=== PATIENT | female | born 1965 | race Caucasian/White ===

== ENCOUNTER → 2020-04-24 17:18 | Outpatient (CLI) | payer OTHER, SELFPAY ==
[2020-04-24 18:17] LABS: Alanine Aminotransferase 34 U/L (12-78); Albumin Level 4.7 g/dl (3.5-5.0); Albumin/Globulin Ratio 1.3 (1.1-1.8); Alkaline Phosphatase 149 U/L (38-126); Anion Gap 19.3 mEq/L (5-15); Aspartate Amino Transferase 61 U/L (14-36); Bilirubin,Direct 0.3 mg/dl (0.0-0.4); Bilirubin,Indirect 0.3 mg/dL (0.0-0.9); Bilirubin,Total 0.6 mg/dl (0.2-1.3); Bilirubin,Unconjugated 0.3 mg/dL (0.0-1.1); Blood Urea Nitrogen 20 mg/dl (7-17); Calcium 10.7 mg/dl (8.4-10.2); Carbon Dioxide 24 mmol/L (22.0-30.0); Chloride 101 mmol/L (98-107); Estimated Glomerular Filt Rate 65 ml/min (>60); GFR (African American) 79 ML/MIN (>60); Globulin 3.6 g/dL (1.3-3.2); Glucose 156 mg/dl (74-100); Potassium 4.3 mmoL/L (3.5-5.1); Sodium 140 mmol/L (136-145); Total Protein,Serum 8.3 g/dl (6.3-8.2)
[2020-04-26 11:34] LABS: Hep A Ab, IgM Negative (Negative); Hep A Ab, Total Positive (Negative); Hep B Core Ab, Total Negative (Negative)
[2020-04-27 12:30] LABS: Hep B Surface Ab, Qual Non Reactive (.); Hepatitis C Antibody 0.2 s/co ratio (0.0-0.9)
== END ==
PROVIDERS: Visit Provider Family Medicine
DX: E11.9 Type 2 diabetes mellitus without complications (principal); Z79.4 Long term (current) use of insulin
CPT/HCPCS: 80053; 80076; 83036; 86704; 86706; 86708; 87380

== ENCOUNTER → 2020-07-16 10:05 | Outpatient (CLI) | payer OTHER, SELFPAY ==
--- NOTE | 2020-07-16 10:07 | CA_ITS ---
APPROVED REPORT EXAM: Comprehensive 2D, Doppler, and color-flow Echocardiogram Wash Driller: Bonnie Kang RDCS Ht: 5 ft 5 in Wt: 216lbs BSA: 2.04 BP: 188/84 mmHg Indications: pre op eval,h/o chf,tia,htn,dm 2D Dimensions LVOT 1.61 cm (M/F) 1.5-2.5 M-Mode Dimensions RVDd 2.93 cm (0.9-2.6) LA Diam 3.88 cm (1.9-4.0) LVDd 4.55 cm (3.5-5.7) Ao Diam 3.24 cm (2.0-3.7) LVDs 2.59 cm (3.5-5.7) IVSd 0.00 cm (0.6-1.1) PWd 1.06 cm (0.6-1.1) EF (Teich) 74.30% FS 43.10% EDV (Teich) 94.90 mL ESV (Teich) 24.40 mL LV Diastology E Decel Time 283.00 (160-240 msec) E/A Ratio 0.8 MED E' 4.70 (< 7 cm/sec) E'/MED E' Ratio 15.15 (>14) LAT E' 6.60 (<10 cm/sec) E/LAT E' Ratio 10.79 (>14) Mitral Valve MV E Max Luke. 71.00 (40-130 cm/s) MV A Velocity 86.00 (40-130 cm/s) E/A Ratio 0.83 MV Decel. Time 283.00 (160-240 ms) MV PHT 83.00 ms Left Ventricle Left atrium is mildly enlarged, left ventricle is normal size, mild concentric left ventricular hypertrophy, visually estimated ejection fraction 55% with no regional wall motion abnormality, grade 1 diastolic dysfunction seen with tissue Doppler evidence of raise left atrial pressure. Right Ventricle Right atrium and right ventricle are mildly enlarged with normal contractility. Aortic Valve Aortic valve is minimally thickened and fibrosed, there is no aortic stenosis or aortic insufficiency. Mitral Valve Mitral valve is grossly normal, there is mild mitral regurgitation. Tricuspid Valve Tricuspid valve grossly normal, there is mild tricuspid regurgitation, tricuspid regurgitation jet velocity is inadequate for calculation of the right ventricular systolic pressure. Pulmonic Valve Pulmonic valve is poorly visualized. Great Vessels Aortic root is normal size. Pericardium No significant pericardial effusion noted. Conclusion 1. Mild biatrial enlargement, normal left ventricular size, mild concentric left ventricular hypertrophy, visually estimated ejection fraction 55% with no regional wall motion abnormality, grade 1 diastolic dysfunction seen with tissue Doppler evidence of raise left atrial pressure. 2. Mildly enlarged right ventricle with normal contractility 3. Mild mitral and tricuspid regurgitation. 4. No significant pericardial effusion noted. Electronically signed by : Alexy aVsquez, 07/16/2020 20:16:58
== END ==
PROVIDERS: PCP Family Medicine; Visit Provider Urology
DX: Z01.810 Encounter for preprocedural cardiovascular examination (principal); I11.9 Hypertensive heart disease without heart failure; I50.32 Chronic diastolic (congestive) heart failure
CPT/HCPCS: 93306

== ENCOUNTER → 2020-09-06 18:09 | Outpatient (CLI) | payer OTHER, SELFPAY ==
[2020-09-06 18:40] LABS: Basophils # 0.1 K/mm3 (0-0.2); Basophils % 0.7 % (0.1-2.0); Eosinophils # 0.3 K/mm3 (0.0-0.4); Eosinophils % 2.5 % (0.1-12.0); Hematocrit 47.8 % (37.0-47.0); Hemoglobin 14.7 g/dL (12.2-16.2); Lymphocytes # 3.5 K/mm3 (0.7-4.5); Lymphocytes % 29.5 % (10-50); Mean Corpuscular HGB Conc 30.8 g/dL (31.8-35.4); Mean Corpuscular Hemoglobin 26.9 pg (27.0-31.2); Mean Corpuscular Volume 87.1 fl (81-99); Mean Platelet Volume 8.4 fl (7.4-10.4); Monocytes # 0.5 K/mm3 (0.1-1.0); Monocytes % 4.2 % (1.7-9.3); Neutrophils # 7.5 K/mm3 (1.8-7.8); Neutrophils % 63.2 % (37.0-80.0); Platelet Count 264 K/mm3 (142-424); Red Blood Count 5.49 M/mm3 (4.20-5.40); Red Cell Distribution Width 13.9 % (11.5-17.5); White Blood Count 11.8 K/mm3 (4.8-10.8)
[2020-09-06 18:41] LABS: Creatinine,Urine Random 213 mg/dL (Not Estab.)
[2020-09-06 19:06] LABS: Alanine Aminotransferase 30 U/L (12-78); Albumin Level 4.2 g/dl (3.5-5.0); Albumin/Globulin Ratio 1.3 (1.1-1.8); Alkaline Phosphatase 158 U/L (38-126); Anion Gap 13.3 mEq/L (5-15); Aspartate Amino Transferase 46 U/L (14-36); Bilirubin,Total 0.9 mg/dl (0.2-1.3); Blood Urea Nitrogen 14 mg/dl (7-17); Carbon Dioxide 29 mmol/L (22.0-30.0); Chloride 96 mmol/L (98-107); Chol/HDL Ratio 3.8 (1-3.5); Cholesterol 216 mg/dl (140-200); Estimated Glomerular Filt Rate 87 ml/min (>60); GFR (African American) 105 ML/MIN (>60); Globulin 3.3 g/dL (1.3-3.2); Glucose 304 mg/dl (74-100); HDL Cholesterol 57 mg/dl (40-60); Potassium 4.3 mmoL/L (3.5-5.1); Sodium 134 mmol/L (136-145); Total Protein,Serum 7.5 g/dl (6.3-8.2); Triglycerides 199 mg/dl (30-150); VLDL Cholesterol 40 mg/dL (0-40)
[2020-09-06 19:13] LABS: Microalbumin/Creatinine Ratio 110.3
[2020-09-06 19:16] LABS: Direct LDL Cholesterol 123.07 mg/dL (100-129)
[2020-09-06 19:22] LABS: T4 (Thyroxine) 10.9 ug/dl (5.53-11.0)
[2020-09-06 19:36] LABS: Thyroid Stimulating Hormone 1.36 uIU/mL (0.465-4.68)
[2020-09-06 20:35] LABS: Hemoglobin A1C 12.1 % (4.0-6.0)
== END ==
PROVIDERS: Visit Provider Family Medicine
DX: E11.9 Type 2 diabetes mellitus without complications (principal); N39.0 Urinary tract infection, site not specified; Z79.4 Long term (current) use of insulin
CPT/HCPCS: 80053; 80061; 82043; 82570; 83036; 84436; 84443; 85025; 87086

== ENCOUNTER 2020-10-25 11:39 | Emergency (ER) | payer OTHER, SELFPAY ==
[2020-10-25 11:40] VITALS: BP 180/77; PULSE 73; RESP 20; O2SAT 97; BMI 35.3
--- NOTE | 2020-10-25 11:42 | ECG_ITS ---
APPROVED REPORT Exam: Resting ECG HR:74 bpm ECG Measurements Heart Rate 74 AXES MN 146 P 53 QRSd 68 QRS 43 QT 404 T 57 QTc 448 Conclusion Normal sinus rhythm Normal ECG Electronically signed by : Duglas Person, 10/26/2020 18:49:05
--- NOTE | 2020-10-25 11:43 | HMH.EDGENADL ---
ED Disposition Clinical Impression: Atypical chest pain Disposition: Home, Self-Care Condition on Discharge: Good Instructions: DI for Atypical Chest Pain Additional Instructions: Dr. Rodriguez has called in a prescription for antibiotic, fill that prescription and take as directed. Follow-up with him in his office in 2 weeks. Additional instructions for CHEST PAIN: Return immediately if worsening chest pain, vomiting, shortness of breath, fever, coughing of blood. Referrals: Louis Rodriguez MD [Primary Care Provider] - - Critical Care Critical Care Time: No Attestation: On 10/25/20, the high probability of a clinically significant, sudden or life threatening deterioration of the following system(s) required my full and direct attention, intervention and personal management. The time I documented below is in addition to time spent performing reported procedures but includes the following listed in this critical care notation. Medical Decision Making - Medical Records Medical records reviewed: Yes: I reviewed the patient's medical records. MR Comment: Reviewed office visit Dr. Rodriguez today - Jono Inquiry Pt receiving controlled substance: No Vital Signs: 10/25/20 11:40 10/25/20 12:29 10/25/20 13:01 Pulse Rate [Left Radial] 73 71 72 Respiratory Rate 20 16 18 Blood Pressure [Right Arm] 180/77 H 133/76 117/72 Blood Pressure Mean [Right Arm] 111 95 87 Blood Pressure Source [Right Arm] Automatic Cuff Blood Pressure Position [Right Arm] Sitting 02 Sat by Pulse Oximetry 97 96 96 Oxygen Delivery Method Room Air - Lab Data Lab results reviewed: Yes: I reviewed the patient's lab results. Lab Results 10/25/20 11:40: WBC 14.6 H, RBC 6.37 H, Hgb 17.3 H, Hct 53.7 H, MCV 84.2, MCH 27.1, MCHC 32.2, RDW 14.8, Plt Count 291, MPV 7.5, Neut % (Auto) 61.1, Lymph % (Auto) 31.4, [place] % (Auto) 5.0, Eos % (Auto) 1.9, Baso % (Auto) 0.7, Neut # (Auto) 8.9 H, Lymph # (Auto) 4.6 H, [place] # (Auto) 0.7, Eos # (Auto) 0.3, Baso # (Auto) 0.1 10/25/20 11:40: Sodium 137, Potassium 4.2, Chloride 92 L, Carbon Dioxide 34 H, Anion Gap 15.2 H, BUN 18 H, Creatinine 0.90, Estimated Creat Clear 104, Estimated GFR 65, Est GFR ( Amer) 79, Glucose 283 H, Calcium 10.5 H, Troponin I < 0.01 10/25/20 11:40: SARS-CoV-2 IgG Ab (Rapid) Negative, SARS-CoV-2 IgM Ab (Rapid) Negative Result diagrams: 10/25/20 11:40 10/25/20 11:40 Orders (Tests/Meds): ED MEDICATIONS Discontinued Medications Generic Name Dose Route Start Last Admin Trade Name Freq PRN Reason Stop Dose Admin Diphenhydramine HCl 25 mg 10/25/20 13:02 10/25/20 13:33 Diphenhydramine 50mg/Ml Vial IV 10/25/20 13:03 25 mg ONCE ONE Administration Iopamidol 70 ml 10/25/20 13:50 10/25/20 13:51 Iopamidol-370 (76%);100ml Bottle IV 10/25/20 13:51 70 ml ONCE ONE Administration Methylprednisolone Sodium Succinate 125 mg 10/25/20 13:02 10/25/20 13:33 Methylprednisolone Sod Succ 125mg Vial IV 10/25/20 13:03 125 mg ONCE ONE Administration Sodium Chloride 10 ml 10/25/20 13:49 10/25/20 13:50 Sodium Chloride 0.9% 10ml Syr (Rad Only) IV 10/25/20 13:50 10 ml ONCE ONE Administration Sodium Chloride 50 ml 10/25/20 13:49 10/25/20 13:50 0.9 % Sodium Chloride 50 Ml Vial IV 10/25/20 13:50 50 ml ONCE ONE Administration - Radiology Data #1 Image(s): Chest Image Reviewed: Yes I reviewed the patient's radiology image Preliminary Findings: Normal/NAD - CT Data CT Scan: Chest (CTA) Time Received: 14:[address] Reviewed: Yes: I have viewed the radiologist's interpretation Findings Narrative: PROCEDURE: CT ANGIO CHEST CLINCIAL INDICATION: chest pain Chest pain and shortness of air COMPARISON: No exams were available for comparison TECHNIQUE: IV Contrast: 70ML Isovue 370 Axial images obtained with sagittal and coronal reformats. All CT scans at the facility use one or more dose reduction, viz: automated exposure cont
--- NOTE | 2020-10-25 11:50 | XR_ITS ---
PROCEDURE: XR CHEST 2V CLINICAL HISTORY: pain COMPARISON: No exams were available for comparison FINDINGS: The cardiomediastinal silhouette and pulmonary vascularity are within normal limits. There is a calcified granuloma in the right lower lobe. No lobar consolidation or collapse is evident. There is fusion of the left 2nd 3rd ribs posteriorly IMPRESSION: No acute findings. Dictated by: Ernesto Lynn MD 10/25/2020 13:07 Ernesto Lynn MD in [place] 10/25/2020 13:07
[2020-10-25 12:02] LABS: Basophils # 0.1 K/mm3 (0-0.2); Basophils % 0.7 % (0.1-2.0); Eosinophils # 0.3 K/mm3 (0.0-0.4); Eosinophils % 1.9 % (0.1-12.0); Hematocrit 53.7 % (37.0-47.0); Hemoglobin 17.3 g/dL (12.2-16.2); Lymphocytes # 4.6 K/mm3 (0.7-4.5); Lymphocytes % 31.4 % (10-50); Mean Corpuscular HGB Conc 32.2 g/dL (31.8-35.4); Mean Corpuscular Hemoglobin 27.1 pg (27.0-31.2); Mean Corpuscular Volume 84.2 fl (81-99); Mean Platelet Volume 7.5 fl (7.4-10.4); Monocytes # 0.7 K/mm3 (0.1-1.0); Neutrophils # 8.9 K/mm3 (1.8-7.8); Neutrophils % 61.1 % (37.0-80.0); Platelet Count 291 K/mm3 (142-424); Red Blood Count 6.37 M/mm3 (4.20-5.40); Red Cell Distribution Width 14.8 % (11.5-17.5); White Blood Count 14.6 K/mm3 (4.8-10.8)
[2020-10-25 12:06] LABS: Anion Gap 15.2 mEq/L (5-15); Blood Urea Nitrogen 18 mg/dl (7-17); Calcium 10.5 mg/dl (8.4-10.2); Carbon Dioxide 34 mmol/L (22.0-30.0); Chloride 92 mmol/L (98-107); Creatinine Clearance Estimated 104 mL/min (50-200); Estimated Glomerular Filt Rate 65 ml/min (>60); GFR (African American) 79 ML/MIN (>60); Glucose 283 mg/dl (74-100); Potassium 4.2 mmoL/L (3.5-5.1); Sodium 137 mmol/L (136-145)
[2020-10-25 12:19] LABS: Troponin I < 0.01 ng/ml (0.00-0.034)
[2020-10-25 12:26] LABS: Coronavirus 19 IgG Antibody Negative (Negative); Coronavirus 19 IgM Antibody Negative (Negative)
[2020-10-25 12:29] VITALS: BP 133/76; PULSE 71; RESP 16; O2SAT 96
--- NOTE | 2020-10-25 12:59 | PC.NURSE ---
Dr Rodriguez called to speak with Dr Bear
[2020-10-25 13:01] VITALS: BP 117/72; PULSE 72; RESP 18; O2SAT 96
--- NOTE | 2020-10-25 13:03 | CT_ITS ---
PROCEDURE: CT ANGIO CHEST CLINCIAL INDICATION: chest pain Chest pain and shortness of air COMPARISON: No exams were available for comparison TECHNIQUE: IV Contrast: 70ML Isovue 370 Axial images obtained with sagittal and coronal reformats. All CT scans at the facility use one or more dose reduction, viz: automated exposure control, ma/kV adjustment per patient size (including targeted exams where dose is matched to indication, i.e. head), or iterative reconstruction technique. FINDINGS: HEART AND MEDIASTINAL STRUCTURES: Unremarkable. LUNGS AND PLEURAL SPACES: There are mild atelectatic changes in the right middle lobe. Minimal atelectasis fibrosis is present in the left apex. There is a calcified granuloma in the left upper lobe. Minimal atelectasis or fibrosis noted in the left lung base. There is a noncalcified nodule in the extreme right lung base in the right lower lobe centrally measuring 4 mm image 74 series 3. BONY STRUCTURES: Degenerative changes are present in the thoracic spine UPPER ABDOMEN: There is some scarring involving the right kidney. ADDITIONAL FINDINGS: Thyroid gland is somewhat prominent. A 5 mm hypodense nodules present in the right lobe posteriorly. IMPRESSION: 1. No acute finding. No evidence of pulmonary embolus. 2. Nonacute findings as described above including atelectatic changes or fibrosis as well as a 4 mm noncalcified nodule in the right lower lobe. 6-12 month follow-up may be of further value. Dictated by: Ernesto Lynn MD 10/25/2020 14:10 Ernesto Lynn MD in [facility] 10/25/2020 14:10
[2020-10-25 14:40] VITALS: BP 117/72; PULSE 72; RESP 18; TEMP 36.7; O2SAT 96
== END 2020-10-25 14:41 | disposition home or self-care (01) ==
PROVIDERS: Emergency Provider Emergency Medicine; PCP Family Medicine
DX: R07.89 Other chest pain (principal); E11.65 Type 2 diabetes mellitus with hyperglycemia; K21.9 Gastro-esophageal reflux disease without esophagitis; I10 Essential (primary) hypertension; I50.9 Heart failure, unspecified; Z79.899 Other long term (current) drug therapy
CPT/HCPCS: 71046; 71275; 80048; 84484; 85025; 86328; 93005; 96375; 99283; Q9967

== ENCOUNTER → 2020-10-25 13:36 | Outpatient (CLI) | payer OTHER, SELFPAY | PROVIDERS: Visit Provider Family Medicine | DX: N19 Unspecified kidney failure (principal) | CPT/HCPCS: 87086; 87088 ==

== ENCOUNTER → 2020-11-20 14:26 | Outpatient (CLI) | payer OTHER, SELFPAY ==
--- NOTE | 2020-11-20 14:26 | CT_ITS ---
PROCEDURE: CT ABDOMEN PELVIS WO CON CLINICAL INDICATION: kidney stone Bilat pain x several weeks, Hx kidney stones Hematuria No prior COMPARISON: CT CT ANGIO CHEST from 10/25/2020 TECHNIQUE: Axial images obtained with sagittal and coronal reformats. All CT scans at the facility use one or more dose reduction, viz: automated exposure control, ma/kV adjustment per patient size (including targeted exams where dose is matched to indication, i.e. head), or iterative reconstruction technique. FINDINGS: LOWER THORAX: No acute finding ABDOMEN & PELVIS: Fatty liver. Prior cholecystectomy. The spleen, adrenal glands, and pancreas have an unremarkable appearance. There are bilateral renal calculi with a 3 mm stone in the lower pole on the right and an 8 mm stone in the upper pole on the left. A 4-5 mm hyperdense nodules present in the upper pole posteriorly on the right. Faint low-density changes in the lower pole on the left may be due to small cyst. No ureteral calculi. No hydronephrosis. No evidence of appendicitis. There is colonic diverticulosis but no evidence of diverticulitis. No intestinal obstruction or free air. There is a small umbilical hernia which contains fat. There are post hysterectomy changes. There is thickening of the urinary bladder wall which may in part be due to nondistention. There is a blastic lesion involving the ilium on the right inferiorly measuring 2.8 cm. No bony expansion or destruction. This lesion is well-circumscribed without soft tissue component IMPRESSION: 1. Nonobstructing bilateral nephrolithiasis. No ureteral calculi. 2. Hyperdense nodule in the upper pole of the right kidney nonspecific possibly due to small hyperdense cyst. 3. Possible small cyst lower pole on the left at 7 mm. 4. 2.8 cm blastic lesion of the right ilium. Bone island, infection, or neoplasm is a consideration. Total body bone scan with emphasis on the pelvis may provide further evaluation. Dictated by: Ernesto Lynn MD 11/21/2020 15:43 Ernesto Lynn MD in [facility] 11/21/2020 15:43
== END ==
PROVIDERS: PCP Family Medicine; Visit Provider Urology
DX: N20.0 Calculus of kidney (principal)
CPT/HCPCS: 74176

== ENCOUNTER → 2020-11-22 17:22 | Outpatient (CLI) | payer OTHER, SELFPAY ==
[2020-11-22 17:40] LABS: Basophils # 0.1 K/mm3 (0-0.2); Basophils % 0.7 % (0.1-2.0); Eosinophils # 0.3 K/mm3 (0.0-0.4); Eosinophils % 3.1 % (0.1-12.0); Hematocrit 50.9 % (37.0-47.0); Hemoglobin 15.7 g/dL (12.2-16.2); Lymphocytes # 3.7 K/mm3 (0.7-4.5); Lymphocytes % 34.3 % (10-50); Mean Corpuscular HGB Conc 30.9 g/dL (31.8-35.4); Mean Corpuscular Hemoglobin 27.2 pg (27.0-31.2); Mean Corpuscular Volume 88.1 fl (81-99); Mean Platelet Volume 8.8 fl (7.4-10.4); Monocytes # 0.5 K/mm3 (0.1-1.0); Monocytes % 4.6 % (1.7-9.3); Neutrophils # 6.2 K/mm3 (1.8-7.8); Neutrophils % 57.4 % (37.0-80.0); Platelet Count 272 K/mm3 (142-424); Red Blood Count 5.77 M/mm3 (4.20-5.40); Red Cell Distribution Width 14.8 % (11.5-17.5); White Blood Count 10.9 K/mm3 (4.8-10.8)
[2020-11-22 17:57] LABS: Alanine Aminotransferase 25 U/L (12-78); Albumin Level 4.6 g/dl (3.5-5.0); Albumin/Globulin Ratio 1.4 (1.1-1.8); Alkaline Phosphatase 184 U/L (38-126); Anion Gap 14.2 mEq/L (5-15); Aspartate Amino Transferase 39 U/L (14-36); Bilirubin,Total 0.9 mg/dl (0.2-1.3); Blood Urea Nitrogen 11 mg/dl (7-17); Calcium 10.4 mg/dl (8.4-10.2); Carbon Dioxide 30 mmol/L (22.0-30.0); Chloride 98 mmol/L (98-107); Estimated Glomerular Filt Rate 74 ml/min (>60); GFR (African American) 90 ML/MIN (>60); Globulin 3.4 g/dL (1.3-3.2); Glucose 338 mg/dl (74-100); Potassium 4.2 mmoL/L (3.5-5.1); Sodium 138 mmol/L (136-145)
== END ==
PROVIDERS: Visit Provider Family Medicine
DX: I50.9 Heart failure, unspecified (principal)
CPT/HCPCS: 80053; 85025

== ENCOUNTER 2020-12-04 11:39 | Emergency (ER) | payer OTHER, SELFPAY ==
[2020-12-04] VITALS (7 sets, daily range): BP systolic 184–227; BP diastolic 76–94; PULSE 54–88; RESP 18; TEMP 36.6–36.9; O2SAT 98–100; BMI 34.1
--- NOTE | 2020-12-04 12:13 | HMH.EDGENADL ---
ED Disposition Clinical Impression: Abdominal pain Qualifiers: Abdominal location: right upper quadrant Qualified Code(s): R10.11 - Right upper quadrant pain Disposition: Home, Self-Care Condition on Discharge: Fair Instructions: DI for Acute Abdominal Pain Additional Instructions: You have been evaluated for right watch and abdominal pain. No clear source. Please continue to take anti-inflammatories. Follow-up with your primary care physician as soon as available. Return to the emergency department for any new or worsening symptoms. Referrals: Louis Rodriguez MD [Primary Care Provider] - Time of Disposition: 16:33 - Critical Care Critical Care Time: No Attestation: On 12/04/20, the high probability of a clinically significant, sudden or life threatening deterioration of the following system(s) required my full and direct attention, intervention and personal management. The time I documented below is in addition to time spent performing reported procedures but includes the following listed in this critical care notation. Medical Decision Making - Medical Records Medical records reviewed: Yes: I reviewed the patient's medical records. - Jono Inquiry Pt receiving controlled substance: No Vital Signs: 12/04/20 11:54 12/04/20 12:08 12/04/20 14:12 Temperature 98.4 F Temperature Source Oral Pulse Rate [Left Radial] 62 59 L 56 L Respiratory Rate 18 Blood Pressure [Right Arm] 215/76 H 220/90 H 227/85 H Blood Pressure Mean [Right Arm] 122 133 132 Blood Pressure Source [Right Arm] Automatic Cuff Automatic Cuff Automatic Cuff Blood Pressure Position [Right Arm] Sitting Sitting Sitting 02 Sat by Pulse Oximetry 98 99 100 Oxygen Delivery Method Room Air Room Air Room Air 12/04/20 15:03 12/04/20 16:30 Temperature Temperature Source Pulse Rate [Left Radial] 54 L 88 Respiratory Rate 18 Blood Pressure [Right Arm] 206/84 H 187/85 H Blood Pressure Mean [Right Arm] 124 119 Blood Pressure Source [Right Arm] Automatic Cuff Blood Pressure Position [Right Arm] Sitting 02 Sat by Pulse Oximetry 98 98 Oxygen Delivery Method Room Air Room Air - Lab Data Lab Results 12/04/20 12:04: Urine Color Yellow, Urine Appearance Clear, Urine pH 6.0, Ur Specific [place] 1.025, Urine Protein Negative, Urine Glucose (UA) 2+, Urine Ketones Negative, Urine Blood Trace-i, Urine Nitrate Negative, Urine Bilirubin Negative, Urine Urobilinogen 0.2, Ur Leukocyte Esterase Trace, Urine RBC Occasional, Urine WBC 3-5, Ur Squamous Epith Cells 3-5, Urine Bacteria None 12/04/20 12:04: WBC 10.3, RBC 5.51 H, Hgb 15.0, Hct 47.4 H, MCV 86.1, MCH 27.2, MCHC 31.6 L, RDW 14.7, Plt Count 228, MPV 7.5, Neut % (Auto) 59.0, Lymph % (Auto) 33.7, [place] % (Auto) 4.0, Eos % (Auto) 2.4, Baso % (Auto) 0.9, Neut # (Auto) 6.1, Lymph # (Auto) 3.5, [place] # (Auto) 0.4, Eos # (Auto) 0.3, Baso # (Auto) 0.1 12/04/20 12:04: Sodium 137, Potassium 3.9, Chloride 100, Carbon Dioxide 29, Anion Gap 11.9, BUN 12, Creatinine 0.80, Estimated Creat Clear 115, Estimated GFR 74, Est GFR ( Amer) 90, Glucose 306 H, Calcium 10.2, Total Bilirubin 0.7, AST 34, ALT 26, Alkaline Phosphatase 155 H, Total Protein 8.0, Albumin 4.6, Globulin 3.4 H, Albumin/Globulin Ratio 1.4 12/04/20 12:04: PT 10.3, INR 0.86 L, APTT 25.8 12/04/20 12:04: Lipase 29 Result diagrams: 12/04/20 12:04 12/04/20 12:04 Orders (Tests/Meds): ED MEDICATIONS Generic Name Dose Route Start Last Admin Trade Name Freq PRN Reason Stop Dose Admin Sodium Chloride 10 ml 12/04/20 14:26 12/04/20 14:28 Sodium Chloride 0.9% 10ml Syr (Rad Only) IV 01/03/21 14:25 10 ml NEEDED PRN Administration Maintain IV Site Discontinued Medications Generic Name Dose Route Start Last Admin Trade Name Freq PRN Reason Stop Dose Admin Iopamidol 75 ml 12/04/20 14:26 12/04/20 14:28 Iopamidol-370 (76%);100ml Bottle IV 12/04/20 14:27 75 ml ONCE ONE Administration Ketorolac Tromethamine 15 mg 03/09/
--- NOTE | 2020-12-04 12:17 | US_ITS ---
PROCEDURE: US ABDOMEN LIMITED CLINICAL INDICATION: RUQ pain, hx of tracey, WALTERS COMPARISON: CT CT ABDOMEN PELVIS WO CON from 11/20/2020 FINDINGS: PANCREAS: Pancreas is not well delineated due to overlying bowel gas. CT or MRI without and with contrast with pancreatic protocol may provide further evaluation if clinically desired. LIVER: Diffuse increased echogenicity of the liver with poor through transmission of sound consistent with hepatic steatosis. No focal liver lesion demonstrated. There is appropriate direction of blood flow within non dilated portal vein. RIGHT KIDNEY: Cortical thinning. No hydronephrosis GALLBLADDER: Prior cholecystectomy. Common bile duct normal at 4 mm.. IMPRESSION: Cholecystectomy with fatty liver and poor visualization of the pancreas Dictated by: Ernesto Lynn MD 12/04/2020 13:07 Ernesto Lnyn MD in [facility] 12/04/2020 13:07
--- NOTE | 2020-12-04 12:18 | XR_ITS ---
PROCEDURE: XR CHEST 2V CLINICAL HISTORY: RUQ pain COMPARISON: CR XR CHEST 2V from 10/25/[address] ANGIO CHEST from 10/25/2020 FINDINGS: The cardiomediastinal silhouette and pulmonary vascularity are within normal limits. The lungs are clear without infiltrates, suspicious nodules, or pleural effusions. No acute bony abnormalities. IMPRESSION: No acute findings. Dictated by: Ernesto Lynn MD 12/04/2020 13:09 Ernesto Lynn MD in [facility] 12/04/2020 13:09
[2020-12-04 12:19] LABS: Microscopic, Urine URINE MICROSCOPIC (MICROSCOPIC)
[2020-12-04 12:24] LABS: Basophils # 0.1 K/mm3 (0-0.2); Basophils % 0.9 % (0.1-2.0); Eosinophils # 0.3 K/mm3 (0.0-0.4); Eosinophils % 2.4 % (0.1-12.0); Hematocrit 47.4 % (37.0-47.0); Lymphocytes # 3.5 K/mm3 (0.7-4.5); Lymphocytes % 33.7 % (10-50); Mean Corpuscular HGB Conc 31.6 g/dL (31.8-35.4); Mean Corpuscular Hemoglobin 27.2 pg (27.0-31.2); Mean Corpuscular Volume 86.1 fl (81-99); Mean Platelet Volume 7.5 fl (7.4-10.4); Monocytes # 0.4 K/mm3 (0.1-1.0); Neutrophils # 6.1 K/mm3 (1.8-7.8); Platelet Count 228 K/mm3 (142-424); Red Blood Count 5.51 M/mm3 (4.20-5.40); Red Cell Distribution Width 14.7 % (11.5-17.5); White Blood Count 10.3 K/mm3 (4.8-10.8)
[2020-12-04 12:38] LABS: Appearance,Urine CLEAR (Clear); Bilirubin,Urine Negative (Negative); Blood, Urine TRACE-I (Negative); Color,Urine YELLOW (Yellow); Glucose,Urine (UA) 2+ (Negative); Ketones,Urine Negative (Negative); Leukocyte Esterase,Urine TRACE (Negative); Nitrate,Urine Negative (Negative); Protein,Urine Negative (Negative); Specific Gravity, Urine 1.025 (1.005-1.030); Urobilinogen,Urine 0.2 EU/dl (0.2)
[2020-12-04 12:49] LABS: Alanine Aminotransferase 26 U/L (12-78); Albumin Level 4.6 g/dl (3.5-5.0); Albumin/Globulin Ratio 1.4 (1.1-1.8); Alkaline Phosphatase 155 U/L (38-126); Anion Gap 11.9 mEq/L (5-15); Aspartate Amino Transferase 34 U/L (14-36); Bilirubin,Total 0.7 mg/dl (0.2-1.3); Blood Urea Nitrogen 12 mg/dl (7-17); Calcium 10.2 mg/dl (8.4-10.2); Carbon Dioxide 29 mmol/L (22.0-30.0); Chloride 100 mmol/L (98-107); Creatinine Clearance Estimated 115 mL/min (50-200); Estimated Glomerular Filt Rate 74 ml/min (>60); GFR (African American) 90 ML/MIN (>60); Globulin 3.4 g/dL (1.3-3.2); Glucose 306 mg/dl (74-100); Potassium 3.9 mmoL/L (3.5-5.1); Sodium 137 mmol/L (136-145)
[2020-12-04 12:58] LABS: RBC,Urine Occasional #/hpf (0-3)
--- NOTE | 2020-12-04 12:59 | PC.NURSE ---
Patient back from radiology at this time.
[2020-12-04 13:10] LABS: Lipase 29 U/L (23-300)
--- NOTE | 2020-12-04 13:46 | CT_ITS ---
PROCEDURE: CT ABDOMEN PELVIS W CON CLINICAL INDICATION: abdominal pain, RUQ Right upper quadrant abdominal pain COMPARISON: CT CT ABDOMEN PELVIS WO CON from 11/20/2020 TECHNIQUE: IV Contrast: 75ML Isovue 370 Oral Contrast None Axial images obtained with sagittal and coronal reformats. All CT scans at the facility use one or more dose reduction, viz: automated exposure control, ma/kV adjustment per patient size (including targeted exams where dose is matched to indication, i.e. head), or iterative reconstruction technique. FINDINGS: LOWER THORAX: Atelectatic change right lower lobe. ABDOMEN & PELVIS: Fatty liver. Prior cholecystectomy. The spleen and adrenal glands are unremarkable. There is pancreatic atrophy. 2 mm nonobstructing stone lower pole right kidney. 6 mm nonobstructing stone upper pole left kidney. No hydronephrosis. Bilateral renal cortical scarring. Small left-sided renal cysts. No intestinal obstruction or free air. No evidence of appendicitis or diverticulitis. Urinary bladder wall is thickened. Prior hysterectomy. A blastic areas present in the right ilium measuring 2.3 cm. This is not significantly changed. IMPRESSION: Bilateral nephrolithiasis with bilateral renal cortical scarring. No change blastic lesion of the ilium on the right There is moderate urinary bladder wall thickening which may be seen with incomplete distension, chronic outflow obstruction, or cystitis. Dictated by: Ernesto Lynn MD 12/04/2020 14:49 Ernesto Lynn MD in [facility] 12/04/2020 14:49
[2020-12-04 13:56] LABS: Activated Partial Thrombo Time 25.8 seconds (23.6-34.0); INR 0.86 (0.9-1.1); Prothrombin Time 10.3 seconds (9.4-11.8)
--- NOTE | 2020-12-04 16:48 | ECG_ITS ---
APPROVED REPORT Exam: Resting ECG HR:53 bpm ECG Measurements Heart Rate 53 AXES AR 184 P 41 QRSd 78 QRS 19 QT 470 T 74 QTc 441 Conclusion Sinus bradycardia Low voltage QRS Nonspecific T wave abnormality Abnormal ECG Electronically signed by : Duglas Person, 12/05/2020 07:02:18
[2020-12-04 17:33] LABS: Troponin I < 0.01 ng/ml (0.00-0.034)
== END 2020-12-04 17:41 | disposition home or self-care (01) ==
PROVIDERS: Emergency Provider Emergency Medicine; PCP Family Medicine
DX: R10.11 Right upper quadrant pain (principal); K76.0 Fatty (change of) liver, not elsewhere classified; I50.32 Chronic diastolic (congestive) heart failure; K21.9 Gastro-esophageal reflux disease without esophagitis; I10 Essential (primary) hypertension; E11.9 Type 2 diabetes mellitus without complications; Z87.442 Personal history of urinary calculi; Z79.899 Other long term (current) drug therapy
CPT/HCPCS: 71046; 74177; 76705; 80053; 81001; 83690; 84484; 85025; 85610; 85730; 93005; 96374; 96375; 99284; J2405; Q9967

== ENCOUNTER → 2020-12-04 15:16 | Outpatient (CLI) | payer OTHER, SELFPAY | PROVIDERS: Visit Provider Nurse Practitioner Family | DX: R10.9 Unspecified abdominal pain (principal) | CPT/HCPCS: 87086 ==

== ENCOUNTER → 2020-12-07 08:30 | Outpatient (CLI) | payer OTHER, SELFPAY ==
--- NOTE | 2020-12-07 08:38 | NM_ITS ---
PROCEDURE: NM BONE SCAN WHOLE BODY CLINICAL INDICATION: blastic lesion of right ilium COMPARISON: SD NM BONE SPECT from 12/07/2020 TECHNIQUE: Dose 25.6 mCi technetium MDP FINDINGS: Whole body images show symmetric activity within the skeleton with no hyper activity apparent except for the ankles which is nonspecific and may be due to arthritic changes. SPECT images were also performed showing soft increased activity in the right ilium corresponding to the blastic lesion on the CT scan. No photopenic areas are evident. IMPRESSION: There is only slight increased activity on the SPECT images in the right ilium in the region of the blastic lesion seen on the CT scan. This may represent a benign blastic focus. Consider 3 to six-month CT follow-up to confirm short term stability. Dictated by: Ernesto Lynn MD 12/18/2020 11:14 Ernesto Lynn MD in [place] 12/18/2020 11:14
--- NOTE | 2020-12-07 13:15 | NM_ITS ---
cc: Ernesto Lynn MD; Louis Rodriguez MD~ PROCEDURE: NM BONE SCAN WHOLE BODY CLINICAL INDICATION: blastic lesion of right ilium COMPARISON: NM NM BONE SPECT from 12/07/2020 TECHNIQUE: Dose 25.6 mCi technetium MDP FINDINGS: Whole body images show symmetric activity within the skeleton with no hyper activity apparent except for the ankles which is nonspecific and may be due to arthritic changes. SPECT images were also performed showing soft increased activity in the right ilium corresponding to the blastic lesion on the CT scan. No photopenic areas are evident. IMPRESSION: There is only slight increased activity on the SPECT images in the right ilium in the region of the blastic lesion seen on the CT scan. This may represent a benign blastic focus. Consider 3 to six-month CT follow-up to confirm short term stability. Dictated by: Ernesto Lynn MD 12/18/2020 11:14 Ernesto Lynn MD in [place] 12/18/2020 11:14 [facility]
== END ==
PROVIDERS: PCP Family Medicine; Visit Provider Family Medicine
DX: R93.5 Abnormal findings on diagnostic imaging of other abdominal regions, including retroperitoneum (principal)
CPT/HCPCS: 78306; 78803; A9503

== ENCOUNTER → 2021-03-12 13:30 | Outpatient (CLI) | payer OTHER, SELFPAY ==
[2021-03-12 13:50] LABS: Chloride 99 mmol/L (98-107); Potassium 4.7 mmoL/L (3.5-5.1); Sodium 138 mmol/L (136-145)
[2021-03-12 13:52] LABS: Blood Urea Nitrogen 16 mg/dl (7-17); Estimated Glomerular Filt Rate 87 ml/min (>60); GFR (African American) 105 ML/MIN (>60)
[2021-03-12 13:53] LABS: Alanine Aminotransferase 17 U/L (12-78); Albumin Level 4.3 g/dl (3.5-5.0); Albumin/Globulin Ratio 1.5 (1.1-1.8); Alkaline Phosphatase 131 U/L (38-126); Anion Gap 15.7 mEq/L (5-15); Aspartate Amino Transferase 26 U/L (14-36); Bilirubin,Total 0.7 mg/dl (0.2-1.3); Calcium 9.8 mg/dl (8.4-10.2); Carbon Dioxide 28 mmol/L (22.0-30.0); Globulin 2.9 g/dL (1.3-3.2); Glucose 241 mg/dl (74-100); Total Protein,Serum 7.2 g/dl (6.3-8.2)
== END ==
PROVIDERS: Visit Provider Family Medicine
DX: E11.9 Type 2 diabetes mellitus without complications (principal); Z79.4 Long term (current) use of insulin
CPT/HCPCS: 80053; 83036

== ENCOUNTER 2021-04-04 13:50 | Observation (INO) | payer OTHER, SELFPAY ==
[2021-04-04] VITALS (13 sets, daily range): BP systolic 120–174; BP diastolic 65–100; PULSE 67–105; RESP 16–20; TEMP 36.6–36.7; O2SAT 95–98; BMI 33.9; BMI 34.3
--- NOTE | 2021-04-04 13:46 | ECG_ITS ---
APPROVED REPORT Exam: Resting ECG HR:89 bpm ECG Measurements Heart Rate 89 AXES AR 146 P 37 QRSd 70 QRS 50 QT 378 T 48 QTc 459 Conclusion Normal sinus rhythm Normal ECG Electronically signed by : Duglas Person, 04/04/2021 17:41:49
--- NOTE | 2021-04-04 13:56 | XR_ITS ---
PROCEDURE: XR CHEST PORTABLE CLINICAL HISTORY: cp Chest pain COMPARISON: CT CT ANGIO CHEST from 10/25/2020 CR XR CHEST 2V from 10/25/2020 CR XR CHEST 2V from 12/04/2020 FINDINGS: The cardiomediastinal silhouette and pulmonary vascularity are within normal limits. Patchy density in the right perihilar region and right lung base medially which may be due to atelectasis or infiltrate. No acute bony abnormalities. IMPRESSION: Right perihilar and right basilar atelectasis or infiltrate Dictated by: Ernesto Lynn MD 04/04/2021 14:22 Ernesto Lynn MD in [place] 04/04/2021 14:22
--- NOTE | 2021-04-04 14:01 | HMH.EDGENADL ---
ED Disposition Clinical Impression: Community acquired pneumonia Qualifiers: Laterality: right Lung location: upper lobe of lung Qualified Code(s): J18.9 - Pneumonia, unspecified organism Hypertensive heart disease Qualifiers: Heart failure presence: with heart failure Heart failure type: diastolic Heart failure chronicity: chronic Qualified Code(s): I11.0 - Hypertensive heart disease with heart failure; I50.32 - Chronic diastolic (congestive) heart failure Disposition: Admitted as Observation Condition on Discharge: Fair Time of Disposition: 15:06 - Critical Care Critical Care Time: No Attestation: On , the high probability of a clinically significant, sudden or life threatening deterioration of the following system(s) required my full and direct attention, intervention and personal management. The time I documented below is in addition to time spent performing reported procedures but includes the following listed in this critical care notation. Medical Decision Making - Medical Records Medical records reviewed: Yes: I reviewed the patient's medical records. - Jono Inquiry Pt receiving controlled substance: No Vital Signs: 04/04/21 13:51 04/04/21 14:01 04/04/21 14:06 Temperature 98 F Temperature Source Oral Pulse Rate 81 105 H Pulse Rate [Radial] 85 Respiratory Rate 20 Blood Pressure 158/87 H 123/82 Blood Pressure [Right Arm] 174/100 H Blood Pressure Mean [Right Arm] 124 Blood Pressure Position Sitting Sitting Blood Pressure Position [Right Arm] Sitting 02 Sat by Pulse Oximetry 98 Oxygen Delivery Method Room Air 04/04/21 14:26 Temperature Temperature Source Pulse Rate 95 H Pulse Rate [Radial] Respiratory Rate Blood Pressure 120/83 Blood Pressure [Right Arm] Blood Pressure Mean [Right Arm] Blood Pressure Position Blood Pressure Position [Right Arm] 02 Sat by Pulse Oximetry Oxygen Delivery Method - Lab Data Lab results reviewed: Yes: I reviewed the patient's lab results. Lab Results 04/04/21 14:00: WBC 14.4 H, RBC 5.64 H, Hgb 15.4, Hct 45.9, MCV 81.3, MCH 27.4, MCHC 33.6, RDW 14.5, Plt Count 293, MPV 7.4, Neut % (Auto) 63.1, Lymph % (Auto) 30.6, [place] % (Auto) 4.3, Eos % (Auto) 1.1, Baso % (Auto) 0.9, Neut # (Auto) 9.1 H, Lymph # (Auto) 4.4, [place] # (Auto) 0.6, Eos # (Auto) 0.2, Baso # (Auto) 0.1 04/04/21 14:00: Sodium 136, Potassium 4.5, Chloride 94 L, Carbon Dioxide 30, Anion Gap 16.5 H, BUN 21 H, Creatinine 0.90, Estimated Creat Clear 102, Estimated GFR 65, Est GFR ( Amer) 78, Glucose 254 H, Calcium 10.0, Troponin I < 0.01 Result diagrams: 04/04/21 14:00 04/04/21 14:00 Orders (Tests/Meds): ED MEDICATIONS Generic Name Dose Route Start Last Admin Trade Name Freq PRN Reason Stop Dose Admin Azithromycin 500 mg/ Sodium 250 mls @ 250 mls/hr 04/04/21 15:00 Chloride IV 04/18/21 14:59 Q24H RHODA Protocol Ceftriaxone Sodium 1 gm/ 50 mls @ 100 mls/hr 04/04/21 15:00 Sodium Chloride IV 04/18/21 14:59 Q24H RHODA Protocol Nitroglycerin 0.4 mg 04/04/21 13:56 04/04/21 14:07 Nitroglycerin 0.4mg Sl Tablet SL 04/05/21 13:56 0.4 mg Q5MINP PRN Administration Chest Pain Discontinued Medications Generic Name Dose Route Start Last Admin Trade Name Freq PRN Reason Stop Dose Admin Aspirin 324 mg 04/04/21 13:56 04/04/21 13:59 Aspirin 81mg Chewable Tablet PO 04/04/21 13:57 Not Given ONCE ONE Ketorolac Tromethamine 15 mg 04/04/21 14:49 04/04/21 14:51 Ketorolac 30mg/Ml Vial IV 04/04/21 14:50 15 mg ONCE ONE Administration ORDERS Category Date Time Status BNP [Brain Natriuretic Peptide] Stat Lab 04/04/21 14:53 Ordered Liver Panel Stat Lab 04/04/21 14:54 Ordered Rapid PCR Covid and Flu A/B Stat Lab 04/04/21 14:49 Ordered Streptococcus pneumoniae Ag Stat Lab 04/04/21 14:56 Ordered Troponin I Q3H Lab 04/04/21 17:00 Ordered Troponin I Q3H Lab 04/04/21 20:00 Ordered Blood Culture Sta
[2021-04-04 14:13] LABS: Chloride 94 mmol/L (98-107)
[2021-04-04 14:14] LABS: Potassium 4.5 mmoL/L (3.5-5.1); Sodium 136 mmol/L (136-145)
[2021-04-04 14:15] LABS: Basophils # 0.1 K/mm3 (0-0.2); Basophils % 0.9 % (0.1-2.0); Eosinophils # 0.2 K/mm3 (0.0-0.4); Eosinophils % 1.1 % (0.1-12.0); Hematocrit 45.9 % (37.0-47.0); Hemoglobin 15.4 g/dL (12.2-16.2); Lymphocytes # 4.4 K/mm3 (0.7-4.5); Lymphocytes % 30.6 % (10-50); Mean Corpuscular HGB Conc 33.6 g/dL (31.8-35.4); Mean Corpuscular Hemoglobin 27.4 pg (27.0-31.2); Mean Corpuscular Volume 81.3 fl (81-99); Mean Platelet Volume 7.4 fl (7.4-10.4); Monocytes # 0.6 K/mm3 (0.1-1.0); Monocytes % 4.3 % (1.7-9.3); Neutrophils # 9.1 K/mm3 (1.8-7.8); Neutrophils % 63.1 % (37.0-80.0); Platelet Count 293 K/mm3 (142-424); Red Blood Count 5.64 M/mm3 (4.20-5.40); Red Cell Distribution Width 14.5 % (11.5-17.5); White Blood Count 14.4 K/mm3 (4.8-10.8)
[2021-04-04 14:16] LABS: Blood Urea Nitrogen 21 mg/dl (7-17); Creatinine Clearance Estimated 102 mL/min (50-200); Estimated Glomerular Filt Rate 65 ml/min (>60); GFR (African American) 78 ML/MIN (>60)
[2021-04-04 14:17] LABS: Anion Gap 16.5 mEq/L (5-15); Carbon Dioxide 30 mmol/L (22.0-30.0); Glucose 254 mg/dl (74-100)
[2021-04-04 14:32] LABS: Troponin I < 0.01 ng/ml (0.00-0.034)
--- NOTE | 2021-04-04 14:52 | PC.NURSE ---
Dr Ruby speaking to Dr Rodriguez.
[2021-04-04 15:04] LABS: Coronavirus 19, PCR Not Detected (NotDetected); Influenza A, PCR Not Detected (NotDetected); Influenza B, PCR Not Detected (NotDetected)
[2021-04-04 15:10] LABS: Alanine Aminotransferase 24 U/L (12-78); Albumin Level 4.9 g/dl (3.5-5.0); Alkaline Phosphatase 136 U/L (38-126); Aspartate Amino Transferase 33 U/L (14-36); Bilirubin,Direct 0.7 mg/dl (0.0-0.4); Bilirubin,Total 0.7 mg/dl (0.2-1.3); Total Protein,Serum 8.7 g/dl (6.3-8.2)
[2021-04-04 15:19] LABS: NT Pro Brain Natriuretic Pep. 59.2 pg/mL (0-125)
--- NOTE | 2021-04-04 15:22 | P.CONPHA_ITS ---
[facility] Pharmacy VTE Monitoring - Patient Demographics Admission date: 04/04/21 Report Date: 04/04/21 Time: 15:22 Allergies/Adverse Reactions: Patient Allergies lisinopril Allergy (Mild, Verified 04/04/21 12:55) Iodinated Contrast Media Allergy (Unknown, Verified 04/04/21 12:55) Height: 1.65 m Weight: 92.533 kg Patient Problems: Current Active Problems Community acquired pneumonia (Acute) Hypertensive heart disease (Acute) - VTE Risk Labs: VTE Related Lab Results Hgb 15.4 g/dL (12.2-16.2) 04/04/21 14:00 Hct 45.9 % (37.0-47.0) 04/04/21 14:00 Plt Count 293 K/mm3 (142-424) 04/04/21 14:00 BUN 21 mg/dl (7-17) H 04/04/21 14:00 Creatinine 0.90 mg/dl (0.52-1.04) 04/04/21 14:00 Estimated Creat Clear 102 mL/min (50-200) 04/04/21 14:00 - Prophylaxis VTE Prophylaxis Ordered?: Yes Types of VTE Prophylaxis: IPCS Thigh High, Pharmacological Location of Applied Device: Bilateral Lower Extremeties Pharmacologic Type: Enoxaparin
--- NOTE | 2021-04-04 15:49 | PC.NURSE ---
report called to floor
[2021-04-04 17:08] LABS: POC Glucose,Bedside 165 (70-110)
[2021-04-04 17:31] LABS: Troponin I < 0.01 ng/ml (0.00-0.034)
--- NOTE | 2021-04-04 18:46 | US_ITS ---
PROCEDURE INFORMATION: Exam: US Duplex Artery or Vein of the Abdominal and/or Reproductive Organs, Limited Exam date and time: 04/04/2021 6:46 PM Age: 55 years old Clinical indication: Abdominal tenderness; Prior surgery; Surgery date: 6+ months; Surgery type: Gb; Patient HX: Ruq pain HX of cirrhosis TECHNIQUE: Imaging protocol: Real-time duplex ultrasound scan of the arterial or venous flow of the abdomen and/or reproductive organs, with color Doppler flow and spectral waveform analysis with image documentation. Exam focused on the region of clinical interest. Duplex images were received to evaluate vascular conditions. Total images: 46 COMPARISON: US ABDOMEN LIMITED 12/04/2020 12:39 PM FINDINGS: Portal venous: Spectral sonography demonstrates patent portal vein with hepatopedal blood flow. However there is blunting of the normal respiratory phasicity on spectral waveform, indicating loss of normal compliance of the liver. IMPRESSION: Spectral sonography demonstrates patent portal vein with hepatopedal blood flow. However there is blunting of the normal respiratory phasicity on spectral waveform, indicating loss of normal compliance of the liver. This generally indicates underlying liver disease. Recommend correlation with liver function tests. COMMENTS: Please see grayscale imaging report below. PROCEDURE INFORMATION: Exam: US Abdomen, Limited; Right Upper Quadrant Exam date and time: 04/04/2021 6:46 PM Age: 55 years old Clinical indication: Abdominal tenderness; Prior surgery; Surgery date: 6+ months; Surgery type: Gb; Patient HX: Ruq pain HX of cirrhosis TECHNIQUE: Imaging protocol: US abdomen. Real time ultrasound with image documentation. Limited exam focused on the right upper quadrant. COMPARISON: US ABDOMEN LIMITED 12/04/2020 12:39 PM FINDINGS: Liver: Echogenic liver with poor acoustic transmission, likely significant fibrofatty changes. Gallbladder: Prior cholecystectomy noted. Common bile duct: Normal. No stones. No dilation. Pancreas: The pancreas is poorly-visualized due to overlying bowel gas. Right kidney: Right kidney 9.4 x 6.3 x 7.5 cm. Cortical thinning of the right kidney. No right kidney stone, mass or hydronephrosis. Portal venous: Doppler demonstrates hepatopedal blood flow in the portal vein. IMPRESSION: 1. Echogenic liver with poor acoustic transmission, likely significant fibrofatty changes. 2. No ascites 3. Cortical thinning of the right kidney, suggesting chronic medical renal disease.
--- NOTE | 2021-04-04 18:47 | PC.NURSE ---
Dr. Rauschs here this evening and rounding on pt. Did make him aware pt is still having angina and is nauseated. Continues on tele - nsr and troponins thus far have been negative.
--- NOTE | 2021-04-04 19:10 | HMH.HP ---
*Admission Date: 04/04/21 *Chief complaint: chest pain *History of present illness: Patient is a 55-year-old white female, known to me from the office, admitted for complaints of chest pain and weight gain. She relays that in the course of last night she gained 8 pounds of fluid, and presented to the office with chest pain and tightness in her neck. He was given sublingual nitro in the office, 650 of aspirin, and transported to the emergency room via EMS services. Her work-up in the ER included troponins which have been negative x2 and an EKG which showed normal sinus rhythm. Chest x-ray was performed which showed an infiltrative process. She was noted to have an elevated white count. Patient has a history of hypertensive heart disease and has been cathetered several times at [facility]. No stents have been deployed. She has comorbid diabetes which has been poorly controlled. Control recently has been a bit improved. Patient is followed by a health safety instructor in [facility], Dr. Dallas, who recently diagnosed her with stage IV liver cirrhosis. She has not had a biopsy. She experiences right upper quadrant pain which could represent some stretching of the hepatic capsule. Is known to have fatty infiltration of the liver. She is status post gallbladder surgery. Patient has a longstanding history of severe hypertension. Patient has a history of sepsis [facility] History Medical History: Reports:: Congestive Heart Failure, Diabetes Mellitus Type 2, Gastroesophageal Reflux Disease(GERD), Hypertension, Kidney Stones, Myocardial Infarction, Renal Disease, Transient Ischemic Attacks (TIA) Denies:: Cancer, MRSA *Have you ever received a pneumonia vaccine?: No *Have you received a flu vaccine this season?: Yes Other Medical History: Reports: Arthritis, Other Other Surgeries: Yes: Appendectomy, Cardiac Catheterization, Cholecystectomy, Colonoscopy, EGD, Hysterectomy-Total, Other Amputation: No Fractures: No - *Social History Smoking Status: Never smoker Alcohol Intake: never Substance Use Type: denies use *Occupational Status:: employed *Travel in the last 8 weeks: None Family Hx:: Hypertension, Diabetes Review of Systems - Constitutional Reports fatigue, Reports lack of energy, Reports weakness, Reports weight gain - Eyes Denies change in vision - ENT Denies abnormal hearing - *Cardiovascular Reports chest pain, Reports chest pain at rest, Reports shortness of breath, Reports generalized swelling, Reports leg swelling, Reports shortness of breath when lying down, Reports radiating jaw, neck or arm pain - *Respiratory Reports chest congestion, Reports shortness of breath - *Gastrointestinal Reports abdominal pain, Reports heartburn - *Genitourinary Denies painful urination - *Musculoskeletal Reports joint pain, Reports muscle weakness - Integumentary/Breasts Denies yellowing of the skin - *Neurologic Denies behavioral changes - Psychiatric Denies behavioral changes, Denies confusion - Endocrine Reports rapid, pounding, or irregular heartbeat - Hematologic/Lymphatic Denies easy bleeding, Denies easy bruising - Allergic/Immunologic Denies hives Meds Home Medications Medication Instructions Recorded Confirmed Type pantoprazole 40 mg tablet,delayed 40 mg PO DAILY 11/06/20 04/04/21 History release dicyclomine 10 mg capsule 10 mg PO Q4HP cap 01/21/21 04/04/21 History nitrofurantoin macrocrystal 50 mg 50 mg PO HS 01/21/21 04/04/21 History capsule spironolactone 25 mg tablet 25 mg PO BID 01/21/21 04/04/21 History amlodipine 5 mg tablet 5 mg PO DAILY 03/12/21 04/04/21 History atorvastatin 10 mg tablet 10 mg PO HS 03/12/21 04/04/21 History hydrocodone 7.5 mg-acetaminophen 1 tab PO Q8H PRN #20 tab 03/12/21 04/04/21 Rx 325 mg tablet ranolazine 500 mg tablet,extended 500 mg PO BID 03/12/21 04/04/21 History release,12 hr Insulin Glargine,Hum.rec.anlog 110 unit SQ QPM 04/04/21 04/04/21 History
[2021-04-04 19:49] LABS: POC Glucose,Bedside 168 (70-110)
--- NOTE | 2021-04-04 19:58 | CT_ITS ---
PROCEDURE INFORMATION: Exam: CT Chest Without Contrast; Diagnostic Exam date and time: 04/04/2021 7:58 PM Age: 55 years old Clinical indication: Shortness of breath and other: Generalized fluid retention; Patient HX: Possibly pneumonia per patient. Generalized fluid retention. ; Additional info: Md ordered TECHNIQUE: Imaging protocol: Diagnostic computed tomography of the chest without contrast. Total images: 277 Radiation optimization: All CT scans at this facility use at least one of these dose optimization techniques: automated exposure control; mA and/or kV adjustment per patient size (includes targeted exams where dose is matched to clinical indication); or iterative reconstruction. COMPARISON: CT ANGIO CHEST 10/25/2020 1:44 PM FINDINGS: Lungs: Benign granulomatous disease of the lung is noted. Linear right apical opacity favors a small focus of scar or atelectasis. Subpleural scarring and/or atelectasis. On axial image 55, unchanged 4 x 5 mm noncalcified right lower lobe pulmonary nodule. There is a background of benign granulomatous disease. Pleural spaces: Unremarkable. No pneumothorax. No pleural effusion. Heart: Unremarkable. No cardiomegaly. No pericardial effusion. Mediastinal space: A small sliding hiatal hernia is present. Aorta: Unremarkable. No aortic aneurysm. Lymph nodes: Unremarkable. No enlarged lymph nodes. Gallbladder and bile ducts: Prior cholecystectomy noted. Bones/joints: Thoracic spondylosis is present. Soft tissues: Unremarkable. IMPRESSION: 1. Linear right apical opacity favors a small focus of scar or atelectasis. Subpleural scarring and/or atelectasis. 2. No dense consolidation to suspect pneumonia. 3. On axial image 55, unchanged 4 x 5 mm noncalcified right lower lobe pulmonary nodule. There is a background of benign granulomatous disease. For patients at low risk (minimal or absent history of smoking and of other known risk factors), no routine follow-up is indicated. For patients at high risk (history of smoking or of other known risk factors), consider optional CT Chest at 12 months. (Reference: Milind) REFERENCES: Milind Flowers et al. Guidelines for Management of Incidental Pulmonary Nodules Detected on CT Images: From the Fleischner Society 2017. Radiology. 2017;284(1):228-243.
[2021-04-04 20:52] LABS: Troponin I < 0.01 ng/ml (0.00-0.034)
[2021-04-05] VITALS (10 sets, daily range): BP systolic 108–158; BP diastolic 58–77; PULSE 60–90; RESP 16–18; TEMP 36.6–36.8; O2SAT 93–100; BMI 34.3; BMI 34.1
--- NOTE | 2021-04-05 03:42 | PC.NURSE ---
Pt is A/Ox4. No acute changes this shift. Pt has slept well. C/O of pain and nausea x1 admin meds per MAR with relief. Pt is on RA with stats in high 90's-100%. IV is patent and SL. Pt is on cardiac cath rn showing normal sinus rhythm. Collected urine and sent to lab. VSS, pt is able to make needs known to staff. No concerns at this time.
[2021-04-05 05:15] LABS: POC Glucose,Bedside 170 (70-110)
[2021-04-05 06:33] LABS: Basophils # 0.1 K/mm3 (0-0.2); Basophils % 0.8 % (0.1-2.0); Eosinophils # 0.2 K/mm3 (0.0-0.4); Eosinophils % 1.2 % (0.1-12.0); Hematocrit 45.8 % (37.0-47.0); Hemoglobin 15.5 g/dL (12.2-16.2); Lymphocytes # 3.5 K/mm3 (0.7-4.5); Lymphocytes % 25.3 % (10-50); Mean Corpuscular HGB Conc 33.8 g/dL (31.8-35.4); Mean Corpuscular Hemoglobin 27.6 pg (27.0-31.2); Mean Corpuscular Volume 81.7 fl (81-99); Mean Platelet Volume 8.1 fl (7.4-10.4); Monocytes # 0.5 K/mm3 (0.1-1.0); Monocytes % 3.8 % (1.7-9.3); Neutrophils # 9.5 K/mm3 (1.8-7.8); Neutrophils % 68.8 % (37.0-80.0); Platelet Count 215 K/mm3 (142-424); Red Blood Count 5.61 M/mm3 (4.20-5.40); Red Cell Distribution Width 14.5 % (11.5-17.5); White Blood Count 13.9 K/mm3 (4.8-10.8)
--- NOTE | 2021-04-05 07:34 | HMH.CNCARD ---
History of Present Illness Consult date: 04/05/21 Requesting physician: Louis Rodriguez Consult reason: chest pain Chief complaint: Chest pain History of present illness: 55-year-old female admitted to facility due to midsternal chest pain and tightness. Patient states she was seen in the physician's office and expressed concern regarding her chest pain that she had been experiencing for the past few days. Patient states the chest pain had been radiating down the left arm and felt a tightness in her neck. Patient denies chest pain tightness or pressure during this assessment. Patient states she did have shortness of breath that accompanying the chest tightness. Patient continues to complain of shortness of breath.Patient did state the shortness of breath is no worse than usual. Slight swelling noted of the lower extremities. Patient states she was given Lasix 80 mg IV in the emergency room and only urinated 500 mL. Patient states she was told at one time that she has right-sided congestive heart failure, and had been on Lasix in the past. States the Lasix was stopped due to renal function. Patient's creatinine upon this admission 1.20. Patient is on spironolactone 25 mg p.o. twice daily for diastolic dysfunction. Patient denies palpitations or dizziness. Patient states she was admitted to [facility] and September 2020 for same complaint. Patient did undergo left heart catheterization at that time. Heart catheterization revealed left main coronary artery normal, left anterior descending was smooth 20% proximal and smooth 20% mid stenosis. Left circumflex moderate in size and normal and RCA large and dominant with mild irregularities. Normal left ventricular systolic function with an EF of 60% with no regional wall abnormality. Preliminary echocardiogram this a.m. revealed EF 60 to 65% with no regional wall abnormality, with mild MR and TR noted. Waiting on official results. Patient states that she was recently diagnosed with cirrhosis of the liver. Patient states it is stage IV. This is being managed by PCP. CT of the chest was ordered which revealed noncalcified right lower lobe pulmonary nodule no PE noted. Patient does state history of pulmonary hypertension. History of diabetes. History of hypertensive heart disease. During this admission, patient will need aggressive diuresing due to her fluid overload. Serial troponins were negative. EKG revealed normal sinus rhythm with a heart rate of 72 bpm. Patient is currently diagnosed with pneumonia. Management of pneumonia will be deferred to PCP. Echo Conclusion (07/17) 1. Mild biatrial enlargement, normal left ventricular size, mild concentric left ventricular hypertrophy, visually estimated ejection fraction 55% with no regional wall motion abnormality, grade 1 diastolic dysfunction seen with tissue Doppler evidence of raise left atrial pressure. 2. Mildly enlarged right ventricle with normal contractility 3. Mild mitral and tricuspid regurgitation. 4. No significant pericardial effusion noted. Chest CT:IMPRESSION: 1. Linear right apical opacity favors a small focus of scar or atelectasis. Subpleural scarring and/or atelectasis. 2. No dense consolidation to suspect pneumonia. 3. On axial image 55, unchanged 4 x 5 mm noncalcified right lower lobe pulmonary nodule. There is a background of benign granulomatous disease. For patients at low risk (minimal or absent history of smoking and of other known risk factors), no routine follow-up is indicated. For patients at high risk (history of smoking or of other known risk factors), consider optional CT Chest at 12 months. (Reference: Milind) Discussed with Dr. Pratt. Orders and recommendations were received from Dr. Pratt. We will give Lasix 40 mg IV x1 dose now. Will start patient on 40 mg daily along with spironolactone 25 mg twice daily due to congestive heart failure and diastolic d
[2021-04-05 07:41] LABS: Anion Gap 18.2 mEq/L (5-15); Blood Urea Nitrogen 29 mg/dl (7-17); Calcium 9.4 mg/dl (8.4-10.2); Carbon Dioxide 35 mmol/L (22.0-30.0); Chloride 91 mmol/L (98-107); Creatinine Clearance Estimated 77 mL/min (50-200); Estimated Glomerular Filt Rate 46 ml/min (>60); GFR (African American) 56 ML/MIN (>60); Glucose 158 mg/dl (74-100); Potassium 4.2 mmoL/L (3.5-5.1); Sodium 140 mmol/L (136-145)
--- NOTE | 2021-04-05 08:55 | HMH.ACPN2 ---
Internal Medicine - PN: Subj *Date: 04/05/21 *Time: 08:58 Interval history: 55-year-old female patient sitting up beside the bed eating breakfast, she denies any nausea. Oxygen saturations 100% on 2 L, she denies being on home oxygen. She does report some shortness of breath and midsternal chest pain/pressure during the night she reports radiation through to her back and reports it as a squeezing. She denies any pain/pressure this morning, cardiology consulted. Exam Vital signs and Labs for Last 24 Hours: Temp Pulse Resp BP Pulse Ox 98.1 F 62 18 158/75 H 99 04/05/21 07:12 04/05/21 07:12 04/05/21 07:12 04/05/21 07:12 04/05/21 07:12 Laboratory Results - last 24 hr 04/04/21 14:00: WBC 14.4 H, RBC 5.64 H, Hgb 15.4, Hct 45.9, MCV 81.3, MCH 27.4, MCHC 33.6, RDW 14.5, Plt Count 293, MPV 7.4, Neut % (Auto) 63.1, Lymph % (Auto) 30.6, Dixie % (Auto) 4.3, Eos % (Auto) 1.1, Baso % (Auto) 0.9, Neut # (Auto) 9.1 H, Lymph # (Auto) 4.4, Dixie # (Auto) 0.6, Eos # (Auto) 0.2, Baso # (Auto) 0.1 04/04/21 14:00: Sodium 136, Potassium 4.5, Chloride 94 L, Carbon Dioxide 30, Anion Gap 16.5 H, BUN 21 H, Creatinine 0.90, Estimated Creat Clear 102, Estimated GFR 65, Est GFR ( Amer) 78, Glucose 254 H, Calcium 10.0, Troponin I < 0.01 04/04/21 14:00: NT-Pro-B Natriuret Pep 59.2 04/04/21 14:00: Total Bilirubin 0.7, Direct Bilirubin 0.7 H, Conjugated Bilirubin 0.0, Indirect Bilirubin 0.0, Unconjugated Bilirubin 0.0, AST 33, ALT 24, Alkaline Phosphatase 136 H, Total Protein 8.7 H, Albumin 4.9 04/04/21 14:52: SARS-CoV-2 (PCR) Not detected, Influenza A Untype (PCR) Not detected, Influenza Type B (PCR) Not detected 04/04/21 15:03: Lactate 2.0 04/04/21 16:24: POC Glucose 165 H 04/04/21 17:01: Troponin I < 0.01 04/04/21 19:41: POC Glucose 168 H 04/04/21 20:15: Troponin I < 0.01 04/05/21 05:06: POC Glucose 170 H 04/05/21 06:21: WBC 13.9 H, RBC 5.61 H, Hgb 15.5, Hct 45.8, MCV 81.7, MCH 27.6, MCHC 33.8, RDW 14.5, Plt Count 215 D, MPV 8.1, Neut % (Auto) 68.8, Lymph % (Auto) 25.3, Dixie % (Auto) 3.8, Eos % (Auto) 1.2, Baso % (Auto) 0.8, Neut # (Auto) 9.5 H, Lymph # (Auto) 3.5, Dix[place] # (Auto) 0.5, Eos # (Auto) 0.2, Baso # (Auto) 0.1 04/05/21 07:24: Sodium 140, Potassium 4.2, Chloride 91 L, Carbon Dioxide 35 H, Anion Gap 18.2 H, BUN 29 H D, Creatinine 1.20 H D, Estimated Creat Clear 77, Estimated GFR 46 L, Est GFR ( Amer) 56 L D, Glucose 158 H D, Calcium 9.4 I & O for Last 24 hours: Intake & Output 04/02/21 04/03/21 04/04/21 04/05/21 23:59 23:59 23:59 23:59 Intake Total 0 / 120 720 / 720 Balance 0 / 120 720 / 720 Weight 206 lb 4 oz 205 lb 0.478 oz - Constitutional no acute distress - *Routine HEENT Exam Head: Present: normocephalic Eye: Present: EOMI ENT: Present: mucous membranes moist - *Routine Neck Exam Present: supple. Absent: tracheal deviation - *Routine Respiratory Exam Present: CTA bilaterally. Absent: accessory muscle use - *Routine Cardiovascular Exam Present: RRR - *Routine Abdominal Exam Present: soft, normoactive bowel sounds. Absent: tenderness, rigid - *Routine Extremities Exam Present: edema, full ROM, pulses intact. Absent: cyanosis, clubbing - *Routine Skin Exam Present: intact, dry, warm. Absent: cyanosis, erythema - *Routine Neurological Exam Present: alert, oriented X3. Absent: motor deficit - Routine Psychiatric Exam Present: normal affect, normal thought process. Absent: auditory hallucinations, visual hallucinations Assessment and Plan (1) Community acquired pneumonia Status: Acute Qualifiers: Laterality: right Lung location: upper lobe of lung Qualified Code(s): J18.9 - Pneumonia, unspecified organism Category: Medical Code(s): J18.9 - Pneumonia, unspecified organism (2) Hypertensive heart disease Status: Acute Qualifiers: Heart failure presence: with heart failure Heart failure type: diastolic Heart failure chronicity: chronic Qualified Code(s): I
[2021-04-05 10:48] LABS: POC Glucose,Bedside 211 (70-110)
[2021-04-05 16:48] LABS: POC Glucose,Bedside 203 (70-110)
--- NOTE | 2021-04-05 16:48 | PC.NURSE ---
Pt has been pleasant and cooperative this shift. A&O X4. Pt has had frequent complaints of rib/chest/back pain this shift and has been medicated with Arbuckle+Morphine per MAR with favorable results. Pt is on room air with sats. >90%. Lungs CTA. No edema noted. Pt ambulates independently to/from the bathroom and throughout the room. Pt voids clear, yellow urine without issue. No BM this shift. Telemetry reveals NSR. FSBS results have been 211 and 203, both of which have required insulin coverage per MAR. 18 G peripheral IV in the RT forearm is patent and SL. 20 G peripheral IV in the RT AC is patent and SL. VSS. Call light within reach. Will continue to monitor.
[2021-04-05 18:50] LABS: Microscopic, Urine URINE MICROSCOPIC (MICROSCOPIC)
[2021-04-05 18:52] LABS: Appearance,Urine CLOUDY (Clear); Bilirubin,Urine Negative (Negative); Blood, Urine TRACE-I (Negative); Color,Urine DK YELLOW (Yellow); Glucose,Urine (UA) Negative (Negative); Ketones,Urine Negative (Negative); Leukocyte Esterase,Urine 1+ (Negative); Nitrate,Urine Negative (Negative); PH,Urine 5.5 (5.0-8.5); Protein,Urine Negative (Negative); Specific Gravity, Urine >= 1.030 (1.005-1.030); Urobilinogen,Urine 0.2 EU/dl (0.2)
[2021-04-05 19:14] LABS: Bacteria,Urine 2+ /lpf; WBC,Urine 20-50 #/hpf (0-3)
[2021-04-05 21:13] LABS: POC Glucose,Bedside 303 (70-110)
[2021-04-06] VITALS (8 sets, daily range): BP systolic 114–143; BP diastolic 49–79; PULSE 60–85; RESP 16–18; TEMP 36.5–37.2; O2SAT 90–97; BMI 34.2
--- NOTE | 2021-04-06 03:19 | PC.NURSE ---
shift summary pt is alert and oriented X4. lung sounds clear with sats maintained 90% or above on room air. pt is able to ambulate to restroom unassisted urine is clear and yellow in color. pt has slept comfortably during this shift. pt has had no complaints of pain, nausea, vomiting, or diarrhea. no acute changes will continue to monitor.
[2021-04-06 05:02] LABS: POC Glucose,Bedside 102 (70-110)
[2021-04-06 07:24] LABS: Anion Gap 11.8 mEq/L (5-15); Blood Urea Nitrogen 38 mg/dl (7-17); Calcium 9.2 mg/dl (8.4-10.2); Carbon Dioxide 34 mmol/L (22.0-30.0); Chloride 94 mmol/L (98-107); Creatinine Clearance Estimated 71 mL/min (50-200); Estimated Glomerular Filt Rate 42 ml/min (>60); GFR (African American) 51 ML/MIN (>60); Glucose 125 mg/dl (74-100); Potassium 3.8 mmoL/L (3.5-5.1); Sodium 136 mmol/L (136-145)
--- NOTE | 2021-04-06 09:30 | HMH.ACPN2 ---
Internal Medicine - PN: Subj *Date: 04/07/21 *Time: 08:30 Interval history: pt with rt cvat tenderness and has abn u/a and pending culture - Exam Vital signs and Labs for Last 24 Hours: Temp Pulse Resp BP Pulse Ox 97.7 F 76 16 143/66 H 97 04/06/21 07:59 04/06/21 07:59 04/06/21 07:59 04/06/21 07:59 04/06/21 07:59 Laboratory Results - last 24 hr 04/05/21 10:35: POC Glucose 211 H 04/05/21 16:36: POC Glucose 203 H 04/05/21 18:42: Urine Color Dk yellow, Urine Appearance Cloudy, Urine pH 5.5, Ur Specific [place] >= 1.030, Urine Protein Negative, Urine Glucose (UA) Negative, Urine Ketones Negative, Urine Blood Trace-i, Urine Nitrate Negative, Urine Bilirubin Negative, Urine Urobilinogen 0.2, Ur Leukocyte Esterase 1+ A, Urine RBC 10-20, Urine WBC 20-50, Ur Squamous Epith Cells 3-5, Urine Bacteria 2+ 04/05/21 20:34: POC Glucose 303 H* 04/06/21 04:53: POC Glucose 102 04/06/21 06:51: Sodium 136, Potassium 3.8, Chloride 94 L, Carbon Dioxide 34 H, Anion Gap 11.8, BUN 38 H D, Creatinine 1.30 H, Estimated Creat Clear 71, Estimated GFR 42 L, Est GFR ( Amer) 51 L, Glucose 125 H D, Calcium 9.2 I & O for Last 24 hours: Intake & Output 04/03/21 04/04/21 04/05/21 04/06/21 11:59 11:59 11:59 11:59 Intake Total 720 / 720 1260 / 1260 Output Total 501 / 501 Balance 720 / 720 759 / 759 Weight 205 lb 0.478 oz 205 lb 12.471 oz - Constitutional no acute distress, obese - *Routine HEENT Exam Head: Present: normocephalic Eye: Present: EOMI, PERRL ENT: Present: mucous membranes dry - *Routine Neck Exam Absent: JVD - *Routine Respiratory Exam Present: CTA bilaterally - *Routine Cardiovascular Exam Present: RRR - *Routine Abdominal Exam Present: soft - *Routine Extremities Exam Absent: calf tenderness - *Routine Skin Exam Present: intact - *Routine Neurological Exam Present: alert, CN II-XII intact - Routine Psychiatric Exam Present: normal affect Assessment and Plan (1) Community acquired pneumonia Status: Acute Qualifiers: Laterality: right Lung location: upper lobe of lung Qualified Code(s): J18.9 - Pneumonia, unspecified organism Category: Medical Code(s): J18.9 - Pneumonia, unspecified organism (2) Hypertensive heart disease Status: Acute Qualifiers: Heart failure presence: with heart failure Heart failure type: diastolic Heart failure chronicity: chronic Qualified Code(s): I11.0 - Hypertensive heart disease with heart failure; I50.32 - Chronic diastolic (congestive) heart failure Category: Medical Code(s): I11.9 - Hypertensive heart disease without heart failure (3) Abdominal pain Status: Acute Qualifiers: Abdominal location: right upper quadrant Qualified Code(s): R10.11 - Right upper quadrant pain Category: Medical Code(s): R10.9 - Unspecified abdominal pain (4) Chest pain Status: Acute Qualifiers: Chest pain type: unspecified Qualified Code(s): R07.9 - Chest pain, unspecified Category: Medical Code(s): R07.9 - Chest pain, unspecified (5) Chronic back pain greater than 3 months duration Status: Acute Category: Medical Code(s): M54.9 - Dorsalgia, unspecified; G89.29 - Other chronic pain (6) Erosive osteoarthritis of multiple sites Status: Acute Category: Medical Code(s): M15.4 - Erosive (osteo)arthritis (7) Fatty liver disease, nonalcoholic Status: Acute Category: Medical Code(s): K76.0 - Fatty (change of) liver, not elsewhere classified (8) History of sepsis Status: Acute Category: Medical Code(s): Z86.19 - Personal history of other infectious and parasitic diseases (9) Liver cirrhosis Status: Acute Qualifiers: Hepatic cirrhosis type: unspecified hepatic cirrhosis Ascites presence: with ascites Qualified Code(s): K74.60 - Unspecified cirrhosis of liver; R18.8 - Other ascites Category: Medical Code(s): K74.60 - Unspecified cirrhosis of liver (10) St
--- NOTE | 2021-04-06 09:31 | CT_ITS ---
PROCEDURE INFORMATION: Exam: CT Abdomen And Pelvis Without Contrast Exam date and time: 04/06/2021 9:31 AM Age: 55 years old Clinical indication: Mass, lump, or swelling; Prior surgery; Surgery date: 6+ months; Surgery type: RT kidney surgery removed large stone. Scar RT flank; Patient HX: Knot and pain RT flank. Marked with a bb marker; Additional info: Flank pain TECHNIQUE: Imaging protocol: Computed tomography of the abdomen and pelvis without contrast. Radiation optimization: All CT scans at this facility use at least one of these dose optimization techniques: automated exposure control; mA and/or kV adjustment per patient size (includes targeted exams where dose is matched to clinical indication); or iterative reconstruction. COMPARISON: CT ABDOMEN PELVIS W CON 12/04/2020 2:22 PM FINDINGS: Lungs: Granulomatous density noted within the right lung base. Liver: Normal. No mass. Gallbladder and bile ducts: There has been a cholecystectomy. Pancreas: Mild pancreatic atrophy is present. Spleen: The spleen demonstrates punctate calcifications, consistent with remote granulomatous organism exposure. Adrenal glands: Normal. No mass. Kidneys and ureters: Mild perinephric fat stranding bilaterally. No renal calcifications or obstructive uropathy. Stomach and bowel: A large amount of stool is noted throughout the colon. Appendix: No evidence of appendicitis. Intraperitoneal space: Normal. No significant fluid collection. Vasculature: Unremarkable. No abdominal aortic aneurysm. Lymph nodes: Unremarkable. No enlarged lymph nodes. Urinary bladder: Unremarkable as visualized. Reproductive: There has been a hysterectomy. Bones/joints: The lumbar spine demonstrates mild degenerative changes at multiple levels. Soft tissues: Mild fat stranding noted within the posterior soft tissues near the area of interest. Other findings: Area of increased density is again noted within the right ilium, similar to the prior study. IMPRESSION: 1. Area of increased density is again noted within the right ilium, similar to the prior study. 2. Mild perinephric fat stranding bilaterally. 3. No renal calcifications or obstructive uropathy. 4. Mild fat stranding noted within the posterior soft tissues near the area of interest. 5. A large amount of stool is noted throughout the colon.
[2021-04-06 11:22] LABS: POC Glucose,Bedside 276 (70-110)
[2021-04-06 16:57] LABS: POC Glucose,Bedside 352 (70-110)
--- NOTE | 2021-04-06 17:01 | PC.NURSE ---
Pt has been pleasant and cooperative this shift. A&O X4. Pt has had frequent complaints of lower back pain this shift and has been medicated with [place]+Morphine per MAR with favorable results. Pt is on room air with sats. >90%. Lungs CTA. No edema noted. Pt ambulates independently to/from the bathroom and throughout the room. Pt voids clear, yellow urine without issue. No BM this shift. FSBS results have been 276 and 352, both of which have required insulin coverage per NOV. Pt has been instructed to provide a sputum sample and a specimen cup is at bedside. 18 G peripheral IV in the RT forearm is patent and SL. 20 G peripheral IV in the RT AC is patent and SL. VSS. Call light within reach. Will continue to monitor.
[2021-04-06 20:19] LABS: POC Glucose,Bedside 272 (70-110)
[2021-04-07 04:00] VITALS: BP 112/53; PULSE 80; RESP 18; TEMP 36.5; O2SAT 96
--- NOTE | 2021-04-07 04:39 | PC.NURSE ---
shift summary pt is alert and oriented X4. lung sounds clear with sats maintained 90% or above on room air. pt is able to ambulate to restroom unassisted urine is clear and yellow in color. pt has complained of pain 3 times during this shift that was relieved with pain meds. pt has slept comfortably during this shift. pt has had no complaints of nausea, vomiting, or diarrhea. no acute changes will continue to monitor.
[2021-04-07 05:00] VITALS: BMI 34.2
[2021-04-07 05:19] LABS: POC Glucose,Bedside 110 (70-110)
[2021-04-07 08:00] VITALS: BP 133/63; PULSE 69; RESP 17; TEMP 36.4; O2SAT 98
--- NOTE | 2021-04-07 10:08 | HMH.ACPN2 ---
Internal Medicine - PN: Subj *Date: 04/08/21 *Time: 07:45 Interval history: pt looks better and has ongoing rt flank pain with area on ct noted - labs pending - Exam Vital signs and Labs for Last 24 Hours: Temp Pulse Resp BP Pulse Ox 97.5 F L 69 17 133/63 98 04/07/21 08:00 04/07/21 08:00 04/07/21 08:00 04/07/21 08:00 04/07/21 08:00 Laboratory Results - last 24 hr 04/06/21 11:09: POC Glucose 276 H 04/06/21 16:47: POC Glucose 352 H* 04/06/21 20:10: POC Glucose 272 H 04/07/21 05:00: POC Glucose 110 I & O for Last 24 hours: Intake & Output 04/04/21 04/05/21 04/06/21 04/07/21 11:59 11:59 11:59 11:59 Intake Total 720 / 720 1260 / 1260 1260 / 1260 Output Total 501 / 501 Balance 720 / 720 759 / 759 1260 / 1260 Weight 205 lb 0.478 oz 205 lb 12.471 oz 205 lb 5 oz Microbiology Reports for the Last 24 Hours: Microbiology 04/05/21 18:42 Urine,Clean Catch Urine Culture - Preliminary NO GROWTH AFTER 24 HOURS 04/04/21 15:17 Blood Blood Culture - Preliminary NO GROWTH AFTER 48 HOURS 04/04/21 15:03 Blood Blood Culture - Preliminary NO GROWTH AFTER 48 HOURS - Constitutional no acute distress, obese - *Routine HEENT Exam Head: Present: normocephalic Eye: Present: EOMI, PERRL ENT: Present: mucous membranes dry - *Routine Neck Exam Absent: JVD - *Routine Respiratory Exam Present: decreased breath sounds - *Routine Cardiovascular Exam Present: RRR, murmur - *Routine Abdominal Exam Present: soft - *Routine Extremities Exam Absent: calf tenderness - *Routine Skin Exam Present: intact - *Routine Neurological Exam Present: alert, CN II-XII intact - Routine Psychiatric Exam Present: normal affect Assessment and Plan (1) Community acquired pneumonia Status: Acute Qualifiers: Laterality: right Lung location: upper lobe of lung Qualified Code(s): J18.9 - Pneumonia, unspecified organism Category: Medical Code(s): J18.9 - Pneumonia, unspecified organism (2) Hypertensive heart disease Status: Acute Qualifiers: Heart failure presence: with heart failure Heart failure type: diastolic Heart failure chronicity: chronic Qualified Code(s): I11.0 - Hypertensive heart disease with heart failure; I50.32 - Chronic diastolic (congestive) heart failure Category: Medical Code(s): I11.9 - Hypertensive heart disease without heart failure (3) Abdominal pain Status: Acute Qualifiers: Abdominal location: right upper quadrant Qualified Code(s): R10.11 - Right upper quadrant pain Category: Medical Code(s): R10.9 - Unspecified abdominal pain (4) Chest pain Status: Acute Qualifiers: Chest pain type: unspecified Qualified Code(s): R07.9 - Chest pain, unspecified Category: Medical Code(s): R07.9 - Chest pain, unspecified (5) Chronic back pain greater than 3 months duration Status: Acute Category: Medical Code(s): M54.9 - Dorsalgia, unspecified; G89.29 - Other chronic pain (6) Erosive osteoarthritis of multiple sites Status: Acute Category: Medical Code(s): M15.4 - Erosive (osteo)arthritis (7) Fatty liver disease, nonalcoholic Status: Acute Category: Medical Code(s): K76.0 - Fatty (change of) liver, not elsewhere classified (8) History of sepsis Status: Acute Category: Medical Code(s): Z86.19 - Personal history of other infectious and parasitic diseases (9) Liver cirrhosis Status: Acute Qualifiers: Hepatic cirrhosis type: unspecified hepatic cirrhosis Ascites presence: with ascites Qualified Code(s): K74.60 - Unspecified cirrhosis of liver; R18.8 - Other ascites Category: Medical Code(s): K74.60 - Unspecified cirrhosis of liver (10) Steatohepatitis Status: Acute Category: Medical Code(s): K75.81 - Nonalcoholic steatohepatitis ([place]) (11) Chronic diastolic (congestive) hear
[2021-04-07 11:35] LABS: POC Glucose,Bedside 206 (70-110)
[2021-04-07 12:19] LABS: Basophils # 0.1 K/mm3 (0-0.2); Basophils % 0.7 % (0.1-2.0); Eosinophils # 0.2 K/mm3 (0.0-0.4); Eosinophils % 1.2 % (0.1-12.0); Hematocrit 44.5 % (37.0-47.0); Hemoglobin 14.8 g/dL (12.2-16.2); Lymphocytes # 3.3 K/mm3 (0.7-4.5); Lymphocytes % 26.5 % (10-50); Mean Corpuscular HGB Conc 33.3 g/dL (31.8-35.4); Mean Corpuscular Hemoglobin 27.6 pg (27.0-31.2); Mean Corpuscular Volume 83.1 fl (81-99); Mean Platelet Volume 7.5 fl (7.4-10.4); Monocytes # 0.5 K/mm3 (0.1-1.0); Monocytes % 3.9 % (1.7-9.3); Neutrophils # 8.3 K/mm3 (1.8-7.8); Neutrophils % 67.7 % (37.0-80.0); Platelet Count 262 K/mm3 (142-424); Red Blood Count 5.35 M/mm3 (4.20-5.40); Red Cell Distribution Width 14.5 % (11.5-17.5); White Blood Count 12.3 K/mm3 (4.8-10.8)
[2021-04-07 12:27] VITALS: BP 136/69; PULSE 80; RESP 14; TEMP 36.6; O2SAT 98
[2021-04-07 12:35] LABS: Chloride 95 mmol/L (98-107)
[2021-04-07 12:36] LABS: Potassium 4.3 mmoL/L (3.5-5.1); Sodium 138 mmol/L (136-145)
[2021-04-07 12:38] LABS: Alanine Aminotransferase 21 U/L (12-78); Aspartate Amino Transferase 37 U/L (14-36); Blood Urea Nitrogen 30 mg/dl (7-17); Creatinine Clearance Estimated 84 mL/min (50-200); Estimated Glomerular Filt Rate 51 ml/min (>60); GFR (African American) 62 ML/MIN (>60)
[2021-04-07 12:39] LABS: Albumin Level 4.5 g/dl (3.5-5.0); Albumin/Globulin Ratio 1.3 (1.1-1.8); Alkaline Phosphatase 128 U/L (38-126); Anion Gap 13.3 mEq/L (5-15); Bilirubin,Total 0.6 mg/dl (0.2-1.3); Calcium 9.6 mg/dl (8.4-10.2); Carbon Dioxide 34 mmol/L (22.0-30.0); Globulin 3.4 g/dL (1.3-3.2); Glucose 266 mg/dl (74-100); Total Protein,Serum 7.9 g/dl (6.3-8.2)
[2021-04-07 13:17] LABS: Erythrocyte Sedimentation Rate 15 mm/hr (0-30)
[2021-04-07 16:00] VITALS: BP 109/44; PULSE 71; RESP 18; TEMP 36.9; O2SAT 96
[2021-04-07 16:21] LABS: POC Glucose,Bedside 301 (70-110)
--- NOTE | 2021-04-07 17:50 | PC.NURSE ---
Pt has been pleasant and cooperative this shift. A&O X4. Pt has complained of pain X1 thus far today and has been medicated with [place] per NOV. Pt reports favorable results. Pt is on room air with sats. >90%. Lungs CTA. No edema noted. Pt ambulates independently to/from the bathroom and throughout the room. Pt also sat up in the recliner for several hours this shift. Pt voids clear, yellow urine without issue. No BM today. FSBS results have been 206 and 301, both of which have required insulin coverage per MAR. Pt has been encouraged to provide a sputum sample and a specimen cup is at bedside. 18 G peripheral IV in the RT forearm is patent and SL. 20 G peripheral IV in the RT AC is patent and SL. VSS. Call light within reach. Will continue to monitor.
[2021-04-07 20:00] VITALS: BP 115/55; PULSE 64; RESP 18; TEMP 36.8; O2SAT 97
[2021-04-07 21:09] LABS: POC Glucose,Bedside 231 (70-110)
[2021-04-08] VITALS: BP 111/49; PULSE 65; RESP 18; TEMP 36.6; O2SAT 95; BMI 34.5
--- NOTE | 2021-04-08 02:59 | PC.NURSE ---
hift summary pt is alert and oriented X4. lung sounds clear with sats maintained 90% or above on room air. pt is able to ambulate to restroom unassisted urine is clear and yellow in color. pt has complained of pain once during this shift that was relieved with pain meds. pt has slept comfortably during this shift. pt has had no complaints of nausea, vomiting, or diarrhea. no acute changes will continue to monitor.
[2021-04-08 04:00] VITALS: BP 127/59; PULSE 68; RESP 18; TEMP 36.6; O2SAT 94
[2021-04-08 04:48] LABS: POC Glucose,Bedside 188 (70-110)
[2021-04-08 07:50] VITALS: BP 140/69; PULSE 67; RESP 18; TEMP 36.8; O2SAT 96
--- NOTE | 2021-04-08 11:06 | HMH.PNCARD ---
Subjective Date: 04/08/21 Time: 11:06 Principal diagnosis: CHF, flank pain Interval history: 55-year-old white female in bed in no acute distress. Still with some complaints of right flank pain and is going to be worked up further per Dr. Martinez's office. Echocardiogram shows preserved ejection fraction. Suspected that patient had some mild diastolic congestive heart failure that has improved with addition of furosemide to her spironolactone therapy. Patient has stage IV cirrhosis of the liver and is also a diabetic. Recent cardiac catheterization showed no significant coronary artery disease. Exam Vital signs and Labs for Last 24 Hours: Temp Pulse Resp BP Pulse Ox 98.2 F 67 18 140/69 96 04/08/21 07:50 04/08/21 07:50 04/08/21 07:50 04/08/21 07:50 04/08/21 07:50 Laboratory Results - last 24 hr 04/07/21 11:24: POC Glucose 206 H 04/07/21 12:10: WBC 12.3 H, RBC 5.35, Hgb 14.8, Hct 44.5, MCV 83.1, MCH 27.6, MCHC 33.3, RDW 14.5, Plt Count 262, MPV 7.5, Neut % (Auto) 67.7, Lymph % (Auto) 26.5, [place] % (Auto) 3.9, Eos % (Auto) 1.2, Baso % (Auto) 0.7, Neut # (Auto) 8.3 H, Lymph # (Auto) 3.3, [place] # (Auto) 0.5, Eos # (Auto) 0.2, Baso # (Auto) 0.1, ESR 15 04/07/21 12:10: Sodium 138, Potassium 4.3, Chloride 95 L, Carbon Dioxide 34 H, Anion Gap 13.3, BUN 30 H, Creatinine 1.10 H, Estimated Creat Clear 84, Estimated GFR 51 L, Est GFR ( Amer) 62 D, Glucose 266 H, Calcium 9.6, Total Bilirubin 0.6, AST 37 H, ALT 21, Alkaline Phosphatase 128 H, C-Reactive Protein 11.0 H, Total Protein 7.9, Albumin 4.5, Globulin 3.4 H, Albumin/Globulin Ratio 1.3 04/07/21 15:56: POC Glucose 301 H* 04/07/21 21:00: POC Glucose 231 H 04/08/21 04:29: POC Glucose 188 H I & O for Last 24 hours: Intake & Output 04/05/21 04/06/21 04/07/21 04/08/21 11:59 11:59 11:59 11:59 Intake Total 720 / 720 1260 / 1260 1260 / 1260 1010 / 1010 Output Total 501 / 501 0 / 0 Balance 720 / 720 759 / 759 1260 / 1260 1010 / 1010 Weight 205 lb 0.478 oz 205 lb 12.471 oz 205 lb 5 oz 207 lb 5 oz Microbiology Reports for the Last 24 Hours: Microbiology 04/05/21 18:42 Urine,Clean Catch Urine Culture - Final NO GROWTH AFTER 48 HOURS - Constitutional no acute distress - *Routine HEENT Exam Head: Present: normocephalic Eye: Present: EOMI, PERRL ENT: Present: mucous membranes moist - *Routine Neck Exam Present: supple. Absent: lymphadenopathy - *Routine Respiratory Exam Present: wheezes - *Routine Cardiovascular Exam Present: RRR - *Routine Abdominal Exam Present: soft, normoactive bowel sounds. Absent: tenderness - *Routine Extremities Exam Absent: cyanosis, clubbing, edema - *Routine Skin Exam Present: warm. Absent: rash - *Routine Neurological Exam Present: alert, oriented X3 Progress Note: A&P (1) Community acquired pneumonia Status: Acute (2) Hypertensive heart disease Status: Acute (3) Abdominal pain Status: Acute (4) Chest pain Status: Acute (5) Chronic back pain greater than 3 months duration Status: Acute (6) Erosive osteoarthritis of multiple sites Status: Acute (7) Fatty liver disease, nonalcoholic Status: Acute (8) History of sepsis Status: Acute (9) Liver cirrhosis Status: Acute (10) Steatohepatitis Status: Acute (11) Diabetes Status: Chronic (12) Hypertensive heart disease Status: Chronic (13) Obesity (BMI 30-39.9) Status: Acute (14) Acute on chronic heart failure with preserved ejection fraction (HFpEF) Status: Acute Assessment and Plan for All Diagnoses:: Patient is stable from a cardiac standpoint for discharge home. Recommend continuing Lasix 40 mg daily along with spironolactone 25 mg twice daily. She continues on amlodipine 5 mg daily, isosorbide mono nitrate 60 mg daily, Ranexa 500 mg twice daily and atorvastatin 10 mg daily. We would like to see her back in the office in 2 weeks. I recommend that she h
[2021-04-08 11:36] VITALS: BP 121/63; PULSE 69; RESP 18; TEMP 36.6; O2SAT 96
[2021-04-08 11:36] LABS: POC Glucose,Bedside 309 (70-110)
--- NOTE | 2021-04-08 13:35 | PC.NURSE ---
Sputum induced, pt unable to make productive cough. Specimen cup left at bedside,
--- NOTE | 2021-04-08 15:08 | PC.NURSE ---
Report given to RHETT Watkins
--- NOTE | 2021-04-08 15:52 | HMH.DCSUM ---
General - General Admission date:: 04/04/21 Discharge date: 04/08/21 HPI HPI: Patient is a 55-year-old white female, known to me from the office, admitted for complaints of chest pain and weight gain. She relays that in the course of last night she gained 8 pounds of fluid, and presented to the office with chest pain and tightness in her neck. He was given sublingual nitro in the office, 650 of aspirin, and transported to the emergency room via EMS services. Her work-up in the ER included troponins which have been negative x2 and an EKG which showed normal sinus rhythm. Chest x-ray was performed which showed an infiltrative process. She was noted to have an elevated white count. Patient has a history of hypertensive heart disease and has been cathetered several times at [facility]. No stents have been deployed. She has comorbid diabetes which has been poorly controlled. Control recently has been a bit improved. Patient is followed by a pin pusher in [facility], Dr. Dallas, who recently diagnosed her with stage IV liver cirrhosis. She has not had a biopsy. She experiences right upper quadrant pain which could represent some stretching of the hepatic capsule. Is known to have fatty infiltration of the liver. She is status post gallbladder surgery. Patient has a longstanding history of severe hypertension. Patient has a history of sepsis Hospital Course Hospital Course: Laboratory Tests 04/04/21 04/04/21 04/04/21 14:00 14:00 14:00 WBC 14.4 H RBC 5.64 H Hgb 15.4 Hct 45.9 MCV 81.3 MCH 27.4 MCHC 33.6 RDW 14.5 Plt Count 293 MPV 7.4 Neut % (Auto) 63.1 Lymph % (Auto) 30.6 [place] % (Auto) 4.3 Eos % (Auto) 1.1 Baso % (Auto) 0.9 Neut # (Auto) 9.1 H Lymph # (Auto) 4.4 [place] # (Auto) 0.6 Eos # (Auto) 0.2 Baso # (Auto) 0.1 ESR Sodium 136 Potassium 4.5 Chloride 94 L Carbon Dioxide 30 Anion Gap 16.5 H BUN 21 H Creatinine 0.90 Estimated Creat Clear 102 Estimated GFR 65 Est GFR ( Amer) 78 Glucose 254 H POC Glucose Lactate Calcium 10.0 Total Bilirubin Direct Bilirubin Conjugated Bilirubin Indirect Bilirubin Unconjugated Bilirubin AST ALT Alkaline Phosphatase Troponin I < 0.01 C-Reactive Protein NT-Pro-B Natriuret Pep 59.2 Total Protein Albumin Globulin Albumin/Globulin Ratio Urine Color Urine Appearance Urine pH Ur Specific [place] Urine Protein Urine Glucose (UA) Urine Ketones Urine Blood Urine Nitrate Urine Bilirubin Urine Urobilinogen Ur Leukocyte Esterase Urine RBC Urine WBC Ur Squamous Epith Cells Urine Bacteria SARS-CoV-2 (PCR) Influenza A Untype (PCR) Influenza Type B (PCR) 04/04/21 04/04/21 04/04/21 14:00 14:52 15:03 WBC RBC Hgb Hct MCV MCH MCHC RDW Plt Count MPV Neut % (Auto) Lymph % (Auto) [place] % (Auto) Eos % (Auto) Baso % (Auto) Neut # (Auto) Lymph # (Auto) [place] # (Auto) Eos # (Auto) Baso # (Auto) ESR Sodium Potassium Chloride Carbon Dioxide Anion Gap BUN Creatinine Estimated Creat Clear Estimated GFR Est GFR ( Amer) Glucose POC Glucose Lactate 2.0 Calcium Total Bilirubin 0.7 Direct Bilirubin 0.7 H Conjugated Bilirubin 0.0 Indirect Bilirubin 0.0 Unconjugated Bilirubin 0.0 AST 33 ALT 24 Alkaline Phosphatase 136 H Troponin I C-Reactive Protein NT-Pro-B Natriuret Pep Total Protein 8.7 H Albumin 4.9 Globulin Albumin/Globulin Ratio Urine Color Urine Appearance Urine pH Ur Specific [place] Urine Protein Urine Glucose (UA) Urine Ketones Urine Blood Urine Nitrate Urine Bilirubin Urine Urobilinogen Ur Leukocyte Esterase Urine
[2021-04-08 15:57] VITALS: BP 138/75; PULSE 64; RESP 16; TEMP 36.7; O2SAT 95
[2021-04-08 16:49] LABS: POC Glucose,Bedside 139 (70-110)
[2021-04-09 16:11] LABS: Body Fluid Culture, Sterile Not indicated. (.); Organism ID Not indicated. (.); Specimen Source Urine (.); Streptococcus pneumoniae Ag Negative (Negative)
== END 2021-04-08 17:45 | disposition home or self-care (01) ==
LOC: ER 15:06 → 2ND 15:23
PROVIDERS: Emergency Medicine; Urology; Admitting Provider Family Medicine; Emergency Provider Family Medicine; PCP Family Medicine; Visit Provider Family Medicine
DX: J18.9 Pneumonia, unspecified organism (principal); I11.0 Hypertensive heart disease with heart failure; I50.32 Chronic diastolic (congestive) heart failure; M15.4 Erosive (osteo)arthritis; K74.60 Unspecified cirrhosis of liver; K75.81 Nonalcoholic steatohepatitis (NASH); E11.9 Type 2 diabetes mellitus without complications; Z79.4 Long term (current) use of insulin; Z79.899 Other long term (current) drug therapy; Z20.822 Contact with and (suspected) exposure to COVID-19
CPT/HCPCS: 36415; 71045; 71250; 74176; 76705; 80048; 80053; 80076; 81001; 82962; 83605; 83880; 84484; 85025; 85651; 86140; 87040; 87086; 87899; 93005; 93306; 94760; 94761; 96365; 96367; 99282; G0378; J0456; J2405; U0003

== ENCOUNTER → 2021-04-16 08:37 | Outpatient (CLI) | payer OTHER, SELFPAY ==
--- NOTE | 2021-04-16 08:37 | NM_ITS ---
PROCEDURE: NM BONE SCAN WHOLE BODY CLINICAL INDICATION: abn CT abd/pelvis COMPARISON: CT CT ABDOMEN PELVIS W CON from 12/04/2020 NM NM BONE SPECT from 12/07/[address] ABDOMEN PELVIS WO CON from 04/06/2021 prior bone scan of December 07, 2020. FINDINGS: The index lesion in the right iliac bone demonstrates no evidence of radioisotope uptake. Mild uptake in the bilateral sacroiliac joints, shoulder joints and right ankle noted, most likely degenerative in nature. The kidneys demonstrate symmetric uptake. IMPRESSION: No significant radioisotope uptake noted in the right iliac bone. This most likely represents a benign lesion. Follow-up with CT abdomen and pelvis should be considered in 6-12 months time to evaluate for stability. Dictated by: Colleen Laureano 04/16/2021 14:01 Colleen Laureano in OV 04/16/2021 14:01
== END ==
PROVIDERS: PCP Family Medicine; Visit Provider Family Medicine
DX: M89.9 Disorder of bone, unspecified (principal)
CPT/HCPCS: 78306; A9503

== ENCOUNTER → 2021-04-16 12:54 | Outpatient (CLI) | payer OTHER, SELFPAY ==
[2021-04-16 13:27] LABS: Basophils # 0.1 K/mm3 (0-0.2); Basophils % 0.8 % (0.1-2.0); Eosinophils # 0.2 K/mm3 (0.0-0.4); Eosinophils % 1.8 % (0.1-12.0); Hematocrit 42.3 % (37.0-47.0); Hemoglobin 14.5 g/dL (12.2-16.2); Lymphocytes # 3.6 K/mm3 (0.7-4.5); Lymphocytes % 26.8 % (10-50); Mean Corpuscular HGB Conc 34.2 g/dL (31.8-35.4); Mean Corpuscular Hemoglobin 27.9 pg (27.0-31.2); Mean Corpuscular Volume 81.7 fl (81-99); Mean Platelet Volume 7.4 fl (7.4-10.4); Monocytes # 0.4 K/mm3 (0.1-1.0); Monocytes % 3.2 % (1.7-9.3); Neutrophils % 67.5 % (37.0-80.0); Platelet Count 278 K/mm3 (142-424); Red Blood Count 5.18 M/mm3 (4.20-5.40); Red Cell Distribution Width 14.3 % (11.5-17.5); White Blood Count 13.3 K/mm3 (4.8-10.8)
[2021-04-16 13:47] LABS: Alanine Aminotransferase 25 U/L (12-78); Albumin Level 4.6 g/dl (3.5-5.0); Albumin/Globulin Ratio 1.5 (1.1-1.8); Alkaline Phosphatase 122 U/L (38-126); Anion Gap 14.4 mEq/L (5-15); Aspartate Amino Transferase 28 U/L (14-36); Bilirubin,Total 0.7 mg/dl (0.2-1.3); Blood Urea Nitrogen 21 mg/dl (7-17); Calcium 9.9 mg/dl (8.4-10.2); Carbon Dioxide 30 mmol/L (22.0-30.0); Chloride 96 mmol/L (98-107); Estimated Glomerular Filt Rate 57 ml/min (>60); GFR (African American) 69 ML/MIN (>60); Glucose 336 mg/dl (74-100); Potassium 4.4 mmoL/L (3.5-5.1); Sodium 136 mmol/L (136-145); Total Protein,Serum 7.6 g/dl (6.3-8.2)
== END ==
PROVIDERS: Visit Provider Family Medicine
DX: Z09 Encounter for follow-up examination after completed treatment for conditions other than malignant neoplasm (principal)
CPT/HCPCS: 80053; 85025; 87086

== ENCOUNTER 2021-06-12 20:21 | Emergency (ER) | payer OTHER, SELFPAY ==
--- NOTE | 2021-06-12 20:14 | ECG_ITS ---
APPROVED REPORT Exam: Resting ECG HR:78 bpm ECG Measurements Heart Rate 78 AXES VA 154 P 49 QRSd 68 QRS 44 QT 416 T 40 QTc 474 Conclusion Normal sinus rhythm Normal ECG Electronically signed by : Duglas Person MD 06/13/2021 07:31:23
[2021-06-12 20:22] VITALS: BP 224/100; PULSE 96; RESP 18; O2SAT 98; BMI 33.1
--- NOTE | 2021-06-12 20:52 | XR_ITS ---
PROCEDURE INFORMATION: Exam: XR Chest Exam date and time: 06/12/2021 8:52 PM Age: 55 years old Clinical indication: Sternal or substernal pain; Additional info: Chest pain TECHNIQUE: Imaging protocol: XR of the chest. Views: 2 views. COMPARISON: CT CHEST WO CON 04/04/2021 8:18 PM FINDINGS: Lungs: Right lower lobe 8 mm calcified granuloma comparison examination. No consolidations or pleural effusions. Pleural spaces: See Lungs finding. Heart/Mediastinum: Unremarkable. No cardiomegaly. Bones/joints: Unremarkable. IMPRESSION: No acute findings.
[2021-06-12 21:02] LABS: Basophils # 0.1 K/mm3 (0-0.2); Basophils % 0.7 % (0.1-2.0); Eosinophils # 0.2 K/mm3 (0.0-0.4); Eosinophils % 1.5 % (0.1-12.0); Hematocrit 47.4 % (37.0-47.0); Hemoglobin 15.5 g/dL (12.2-16.2); Lymphocytes # 3.9 K/mm3 (0.7-4.5); Lymphocytes % 35.1 % (10-50); Mean Corpuscular HGB Conc 32.7 g/dL (31.8-35.4); Mean Corpuscular Hemoglobin 28.4 pg (27.0-31.2); Mean Corpuscular Volume 86.7 fl (81-99); Mean Platelet Volume 7.4 fl (7.4-10.4); Monocytes # 0.6 K/mm3 (0.1-1.0); Neutrophils # 6.4 K/mm3 (1.8-7.8); Neutrophils % 57.8 % (37.0-80.0); Platelet Count 252 K/mm3 (142-424); Red Blood Count 5.47 M/mm3 (4.20-5.40); Red Cell Distribution Width 13.6 % (11.5-17.5); White Blood Count 11.1 K/mm3 (4.8-10.8)
[2021-06-12 21:12] LABS: Anion Gap 17.1 mEq/L (5-15); Blood Urea Nitrogen 16 mg/dl (7-17); Calcium 10.1 mg/dl (8.4-10.2); Carbon Dioxide 31 mmol/L (22.0-30.0); Chloride 93 mmol/L (98-107); Creatinine Clearance Estimated 112 mL/min (50-200); Estimated Glomerular Filt Rate 74 ml/min (>60); GFR (African American) 90 ML/MIN (>60); Glucose 335 mg/dl (74-100); Potassium 4.1 mmoL/L (3.5-5.1); Sodium 137 mmol/L (136-145)
[2021-06-12 21:27] LABS: Troponin I < 0.01 ng/ml (0.00-0.034)
[2021-06-12 21:30] VITALS: BP 186/87
[2021-06-12 22:01] VITALS: BP 205/104; O2SAT 94
[2021-06-12 22:30] VITALS: BP 121/103; PULSE 68; O2SAT 97
[2021-06-12 23:00] VITALS: BP 221/111; PULSE 70; O2SAT 98
[2021-06-12 23:30] VITALS: BP 230/125; PULSE 72; O2SAT 97
--- NOTE | 2021-06-12 23:48 | PC.NURSE ---
REPEAT TROP SENT TO LAB
[2021-06-13] VITALS (7 sets, daily range): BP systolic 150–237; BP diastolic 73–108; PULSE 61–72; RESP 18; TEMP 36.8; O2SAT 94–98
--- NOTE | 2021-06-13 00:25 | HMH.EDGENADL ---
ED Disposition Clinical Impression: Uncontrolled hypertension Chest pain Qualifiers: Chest pain type: unspecified Qualified Code(s): R07.9 - Chest pain, unspecified Disposition: Home, Self-Care Condition on Discharge: Good Instructions: DI for High Blood Pressure, DI for Atypical Chest Pain Additional Instructions: Increase your dose of amlodipine to 10 mg daily. Call your primary care doctor today to arrange further follow-up for your blood pressure. Additional instructions for CHEST PAIN: See your physician as soon as possible for further evaluation. Return immediately if worsening chest pain, vomiting, shortness of breath, fever, coughing of blood. Referrals: Louis Rodriguez MD [Primary Care Provider] - - Critical Care Critical Care Time: No Attestation: On 06/12/21, the high probability of a clinically significant, sudden or life threatening deterioration of the following system(s) required my full and direct attention, intervention and personal management. The time I documented below is in addition to time spent performing reported procedures but includes the following listed in this critical care notation. Medical Decision Making - Jono Inquiry Pt receiving controlled substance: No Vital Signs: 06/12/21 20:22 06/12/21 21:30 06/12/21 22:01 Temperature Temperature Source Pulse Rate Pulse Rate [Right Brachial] 96 H Respiratory Rate 18 Blood Pressure 186/87 H 205/104 H Blood Pressure [Right Arm] 224/100 H Blood Pressure Mean 155 Blood Pressure Mean [Right Arm] 141 Blood Pressure Source [Right Arm] Manual Cuff/ Auscultation Blood Pressure Position [Right Arm] Sitting 02 Sat by Pulse Oximetry 98 94 L Oxygen Delivery Method Room Air 06/12/21 22:30 06/12/21 23:00 06/12/21 23:30 Temperature Temperature Source Pulse Rate 68 70 72 Pulse Rate [Right Brachial] Respiratory Rate Blood Pressure 121/103 H 221/111 H 230/125 H Blood Pressure [Right Arm] Blood Pressure Mean Blood Pressure Mean [Right Arm] Blood Pressure Source [Right Arm] Blood Pressure Position [Right Arm] 02 Sat by Pulse Oximetry 97 98 97 Oxygen Delivery Method 06/13/21 00:00 06/13/21 00:19 06/13/21 00:31 Temperature Temperature Source Pulse Rate 72 70 66 Pulse Rate [Right Brachial] Respiratory Rate Blood Pressure 213/105 H 237/108 H 235/104 H Blood Pressure [Right Arm] Blood Pressure Mean 144 151 160 Blood Pressure Mean [Right Arm] Blood Pressure Source [Right Arm] Blood Pressure Position [Right Arm] 02 Sat by Pulse Oximetry 97 97 94 L Oxygen Delivery Method 06/13/21 01:00 06/13/21 01:23 06/13/21 01:30 Temperature Temperature Source Pulse Rate 65 63 61 Pulse Rate [Right Brachial] Respiratory Rate Blood Pressure 210/99 H 168/73 H 155/75 H Blood Pressure [Right Arm] Blood Pressure Mean 153 130 116 Blood Pressure Mean [Right Arm] Blood Pressure Source [Right Arm] Blood Pressure Position [Right Arm] 02 Sat by Pulse Oximetry 96 95 96 Oxygen Delivery Method 06/13/21 02:05 Temperature 98.3 F Temperature Source Oral Pulse Rate 62 Pulse Rate [Right Brachial] Respiratory Rate 18 Blood Pressure 150/76 H Blood Pressure [Right Arm] Blood Pressure Mean Blood Pressure Mean [Right Arm] Blood Pressure Source [Right Arm] Blood Pressure Position [Right Arm] 02 Sat by Pulse Oximetry Oxygen Delivery Method Room Air - Lab Data Lab Results 06/12/21 20:25: WBC 11.1 H, RBC 5.47 H, Hgb 15.5, Hct 47.4 H, MCV 86.7, MCH 28.4, MCHC 32.7, RDW 13.6, Plt Count 252, MPV 7.4, Neut % (Auto) 57.8, Lymph % (Auto) 35.1, [place] % (Auto) 5.0, Eos % (Auto) 1.5, Baso % (Auto) 0.7, Neut # (Auto) 6.4, Lymph # (Auto) 3.9, [place] # (Auto) 0.6, Eos # (Auto) 0.2, Baso # (Auto) 0.1 06/12/21 20:25: Sodium 137, Potassium 4.1, Chloride 93 L, Carbon Dioxide 31 H, Anion Gap 17.1 H, BUN 16, Creatinine 0.80, Estimated Creat Clear 112, Estim
[2021-06-13 00:26] LABS: Troponin I < 0.01 ng/ml (0.00-0.034)
== END 2021-06-13 02:06 | disposition home or self-care (01) ==
PROVIDERS: Emergency Provider Emergency Medicine; PCP Family Medicine
DX: R07.9 Chest pain, unspecified (principal); I10 Essential (primary) hypertension; I25.2 Old myocardial infarction; I50.9 Heart failure, unspecified; E11.65 Type 2 diabetes mellitus with hyperglycemia; K21.9 Gastro-esophageal reflux disease without esophagitis
CPT/HCPCS: 71046; 80048; 84484; 85025; 93005; 99283

== ENCOUNTER → 2021-10-09 15:26 | Outpatient (CLI) | payer OTHER, SELFPAY ==
--- NOTE | 2021-10-09 15:26 | CA_ITS ---
FINAL REPORT CLINICAL HISTORY: .9 days post rt inguinal cath with radiating pains FINDINGS: DUPLEX SCAN LOWER EXT ARTERY UNI Limited sonographic images were obtained of the right lower extremity to evaluate for pseudoaneurysm or AV fistula. The common femoral artery is visualized and patent with normal flow. No pseudoaneurysm or AV fistula visualized. IMPRESSION: No pseudoaneurysm or AV fistula visualized. Reviewed, Interpreted and Dictated by Bhargav Campos III, MD Transcribed by Juan C Chow Authenticated by Bhargav Campos III, MD on 10/09/2021 04:44:34 PM [facility]
== END ==
PROVIDERS: PCP Family Medicine; Visit Provider Nurse Practitioner Family
DX: M79.604 Pain in right leg (principal)
CPT/HCPCS: 93926

== ENCOUNTER → 2021-11-14 07:33 | Outpatient (CLI) | payer OTHER, SELFPAY ==
--- NOTE | 2021-11-14 | CA_ITS ---
APPROVED REPORT Exam: Pharmacologic Technologist: Aaliyah Correa, Ht: 5 ft 5 in Wt: 208 lbs BSA: 2.01 m2 HR: 88 bpm BP: 169/81 mmHg Rhythm: Sinus rhythm Medical History Medical History: HTN, Hyperlipidemia, Diabetic ??? Noninsulin Medications: Amlodipine,,,,, Lorazepam,,,,, Clonidine,,,,, Aspirin,,,,, Hydrocodone,,,,, Allopurinol,,,,, Protonix,,,,, DicyCLOMINE,,,,, SpirOnolactone,,,,, Ranexa,,,,, AtorvaASTATIN,,,,, ONdanESETRAN,,,,, Cardiac Risk Factors: HTN, Hyperlipidemia, Diabetes (non-insulin) Stress Test Details Test: LEXISCAN HR Resting HR: 99 bpm Max Heart Rate (APMHR): 163.486181 bpm Max HR Achieved: 109 bpm Target HR (85% APMHR): 138.593986 bpm % of APMHR: 66.87 Recovery HR: 81 bpm BP Resting BP: 169/81 mmHg Max BP: 170/70 mmHg Recovery BP: 143.0/69.0 mmHg ECG Resting ECG: Sinus rhythm Clinical Exercise duration: 04:06 min Highest Stage Achieved: Exercise capacity: 1.0 METs Stress ECG Conclusion During lexiscan pt experinced SOB during peak infusion. No CP noted. No ectopy noted. Less than 1.5mm ST depression. Images to follow. Electronically signed by : Alexy Vasquez MD 11/15/2021 14:47:14
--- NOTE | 2021-11-14 07:33 | NM_ITS ---
APPROVED REPORT Exam: Nuclear Stress Test Indication: chest pain..short of breath..fatigue Patient Location: Outpatient Stress Tech: Aaliyah YU Tech:Elayne Hinds TAWANDASuhas RT(R)(N) Ht: 5 ft 5 in Wt: 208 lbs Bra Size: 42d HR: 88 bpm BP: 169/81 mmHg BSA: 2.01 m2 BMI: 34.6 History: chest pain..short of breath..fatigue Procedure: Patient received a 0.4 mg of intravenous Lexiscan, resting heart rate 88 bpm, resting blood pressure 169/81 mmHg, with Lexiscan maximum heart rate achived was 94 bpm which is 85 % of the maximum predicted heart rate and blood pressure was 170/70 mmHg. With Lexiscan, patient denied any complaint of chest pain. Electrocardiogram Resting electrocardiogram shows sinus rhythm, with Lexiscan there is less than 1.[address] segment depression noted from the baseline EKG. The EKG portion of the Lexiscan is nondiagnostic. Cardiac Stress and Resting SPECT Images: Cardiac Stress and Resting SPECT images were obtained using technetium 99m Myoview 31.8 mCi stress and 10.60 mCi at rest. Gated SPECT for analysis of segmental wall motion and calculation of the ejection fraction also done. Cardiac stress and resting SPECT images show uniform myocardial activity without segmental perfusion abnormality, compared right ejection fraction is over 65% with no regional wall motion abnormality, right ventricle is normal size and contractility. Conclusion: 1. The EKG portion of the Lexiscan Myoview is nondiagnostic. 2. No scintigraphic evidence of reversible ischemia seen, compared to ejection fraction over 65% with no regional wall motion abnormality, right ventricle is normal size and contractility. 3. Normal Lexiscan Myoview study. Electronically signed by : Alexy Vasquez MD 11/15/2021 14:48:45
== END ==
PROVIDERS: PCP Family Medicine; Visit Provider Nurse Practitioner Family
DX: I20.9 Angina pectoris, unspecified (principal); I50.32 Chronic diastolic (congestive) heart failure; I11.0 Hypertensive heart disease with heart failure; E78.5 Hyperlipidemia, unspecified
CPT/HCPCS: 78452; 93017; A9502; J2785

== ENCOUNTER → 2021-11-20 10:02 | Outpatient (CLI) | payer OTHER, SELFPAY ==
[2021-11-20 10:19] LABS: Basophils # 0.1 K/mm3 (0-0.2); Basophils % 0.6 % (0.1-2.0); Eosinophils # 0.2 K/mm3 (0.0-0.4); Eosinophils % 1.3 % (0.1-12.0); Hematocrit 47.1 % (37.0-47.0); Lymphocytes # 2.8 K/mm3 (0.7-4.5); Lymphocytes % 24.2 % (10-50); Mean Corpuscular HGB Conc 31.8 g/dL (31.8-35.4); Mean Corpuscular Hemoglobin 27.6 pg (27.0-31.2); Mean Corpuscular Volume 86.7 fl (81-99); Mean Platelet Volume 8.1 fl (7.4-10.4); Monocytes # 0.4 K/mm3 (0.1-1.0); Monocytes % 3.7 % (1.7-9.3); Neutrophils # 8.2 K/mm3 (1.8-7.8); Neutrophils % 70.2 % (37.0-80.0); Platelet Count 263 K/mm3 (142-424); Red Blood Count 5.43 M/mm3 (4.20-5.40); Red Cell Distribution Width 14.3 % (11.5-17.5); White Blood Count 11.6 K/mm3 (4.8-10.8)
[2021-11-20 11:07] LABS: Chloride 93 mmol/L (98-107); Sodium 130 mmol/L (136-145)
[2021-11-20 11:08] LABS: Potassium 3.9 mmoL/L (3.5-5.1)
[2021-11-20 11:10] LABS: Alanine Aminotransferase 26 U/L (12-78); Albumin Level 4.2 g/dl (3.5-5.0); Alkaline Phosphatase 159 U/L (38-126); Anion Gap 13.9 mEq/L (5-15); Aspartate Amino Transferase 32 U/L (14-36); Bilirubin,Direct 0.4 mg/dl (0.0-0.4); Bilirubin,Indirect 0.3 mg/dL (0.0-0.9); Bilirubin,Total 0.7 mg/dl (0.2-1.3); Bilirubin,Unconjugated 0.4 mg/dL (0.0-1.1); Blood Urea Nitrogen 12 mg/dl (7-17); Calcium 8.7 mg/dl (8.4-10.2); Carbon Dioxide 27 mmol/L (22.0-30.0); Cholesterol 172 mg/dl (140-200); Estimated Glomerular Filt Rate 86 ml/min (>60); GFR (African American) 104 ML/MIN (>60); Total Protein,Serum 6.8 g/dl (6.3-8.2); Triglycerides 236 mg/dl (30-150); VLDL Cholesterol 47 mg/dL (0-40)
[2021-11-20 11:11] LABS: Chol/HDL Ratio 3.4 (1-3.5); HDL Cholesterol 50 mg/dl (40-60)
[2021-11-20 11:37] LABS: Glucose 490 mg/dl (74-100)
== END ==
PROVIDERS: Visit Provider Physician Assistant
DX: I20.9 Angina pectoris, unspecified (principal); I50.32 Chronic diastolic (congestive) heart failure; I11.0 Hypertensive heart disease with heart failure; E78.5 Hyperlipidemia, unspecified
CPT/HCPCS: 36415; 80048; 80061; 80076; 85025

== ENCOUNTER 2021-11-27 08:33 | Day surgery (SDC) | payer OTHER, SELFPAY ==
[2021-11-27] VITALS (12 sets, daily range): BP systolic 135–165; BP diastolic 62–87; PULSE 71–90; RESP 14–18; TEMP 36.2–36.4; O2SAT 93–99; BMI 34.4
--- NOTE | 2021-11-27 07:05 | IR_ITS ---
APPROVED REPORT Patient Location: Outpatient Roof Tile Layer: EVERETT Villalobos RT (R) PROCEDURES Left heart catheterization Left ventriculogram Selective coronary angiogram FFR to the LAD Bilateral selective renal angiography INDICATION Known coronary artery disease, Recalcitrant angina pectoris, Angiographically indeterminate coronary artery disease, Known renal artery stenosis, Fluctuating hypertension suspect renal artery stenosis with renovascular hypertension, Informed consent was obtained prior to the procedure. COMPLICATIONS None Estimated Blood Loss: Less than 10 mls TECHNIQUE 1% lidocaine used anesthetize right groin the right femoral was accessed via the Salinger technique and a 6 [place] sheath was placed in the right femoral artery. A JR4 catheter was used to perform left heart catheterization left ventriculogram selective coronary therapy as well as selective engagement of each renal artery. Following the JR4 catheter and a 6 [place] JL4 guide catheter was then placed in the left main artery and angiography was performed. Therapeutic heparin was administered due to the anticipated FFR of the LAD. A Choice PT extra-support wire was placed distally in the LAD and a nevus FFR catheter was advanced and adenosine was infused per protocol. The FFR index dropped to 0.87. This did not meet hemodynamic significance therefore the apparatus was removed the groin is reprepped gloves were changed sheath was removed good hemostasis was achieved using Perclose device patient was transferred to the postop holding in stable condition ANGIOGRAPHIC RESULTS The left main artery Normal The left anterior descending artery Has a proximal concentric 70% stenosis with mid vessel 20 and 30% stenoses most along tortuous bends The circumflex artery Nondominant mild luminal irregularities The right coronary artery Dominant mild luminal irregularities The PRESSLEY ventriculogram reveals Normal 65% The left ventricular end-diastolic pressure 10 mmHg Right renal artery singular normal Left renal artery singular and has an ostial 40% stenosis with a 10 to 15 mm gradient upon pullback with a 4 [place] JR4 catheter IMPRESSION Coronary disease as described above FFR index of 0.87 in the LAD which did not meet hemodynamic significance Normal ejection fraction Normal left ventricular NaSal pressure Moderate left renal artery stenosis that does not meet criteria for stenting PLAN 1. Continue medical management 2. Maximize antianginal medications with specific control of hypertension 3. Risk factor modification Electronically signed by : Delta Sanchez MD 11/27/2021 10:39:17
[2021-11-27 11:13] LABS: CATHL Activated Clotting Time > 400 SEC (74-125)
== END 2021-11-27 13:34 | disposition home or self-care (01) ==
LOC: CATHLAB 08:35
PROVIDERS: PCP Family Medicine; Visit Provider Internal Medicine
DX: I11.0 Hypertensive heart disease with heart failure (principal); E78.5 Hyperlipidemia, unspecified; I25.118 Atherosclerotic heart disease of native coronary artery with other forms of angina pectoris; I50.32 Chronic diastolic (congestive) heart failure; I99.8 Other disorder of circulatory system; Z79.899 Other long term (current) drug therapy; E11.9 Type 2 diabetes mellitus without complications; Z79.4 Long term (current) use of insulin; I70.1 Atherosclerosis of renal artery
CPT/HCPCS: 36252; 85347; 93458; 93571; 99152; 99153; C1725; C1760; C1769; C1894; J0153; J1644; Q9967

== ENCOUNTER → 2021-12-12 15:08 | Outpatient (CLI) | payer OTHER, SELFPAY ==
--- NOTE | 2021-12-12 15:25 | XR_ITS ---
FINAL REPORT CLINICAL HISTORY: nausea with distended abdomen, epigastric pain, irregular bowel movements FINDINGS: Flat and upright views of the abdomen demonstrate a nonobstructive bowel gas pattern. There is a moderate amount of retained stool. There is no free air. There are no abnormal calcifications. There is postoperative change in the right abdomen. There are degenerative changes of the lumbar spine. IMPRESSION: Moderate retained stool. Reviewed, Interpreted and Dictated by Bhargav Campos III, MD Transcribed by Juan C Chow Authenticated by Bhargav Campos III, MD on 12/12/2021 04:22:24 PM [facility]
== END ==
PROVIDERS: PCP Family Medicine; Visit Provider Family Medicine
DX: I25.10 Atherosclerotic heart disease of native coronary artery without angina pectoris (principal); K75.81 Nonalcoholic steatohepatitis (NASH); E11.9 Type 2 diabetes mellitus without complications; Z79.4 Long term (current) use of insulin
CPT/HCPCS: 36415; 74019; 83036

== ENCOUNTER → 2021-12-27 09:15 | Outpatient (CLI) | payer OTHER, SELFPAY ==
[2021-12-27 10:33] LABS: Anion Gap 10.8 mEq/L (5-15); Blood Urea Nitrogen 10 mg/dl (7-17); Calcium 8.8 mg/dl (8.4-10.2); Carbon Dioxide 28 mmol/L (22.0-30.0); Chloride 101 mmol/L (98-107); Estimated Glomerular Filt Rate 103 ml/min (>60); GFR (African American) 125 ML/MIN (>60); Glucose 264 mg/dl (74-100); Potassium 3.8 mmoL/L (3.5-5.1); Sodium 136 mmol/L (136-145)
== END ==
PROVIDERS: PCP Family Medicine; Visit Provider Nurse Practitioner Family
DX: I20.9 Angina pectoris, unspecified (principal); I11.0 Hypertensive heart disease with heart failure; I50.32 Chronic diastolic (congestive) heart failure; I70.1 Atherosclerosis of renal artery; I99.8 Other disorder of circulatory system; E78.5 Hyperlipidemia, unspecified
CPT/HCPCS: 36415; 80048

== ENCOUNTER → 2022-03-06 13:54 | Outpatient (CLI) | payer OTHER, SELFPAY ==
[2022-03-06 13:48] LABS: Hemoglobin A1C 10.8 % (4.0-6.0)
[2022-03-06 13:52] LABS: Chol/HDL Ratio 4.6 (1-3.5); Cholesterol 197 mg/dl (140-200); HDL Cholesterol 43 mg/dl (40-60); Triglycerides 234 mg/dl (30-150); VLDL Cholesterol 47 mg/dL (0-40)
[2022-03-06 14:03] LABS: Direct LDL Cholesterol 90.42 mg/dL (100-129)
== END ==
PROVIDERS: PCP Family Medicine; Visit Provider Family Medicine
DX: E11.9 Type 2 diabetes mellitus without complications (principal); Z79.4 Long term (current) use of insulin
CPT/HCPCS: 80061; 82043; 83036

== ENCOUNTER 2022-04-07 17:09 | Emergency (ER) | payer OTHER, SELFPAY ==
[2022-04-07 18:16] VITALS: BP 210/86; PULSE 70; RESP 22; TEMP 37; O2SAT 98; BMI 34.2
--- NOTE | 2022-04-07 18:16 | CT_ITS ---
PROCEDURE INFORMATION: Exam: CT Abdomen And Pelvis Without Contrast Exam date and time: 04/07/2022 6:20 PM Age: 56 years old Clinical indication: Bloating; Additional info: Urinary retention TECHNIQUE: Imaging protocol: Computed tomography of the abdomen and pelvis without contrast. Radiation optimization: All CT scans at this facility use at least one of these dose optimization techniques: automated exposure control; mA and/or kV adjustment per patient size (includes targeted exams where dose is matched to clinical indication); or iterative reconstruction. COMPARISON: CT ABDOMEN PELVIS WO CON 04/06/2021 12:21 PM FINDINGS: Lungs: There is an unchanged 2 mm left lower lobe pulmonary nodule on image 4 series 3. Liver: Hepatic steatosis. Gallbladder and bile ducts: Gallbladder is absent. Pancreas: Moderate pancreatic atrophy. Spleen: Normal. No splenomegaly. Adrenal glands: Normal. No mass. Kidneys and ureters: No evidence of urinary obstruction. Stomach and bowel: Liquid fecal contents of the colon may represent diarrhea. Appendix: Unremarkable appendix. Intraperitoneal space: Unremarkable. No free air. No significant fluid collection. Vasculature: The arteries demonstrate mild atherosclerotic disease. Lymph nodes: Unremarkable. No enlarged lymph nodes. Urinary bladder: Unremarkable as visualized. Reproductive: Status post hysterectomy. Bones/joints: Unchanged right iliac sclerotic lesion of doubtful clinical significance. Soft tissues: Tiny fat containing umbilical hernia. Other findings: Stigmata of old granulomatous disease. IMPRESSION: 1. No evidence of urinary obstruction. 2. Liquid fecal contents of the colon may represent diarrhea. Please exclude mild enterocolitis clinically. 3. There is an unchanged 2 mm left lower lobe pulmonary nodule on image 4 series 3. For a low risk patient, no imaging follow-up is warranted. For a high risk patient, such as a history of tobacco abuse, a 1 year follow-up CT could be performed. 4. Hepatic steatosis.
--- NOTE | 2022-04-07 18:24 | PC.NURSE ---
Pt taken for CT.
--- NOTE | 2022-04-07 18:26 | PC.NURSE ---
Called calendering supervisor and she is going to get bladder scanner and bring it to ER
--- NOTE | 2022-04-07 18:27 | PC.NURSE ---
PT RETURNED FROM CT
--- NOTE | 2022-04-07 18:27 | PC.NURSE ---
Pt back from CT
[2022-04-07 18:42] LABS: Basophils # 0.1 K/mm3 (0-0.2); Basophils % 0.5 % (0.1-2.0); Eosinophils # 0.2 K/mm3 (0.0-0.4); Eosinophils % 1.7 % (0.1-12.0); Hematocrit 42.4 % (37.0-47.0); Hemoglobin 13.8 g/dL (12.2-16.2); Lymphocytes # 3.1 K/mm3 (0.7-4.5); Mean Corpuscular HGB Conc 32.6 g/dL (31.8-35.4); Mean Corpuscular Hemoglobin 27.2 pg (27.0-31.2); Mean Corpuscular Volume 83.4 fl (81-99); Mean Platelet Volume 7.2 fl (7.4-10.4); Monocytes # 0.5 K/mm3 (0.1-1.0); Monocytes % 4.5 % (1.7-9.3); Neutrophils # 7.7 K/mm3 (1.8-7.8); Neutrophils % 66.2 % (37.0-80.0); Platelet Count 252 K/mm3 (142-424); Red Blood Count 5.09 M/mm3 (4.20-5.40); Red Cell Distribution Width 13.6 % (11.5-17.5); White Blood Count 11.6 K/mm3 (4.8-10.8)
[2022-04-07 18:46] LABS: Chloride 101 mmol/L (98-107); Potassium 4.2 mmoL/L (3.5-5.1); Sodium 137 mmol/L (136-145)
--- NOTE | 2022-04-07 18:48 | PC.NURSE ---
Bladder scanner showed 439mL urine retained in bladder
[2022-04-07 18:49] LABS: Alanine Aminotransferase 26 U/L (12-78); Albumin Level 4.1 g/dl (3.5-5.0); Albumin/Globulin Ratio 1.2 (1.1-1.8); Alkaline Phosphatase 127 U/L (38-126); Anion Gap 11.2 mEq/L (5-15); Aspartate Amino Transferase 38 U/L (14-36); Bilirubin,Total 0.4 mg/dl (0.2-1.3); Blood Urea Nitrogen 13 mg/dl (7-17); Calcium 9.5 mg/dl (8.4-10.2); Carbon Dioxide 29 mmol/L (22.0-30.0); Creatinine Clearance Estimated 114 mL/min (50-200); Estimated Glomerular Filt Rate 74 ml/min (>60); GFR (African American) 89 ML/MIN (>60); Globulin 3.4 g/dL (1.3-3.2); Glucose 348 mg/dl (74-100); Lipase 20 U/L (23-300); Total Protein,Serum 7.5 g/dl (6.3-8.2)
--- NOTE | 2022-04-07 18:50 | PC.NURSE ---
1850 UA OBTAINED BY STERILE CATH SPECIMEN, PT TOLERATED WELL. UA SENT TO LAB
--- NOTE | 2022-04-07 18:53 | HMH.EDGENADL ---
ED Disposition Clinical Impression: UTI (urinary tract infection) Qualifiers: Urinary tract infection type: acute cystitis Hematuria presence: with hematuria Qualified Code(s): N30.01 - Acute cystitis with hematuria Disposition: Home, Self-Care Condition on Discharge: Good Instructions: Urinary Tract Infection Prescriptions: cephALEXin [Cephalexin 500mg Tab] 500 mg PO BID #14 tab Transmission Status: Pending to [facility] [id number] Referrals: Louis Rodriguez MD [Primary Care Provider] - - Critical Care Critical Care Time: No Attestation: On 04/07/22, the high probability of a clinically significant, sudden or life threatening deterioration of the following system(s) required my full and direct attention, intervention and personal management. The time I documented below is in addition to time spent performing reported procedures but includes the following listed in this critical care notation. Medical Decision Making - Medical Records Medical records reviewed: Yes: I reviewed the patient's medical records. - Jono Inquiry Pt receiving controlled substance: No Vital Signs: 04/07/22 18:16 Temperature 98.6 F Temperature Source Oral Pulse Rate [Brachial] 70 Respiratory Rate 22 Blood Pressure [Right Arm] 210/86 H Blood Pressure Mean [Right Arm] 127 Blood Pressure Source [Right Arm] Automatic Cuff Blood Pressure Position [Right Arm] Sitting 02 Sat by Pulse Oximetry 98 Oxygen Delivery Method Room Air - Lab Data Lab Results 04/07/22 18:35: WBC 11.6 H, RBC 5.09, Hgb 13.8, Hct 42.4, MCV 83.4, MCH 27.2, MCHC 32.6, RDW 13.6, Plt Count 252, MPV 7.2 L, Neut % (Auto) 66.2, Lymph % (Auto) 27.0, [place] % (Auto) 4.5, Eos % (Auto) 1.7, Baso % (Auto) 0.5, Neut # (Auto) 7.7, Lymph # (Auto) 3.1, [place] # (Auto) 0.5, Eos # (Auto) 0.2, Baso # (Auto) 0.1 04/07/22 18:35: Sodium 137, Potassium 4.2, Chloride 101, Carbon Dioxide 29, Anion Gap 11.2, BUN 13, Creatinine 0.80, Estimated Creat Clear 114, Estimated GFR 74, Est GFR ( Amer) 89, Glucose 348 H, Calcium 9.5, Total Bilirubin 0.4, AST 38 H, ALT 26, Alkaline Phosphatase 127 H, Total Protein 7.5, Albumin 4.1, Globulin 3.4 H, Albumin/Globulin Ratio 1.2, Lipase 20 L 04/07/22 18:50: Urine Color Yellow, Urine Appearance Sl cloudy, Urine pH 6.0, Ur Specific [place] 1.020, Urine Protein Negative, Urine Glucose (UA) 3+, Urine Ketones Negative, Urine Blood Negative, Urine Nitrate Positive, Urine Bilirubin Negative, Urine Urobilinogen 1.0, Ur Leukocyte Esterase Negative, Urine RBC Occasional, Urine WBC 5-10, Ur Squamous Epith Cells 3-5, Urine Bacteria 4+ Result diagrams: 04/07/22 18:35 04/07/22 18:35 Orders (Tests/Meds): ED MEDICATIONS Generic Name Dose Route Start Last Admin Trade Name Freq PRN Reason Stop Dose Admin Ceftriaxone Sodium 1 gm/ 50 mls @ 100 mls/hr 04/07/22 19:30 Sodium Chloride IV 04/21/22 19:29 Q24H RHODA Discontinued Medications Generic Name Dose Route Start Last Admin Trade Name Freq PRN Reason Stop Dose Admin Ketorolac Tromethamine 30 mg 04/07/22 19:34 Ketorolac 30mg/Ml Vial IV 04/07/22 19:35 ONCE ONE ORDERS Category Date Time Status Urine Culture Stat Micro 04/07/22 18:50 Received - CT Data CT Scan: Abdomen, Pelvis Time Received: 19:[address] Reviewed: Yes: I have reviewed the patient's CT results, I have viewed the radiologist's interpretation Findings Narrative: IMPRESSION: 1. No evidence of urinary obstruction. 2. Liquid fecal contents of the colon may represent diarrhea. Please exclude mild enterocolitis clinically. 3. There is an unchanged 2 mm left lower lobe pulmonary nodule on image 4 series 3. For a low risk patient, no imaging follow-up is warranted. For a high risk patient, such as a history of tobacco abuse, a 1 year follow-up CT could be performed. 4. Hepatic steatosis. - Reevaluation(s) Time: 19:57 Reevaluation #1: On reevaluation, the patient is feeling better. She was
[2022-04-07 18:54] LABS: Microscopic, Urine URINE MICROSCOPIC (MICROSCOPIC)
[2022-04-07 18:57] LABS: Appearance,Urine SL CLOUDY (Clear); Bilirubin,Urine Negative (Negative); Blood, Urine Negative (Negative); Color,Urine YELLOW (Yellow); Glucose,Urine (UA) 3+ (Negative); Ketones,Urine Negative (Negative); Leukocyte Esterase,Urine Negative (Negative); Nitrate,Urine POSITIVE (Negative); Protein,Urine Negative (Negative)
[2022-04-07 19:18] LABS: Bacteria,Urine 4+ /lpf; RBC,Urine Occasional #/hpf (0-3)
[2022-04-07 22:11] VITALS: BP 164/74; PULSE 71; RESP 20; TEMP 37; O2SAT 98
== END 2022-04-07 22:13 | disposition home or self-care (01) ==
PROVIDERS: Emergency Provider Emergency Medicine; PCP Family Medicine
DX: N30.01 Acute cystitis with hematuria (principal); Z87.442 Personal history of urinary calculi; Z79.899 Other long term (current) drug therapy; Z79.82 Long term (current) use of aspirin; Z79.4 Long term (current) use of insulin; E10.9 Type 1 diabetes mellitus without complications; E11.9 Type 2 diabetes mellitus without complications; I11.0 Hypertensive heart disease with heart failure; I50.9 Heart failure, unspecified; I25.2 Old myocardial infarction; K21.9 Gastro-esophageal reflux disease without esophagitis; Z86.73 Personal history of transient ischemic attack (TIA), and cerebral infarction without residual deficits; Z88.8 Allergy status to other drugs, medicaments and biological substances; Z91.041 Radiographic dye allergy status
CPT/HCPCS: 74176; 80053; 81001; 83690; 85025; 87086; 87088; 87186; 96365; 96375; 99284; J0696

== ENCOUNTER → 2022-05-15 06:58 | Outpatient (CLI) | payer OTHER, SELFPAY | PROVIDERS: PCP Family Medicine; Visit Provider Family Medicine | DX: N23 Unspecified renal colic (principal); B96.29 Other Escherichia coli [E. coli] as the cause of diseases classified elsewhere | CPT/HCPCS: 87086; 87088; 87186 ==

== ENCOUNTER 2022-05-15 12:12 | Emergency (ER) | payer OTHER, SELFPAY ==
[2022-05-15] VITALS (12 sets, daily range): BP systolic 119–212; BP diastolic 74–106; PULSE 72–84; RESP 16–18; TEMP 36.6–36.9; O2SAT 95–99; BMI 34.6
--- NOTE | 2022-05-15 12:12 | ECG_ITS ---
APPROVED REPORT Exam: Resting ECG HR:84 bpm ECG Measurements Heart Rate 84 AXES MD 159 P 80 QRSd 83 QRS 92 QT 380 T 68 QTc 421 Conclusion SINUS RHYTHM BORDERLINE RIGHT AXIS DEVIATION [QRS AXIS > 90] LOW QRS VOLTAGE IN PRECORDIAL LEADS [QRS DEFLECTION < 1.0 mV IN CHEST LEADS] BORDERLINE ECG UNCONFIRMED REPORT Electronically signed by : Duglas Person MD 05/16/2022 17:04:40
--- NOTE | 2022-05-15 12:23 | XR_ITS ---
FINAL REPORT CLINICAL HISTORY: chest pain COMPARISON: April 04, 2021 FINDINGS: A single portable view of the chest was obtained. The heart size and pulmonary vascularity are within normal limits. The mediastinum is within normal limits. No acute pulmonary abnormality is identified. The bony thorax is intact. IMPRESSION: No active cardiopulmonary disease. Reviewed, Interpreted and Dictated by Bhargav Campos III, MD Transcribed by Julia Carter Authenticated and [facility]
[2022-05-15 12:33] LABS: Chloride 100 mmol/L (98-107); Potassium 4.3 mmoL/L (3.5-5.1); Sodium 138 mmol/L (136-145)
[2022-05-15 12:36] LABS: Anion Gap 12.3 mEq/L (5-15); Basophils # 0.2 K/mm3 (0-0.2); Basophils % 1.1 % (0.1-2.0); Blood Urea Nitrogen 14 mg/dl (7-17); Calcium 9.9 mg/dl (8.4-10.2); Carbon Dioxide 30 mmol/L (22.0-30.0); Creatinine Clearance Estimated 92 mL/min (50-200); Eosinophils # 0.2 K/mm3 (0.0-0.4); Eosinophils % 1.4 % (0.1-12.0); Estimated Glomerular Filt Rate 57 ml/min (>60); GFR (African American) 69 ML/MIN (>60); Glucose 223 mg/dl (74-100); Hematocrit 46.1 % (37.0-47.0); Hemoglobin 14.7 g/dL (12.2-16.2); Lymphocytes # 3.3 K/mm3 (0.7-4.5); Lymphocytes % 25.7 % (10-50); Mean Corpuscular HGB Conc 31.9 g/dL (31.8-35.4); Mean Corpuscular Hemoglobin 26.8 pg (27.0-31.2); Mean Platelet Volume 7.7 fl (7.4-10.4); Monocytes # 0.6 K/mm3 (0.1-1.0); Monocytes % 4.6 % (1.7-9.3); Neutrophils # 8.5 K/mm3 (1.8-7.8); Neutrophils % 67.2 % (37.0-80.0); Platelet Count 270 K/mm3 (142-424); Red Blood Count 5.49 M/mm3 (4.20-5.40); Red Cell Distribution Width 14.2 % (11.5-17.5); White Blood Count 12.7 K/mm3 (4.8-10.8)
--- NOTE | 2022-05-15 12:39 | CT_ITS ---
FINAL REPORT CLINICAL HISTORY: chest pain radiating to back FINDINGS: Thin section axial CT images of the chest were obtained with contrast. 3D reformatted images were also obtained. This study was performed with techniques to keep radiation doses as low as reasonably achievable (ALARA). Individualized dose reduction techniques using automated exposure control or adjustment of mA and/or kV according to the patient's size were employed. Motion artifact in the lower lobes. There is no evidence of pulmonary embolism. There is no evidence of thoracic aortic aneurysm or dissection. There is no evidence of mediastinal or hilar mass or adenopathy. There are several calcified granulomas. There is no evidence of pulmonary mass or nodule. No localized inflammatory process is seen within the lungs. IMPRESSION: No evidence of pulmonary embolism. No mass or localized inflammatory process. Reviewed, Interpreted and Dictated by Bhargav Campos III, MD Transcribed by Juan C Chow Authenticated and [facility]
--- NOTE | 2022-05-15 12:39 | CT_ITS ---
FINAL REPORT TECHNIQUE: Axial CT images were performed through the abdomen pelvis utilizing a CTA protocol. Coronal and sagittal reformatted images were submitted. This study was performed with techniques to keep radiation doses as low as reasonably achievable (ALARA). Individualized dose reduction techniques using automated exposure control or adjustment of mA and/or kV according to the patient's size were employed. CLINICAL HISTORY: chest pain radiating to back FINDINGS: CTA: The abdominal aorta is proper caliber. The SMA, celiac axis, and SUJATHA are patent out significant stenosis or calcification. The right renal artery is patent. There is a focal stenosis, less than 50%, of the proximal left renal artery. The iliac arteries are within normal limits. ABDOMEN: The lung bases are clear. The liver is normal in size and attenuation. Postoperative changes are seen from cholecystectomy. The spleen is unremarkable. The adrenals are normal. The pancreas is unremarkable. There are 2 small cysts in the lower pole of the left kidney. There is a less than 3 mm stone in the mid left kidney. There is mild bilateral renal scarring. The aorta is normal in caliber. No free fluid or adenopathy is identified. No findings for mechanical bowel obstruction are identified. There is a small umbilical hernia containing fat. PELVIS: The appendix is normal. The urinary bladder is unremarkable. No free fluid, free air, abscess or adenopathy is identified. There has been hysterectomy. A 24 mm nonspecific sclerotic focus is seen in the medial right iliac bone. IMPRESSION: No aortic aneurysm or dissection. Less than 50% stenosis of the proximal left renal artery. Nonspecific sclerotic focus in the medial right iliac bone. If indicated this could be followed up with CT or bone scan. Reviewed, Interpreted and Dictated by Bhargav Campos III, MD Transcribed by Jaun C Chow Authenticated and . [facility]
[2022-05-15 12:49] LABS: Alanine Aminotransferase 35 U/L (12-78); Alkaline Phosphatase 157 U/L (38-126); Aspartate Amino Transferase 47 U/L (14-36); Bilirubin,Direct 0.2 mg/dl (0.0-0.4); Bilirubin,Indirect 0.1 mg/dL (0.0-0.9); Bilirubin,Total 0.3 mg/dl (0.2-1.3); Bilirubin,Unconjugated 0.1 mg/dL (0.0-1.1)
[2022-05-15 12:50] LABS: Albumin Level 4.3 g/dl (3.5-5.0); Total Protein,Serum 7.8 g/dl (6.3-8.2)
[2022-05-15 12:52] LABS: Troponin I < 0.01 ng/ml (0.00-0.034)
--- NOTE | 2022-05-15 12:57 | PC.NURSE ---
rad notified of CT orders
--- NOTE | 2022-05-15 13:02 | PC.NURSE ---
pt to CT
--- NOTE | 2022-05-15 14:03 | HMH.EDGENADL ---
ED Disposition Clinical Impression: Chest pain Qualifiers: Chest pain type: unspecified Qualified Code(s): R07.9 - Chest pain, unspecified Hypertension Qualifiers: Hypertension type: unspecified Qualified Code(s): I10 - Essential (primary) hypertension UTI (urinary tract infection) Qualifiers: Urinary tract infection type: acute cystitis Hematuria presence: without hematuria Qualified Code(s): N30.00 - Acute cystitis without hematuria Disposition: Home, Self-Care Condition on Discharge: Good Instructions: Treatments for High Blood Pressure: More Than Just Taking a Pill, DI for Urinary Tract Infection (UTI), DI for Atypical Chest Pain Additional Instructions: You were evaluated in the emergency department today for chest and back pain. At this time, we feel that your symptoms are due to your high blood pressure and urinary tract infection. 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 Take Tylenol and ibuprofen at home as needed for pain. Follow-up with your primary care provider over the next 48 hours for further evaluation and management of your hypertension. Return to the emergency department for any new or worsening symptoms. Prescriptions: Nitrofurantoin Monohyd/M-Cryst [Macrobid 100 mg Capsule] 100 mg PO BID 5 Days #10 cap Transmission Status: Received by [facility] [id number] Referrals: Louis Rodriguez MD [Primary Care Provider] - - Critical Care Critical Care Time: No Attestation: On 05/15/22, the high probability of a clinically significant, sudden or life threatening deterioration of the following system(s) required my full and direct attention, intervention and personal management. The time I documented below is in addition to time spent performing reported procedures but includes the following listed in this critical care notation. Medical Decision Making - Jono Inquiry Pt receiving controlled substance: No Vital Signs: 05/15/22 12:15 05/15/22 12:25 05/15/22 12:30 Temperature 98.4 F Temperature Source Oral Pulse Rate 81 84 Pulse Rate [Apical] 79 Respiratory Rate 18 Blood Pressure 193/96 H 197/90 H Blood Pressure [Left Arm] 212/96 H Blood Pressure Mean 128 131 Blood Pressure Mean [Left Arm] 134 Blood Pressure Source [Left Arm] Automatic Cuff Blood Pressure Position [Left Arm] Sitting 02 Sat by Pulse Oximetry 99 99 97 Oxygen Delivery Method Room Air 05/15/22 13:17 05/15/22 13:30 05/15/22 14:00 Temperature Temperature Source Pulse Rate 74 76 73 Pulse Rate [Apical] Respiratory Rate 18 Blood Pressure 206/92 H 186/95 H 193/77 H Blood Pressure [Left Arm] Blood Pressure Mean 130 125 115 Blood Pressure Mean [Left Arm] Blood Pressure Source [Left Arm] Blood Pressure Position [Left Arm] 02 Sat by Pulse Oximetry 98 98 99 Oxygen Delivery Method Room Air 05/15/22 14:30 05/15/22 15:00 05/15/22 16:00 Temperature Temperature Source Pulse Rate 76 78 72 Pulse Rate [Apical] Respiratory Rate Blood Pressure 165/74 H 162/82 H 197/106 H Blood Pressure [Left Arm] Blood Pressure Mean 104 103 124 Blood Pressure Mean [Left Arm] Blood Pressure Source [Left Arm] Blood Pressure Position [Left Arm] 02 Sat by Pulse Oximetry 95 98 98 Oxygen Delivery Method 05/15/22 16:29 05/15/22 17:00 Temperature Temperature Source Pulse Rate 78 77 Pulse Rate [Apical] Respiratory Rate 18 18 Blood Pressure 190/95 H 176/99 H Blood Pressure [Left Arm] Blood Pressure Mean 126 124 Blood Pressure Mean [Left Arm] Blood Pressure Source [Left Arm] Blood Pressure Position [Left Arm] 02 Sat by Pulse Oximetry 96 96 Oxygen Delivery Method Room Air Room Air - Lab Data Lab Results 05/15/22 12:20: Total Bilirubin 0.3, Direct Bilirubin 0.2, Conjugated Bilirubin 0.0, Indirect Bilirubin 0.1, Unconjugated Bilirubin 0.1, AST 47 H, ALT 35, Alkaline Phosphatase 157 H, Total Protein 7.8, Albumin 4.3
[2022-05-15 14:16] LABS: Lipase 38 U/L (23-300)
--- NOTE | 2022-05-15 14:25 | PC.NURSE ---
contacting radiology to check on status of pt CTA results, spoke with kt. She states they are going to send down preliminary results on pt. notified ER MD. ER MD states current POC is also to get a second troponin on pt .
--- NOTE | 2022-05-15 14:38 | PC.NURSE ---
rounded on patient, patient reports I'm not feeling well, my chest is hurting and I'm nauseated. She reports, my chest pain has never really gotten better since being here, but its not any worse. pt denies a blanket at this time. Call light within reach. I reported to RHETT Fernandez and Dr. Dejesus the patients complaint. Rebecca is going to go in and speak with patient
--- NOTE | 2022-05-15 14:44 | PC.NURSE ---
checked on pt at this time, updated her ER MD states she would place orders for pt. Pt reports has had nitro before and tolerated it well. Pt reports I just don't feel good .
--- NOTE | 2022-05-15 15:52 | ECG_ITS ---
APPROVED REPORT Exam: Resting ECG HR:66 bpm ECG Measurements Heart Rate 66 AXES AK 171 P 69 QRSd 86 QRS 86 QT 430 T 69 QTc 444 Conclusion SINUS RHYTHM LOW QRS VOLTAGE IN PRECORDIAL LEADS [QRS DEFLECTION < 1.0 mV IN CHEST LEADS] POSSIBLE RIGHT VENTRICULAR CONDUCTION DELAY [RSR (QR) IN V1/V2] BORDERLINE ECG UNCONFIRMED REPORT Electronically signed by : Duglas Person MD 05/16/2022 17:02:41
[2022-05-15 15:55] LABS: Troponin I < 0.01 ng/ml (0.00-0.034)
--- NOTE | 2022-05-15 15:55 | PC.NURSE ---
Repeat EKG performed and given to ER MD; waiting on 2nd troponin results at this time. Given patient a warm blanket and she has no other needs at this time
--- NOTE | 2022-05-15 16:18 | PC.NURSE ---
pt ambulated to restroom at this time, standby assist. Pt given specimen cup to provide urine sample
--- NOTE | 2022-05-15 16:32 | PC.NURSE ---
pt urine sent to lab at this time
[2022-05-15 16:57] LABS: Microscopic, Urine URINE MICROSCOPIC (MICROSCOPIC)
--- NOTE | 2022-05-15 17:26 | PC.NURSE ---
ER at discussing POC with pt. Pt them ambulated to restroom.
[2022-05-15 17:29] LABS: Appearance,Urine CLEAR (Clear); Bilirubin,Urine Negative (Negative); Blood, Urine Negative (Negative); Color,Urine YELLOW (Yellow); Glucose,Urine (UA) Negative (Negative); Ketones,Urine Negative (Negative); Leukocyte Esterase,Urine TRACE (Negative); Nitrate,Urine POSITIVE (Negative); Protein,Urine Negative (Negative); Urobilinogen,Urine 0.2 EU/dl (0.2)
[2022-05-15 17:45] LABS: Bacteria,Urine Trace /lpf
== END 2022-05-15 19:12 | disposition home or self-care (01) ==
PROVIDERS: Emergency Provider Emergency Medicine; PCP Family Medicine
DX: R07.2 Precordial pain (principal); M54.9 Dorsalgia, unspecified; N30.00 Acute cystitis without hematuria; R51.9 Headache, unspecified; I11.0 Hypertensive heart disease with heart failure; I50.9 Heart failure, unspecified; N28.9 Disorder of kidney and ureter, unspecified; I25.2 Old myocardial infarction; K21.9 Gastro-esophageal reflux disease without esophagitis; E11.9 Type 2 diabetes mellitus without complications; Z79.82 Long term (current) use of aspirin; Z79.4 Long term (current) use of insulin; Z88.8 Allergy status to other drugs, medicaments and biological substances; Z91.041 Radiographic dye allergy status; Z86.73 Personal history of transient ischemic attack (TIA), and cerebral infarction without residual deficits; Z82.49 Family history of ischemic heart disease and other diseases of the circulatory system; Z83.3 Family history of diabetes mellitus; Z87.442 Personal history of urinary calculi; Z87.448 Personal history of other diseases of urinary system
CPT/HCPCS: 71045; 71275; 74174; 80048; 80076; 81001; 83690; 84484; 85025; 93005; 96374; 96375; 99285; J2405; Q9967

== ENCOUNTER → 2022-08-07 10:19 | Outpatient (CLI) | payer OTHER, SELFPAY ==
[2022-08-07 16:56] LABS: Alanine Aminotransferase 26 U/L (12-78); Albumin Level 4.4 g/dl (3.5-5.0); Albumin/Globulin Ratio 1.5 (1.1-1.8); Alkaline Phosphatase 184 U/L (38-126); Anion Gap 19.4 mEq/L (5-15); Aspartate Amino Transferase 39 U/L (14-36); Bilirubin,Total 0.6 mg/dl (0.2-1.3); Blood Urea Nitrogen 14 mg/dl (7-17); Calcium 9.9 mg/dl (8.4-10.2); Carbon Dioxide 26 mmol/L (22.0-30.0); Chloride 97 mmol/L (98-107); Estimated Glomerular Filt Rate 86 ml/min (>60); GFR (African American) 104 ML/MIN (>60); Globulin 2.9 g/dL (1.3-3.2); Glucose 183 mg/dl (74-100); Lipase 35 U/L (23-300); Potassium 4.4 mmoL/L (3.5-5.1); Sodium 138 mmol/L (136-145); Total Protein,Serum 7.3 g/dl (6.3-8.2)
[2022-08-07 17:08] LABS: Hemoglobin A1C 10.7 % (4.0-6.0)
== END ==
PROVIDERS: PCP Family Medicine; Visit Provider Family Medicine
DX: E78.5 Hyperlipidemia, unspecified (principal); I10 Essential (primary) hypertension; E11.9 Type 2 diabetes mellitus without complications; Z79.4 Long term (current) use of insulin
CPT/HCPCS: 80053; 83036; 83690

== ENCOUNTER → 2022-12-26 11:00 | Outpatient (CLI) | payer OTHER, SELFPAY ==
[2022-12-26 17:39] LABS: Basophils # 0.1 K/mm3 (0-0.2); Basophils % 0.9 % (0.1-2.0); Eosinophils # 0.2 K/mm3 (0.0-0.4); Eosinophils % 1.9 % (0.1-12.0); Hematocrit 43.9 % (37.0-47.0); Hemoglobin 13.6 g/dL (12.2-16.2); Lymphocytes # 3.2 K/mm3 (0.7-4.5); Lymphocytes % 30.3 % (10-50); Mean Corpuscular HGB Conc 30.9 g/dL (31.8-35.4); Mean Corpuscular Hemoglobin 26.8 pg (27.0-31.2); Mean Corpuscular Volume 86.7 fl (81-99); Mean Platelet Volume 9.2 fl (7.4-10.4); Monocytes # 0.6 K/mm3 (0.1-1.0); Monocytes % 5.5 % (1.7-9.3); Neutrophils # 6.5 K/mm3 (1.8-7.8); Neutrophils % 61.4 % (37.0-80.0); Platelet Count 269 K/mm3 (142-424); Red Blood Count 5.06 M/mm3 (4.20-5.40); Red Cell Distribution Width 14.4 % (11.5-17.5); White Blood Count 10.6 K/mm3 (4.8-10.8)
[2022-12-26 17:47] LABS: Alanine Aminotransferase 25 U/L (12-78); Albumin Level 3.8 g/dl (3.5-5.0); Albumin/Globulin Ratio 1.4 (1.1-1.8); Alkaline Phosphatase 145 U/L (38-126); Anion Gap 12.4 mEq/L (5-15); Aspartate Amino Transferase 37 U/L (14-36); Bilirubin,Total 0.5 mg/dl (0.2-1.3); Blood Urea Nitrogen 14 mg/dl (7-17); Calcium 8.8 mg/dl (8.4-10.2); Carbon Dioxide 26 mmol/L (22.0-30.0); Chloride 100 mmol/L (98-107); Chol/HDL Ratio 3.5 (1-3.5); Cholesterol 170 mg/dl (140-200); Estimated Glomerular Filt Rate 103 ml/min (>60); GFR (African American) 124 ML/MIN (>60); Globulin 2.8 g/dL (1.3-3.2); Glucose 290 mg/dl (74-100); HDL Cholesterol 49 mg/dl (40-60); Potassium 4.4 mmoL/L (3.5-5.1); Sodium 134 mmol/L (136-145); Total Protein,Serum 6.6 g/dl (6.3-8.2); Triglycerides 126 mg/dl (30-150); VLDL Cholesterol 25 mg/dL (0-40)
[2022-12-26 17:58] LABS: Direct LDL Cholesterol 87.41 mg/dL (100-129)
[2022-12-26 18:17] LABS: Thyroid Stimulating Hormone 1.91 uIU/mL (0.465-4.68)
[2022-12-26 18:35] LABS: Hemoglobin A1C 12.5 % (4.0-6.0)
== END ==
LOC: LAB.DROPOF 01-13 10:22
PROVIDERS: PCP Family Medicine; Visit Provider Family Medicine
DX: N30.00 Acute cystitis without hematuria (principal); E78.5 Hyperlipidemia, unspecified; E11.9 Type 2 diabetes mellitus without complications; Z79.4 Long term (current) use of insulin
CPT/HCPCS: 80053; 80061; 83036; 84443; 85025; 87086

== ENCOUNTER → 2022-12-26 23:26 | Outpatient (CLI) | payer OTHER, SELFPAY | PROVIDERS: PCP Family Medicine; Visit Provider Family Medicine | DX: E78.5 Hyperlipidemia, unspecified (principal) ==

== ENCOUNTER 2023-03-15 16:59 | Emergency (ER) | payer OTHER, SELFPAY ==
[2023-03-15 17:01] VITALS: BP 170/84; PULSE 88; RESP 18; TEMP 36.8; O2SAT 98; BMI 34.4
--- NOTE | 2023-03-15 17:02 | HMH.EDGENADL ---
Discharge Plan Disposition Patient Disposition: Home, Self-Care Condition: Fair Prescriptions Prescriptions: New dicyclomine 20 mg tablet 20 mg PO QID PRN (Reason: abdominal pain) Qty: 14 0RF ondansetron 4 mg tablet,disintegrating 4 mg PO Q6H PRN (Reason: nausea and vomiting) Qty: 10 0RF No Action aspirin 81 mg tablet,chewable 81 mg PO DAILY furosemide 40 mg tablet 20 mg PO DAILY hydrocodone-acetaminophen 7.5-325 mg tablet 1 tab PO Q8H PRN (Reason: pain) Qty: 30 0RF amlodipine 10 mg tablet 10 mg PO BID Qty: 180 3RF atorvastatin 10 mg tablet 40 mg PO HS Qty: 90 3RF clonidine HCl 0.2 mg tablet 0.2 mg PO TID PRN (Reason: hypertensive emergency) Qty: 90 3RF Rx Instructions: take if sbp over 160 losartan-hydrochlorothiazide [Hyzaar] 100-12.5 mg tablet 1 tab PO DAILY Qty: 90 3RF insulin glargine 100 unit/mL (3 mL) insulin pen 120 unit SQ QPM Qty: 15 10RF insulin lispro 100 unit/mL insulin pen, half-unit 45 unit SQ TID ondansetron HCl 4 mg tablet 4 mg PO Q8H PRN (Reason: nausea and vomiting) Qty: 90 3RF (DME) pen needle, diabetic 32 gauge x 1/4 needle See Rx Instructions .Route .MEDSUPPLY Qty: 100 12RF Rx Instructions: As directed acetaminophen-codeine 300-30 mg tablet 1 tab PO TID PRN (Reason: pain) Qty: 30 5RF Ozempic 0.25 mg or 0.5 mg (2 mg/3 mL) pen injector 0.25 mg SQ WEEKLY Qty: 3 10RF Rx Instructions: for 4 weeks amlodipine 10 MG tablet 10 mg PO BID Referrals Follow up/Referrals: Louis Rodriguez MD [Primary Care Provider] - See instructions Activity Restrictions/Add. Instructions Additional Instructions/Restrictions: You have been evaluated for diarrhea. Likely due to gastroenteritis or inflammation. Please monitor your symptoms closely. Follow-up plan to diet. Take Bentyl as needed for cramps. Zofran as needed for nausea. Follow-up with your primary care doctor in 1 to 2 days for symptom recheck. Return to the emergency department at once for any new or worsening symptoms, uncontrolled pain, fever, vomiting, other concerns Clinical Impressions Clinical Impression: Diarrhea Instructions Patient Instructions: DI for Diarrhea and Traveler's Diarrhea -- Adult, DI for Acute Abdominal Pain Discharge ED Provider: Shahrzad Arreguin Adult HPI General Chief complaint: Abdominal Pain Stated complaint: abnormal/discolored bowel movements Time Seen by Provider: 03/15/23 17:02 Mode of Arrival: Ambulatory Source of Information: Patient Limitations: No Limitations History of Present Illness HPI narrative: 57-year-old female presenting to the emergency department with diarrhea, abdominal pain. Symptoms started yesterday. She had cramping abdominal pain multiple episodes of loose stool. Stool is now yellowish-brown in color. Feels like she is unable to eat or drink without discomfort. She has history of liver problems as well as pancreatitis. Had her gallbladder removed a few years ago. Denies any pain or burning with urination. No blood in the urine or stool. No medications prior to arrival. Related Data Home Medications Medication Instructions Recorded Confirmed aspirin 81 mg chewable tablet 81 mg PO DAILY Heart disease 10/09/21 12/26/22 furosemide 40 mg tablet 20 mg PO DAILY Fluid 10/09/21 12/26/22 amlodipine 10 mg tablet 10 mg PO BID blood pressure 11/27/21 12/26/22 insulin lispro 100 unit/mL 45 unit SQ TID Diabetes 12/26/22 12/26/22 subcutaneous half-unit pen Previous Rx's Medication Instructions Recorded hydrocodone 7.5 mg-acetaminophen 1 tab PO Q8H PRN pain #30 tabs 02/11/22 325 mg tablet acetaminophen 300 mg-codeine 30 mg 1 tab PO TID PRN pain #30 tabs 12/26/22 tablet amlodipine 10 mg tablet 10 mg PO BID blood pressure #180 12/26/22 tabs atorvastatin 10 mg tablet 40 mg PO HS High cholesterol #90 12/26/22 tabs clonidine HCl 0.2 mg tablet 0.2 mg PO TID PRN hyperte
--- NOTE | 2023-03-15 17:10 | PC.NURSE ---
ED MD AT BEDSIDE
--- NOTE | 2023-03-15 17:17 | CT_ITS ---
PROCEDURE INFORMATION: Exam: CT Abdomen And Pelvis Without Contrast Exam date and time: 03/15/2023 5:27 PM Age: 57 years old Clinical indication: Abdominal pain; Flank; Right upper quadrant (ruq); Prior surgery; Surgery date: 6+ months; Surgery type: Previous gallbladder surgery, hysterectomy and appendix; Additional info: Flank pain- ruq TECHNIQUE: Imaging protocol: Computed tomography of the abdomen and pelvis without contrast. Radiation optimization: All CT scans at this facility use at least one of these dose optimization techniques: automated exposure control; mA and/or kV adjustment per patient size (includes targeted exams where dose is matched to clinical indication); or iterative reconstruction. REPORTING DATA: Count of CT and Cardiac NM exams in prior 12 months: This patient has received 3 known CTs and 0 known cardiac nuclear medicine studies in the 12 months prior to the current study. COMPARISON: CT ABDOMEN PELVIS WO CON 04/07/2022 6:20 PM FINDINGS: Liver: Normal. No mass. Gallbladder and bile ducts: Cholecystectomy. Pancreas: Normal. No ductal dilation. Spleen: Normal. No splenomegaly. Adrenal glands: Normal. No mass. Kidneys and ureters: Normal. No hydronephrosis. Stomach and bowel: Unremarkable. No obstruction. No mucosal thickening. Appendix: No evidence of appendicitis. Intraperitoneal space: Unremarkable. No free air. No significant fluid collection. Vasculature: Unremarkable. No abdominal aortic aneurysm. Lymph nodes: Unremarkable. No enlarged lymph nodes. Urinary bladder: Unremarkable as visualized. Reproductive: Hysterectomy. Bones/joints: Unremarkable. No acute fracture. Soft tissues: Unremarkable. IMPRESSION: No acute findings.
--- NOTE | 2023-03-15 17:26 | PC.NURSE ---
PT TO CT
[2023-03-15 17:29] LABS: Basophils # 0.1 K/mm3 (0-0.2); Basophils % 0.4 % (0.1-2.0); Eosinophils # 0.3 K/mm3 (0.0-0.4); Eosinophils % 1.8 % (0.1-12.0); Hematocrit 42.3 % (37.0-47.0); Hemoglobin 13.6 g/dL (12.2-16.2); Lymphocytes # 4.2 K/mm3 (0.7-4.5); Mean Corpuscular HGB Conc 32.2 g/dL (31.8-35.4); Mean Corpuscular Hemoglobin 26.9 pg (27.0-31.2); Mean Corpuscular Volume 83.4 fl (81-99); Mean Platelet Volume 7.4 fl (7.4-10.4); Monocytes # 0.7 K/mm3 (0.1-1.0); Monocytes % 4.2 % (1.7-9.3); Neutrophils # 11.4 K/mm3 (1.8-7.8); Neutrophils % 68.6 % (37.0-80.0); Platelet Count 299 K/mm3 (142-424); Red Blood Count 5.06 M/mm3 (4.20-5.40); Red Cell Distribution Width 14.9 % (11.5-17.5); White Blood Count 16.6 K/mm3 (4.8-10.8)
--- NOTE | 2023-03-15 17:30 | PC.NURSE ---
pt return from CT
--- NOTE | 2023-03-15 17:30 | PC.NURSE ---
PT RETURNED FROM CT
[2023-03-15 17:31] LABS: MANUAL DIFFERENTIAL MANUAL DIFFERENTIAL (MANUAL DIFF)
[2023-03-15 17:32] LABS: Chloride 101 mmol/L (98-107); Potassium 3.5 mmoL/L (3.5-5.1); Sodium 139 mmol/L (136-145)
[2023-03-15 17:35] LABS: Alanine Aminotransferase 36 U/L (12-78); Albumin Level 4.3 g/dl (3.5-5.0); Albumin/Globulin Ratio 1.1 (1.1-1.8); Alkaline Phosphatase 126 U/L (38-126); Anion Gap 16.5 mEq/L (5-15); Aspartate Amino Transferase 39 U/L (14-36); Bilirubin,Total 0.5 mg/dl (0.2-1.3); Blood Urea Nitrogen 20 mg/dl (7-17); Calcium 9.5 mg/dl (8.4-10.2); Carbon Dioxide 25 mmol/L (22.0-30.0); Creatinine Clearance Estimated 101 mL/min (50-200); Estimated Glomerular Filt Rate 64 ml/min (>60); GFR (African American) 78 ML/MIN (>60); Globulin 3.8 g/dL (1.3-3.2); Glucose 143 mg/dl (74-100); Lipase 61 U/L (23-300); Total Protein,Serum 8.1 g/dl (6.3-8.2)
[2023-03-15 17:43] LABS: Adenovirus F 40/41, stool Not Detected (NotDetected); Astrovirus Not Detected (NotDetected); Campylobacter Not Detected (NotDetected); Clostridium Difficile A/B, PCR Not Detected (NotDetected); Cryptosporidium Not Detected (NotDetected); Cyclospora Cayetanesis Not Detected (NotDetected); Entamoeba histolytica Not Detected (NotDetected); Enteroaggregative E coli Not Detected (NotDetected); Enteropathogenic E coli Not Detected (NotDetected); Enterotoxigenic E coli Not Detected (NotDetected); Giardia lamblia Not Detected (NotDetected); Norovirus Not Detected (NotDetected); Plesimonas Shigalloides, PCR Not Detected (NotDetected); Rotavirus A Not Detected (NotDetected); Salmonella, PCR Not Detected (NotDetected); Sapovirus Not Detected (NotDetected); Shigella Enterovasive E coli Not Detected (NotDetected); Vibrio Cholerae Not Detected (NotDetected); Vibrio, PCR Not Detected (NotDetected); Yersinia Entercolitica, PCR Not Detected (NotDetected)
[2023-03-15 18:00] LABS: Anisocytosis 1+; Eosinophils % 2 % (0-3); Hypochromasia 1+; Lymphocytes % 23 % (10-50); Monocytes % 2 % (2-9); Neutrophils % 73 % (42-76); Platelet Estimate Normal; Total Cells Counted 100
--- NOTE | 2023-03-15 18:40 | PC.NURSE ---
PT ASSISTED TO BR
--- NOTE | 2023-03-15 18:45 | PC.NURSE ---
PT UNABLE TO VOID
[2023-03-15 19:00] VITALS: BP 140/69; PULSE 68; O2SAT 97
--- NOTE | 2023-03-15 19:32 | PC.NURSE ---
Pt ambulatory to bathroom and back to room. Pt provided urine sample. Pt provided with warm blanket. No other needs at this time.
[2023-03-15 19:35] LABS: Microscopic, Urine URINE MICROSCOPIC (MICROSCOPIC)
[2023-03-15 19:48] LABS: Appearance,Urine CLEAR (Clear); Bilirubin,Urine Negative (Negative); Blood, Urine Negative (Negative); Color,Urine YELLOW (Yellow); Glucose,Urine (UA) Negative (Negative); Ketones,Urine Negative (Negative); Leukocyte Esterase,Urine Negative (Negative); Nitrate,Urine Negative (Negative); PH,Urine 5.5 (5.0-8.5); Protein,Urine Negative (Negative); Specific Gravity, Urine 1.025 (1.005-1.030); Urobilinogen,Urine 0.2 EU/dl (0.2)
[2023-03-15 19:50] VITALS: BP 113/72; PULSE 79; RESP 19; TEMP 36.8; O2SAT 98
[2023-03-15 19:52] LABS: Shiga-like toxin E coli Detected (NotDetected)
--- NOTE | 2023-03-15 19:57 | PC.NURSE ---
Dr. Arreguin at
[2023-03-15 20:01] LABS: Bacteria,Urine 1+ /lpf; RBC,Urine Occasional #/hpf (0-3)
== END 2023-03-15 20:10 | disposition home or self-care (01) ==
PROVIDERS: Emergency Provider Emergency Medicine; PCP Family Medicine
DX: R10.9 Unspecified abdominal pain (principal); R19.7 Diarrhea, unspecified; A03.9 Shigellosis, unspecified; I10 Essential (primary) hypertension
CPT/HCPCS: 74176; 80053; 81001; 83690; 85007; 85025; 87506; 96361; 96374; 99284; 99285; J2405

== ENCOUNTER → 2023-08-12 08:26 | Outpatient (CLI) | payer OTHER, SELFPAY ==
--- NOTE | 2023-08-12 08:27 | NM_ITS ---
FINAL REPORT TECHNIQUE: Sequential anterior images were obtained after the ingestion of 2 whole eggs, white toast with butter radiolabeled with 0.61 mCi technetium 99M sulfur colloid. CLINICAL HISTORY: gastroparesis nausea x 2 months rt side abd pain 8:50 am .61 mci tc sulfer colloid injected into 2 whole eggs white toast with butter COMPARISON: None FINDINGS: GASTRIC EMPTYING SCAN Static images show normal emptying of the stomach into the small bowel. Based on the time activity curve, the estimated half-emptying time is mildly prolonged at 92 minutes. IMPRESSION: Mildly prolonged gastric emptying study. Reviewed, Interpreted and Dictated by Raymond Alva MD Transcribed by Beth Prado Authenticated and . [facility]
== END ==
PROVIDERS: PCP Family Medicine; Visit Provider Family Medicine
DX: K31.84 Gastroparesis (principal)
CPT/HCPCS: 78264; A9541

== ENCOUNTER 2023-10-25 15:50 | Emergency (ER) | payer BC, SELFPAY ==
[2023-10-25 15:52] VITALS: BP 175/63; PULSE 70; RESP 20; TEMP 36.6; O2SAT 97; BMI 35.4
--- NOTE | 2023-10-25 16:07 | PC.NURSE ---
dr snow at bedside
--- NOTE | 2023-10-25 16:11 | CT_ITS ---
PROCEDURE INFORMATION: Exam: CT Abdomen And Pelvis Without Contrast Exam date and time: 10/25/2023 4:27 PM Age: 57 years old Clinical indication: Abdominal pain; Flank; Left; Additional info: Luq and llq abd pain TECHNIQUE: Imaging protocol: Computed tomography of the abdomen and pelvis without contrast. Radiation optimization: All CT scans at this facility use at least one of these dose optimization techniques: automated exposure control; mA and/or kV adjustment per patient size (includes targeted exams where dose is matched to clinical indication); or iterative reconstruction. COMPARISON: CT ABDOMEN PELVIS WO CON 03/15/2023 5:27 PM FINDINGS: Tubes, catheters and devices: None noted. Lungs: Lung bases appear clear. Heart: No significant coronary calcifications. No cardiomegaly. No significant pericardial effusion. Liver: Normal. No mass. Gallbladder and bile ducts: Cholecystectomy. No ductal dilation. Pancreas: Normal. No ductal dilation. Spleen: Normal. No splenomegaly. Adrenal glands: Normal. No mass. Kidneys and ureters: Normal. No hydronephrosis. Stomach and bowel: Unremarkable. No obstruction. No mucosal thickening. Appendix: No evidence of appendicitis. Intraperitoneal space: Unremarkable. No free air. No significant fluid collection. Retroperitoneal space: No significant retroperitoneal inflammatory changes are noted. Vasculature: Unremarkable. No abdominal aortic aneurysm. Lymph nodes: Unremarkable. No enlarged lymph nodes. Urinary bladder: Unremarkable as visualized. Reproductive: Hysterectomy. Bones/joints: Unremarkable. No acute fracture. Soft tissues: Unremarkable. IMPRESSION: No acute findings.
--- NOTE | 2023-10-25 16:12 | HMH.EDGENADL ---
Discharge Plan Disposition Patient Disposition: Home, Self-Care Prescriptions Prescriptions: No Action acetaminophen-codeine 300-30 mg tablet 1 tab PO TID PRN (Reason: pain) Qty: 30 5RF metoclopramide HCl [Reglan] 10 mg tablet 10 mg PO QAC Qty: 90 0RF Rx Instructions: administer 30 minutes before meals (DME) Dexcom G7 Director Cost Misc See Rx Instructions .Route Qty: 1 0RF Rx Instructions: As directed amlodipine 10 mg tablet 10 mg PO BID Qty: 180 3RF atorvastatin 10 mg tablet 40 mg PO HS Qty: 90 3RF clonidine HCl 0.2 mg tablet 0.2 mg PO TID PRN (Reason: hypertensive emergency) Qty: 90 3RF Rx Instructions: take if sbp over 160 losartan-hydrochlorothiazide [Hyzaar] 100-12.5 mg tablet 1 tab PO DAILY Qty: 90 3RF insulin glargine 100 unit/mL (3 mL) insulin pen 120 unit SQ QPM Qty: 15 10RF insulin lispro 100 unit/mL insulin pen, half-unit 45 unit SQ TID (DME) pen needle, diabetic 32 gauge x 1/4 needle See Rx Instructions .Route .MEDSUPPLY Qty: 100 12RF Rx Instructions: As directed Ozempic 0.25 mg or 0.5 mg (2 mg/3 mL) pen injector 0.25 mg SQ WEEKLY Qty: 3 10RF Rx Instructions: for 4 weeks (DME) Dexcom G7 Sensor Device See Rx Instructions .Route Qty: 1 0RF Rx Instructions: As directed ondansetron 4 mg tablet,disintegrating 4 mg PO Q6H PRN (Reason: nausea and vomiting) Qty: 10 0RF Referrals Follow up/Referrals: Oziel James APRN [Nurse Practitioner] - See instructions Activity Restrictions/Add. Instructions Additional Instructions/Restrictions: No emergent medical condition identified today please follow-up closely with your primary care doctor return with significant worsening of her symptoms or other concerns. Clinical Impressions Clinical Impression: Abdominal pain, LUQ, Abdominal pain, LLQ Instructions Patient Instructions: DI for Acute Abdominal Pain Discharge ED Provider: Valentina Culver General Adult HPI General Chief complaint: Abdominal Pain Stated complaint: upper abdominal pain Time Seen by Provider: 10/25/23 16:07 History of Present Illness HPI narrative: Patient is a 57-year-old female presenting today with 3 days of left upper quadrant left lower quadrant abdominal pain. States she has some radiation to the left flank she has a history of kidney stones but states she has not had a kidney stone in at least 3 years. However she has been dealing with kidney stones since she was 15 years of age. Denies any hematuria frequency urgency dysuria or fevers. States she was in urgent treatment clinic a few days ago and was told this may be her spleen. She has no history of any liver disease or hematologic malignancy. Denies any blood in her stool diarrhea history of diverticulitis. Denies any changes in bowel movements. Denies any urinary symptoms either. Related Data Home Medications Medication Instructions Recorded Confirmed insulin lispro 100 unit/mL 45 unit SQ TID Diabetes 12/26/22 07/22/23 subcutaneous half-unit pen Previous Rx's Medication Instructions Recorded amlodipine 10 mg tablet 10 mg PO BID blood pressure #180 12/26/22 tabs atorvastatin 10 mg tablet 40 mg PO HS High cholesterol #90 12/26/22 tabs clonidine HCl 0.2 mg tablet 0.2 mg PO TID PRN hypertensive 12/26/22 emergency #90 tabs insulin glargine 100 unit/mL (3 120 unit (1.2 mL) SQ QPM Diabetes 12/26/22 mL) subcutaneous pen #15 mL losartan 100 1 tab PO DAILY #90 tabs 12/26/22 mg-hydrochlorothiazide 12.5 mg tablet (Hyzaar) pen needle, diabetic 32 gauge x #100 ea 12/26/22 1/ semaglutide 0.25 mg or 0.5 mg (2 0.25 mg (0.368 mL) SQ WEEKLY #3 mL 01/06/23 mg/3 mL) subcutaneous pen injector (Ozempic) ondansetron 4 mg disintegrating 4 mg PO Q6H PRN nausea and 03/15/23 tablet vomiting #10 tabs acetaminophen 300 mg-codeine 30 mg 1 tab PO TID PRN pain #30 tabs 07/22/23 tablet blood-glucose meter,continuous #1 ea 07/22/23 (Dexcom G7 Director Cost) metoclopramide HCl 10 mg tablet 10 mg PO QAC #90 tabs 07/22/23 (Reglan) blood-glucose sensor (Dexcom G7 #1 ea 07/31/23 Sensor device) Allergies Allergy/AdvReac Type Severity Reaction Status Date / Time lisinopril Allergy Severe angioedema Verified 07/22/23 13:22 Iodinated Contrast Media Allergy Mild Verified 07/22/23 13:22 metoprolol AdvReac bradycardia Verified 07/22/23 13:22 [facility] Disclaimer: The information contained in this section may have been updated after the patient was seen, as this information can be updated by other users. 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 current occupational exposures/hazards: No caffeine: No ROS Obtained: Yes All systems reviewed & no additional complaints except as documented Physical Exam General General appearance: alert Respiratory Respiratory exam: Present normal lung sounds bilaterally Cardiovascular Cardiovascular exam: Present regular rate Abdominal Exam Abdominal exam: Present soft and tenderness (Left upper quadrant left lower quadrant tenderness palpation) Back Exam Back exam: Absent CVA tenderness (L) Neurological Exam Neurological exam: Present alert and oriented X3 Medical Decision Making Jono Inquiry Pt receiving controlled substance: No Vital Signs: 10/25/23 15:52 10/25/23 16:14 Temperature 97.8 F Temperature Source Oral Pulse Rate 67 Pulse Rate [Left] 70 Respiratory Rate 20 18 Blood Pressure 176/73 H Blood Pressure [Right Arm] 175/63 H Blood Pressure Mean 122 Blood Pressure Mean [Right Arm] 100 Blood Pressure Source [Right Arm] Automatic Cuff 02 Sat by Pulse Oximetry 97 96 Oxygen Delivery Method Room Air Lab Data Lab results reviewed: Yes I reviewed the patient's lab results. Lab Results 10/25/23 16:23: WBC 13.4 H, RBC 5.08, Hgb 14.1, Hct 43.1, MCV 84.9, MCH 27.7, MCHC 32.7, RDW 14.3, Plt Count 227, MPV 8.3, Neut % (Auto) 65.7, Lymph % (Auto) 28.3, [place] % (Auto) 3.3, Eos % (Auto) 2.0, Baso % (Auto) 0.8, Neut # (Auto) 8.8 H, Lymph # (Auto) 3.8, [place] # (Auto) 0.5, Eos # (Auto) 0.3, Baso # (Auto) 0.1, Sodium 135 L, Potassium 4.3, Chloride 100, Carbon Dioxide 26, Anion Gap 13.3, BUN 17, Creatinine 0.80, Estimated Creat Clear 117, Estimated GFR 74, Est GFR ( Amer) 89, Glucose 395 H, Calcium 9.4, Total Bilirubin 0.6, AST 41 H, ALT 34, Alkaline Phosphatase 142 H, Total Protein 7.9, Albumin 4.3, Globulin 3.6 H, Albumin/Globulin Ratio 1.2, Lipase 59 10/25/23 16:45: Urine Color Yellow, Urine Appearance Clear, Urine pH 5.5, Ur Specific [place] 1.020, Urine Protein Negative, Urine Glucose (UA) 3+, Urine Ketones Negative, Urine Blood Negative, Urine Nitrate Negative, Urine Bilirubin Negative, Urine Urobilinogen 0.2, Ur Leukocyte Esterase Negative, Urine RBC None, Urine WBC Occasional, Ur Squamous Epith Cells 3-5, Urine Bacteria 3+ 10/25/23 16:23 10/25/23 16:23 Orders (Tests/Meds): ED MEDICATIONS Discontinued Medications Generic Name Dose Route Start Last Admin Trade Name Raminq PRN Reason Stop Dose Admin Lactated Ringer's 1,000 mls @ 999 mls/hr 10/25/23 16:15 10/25/23 16:40 Lactated Ringer's 1000 Ml Bag IV 10/25/23 17:15 999 mls/hr .Q1H1M RHODA Administration Ketorolac Tromethamine 15 mg 10/25/23 16:10 10/25/23 16:41 Ketorolac 30mg/Ml Vial IV 10/25/23 16:11 15 mg ONCE ONE Administration Morphine Sulfate 4 mg 10/25/23 16:10 10/25/23 16:41 Morphine 4mg/Ml Syringe IV 10/25/23 16:11 4 mg ONCE ONE Administration Ondansetron HCl 4 mg 10/25/23 16:10 10/25/23 16:40 Ondansetron 4mg/2ml Vial IV 10/25/23 16:11 4 mg ONCE ONE Administration ORDERS Category Date Time Status CT abdomen pelvis wo con Stat Cat Scan 10/25/23 16:11 Completed CBC w/Auto Diff [Complete Blood Count Auto Diff] Stat Lab 10/25/23 16:23 Completed CMP [Comprehensive Metabolic Panel] Stat Lab 10/25/23 16:23 Completed Lipase Stat Lab 10/25/23 16:23 Completed UA [Urinalysis and Microscopic] Stat Lab 10/25/23 16:45 Completed Urine Culture Stat Micro 10/25/23 16:45 Received Medical Decision Narrative: Is a 57-year-old female presenting with left upper quadrant left lower quadrant abdominal pain and tenderness. Differential includes diverticulitis, colitis, pancreatitis, urinary tract infection and pyelonephritis, constipation, bowel obstruction and because she describes this as burning sensation this could be shingles that is preceding the rash. No evidence of any rash at the moment. She has a contrast allergy we will get a noncontrasted CT scan of her abdomen pelvis IV fluids Toradol morphine Zofran have been administered will reassess. Reassessment 7:[address] exams [address] CT scan performed to person interpreted shows no acute abnormality in the abdomen or pelvis. Radiology read is consistent with his urinalysis and labs are also unremarkable. Patient was very concerned given the fact that someone told her that she had an enlarged spleen her spleen is not enlarged and no evidence of any type of rupture or intra-abdominal fluid collection. She is been reassured about this and advised to follow-up close with her primary care doctor and return precautions also emphasized. She is understanding and discharged in stable and improved condition. Critical Care Critical Care Time Critical Care Time: No
[2023-10-25 16:14] VITALS: BP 176/73; PULSE 67; RESP 18; O2SAT 96
[2023-10-25 16:37] LABS: Basophils # 0.1 K/mm3 (0-0.2); Basophils % 0.8 % (0.1-2.0); Eosinophils # 0.3 K/mm3 (0.0-0.4); Hematocrit 43.1 % (37.0-47.0); Hemoglobin 14.1 g/dL (12.2-16.2); Lymphocytes # 3.8 K/mm3 (0.7-4.5); Lymphocytes % 28.3 % (10-50); Mean Corpuscular HGB Conc 32.7 g/dL (31.8-35.4); Mean Corpuscular Hemoglobin 27.7 pg (27.0-31.2); Mean Corpuscular Volume 84.9 fl (81-99); Mean Platelet Volume 8.3 fl (7.4-10.4); Monocytes # 0.5 K/mm3 (0.1-1.0); Monocytes % 3.3 % (1.7-9.3); Neutrophils # 8.8 K/mm3 (1.8-7.8); Neutrophils % 65.7 % (37.0-80.0); Platelet Count 227 K/mm3 (142-424); Red Blood Count 5.08 M/mm3 (4.20-5.40); Red Cell Distribution Width 14.3 % (11.5-17.5); White Blood Count 13.4 K/mm3 (4.8-10.8)
[2023-10-25 16:39] LABS: Chloride 100 mmol/L (98-107)
[2023-10-25 16:40] LABS: Potassium 4.3 mmoL/L (3.5-5.1); Sodium 135 mmol/L (136-145)
[2023-10-25] MEDS: LACTATED RINGERS 1000ML 1,000 ML 999 ML IV (16:40)
[2023-10-25] MEDS: ONDANSETRON 4MG/2ML VIAL 4 MG IV (16:40)
[2023-10-25] MEDS: KETOROLAC 30MG/ML VIAL 15 MG IV (16:41)
[2023-10-25] MEDS: MORPHINE 4MG/ML SYRINGE 4 MG IV (16:41)
[2023-10-25 16:42] LABS: Alanine Aminotransferase 34 U/L (12-78); Aspartate Amino Transferase 41 U/L (14-36); Bilirubin,Total 0.6 mg/dl (0.2-1.3); Blood Urea Nitrogen 17 mg/dl (7-17); Creatinine Clearance Estimated 117 mL/min (50-200); Estimated Glomerular Filt Rate 74 ml/min (>60); GFR (African American) 89 ML/MIN (>60)
[2023-10-25 16:43] LABS: Albumin Level 4.3 g/dl (3.5-5.0); Albumin/Globulin Ratio 1.2 (1.1-1.8); Alkaline Phosphatase 142 U/L (38-126); Anion Gap 13.3 mEq/L (5-15); Calcium 9.4 mg/dl (8.4-10.2); Carbon Dioxide 26 mmol/L (22.0-30.0); Globulin 3.6 g/dL (1.3-3.2); Glucose 395 mg/dl (74-100); Lipase 59 U/L (23-300); Total Protein,Serum 7.9 g/dl (6.3-8.2)
[2023-10-25 16:57] LABS: Microscopic, Urine URINE MICROSCOPIC (MICROSCOPIC)
[2023-10-25 17:05] LABS: Appearance,Urine CLEAR (Clear); Bilirubin,Urine Negative (Negative); Blood, Urine Negative (Negative); Color,Urine YELLOW (Yellow); Glucose,Urine (UA) 3+ (Negative); Ketones,Urine Negative (Negative); Leukocyte Esterase,Urine Negative (Negative); Nitrate,Urine Negative (Negative); PH,Urine 5.5 (5.0-8.5); Protein,Urine Negative (Negative); Urobilinogen,Urine 0.2 EU/dl (0.2)
[2023-10-25 17:12] LABS: Bacteria,Urine 3+ /lpf; WBC,Urine Occasional #/hpf (0-3)
[2023-10-25 19:15] VITALS: BP 140/70; PULSE 70; RESP 20; TEMP 36.8; O2SAT 98
--- NOTE | 2023-10-31 08:48 | PC.NURSE ---
NTD for urine culture per . PT seen PCP on 10/29/23 and was given bactrim.
== END 2023-10-25 19:16 | disposition home or self-care (01) ==
PROVIDERS: Emergency Provider Student in an Organized Health Care Education/Training Program; PCP Family Medicine
DX: R10.12 Left upper quadrant pain (principal); R10.32 Left lower quadrant pain; I10 Essential (primary) hypertension
CPT/HCPCS: 74176; 80053; 81001; 83690; 85025; 87086; 96361; 96374; 96375; 99285; J2405

== ENCOUNTER 2023-10-26 21:09 | Outpatient (CLI) | payer BC, SELFPAY ==
[2023-10-26 18:43] LABS: Coronavirus 19, PCR Not Detected (NotDetected); Influenza A, PCR Not Detected (NotDetected); Influenza B, PCR Not Detected (NotDetected)
[2023-10-26 18:58] LABS: Basophils # 0.1 K/mm3 (0-0.2); Basophils % 0.5 % (0.1-2.0); Eosinophils # 0.2 K/mm3 (0.0-0.4); Eosinophils % 1.1 % (0.1-12.0); Hematocrit 39.2 % (37.0-47.0); Lymphocytes # 3.5 K/mm3 (0.7-4.5); Lymphocytes % 25.6 % (10-50); Mean Corpuscular HGB Conc 33.1 g/dL (31.8-35.4); Mean Corpuscular Hemoglobin 28.2 pg (27.0-31.2); Mean Corpuscular Volume 85.2 fl (81-99); Mean Platelet Volume 8.5 fl (7.4-10.4); Monocytes # 0.5 K/mm3 (0.1-1.0); Monocytes % 3.9 % (1.7-9.3); Neutrophils # 9.5 K/mm3 (1.8-7.8); Platelet Count 232 K/mm3 (142-424); Red Cell Distribution Width 14.3 % (11.5-17.5); White Blood Count 13.8 K/mm3 (4.8-10.8)
[2023-10-26 19:39] LABS: Alanine Aminotransferase 28 U/L (12-78); Albumin Level 3.9 g/dl (3.5-5.0); Albumin/Globulin Ratio 1.4 (1.1-1.8); Alkaline Phosphatase 113 U/L (38-126); Amylase 45 U/L (30-110); Anion Gap 11.8 mEq/L (5-15); Aspartate Amino Transferase 34 U/L (14-36); Bilirubin,Total 0.3 mg/dl (0.2-1.3); Blood Urea Nitrogen 17 mg/dl (7-17); Calcium 9.3 mg/dl (8.4-10.2); Carbon Dioxide 28 mmol/L (22.0-30.0); Chloride 101 mmol/L (98-107); Estimated Glomerular Filt Rate 57 ml/min (>60); GFR (African American) 69 ML/MIN (>60); Globulin 2.8 g/dL (1.3-3.2); Glucose 278 mg/dl (74-100); Lipase 34 U/L (23-300); Potassium 3.8 mmoL/L (3.5-5.1); Sodium 137 mmol/L (136-145); Total Protein,Serum 6.7 g/dl (6.3-8.2)
== END 2023-10-26 23:59 ==
LOC: LAB.DROPOF 21:10
PROVIDERS: PCP Nurse Practitioner; Visit Provider Nurse Practitioner
DX: R10.12 Left upper quadrant pain (principal); R10.32 Left lower quadrant pain; R11.2 Nausea with vomiting, unspecified; B96.29 Other Escherichia coli [E. coli] as the cause of diseases classified elsewhere; E11.9 Type 2 diabetes mellitus without complications; Z79.4 Long term (current) use of insulin; Z79.899 Other long term (current) drug therapy
CPT/HCPCS: 80053; 82150; 83690; 85025; 87086; 87636

== ENCOUNTER 2024-02-12 11:28 | Outpatient (CLI) | payer BC, SELFPAY ==
--- NOTE | 2024-02-12 11:41 | XR_ITS ---
FINAL REPORT CLINICAL HISTORY: Right foot pain FINDINGS: RIGHT FOOT 3 views of the right foot were obtained. There is no acute fracture or dislocation. There are mild degenerative changes of the great toe. Mild degenerative changes are seen in the midfoot. Calcaneal spurs are noted. Soft tissues are unremarkable. IMPRESSION: Degenerative change with no acute bony abnormality. Reviewed, Interpreted and Dictated by Bhargav Campos III, MD Transcribed by Maddy Shaw Authenticated and [facility]
[2024-02-12 18:43] LABS: Alanine Aminotransferase 40 U/L (12-78); Albumin Level 3.9 g/dl (3.5-5.0); Albumin/Globulin Ratio 1.2 (1.1-1.8); Alkaline Phosphatase 153 U/L (38-126); Anion Gap 13.9 mEq/L (5-15); Aspartate Amino Transferase 63 U/L (14-36); Bilirubin,Total 0.7 mg/dl (0.2-1.3); Blood Urea Nitrogen 14 mg/dl (7-17); Calcium 9.4 mg/dl (8.4-10.2); Carbon Dioxide 27 mmol/L (22.0-30.0); Chloride 101 mmol/L (98-107); Chol/HDL Ratio 3.2 (1-3.5); Cholesterol 181 mg/dl (140-200); Estimated Glomerular Filt Rate 86 ml/min (>60); GFR (African American) 104 ML/MIN (>60); Globulin 3.2 g/dL (1.3-3.2); Glucose 159 mg/dl (74-100); HDL Cholesterol 56 mg/dl (40-60); Potassium 3.9 mmoL/L (3.5-5.1); Sodium 138 mmol/L (136-145); Total Protein,Serum 7.1 g/dl (6.3-8.2); Triglycerides 163 mg/dl (30-150); VLDL Cholesterol 33 mg/dL (0-40)
[2024-02-12 18:55] LABS: Direct LDL Cholesterol 84.23 mg/dL (100-129)
[2024-02-12 19:17] LABS: Thyroid Stimulating Hormone 1.13 uIU/mL (0.465-4.68)
[2024-02-12 19:36] LABS: Hemoglobin A1C 10.9 % (4.0-6.0)
== END 2024-02-12 23:59 | disposition home or self-care (01) ==
LOC: LAB.DROPOF 11:29
PROVIDERS: PCP Family Medicine; Visit Provider Family Medicine
DX: M79.671 Pain in right foot (principal); M84.30XA Stress fracture, unspecified site, initial encounter for fracture; E11.69 Type 2 diabetes mellitus with other specified complication; Z79.4 Long term (current) use of insulin; Z79.85 Long-term (current) use of injectable non-insulin antidiabetic drugs
CPT/HCPCS: 73630; 80053; 80061; 83036; 84443

== ENCOUNTER 2024-05-03 22:13 | Outpatient (CLI) | payer BC, SELFPAY ==
[2024-05-03 22:19] LABS: Microscopic, Urine URINE MICROSCOPIC (MICROSCOPIC)
[2024-05-03 22:38] LABS: Appearance,Urine CLEAR (Clear); Bilirubin,Urine Negative (Negative); Blood, Urine TRACE-I (Negative); Color,Urine YELLOW (Yellow); Glucose,Urine (UA) 3+ (Negative); Ketones,Urine Negative (Negative); Leukocyte Esterase,Urine Negative (Negative); Nitrate,Urine POSITIVE (Negative); Protein,Urine Negative (Negative); Specific Gravity, Urine 1.025 (1.005-1.030); Urobilinogen,Urine 0.2 EU/dl (0.2)
[2024-05-03 22:58] LABS: Bacteria,Urine 3+ /lpf
== END 2024-05-03 23:59 | disposition home or self-care (01) ==
LOC: LAB.DROPOF 22:14
PROVIDERS: PCP Nurse Practitioner; Visit Provider Nurse Practitioner
DX: R30.0 Dysuria (principal)
CPT/HCPCS: 81001; 87086; 87088; 87186

== ENCOUNTER 2024-05-09 17:32 | Emergency (ER) | payer BC, SELFPAY ==
[2024-05-09] VITALS (11 sets, daily range): BP systolic 130–215; BP diastolic 66–84; PULSE 62–95; RESP 16–20; TEMP 36.9–37.1; O2SAT 96–99; BMI 35.4
--- NOTE | 2024-05-09 17:31 | ECG_ITS ---
APPROVED REPORT Exam: Resting ECG HR:78 bpm ECG Measurements Heart Rate 78 AXES IN 157 P 53 QRSd 81 QRS 20 QT 386 T 40 QTc 419 Conclusion SINUS RHYTHM LOW QRS VOLTAGE IN PRECORDIAL LEADS [QRS DEFLECTION < 1.0 mV IN CHEST LEADS] BORDERLINE ECG Electronically signed by : OSMIN MATOS, 05/10/2024 00:32:07
--- NOTE | 2024-05-09 17:34 | XR_ITS ---
PROCEDURE INFORMATION: Exam: XR Chest Exam date and time: 05/09/2024 5:56 PM Age: 58 years old Clinical indication: Pain; Chest pressure; Additional info: Chest pain TECHNIQUE: Imaging protocol: Radiologic exam of the chest. Views: 1 view. COMPARISON: CT ANGIO CHEST 05/15/2022 1:03 PM FINDINGS: Lungs: No consolidation. Stable right lower lobe calcified granuloma. Pleural spaces: No pleural effusion. No pneumothorax. Heart/Mediastinum: No cardiomegaly. Bones/joints: Unremarkable. IMPRESSION: No acute pulmonary findings.
[2024-05-09] MEDS: NITROGLYCERIN 0.4MG SL TABLET 0.4 MG SL ×3 (17:35→17:43)
--- NOTE | 2024-05-09 17:36 | ED_ITS ---
<Statement entered by Monica Dejesus DO - 05/09/24 23:04> I was consulted by the JOHN, and we discussed the complexity of the problems being addressed. I approved the treatment and management plan for this patient's care in the emergency department, thus performing a substantive portion of the medical decision making. Monica Dejesus DO Discharge Plan Disposition Patient Disposition: Home, Self-Care Condition: Good Prescriptions Prescriptions: No Action (DME) Dexcom G7 [employer] Misc See Rx Instructions .Route Qty: 1 0RF Rx Instructions: As directed insulin glargine [Basaglar KwikPen U-100 Insulin] 100 unit/mL (3 mL) insulin pen 120 unit SQ HS Qty: 15 10RF ondansetron HCl 4 mg tablet 4 mg PO TID Qty: 90 5RF acetaminophen-codeine 300-30 mg tablet 1 tab PO TID PRN (Reason: pain) Qty: 45 5RF fluconazole 150 mg tablet 150 mg PO QWEEK Qty: 2 1RF phenazopyridine [Pyridium] 200 mg tablet 200 mg PO TID 0 Days Qty: 6 0RF clonidine HCl 0.2 mg tablet 0.2 mg PO TID PRN (Reason: hypertensive emergency) Qty: 90 3RF Rx Instructions: take if sbp over 160 insulin lispro 100 unit/mL insulin pen, half-unit 45 unit SQ TID (DME) pen needle, diabetic 32 gauge x 1/4 needle See Rx Instructions .Route .MEDSUPPLY Qty: 100 12RF Rx Instructions: As directed (DME) Dexcom G7 Sensor Device See Rx Instructions .Route Qty: 1 0RF Rx Instructions: As directed atorvastatin 10 mg tablet 40 mg PO HS Qty: 90 3RF losartan-hydrochlorothiazide [Hyzaar] 100-12.5 mg tablet 1 tab PO DAILY Qty: 90 3RF amlodipine 10 mg tablet 10 mg PO BID Qty: 180 3RF insulin glargine 100 unit/mL (3 mL) insulin pen 120 unit SQ QPM Qty: 15 10RF Jardiance 25 mg tablet 25 mg PO DAILY Qty: 90 3RF sulfamethoxazole-trimethoprim [Bactrim DS] 800-160 mg tablet 1 tab PO BID Qty: 20 0RF Referrals Follow up/Referrals: Provider,Referral, MD [Primary Care Provider] - See instructions Activity Restrictions/Add. Instructions Additional Instructions/Restrictions: Call and establish appoint with Dr. Sanchez within 48 hours. Return to ER for any worsening signs or symptoms as needed. Clinical Impressions Clinical Impression: Hypertension, uncontrolled Chest pain Qualifiers: Chest pain type: unspecified Qualified Code(s): R07.9 - Chest pain, unspecified Instructions Patient Instructions: DI for Chest Pain Print Language Print Language: [place] Discharge ED Provider: Monica Dejesus HPI <GUSTAVO Adams - Last Filed: 05/09/24 22:57> General Chief Complaint: Chest Pain Stated Complaint: cp Time Seen by Provider: 05/09/24 17:34 History of Present Illness HPI narrative: Patient presents for evaluation of chest pain and high blood pressure. Patient is a history remotely of an RI and has not seen Dr. Sanchez in the past however not in some time. She also has a history of hypertension and actually has been prescribed clonidine for hypertension above 160 by her PCP. Today she noted that her blood pressure was 220 systolic and she was having left neck pain radiating down her left arm. She took a nitroglycerin at home and it did not resolve so she presented to the emergency department for evaluation. On arrival patient's blood pressure was 215/81. Patient denies diaphoresis shortness of breath fever chills hemoptysis hematochezia melena nausea vomiting diarrhea Related Data Home Medications ?Medication ?Instructions ?Recorded ?Confirmed insulin lispro 100 unit/mL 45 unit SQ TID Diabetes 12/26/22 05/03/24 subcutaneous half-unit pen Previous Rx's ?Medication ?Instructions ?Recorded clonidine HCl 0.2 mg tablet 0.2 mg PO TID PRN hypertensive 12/26/22 emergency #90 tabs pen needle, diabetic 32 gauge x #100 ea 12/26/2210/01 blood-glucose meter,continuous #1 ea 07/22/23 (Dexcom G7 [employer]) blood-glucose sensor (Dexcom G7 #1 ea 07/31/23 Sensor device) amlodipine 10 mg tablet 10 mg PO BID blood pressure #180 12/28/23 tabs atorvastatin 10 mg tablet 40 mg (4 x 10 mg) PO HS High 12/28/23 cholesterol #90 tabs losartan 100 1 tab PO DAILY #90 tabs 12/28/23 mg-hydrochlorothiazide 12.5 mg tablet (Hyzaar) insulin glargine 100 unit/mL (3 120 unit (1.2 mL) SQ QPM Diabetes 01/21/24 mL) subcutaneous pen #15 mL acetaminophen 300 mg-codeine 30 mg 1 tab PO TID PRN pain #45 tabs 02/12/24 tablet insulin glargine 100 unit/mL (3 120 unit (1.2 mL) SQ HS #15 mL 02/12/24 mL) subcutaneous pen (Basaglar KwikPen U-100 Insulin) ondansetron HCl 4 mg tablet 4 mg PO TID #90 tabs 02/12/24 empagliflozin 25 mg tablet 25 mg PO DAILY #90 tabs 02/17/24 (Jardiance) fluconazole 150 mg tablet 150 mg PO QWEEK #2 tabs 05/03/24 phenazopyridine 200 mg tablet 200 mg PO TID 6 doses #6 tabs 05/03/24 (Pyridium) sulfamethoxazole 800 1 tab PO BID #20 tabs 05/05/24 mg-trimethoprim 160 mg tablet (Bactrim DS) Allergies Allergy/AdvReac Type Severity Reaction Status Date / Time lisinopril Allergy Severe angioedema Verified 05/03/24 09:23 Iodinated Contrast Media Allergy Mild Verified 05/03/24 09:23 metoprolol AdvReac bradycardia Verified 05/03/24 09:23 [facility] <GUSTAVO Adams - Last Filed: 05/09/24 22:57> [facility] Disclaimer: The information contained in this section may have been updated after the patient was seen, as this information can be updated by other users. 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 current occupational exposures/hazards: No caffeine: No <GUSTAVO Adams Last Filed: 05/09/24 22:57> ROS Obtained: Yes Systems reviewed as appropriate & no additional complaints except as documented Physical Exam <GUSTAVO Adams Last Filed: 05/09/24 22:57> General General appearance: alert and in no apparent distress Head Head exam: atraumatic and normal inspection Eye Eye exam: Present normal appearance and PERRL ENT ENT exam: Present normal exam and normal oropharynx Respiratory Respiratory exam: Present normal lung sounds bilaterally Cardiovascular Cardiovascular exam: Present regular rate and normal rhythm Neurological Exam Neurological exam: Present alert and oriented X3 HEART Score <GUSTAVO Adams Last Filed: 05/09/24 22:57> HEART Score HEART Score assessment performed?: Yes History (anamnesis): Slightly suspicious ECG: Non-specific disturbance Age: 45-65 years Risk factors: Atherosclerosis history Troponin: </= normal limit HEART Score: 4 Critical Care <GUSTAVO Adams Last Filed: 05/09/24 22:57> Critical Care Time Critical Care Time: No Medical Decision Making <GUSTAVO Adams Last Filed: 05/09/24 22:57> Medical Records Medical records reviewed: Yes I reviewed the patient's medical records. Jono Inquiry Pt receiving controlled substance: No Vital Signs Vital Signs: 05/09/24 17:33 05/09/24 17:39 05/09/24 17:42 Temperature 98.4 F Temperature Source Oral Pulse Rate 85 95 H Pulse Rate [Left Radial] 83 Respiratory Rate 16 Blood Pressure 197/84 H 150/66 H Blood Pressure [Right Arm] 215/81 H Blood Pressure Mean [Right Arm] 125 Blood Pressure Source Blood Pressure Position 02 Sat by Pulse Oximetry 97 98 97 Oxygen Delivery Method Room Air Room Air Room Air 05/09/24 17:50 05/09/24 18:00 05/09/24 18:00 Temperature Temperature Source Pulse Rate 80 72 74 Pulse Rate [Left Radial] Respiratory Rate Blood Pressure 130/72 151/77 H 151/77 H Blood Pressure [Right Arm] Blood Pressure Mean [Right Arm] Blood Pressure Source Blood Pressure Position 02 Sat by Pulse Oximetry 97 97 98 Oxygen Delivery Method Room Air Room Air Room Air 05/09/24 18:10 05/09/24 18:20 05/09/24 18:30 Temperature Temperature Source Pulse Rate 67 68 67 Pulse Rate [Left Radial] Respiratory Rate Blood Pressure 151/80 H 158/79 H 154/80 H Blood Pressure [Right Arm] Blood Pressure Mean [Right Arm] Blood Pressure Source Blood Pressure Position 02 Sat by Pulse Oximetry 99 98 97 Oxygen Delivery Method Room Air Room Air Room Air 05/09/24 18:40 05/09/24 18:50 05/09/24 22:02 Temperature 98.7 F Temperature Source Oral Pulse Rate 67 68 62 Pulse Rate [Left Radial] Respiratory Rate 20 Blood Pressure 163/79 H 173/81 H 171/84 H Blood Pressure [Right Arm] Blood Pressure Mean [Right Arm] Blood Pressure Source Automatic Cuff Blood Pressure Position Sitting 02 Sat by Pulse Oximetry 97 97 Oxygen Delivery Method Room Air Room Air Room Air Lab Data Lab results reviewed: Yes I reviewed the patient's lab results. Labs: Lab Results 05/09/24 17:40: WBC 11.0 H, RBC 5.48 H, Hgb 14.6, Hct 49.5 H, MCV 90.3, MCH 26.7 L, MCHC 29.6 L, RDW 15.2, Plt Count 225, MPV 7.5, Neut % (Auto) 64.5, Lymph % (Auto) 29.1, [place] % (Auto) 3.6, Eos % (Auto) 2.0, Baso % (Auto) 0.7, Neut # (Auto) 7.1, Lymph # (Auto) 3.2, [place] # (Auto) 0.4, Eos # (Auto) 0.2, Baso # (Auto) 0.1, Sodium 133 L, Potassium 4.5, Chloride 98, Carbon Dioxide 27, Anion Gap 12.5, BUN 18 H, Creatinine 1.00, Estimated Creat Clear 92, Estimated GFR 57 L, Est GFR ( Amer) 69, Glucose 397 H, Calcium 9.4, Total Bilirubin 0.5, A ST 44 H, ALT 36, Alkaline Phosphatase 130 H, Troponin I < 0.01, Total Protein 7.7, Albumin 4.1, Globulin 3.6 H, Albumin/Globulin Ratio 1.1, Lipase 59 05/09/24 21:09: Troponin I < 0.01 05/09/24 17:40 05/09/24 17:40 Response Orders (Tests/Meds): ED MEDICATIONS Discontinued Medications Generic Name Dose Route Start Last Admin Trade Name Freq PRN Reason Stop Dose Admin Acetaminophen 1,000 mg 05/09/24 19:27 05/09/24 19:33 Acetaminophen 1,000mg/100ml Vial IV 05/09/24 19:28 1,000 mg ONCE ONE Administration Aspirin 324 mg 05/09/24 17:34 05/09/24 17:50 Aspirin 81mg Chewable Tablet PO 05/09/24 17:35 324 mg ONCE ONE Administration Nitroglycerin 0.4 mg 05/09/24 17:34 05/09/24 17:43 Nitroglycerin 0.4mg Sl Tablet SL 06/08/24 17:33 0.4 mg Q5MINP PRN Administration Chest Pain Oxycodone HCl 5 mg 05/09/24 21:10 05/09/24 21:15 Oxycodone 5mg Immediate Release Tablet PO 05/09/24 21:11 5 mg ONCE ONE Administration Promethazine HCl 25 mg 05/09/24 19:27 05/09/24 19:33 Promethazine Hcl 25mg/Ml 1ml Vial IV 05/09/24 19:28 25 mg ONCE ONE Administration Sodium Chloride 25 ml 05/09/24 19:27 05/09/24 19:33 Sodium Chloride 0.9% 25ml Bag IV 05/09/24 19:28 25 ml ONCE ONE Administration ORDERS Category Date Time Status CXR --portable [XR chest portable] Stat Exams 05/09/24 17:34 Completed Complete Blood Count Auto Diff Stat Lab 05/09/24 17:40 Completed Comprehensive Metabolic Panel Stat Lab 05/09/24 17:40 Completed Lipase Stat Lab 05/09/24 17:40 Completed Trop I [Troponin I] Stat Lab 05/09/24 17:40 Completed Troponin I Q3H Lab 05/09/24 21:09 Completed MDM Narrative Medical Decision Narrative: In summary patient is a 58-year-old female who presents to the emergency department for evaluation of chest pain and high blood pressure. Patient is hypertensive with a systolic blood pressure of 215 and diastolic of 81 heart rate 83 O2 sat 97% respiratory rate 16 upon arrival, afebrile. Physical exam is unremarkable including normal breath sounds normal heart sounds no reproducible chest pain neck pain or arm pain on exam. Differential diagnosis includes ACS versus uncontrolled hypertension versus pulmonary hypertension versus CHF etc. Initial workup will be conducted with twelve-lead EKG plain film chest x-ray hematologic labs urinalysis. Initial interventions include crystalloid bolus Toradol Tylenol Zofran. Initial workup reviewed by me showed that her hematologic labs were nonactionable and her initial troponin was undetectable and my informal interpretation of her plain film x-ray shows no acute processes. Upon repeat evaluation reported that her left arm pain had gone away her chest pressure was still present but diminished. Given this we elected to do a 3-hour troponin and monitor with continuous cardiac monitoring and pulse oximetry. Patient was observation 2 hours and her second troponin also was undetectable. Patient's blood pressure at the time of discharge was 171 and she no longer had neck pain or arm pain. Patient is referred to cardiology within 48 hours or sooner if any signs of symptoms or worsening. <Monica Dejesus, DO - Last Filed: 05/09/24 18:07> Vital Signs Vital Signs: 05/09/24 17:33 05/09/24 17:39 05/09/24 17:42 Temperature 98.4 F Temperature Source Oral Pulse Rate 85 95 H Pulse Rate [Left Radial] 83 Respiratory Rate 16 Blood Pressure 197/84 H 150/66 H Blood Pressure [Right Arm] 215/81 H Blood Pressure Mean [Right Arm] 125 Blood Pressure Source Blood Pressure Position 02 Sat by Pulse Oximetry 97 98 97 Oxygen Delivery Method Room Air Room Air Room Air 05/09/24 17:50 05/09/24 18:00 05/09/24 18:00 Temperature Temperature Source Pulse Rate 80 72 74 Pulse Rate [Left Radial] Respiratory Rate Blood Pressure 130/72 151/77 H 151/77 H Blood Pressure [Right Arm] Blood Pressure Mean [Right Arm] Blood Pressure Source Blood Pressure Position 02 Sat by Pulse Oximetry 97 97 98 Oxygen Delivery Method Room Air Room Air Room Air 05/09/24 18:10 05/09/24 18:20 05/09/24 18:30 Temperature Temperature Source Pulse Rate 67 68 67 Pulse Rate [Left Radial] Respiratory Rate Blood Pressure 151/80 H 158/79 H 154/80 H Blood Pressure [Right Arm] Blood Pressure Mean [Right Arm] Blood Pressure Source Blood Pressure Position 02 Sat by Pulse Oximetry 99 98 97 Oxygen Delivery Method Room Air Room Air Room Air 05/09/24 18:40 05/09/24 18:50 05/09/24 22:02 Temperature 98.7 F Temperature Source Oral Pulse Rate 67 68 62 Pulse Rate [Left Radial] Respiratory Rate 20 Blood Pressure 163/79 H 173/81 H 171/84 H Blood Pressure [Right Arm] Blood Pressure Mean [Right Arm] Blood Pressure Source Automatic Cuff Blood Pressure Position Sitting 02 Sat by Pulse Oximetry 97 97 Oxygen Delivery Method Room Air Room Air Room Air Lab Data Labs: Lab Results 05/09/24 17:40: WBC 11.0 H, RBC 5.48 H, Hgb 14.6, Hct 49.5 H, MCV 90.3, MCH 26.7 L, MCHC 29.6 L, RDW 15.2, Plt Count 225, MPV 7.5, Neut % (Auto) 64.5, Lymph % (Auto) 29.1, [place] % (Auto) 3.6, Eos % (Auto) 2.0, Baso % (Auto) 0.7, Neut # (Auto) 7.1, Lymph # (Auto) 3.2, [place] # (Auto) 0.4, Eos # (Auto) 0.2, Baso # (Auto) 0.1, Sodium 133 L, Potassium 4.5, Chloride 98, Carbon Dioxide 27, Anion Gap 12.5, BUN 18 H, Creatinine 1.00, Estimated Creat Clear 92, Estimated GFR 57 L, Est GFR ( Amer) 69, Glucose 397 H, Calcium 9.4, Total Bilirubin 0.5, A ST 44 H, ALT 36, Alkaline Phosphatase 130 H, Troponin I < 0.01, Total Protein 7.7, Albumin 4.1, Globulin 3.6 H, Albumin/Globulin Ratio 1.1, Lipase 59 05/09/24 21:09: Troponin I < 0.01 Response Orders (Tests/Meds): ED MEDICATIONS Discontinued Medications Generic Name Dose Route Start Last Admin Trade Name Freq PRN Reason Stop Dose Admin Acetaminophen 1,000 mg 05/09/24 19:27 05/09/24 19:33 Acetaminophen 1,000mg/100ml Vial IV 05/09/24 19:28 1,000 mg ONCE ONE Administration Aspirin 324 mg 05/09/24 17:34 05/09/24 17:50 Aspirin 81mg Chewable Tablet PO 05/09/24 17:35 324 mg ONCE ONE Administration Nitroglycerin 0.4 mg 05/09/24 17:34 05/09/24 17:43 Nitroglycerin 0.4mg Sl Tablet SL 06/08/24 17:33 0.4 mg Q5MINP PRN Administration Chest Pain Oxycodone HCl 5 mg 05/09/24 21:10 05/09/24 21:15 Oxycodone 5mg Immediate Release Tablet PO 05/09/24 21:11 5 mg ONCE ONE Administration Promethazine HCl 25 mg 05/09/24 19:27 05/09/24 19:33 Promethazine Hcl 25mg/Ml 1ml Vial IV 05/09/24 19:28 25 mg ONCE ONE Administration Sodium Chloride 25 ml 05/09/24 19:27 05/09/24 19:33 Sodium Chloride 0.9% 25ml Bag IV 05/09/24 19:28 25 ml ONCE ONE Administration ORDERS Category Date Time Status CXR --portable [XR chest portable] Stat Exams 05/09/24 17:34 Completed Complete Blood Count Auto Diff Stat Lab 05/09/24 17:40 Completed Comprehensive Metabolic Panel Stat Lab 05/09/24 17:40 Completed Lipase Stat Lab 05/09/24 17:40 Completed Trop I [Troponin I] Stat Lab 05/09/24 17:40 Completed Troponin I Q3H Lab 05/09/24 21:09 Completed ECG Data Tracing #1: Attestation: I reviewed this ECG and interpreted as documented below: ECG Narrative: Normal sinus rhythm with a ventricular rate of [address] changes concerning for ischemia. Normal intervals ECG initial impression date: 05/09/24 ECG initial impression time: 17:32
[2024-05-09 17:48] LABS: Basophils # 0.1 K/mm3 (0-0.2); Basophils % 0.7 % (0.1-2.0); Eosinophils # 0.2 K/mm3 (0.0-0.4); Hematocrit 49.5 % (37.0-47.0); Hemoglobin 14.6 g/dL (12.2-16.2); Lymphocytes # 3.2 K/mm3 (0.7-4.5); Lymphocytes % 29.1 % (10-50); Mean Corpuscular HGB Conc 29.6 g/dL (31.8-35.4); Mean Corpuscular Hemoglobin 26.7 pg (27.0-31.2); Mean Corpuscular Volume 90.3 fl (81-99); Mean Platelet Volume 7.5 fl (7.4-10.4); Monocytes # 0.4 K/mm3 (0.1-1.0); Monocytes % 3.6 % (1.7-9.3); Neutrophils # 7.1 K/mm3 (1.8-7.8); Neutrophils % 64.5 % (37.0-80.0); Platelet Count 225 K/mm3 (142-424); Red Blood Count 5.48 M/mm3 (4.20-5.40); Red Cell Distribution Width 15.2 % (11.5-17.5)
[2024-05-09] MEDS: ASPIRIN 81MG CHEWABLE TABLET 324 MG PO (17:50)
[2024-05-09 17:55] LABS: Alanine Aminotransferase 36 U/L (12-78); Albumin Level 4.1 g/dl (3.5-5.0); Albumin/Globulin Ratio 1.1 (1.1-1.8); Alkaline Phosphatase 130 U/L (38-126); Anion Gap 12.5 mEq/L (5-15); Aspartate Amino Transferase 44 U/L (14-36); Bilirubin,Total 0.5 mg/dl (0.2-1.3); Blood Urea Nitrogen 18 mg/dl (7-17); Calcium 9.4 mg/dl (8.4-10.2); Carbon Dioxide 27 mmol/L (22.0-30.0); Chloride 98 mmol/L (98-107); Creatinine Clearance Estimated 92 mL/min (50-200); Estimated Glomerular Filt Rate 57 ml/min (>60); GFR (African American) 69 ML/MIN (>60); Globulin 3.6 g/dL (1.3-3.2); Glucose 397 mg/dl (74-100); Lipase 59 U/L (23-300); Potassium 4.5 mmoL/L (3.5-5.1); Sodium 133 mmol/L (136-145); Total Protein,Serum 7.7 g/dl (6.3-8.2)
[2024-05-09 18:58] LABS: Troponin I < 0.01 ng/ml (0.00-0.034)
--- NOTE | 2024-05-09 19:26 | PC.NURSE ---
Rounded on pt at this time. pt reports she is having bilat neck pain and is nauseous. Jazzmine [place] notified.
[2024-05-09] MEDS: SODIUM CHLORIDE 0.9% 25ML BAG 25 ML IV (19:33)
[2024-05-09] MEDS: PROMETHAZINE HCL 25MG/ML 1ML VIAL 25 MG IV (19:33)
[2024-05-09] MEDS: ACETAMINOPHEN 1,000MG/100ML VIAL 1000 MG IV (19:33)
--- NOTE | 2024-05-09 21:01 | PC.NURSE ---
one person assist to the restroom.
[2024-05-09] MEDS: OXYCODONE 5MG IMMEDIATE RELEASE TABLET 5 MG PO (21:15)
[2024-05-09 21:47] LABS: Troponin I < 0.01 ng/ml (0.00-0.034)
== END 2024-05-09 22:03 | disposition home or self-care (01) ==
PROVIDERS: Emergency Provider Emergency Medicine
DX: R07.9 Chest pain, unspecified (principal); I10 Essential (primary) hypertension; E11.65 Type 2 diabetes mellitus with hyperglycemia; Z79.4 Long term (current) use of insulin; Z79.84 Long term (current) use of oral hypoglycemic drugs
CPT/HCPCS: 71045; 80053; 83690; 84484; 85025; 93005; 96374; 96375; 99284; J0131; J2550

== ENCOUNTER 2024-05-18 11:22 | Outpatient (CLI) | payer BC, SELFPAY ==
--- NOTE | 2024-05-18 11:25 | XR_ITS ---
FINAL REPORT CLINICAL HISTORY: Foot Pain COMPARISON: None FINDINGS: RIGHT FOOT 3 views of the right foot were obtained. There is no acute fracture or dislocation. Visualized joint spaces are normally aligned. Soft tissues are unremarkable. Note is made of a small plantar calcaneal spur. IMPRESSION: No acute bony abnormality. Small plantar calcaneal spur. Reviewed, Interpreted and Dictated by Raymond Alva MD Transcribed by Zulma Mabry Authenticated and [facility]
--- NOTE | 2024-05-18 11:25 | XR_ITS ---
FINAL REPORT CLINICAL HISTORY: Foot Pain COMPARISON: None FINDINGS: LEFT FOOT Three views of the left foot demonstrate no acute fracture or dislocation. The visualized joint spaces are normally aligned. The soft tissues are unremarkable. Note is made of a small plantar calcaneal spur. IMPRESSION: No acute bony abnormality. Small plantar calcaneal spur. Reviewed, Interpreted and Dictated by Raymond Alva MD Transcribed by Zulma Mabry Authenticated and [facility]
== END 2024-05-18 23:59 | disposition home or self-care (01) ==
LOC: RAD 11:23
PROVIDERS: PCP Family Medicine; Visit Provider Nurse Practitioner
DX: M79.671 Pain in right foot (principal); M79.672 Pain in left foot
CPT/HCPCS: 73630

== ENCOUNTER 2024-05-25 13:09 | Outpatient (CLI) | payer BC, SELFPAY ==
--- NOTE | 2024-05-25 13:13 | CA_ITS ---
APPROVED REPORT EXAM: Comprehensive 2D, Doppler, and color-flow Echocardiogram Printing Table Hand: MARILUZ Hearn, RVS Ht: 5 ft 5 in Wt: 201lbs BSA: 1.98 BP: 129/63 mmHg Indications: Angina, HTN, HFrEF, CAD, DAWSON, Diastolic dysfunction, DM 2D Dimensions LVDs 1.94 cm F: 2.2 - 3.5 LA Volume 59.60 mL Left Atrium 3.66 cm F: 2.7 - 3.8 LA Volume Index 30.785184 mL/m2 (M/F) 16-34 M-Mode Dimensions RVDd 2.24 cm (0.9-2.6) LA Diam 3.92 cm (1.9-4.0) LVDd 5.13 cm (3.5-5.7) LVDs 2.93 cm (3.5-5.7) IVSd 1.03 cm (0.6-1.1) PWd 1.08 cm (0.6-1.1) EF (Teich) 73.70% EPSs 0.42 cm FS 42.90% EDV (Teich) 125.50 mL TAPSE 1.84 (<1.7) ESV (Teich) 33.00 mL LV Diastology E Decel Time 190 (160-240 msec) E/A Ratio 1.33 MED A' 13.40 cm/s LAT A' 10.50 cm/s Aortic Valve PARIS Index 1.06 cm2/m2 AoV Peak Luke. 167.0 (50-130 cm/s) AO Peak GR. 11.20 mmHg AO Mean GR. 5.60 (<5 mmHg) AO VTI 34.6 (18-25 cm) PARIS (VTI) 2.16 (2.5-4.5 cm2) Mitral Valve MV A Velocity 69.0 (40-130 cm/s) E/A Ratio 1.33 Pulmonary Valve PV Peak Velocity 103.0 (50-150 cm/s) Left Ventricle The left ventricle is normal size. The left ventricular systolic function is normal. The left ventricular ejection fraction is within the normal range. There is increased LV wall thickness. There is normal LV segmental wall motion. The left ventricular diastolic function is normal. LVEF is 55%. Right Ventricle The right ventricle is normal size. The right ventricular systolic function is normal. Atria The left atrium size is normal. The right atrium size is normal. There is no Doppler evidence of interatrial shunt. Aortic Valve The aortic valve opens well. There is no aortic valvular stenosis. No aortic regurgitation is present. Mitral Valve The mitral valve is normal in structure. No evidence of mitral valve stenosis. Trace mitral valve regurgitation noted. Tricuspid Valve The tricuspid valve leaflets are thin and pliable. Trace tricuspid regurgitation. Insufficient TR jet to estimate RVSP. Pulmonic Valve The pulmonary valve is normal in structure. Trace pulmonic regurgitation. Great Vessels The aortic root is normal in size. IVC is normal in size and collapses >50% with inspiration. Pericardium Trivial, anterior pericardial effusion is present. No echo indications of tamponade. Other Information Study Quality: Fair Conclusion Normal biventricular systolic function. No significant valvular stenosis or regurgitation. Trivial, anterior pericardial effusion. No echo indications of tamponade. Electronically signed by : Hyun Alejandra MD 05/31/2024 09:12:18
== END 2024-05-25 23:59 | disposition home or self-care (01) ==
LOC: RT 13:09
PROVIDERS: PCP Family Medicine; Visit Provider Nurse Practitioner Family
DX: I11.0 Hypertensive heart disease with heart failure (principal); I25.118 Atherosclerotic heart disease of native coronary artery with other forms of angina pectoris; I50.32 Chronic diastolic (congestive) heart failure; I65.21 Occlusion and stenosis of right carotid artery; I70.1 Atherosclerosis of renal artery
CPT/HCPCS: 93306

== ENCOUNTER 2024-06-03 12:09 | Outpatient (CLI) | payer BC, SELFPAY ==
--- NOTE | 2024-06-03 12:14 | US_ITS ---
FINAL REPORT CLINICAL HISTORY: Decreased Pedal Pulses, HTN, DM, hyperlipidemia, hx VT, bilateral rest pain, bilateral claudication COMPARISON: None FINDINGS: ANKLE-BRACHIAL PRESSURE INDICES Pressure indices are as follows: RIGHT LOWER EXTREMITY: Ankle-brachial pressure index: 1.5 to Comments: Abnormally elevated LEFT LOWER EXTREMITY: Ankle-brachial pressure index: 1.61 Comments: Abnormally elevated CONCLUSION: Elevated ankle-brachial indices bilaterally, indicating that these vessels are not compressible. If indicated, CTA could provide more information about the leg vasculature. Reviewed, Interpreted and Dictated by Bhargav Campos III, MD Transcribed by Zulma Mabry Authenticated and [facility]
== END 2024-06-03 23:59 | disposition home or self-care (01) ==
LOC: RT 12:10
PROVIDERS: PCP Family Medicine; Visit Provider Nurse Practitioner
DX: R09.89 Other specified symptoms and signs involving the circulatory and respiratory systems (principal)
CPT/HCPCS: 93923

== ENCOUNTER 2024-06-15 10:22 | Day surgery (SDC) | payer BC, SELFPAY ==
--- NOTE | 2024-06-15 07:12 | IR_ITS ---
APPROVED REPORT Patient Location: [facility] [employer] Room: EVERETT Villalobos RT (R) PROCEDURES Catheter placement in the left superficial femoral artery Selective left superficial femoral artery antegrade angiogram with unilateral runoff to the left foot Catheter placement of the right superficial femoral artery Selective right superficial femoral artery antegrade angiogram with unilateral runoff to the right foot Catheter placed into the distal abdominal aorta Distal abdominal aortogram INDICATION Abnormal JONNATHAN, Poorly healing lower extremity ulcer, Cassy claudication class V Informed consent was obtained prior to the procedure. COMPLICATIONS NONE Estimated Blood Loss: LESS THAN 10 ML TECHNIQUE 1% lidocaine used to anesthetize the right anterior aspect of the right wrist. The right radial artery was accessed via the central technique and an arterial cocktail using 5000U heparin, 2.5 mg verapamil, 1mg lidocaine and 800mcg nitroglycerin into the right radial sheath intra-arterially. A PV multi curve catheter was then placed into the left superficial femoral artery where selective antegrade angiography was performed with unilateral runoff to the left foot. This procedure was repeated in the right superficial femoral artery with right superficial femoral antegrade angiogram and unilateral runoff to the right foot. The catheter was then pulled back to the distal abdominal aorta where distal abdominal aortography was performed ANGIOGRAPHIC RESULTS Distal abdominal aorta is widely patent. Bilateral common internal and external iliac arteries are widely patent Left superficial femoral artery left popliteal artery is widely patent with three-vessel runoff below the knee on the left side Right superficial femoral artery right popliteal arteries are widely patent. There is three-vessel runoff below the knee on the right side IMPRESSION No evidence of macrovascular disease within the abdomen or lower extremities PLAN 1. Continue medical management 2. Workup for possible and probable venous insufficiency Electronically signed by : Delta Sanchez MD 06/15/2024 15:46:31
[2024-06-15 10:31] VITALS: BMI 34.9
[2024-06-15 10:42] LABS: Basophils # 0.1 K/mm3 (0-0.2); Basophils % 0.4 % (0.1-2.0); Eosinophils # 0.2 K/mm3 (0.0-0.4); Eosinophils % 1.6 % (0.1-12.0); Hematocrit 43.2 % (37.0-47.0); Hemoglobin 13.3 g/dL (12.2-16.2); Lymphocytes # 3.9 K/mm3 (0.7-4.5); Lymphocytes % 28.2 % (10-50); Mean Corpuscular HGB Conc 30.8 g/dL (31.8-35.4); Mean Corpuscular Hemoglobin 27.4 pg (27.0-31.2); Mean Corpuscular Volume 89.2 fl (81-99); Mean Platelet Volume 6.9 fl (7.4-10.4); Monocytes # 0.6 K/mm3 (0.1-1.0); Monocytes % 4.3 % (1.7-9.3); Neutrophils % 65.5 % (37.0-80.0); Platelet Count 276 K/mm3 (142-424); Red Blood Count 4.84 M/mm3 (4.20-5.40); Red Cell Distribution Width 14.8 % (11.5-17.5); White Blood Count 13.8 K/mm3 (4.8-10.8)
[2024-06-15 10:44] LABS: Chloride 103 mmol/L (98-107); Potassium 4.7 mmoL/L (3.5-5.1); Sodium 136 mmol/L (136-145)
[2024-06-15 10:47] LABS: Blood Urea Nitrogen 16 mg/dl (7-17); Creatinine Clearance Estimated 114 mL/min (50-200); Estimated Glomerular Filt Rate 73 ml/min (>60); GFR (African American) 89 ML/MIN (>60)
[2024-06-15 10:48] LABS: Anion Gap 5.7 mEq/L (5-15); Calcium 9.1 mg/dl (8.4-10.2); Carbon Dioxide 32 mmol/L (22.0-30.0); Glucose 170 mg/dl (74-100)
[2024-06-15 11:52] VITALS: BP 175/79; PULSE 70; RESP 22; TEMP 36.3; O2SAT 98
[2024-06-15 11:59] LABS: POC Glucose,Bedside 163 (70-110)
[2024-06-15 12:38] VITALS: BP 175/79; PULSE 70; PULSE 83; RESP 20; TEMP 36.4; O2SAT 98
[2024-06-15] MEDS: diphenhydrAMINE 50MG/ML VIAL 50 MG IV (14:22)
[2024-06-15] MEDS: VERAPAMIL 2.5MG/ML 2ML VIAL 2.5 MG IV (14:23)
[2024-06-15] MEDS: HEPARIN 1,000 UNITS/ML 10ML VIAL (CATH LAB) 10000 UNIT IV (14:23)
[2024-06-15] MEDS: LIDOCAINE 1% 10ML MDV 20 ML IJ (14:23)
[2024-06-15] MEDS: NITROGLYCERIN 800MCG/8ML SYR (CATH LAB) 800 MCG IA (14:23)
[2024-06-15] MEDS: FENTANYL 100MCG/2ML VIAL 50 MCG IV (14:24)
[2024-06-15] MEDS: 0.9 % SODIUM CHLORIDE 500 ML 25 ML IV (14:24)
[2024-06-15] MEDS: MIDAZOLAM HCL 1MG/1ML 5ML VIAL 1 MG IV (14:24)
[2024-06-15] MEDS: HEPARIN 1,000 UNITS/500ML NS (CATH LAB) 3000 UNIT IV (14:25)
[2024-06-15 14:36] VITALS: BP 180/87; PULSE 68; PULSE 71; RESP 19; O2SAT 95
[2024-06-15 14:40] VITALS: BP 183/95; PULSE 69; RESP 18; O2SAT 99
[2024-06-15 14:45] VITALS: BP 179/90; PULSE 66; RESP 18; O2SAT 99
[2024-06-15] MEDS: IOPAMIDOL-250 (51%) 100ML BOT 75 ML IV (14:47)
[2024-06-15 14:50] VITALS: BP 171/92; PULSE 63; RESP 18; O2SAT 99
== END 2024-06-15 16:09 | disposition home or self-care (01) ==
LOC: CATHLAB 10:23
PROVIDERS: PCP Family Medicine; Visit Provider Internal Medicine
DX: I70.1 Atherosclerosis of renal artery (principal); I25.10 Atherosclerotic heart disease of native coronary artery without angina pectoris; I11.0 Hypertensive heart disease with heart failure; E11.9 Type 2 diabetes mellitus without complications; I65.21 Occlusion and stenosis of right carotid artery; I50.32 Chronic diastolic (congestive) heart failure; I70.211 Atherosclerosis of native arteries of extremities with intermittent claudication, right leg; Z79.899 Other long term (current) drug therapy; Z79.4 Long term (current) use of insulin
CPT/HCPCS: 36247; 36415; 75625; 75716; 80048; 82962; 85025; 99152; 99153; C1725; C1769; J1200; J1644; J2250; J3010; Q9966

== ENCOUNTER 2024-06-24 12:47 | Outpatient (CLI) | payer BC, SELFPAY ==
--- NOTE | 2024-06-24 12:48 | CT_ITS ---
FINAL REPORT TECHNIQUE: Thin section axial CT images with coronal and sagittal reformats were performed. The exam was performed both with and without the administration of intravenous contrast. This study was performed with techniques to keep radiation doses as low as reasonably achievable (ALARA). Individualized dose reduction techniques using automated exposure control or adjustment of mA and/or kV according to the patient's size were employed. CLINICAL HISTORY: Foot Pain COMPARISON: None FINDINGS: CT LEFT FOOT WITH AND WITHOUT CONTRAST: CT examination of the left foot was performed with and without intravenous contrast. There is an oval 18 mm in diameter well-circumscribed lesion in the medial cuneiform, that has a benign appearance. This may represent a bone cyst. There is diffuse subcutaneous edema without evidence of a focal mass or fluid collection. A small calcaneal spur is present. There is no evidence of fracture or bony erosion identified. IMPRESSION: Oval 18 mm in diameter well-circumscribed lesion in the medial cuneiform, benign appearing, that may represent a bone cyst. Diffuse subcutaneous edema without obvious enhancement of the soft tissues or fluid collection. Reviewed, Interpreted and Dictated by Lito Lynos MD Transcribed by Zulma Mabry Authenticated and [facility]
[2024-06-24] MEDS: SODIUM CHLORIDE 0.9% 10ML SYR (RAD ONLY) 10 ML IV (13:16)
[2024-06-24] MEDS: IOPAMIDOL-370 (76%);100ML BOTTLE 75 ML IV (13:16)
== END 2024-06-24 23:59 | disposition home or self-care (01) ==
LOC: RAD 12:48
PROVIDERS: PCP Family Medicine; Visit Provider Nurse Practitioner
DX: M79.672 Pain in left foot (principal)
CPT/HCPCS: 73702; Q9967

== ENCOUNTER 2024-07-19 11:11 | Outpatient (CLI) | payer BC, SELFPAY ==
[2024-07-19 17:47] LABS: Bordetella Pertussis Not Detected (NotDetected); Chlamydophila Pneumoniae, PCR Not Detected (NotDetected); Coronavirus 19, PCR Not Detected (NotDetected); Coronavirus 229E Not Detected (NotDetected); Coronavirus NL63 Not Detected (NotDetected); Coronavirus OC43 Not Detected (NotDetected); Coronovirus HKU1,PCR Not Detected (NotDetected); Human Metapneumovirus Not Detected (NotDetected); Influenza A, PCR Not Detected (NotDetected); Influenza AH1, 2009 Not Detected (NotDetected); Influenza AH1, PCR Not Detected (NotDetected); Influenza AH3,PCR Not Detected (NotDetected); Influenza B, PCR Not Detected (NotDetected); Mycoplasma Pneumoniae, PCR Not Detected (NotDetected); Parainfluenza 1, PCR Not Detected (NotDetected); Parainfluenza 2, PCR Not Detected (NotDetected); Parainfluenza 3, PCR Not Detected (NotDetected); Parainfluenza 4, PCR Not Detected (NotDetected); Respiratory Syncytial Virus Not Detected (NotDetected); Rhinovirus/Enterovirus Not Detected (NotDetected)
[2024-07-25 22:49] LABS: Adenovirus,PCR Not Detected (NotDetected)
== END 2024-07-19 23:59 | disposition home or self-care (01) ==
LOC: LAB.DROPOF 07-20 11:12
PROVIDERS: PCP Nurse Practitioner; Visit Provider Nurse Practitioner
DX: J06.9 Acute upper respiratory infection, unspecified (principal)
CPT/HCPCS: 87265; 87486; 87581; 87632; 87635

== ENCOUNTER 2024-08-04 18:46 | Emergency (ER) | payer BC, SELFPAY ==
--- NOTE | 2024-08-04 18:56 | XR_ITS ---
PROCEDURE INFORMATION: Exam: XR Right Knee Exam date and time: 08/04/2024 6:52 PM Age: 58 years old Clinical indication: Injury or trauma; Fall; Blunt trauma; Knee; Right TECHNIQUE: Imaging protocol: Radiologic exam of the right knee. Views: 3 views. Total images: 3 COMPARISON: NM BONE SCAN WHOLE BODY 04/16/2021 12:22 PM FINDINGS: Bones/joints: Mild osteopenia. No acute fracture, joint dislocation, or joint effusion. Joint spaces are appropriate for age. No significant degenerative arthropathy. Tiny patellar enthesophyte at the quadriceps tendon insertion. Tiny enthesophyte versus soft tissue calcification medial to the medial femoral condyle, potentially sequela of remote MCL injury. Soft tissues: Unremarkable soft tissues. IMPRESSION: 1. No acute osseous abnormality. 2. No joint effusion. 3. Chronic findings.
--- NOTE | 2024-08-04 19:33 | EXP.UTC ---
Discharge Plan Disposition Patient Disposition: Home, Self-Care Condition: Good Prescriptions Prescriptions: New ibuprofen [IBU] 800 mg tablet 800 mg PO Q8HP PRN (Reason: Moderate Pain) Qty: 30 0RF No Action (DME) Dexcom G7 Fiscal Services Manager Misc See Rx Instructions .Route Qty: 1 0RF Rx Instructions: As directed ondansetron HCl 4 mg tablet 4 mg PO TID Qty: 90 5RF acetaminophen-codeine 300-30 mg tablet 1 tab PO TID PRN (Reason: pain) Qty: 45 5RF clonidine HCl 0.2 mg tablet 0.2 mg PO TID PRN (Reason: hypertensive emergency) Qty: 90 3RF Rx Instructions: take if sbp over 160 (DME) pen needle, diabetic 32 gauge x 1/4 needle See Rx Instructions .Route .MEDSUPPLY Qty: 100 12RF Rx Instructions: As directed aspirin [Adult Low Dose Aspirin] 81 mg tablet,delayed release (DR/EC) 81 mg PO DAILY isosorbide mononitrate 30 mg tablet extended release 24 hr 30 mg PO DAILY Qty: 30 2RF lidocaine-prilocaine 2.5-2.5 % cream topical azithromycin 250 mg tablet See Rx Instructions PO .COMPLEX Qty: 6 0RF Rx Instructions: For 250 mg dose pack: take 500 mg today (day 1), then 250 mg for 4 days (days 2-5) PO fluticasone propionate 50 mcg/actuation spray,suspension 1 spray intranasal DAILY Qty: 16 2RF Rx Instructions: administer into each nostril (DME) Dexcom G7 Sensor Device See Rx Instructions .Route Qty: 1 0RF Rx Instructions: As directed atorvastatin 10 mg tablet 40 mg PO HS Qty: 90 3RF losartan-hydrochlorothiazide [Hyzaar] 100-12.5 mg tablet 1 tab PO DAILY Qty: 90 3RF amlodipine 10 mg tablet 10 mg PO BID Qty: 180 3RF insulin glargine 100 unit/mL (3 mL) insulin pen 120 unit SQ QPM Qty: 15 10RF Referrals Follow up/Referrals: Angel Walker DO [Staff Physician] - See instructions Louis Rodriguez MD [Primary Care Provider] - See instructions Activity Restrictions/Add. Instructions Additional Instructions/Restrictions: Rest the extremity, apply ice for 15 minutes as tolerated three or four times per day, Wear the ronald wrap for compression, Elevate the extremity as tolerated while you are resting. Take ibuprofen for pain. I sent in a prescription to your pharmacy. Follow up with Dr. Walker (orthopedics). Sometimes there can be fractures that don't show up well on the first set of x-rays. So, you should follow up if you continue to have symptoms. I put in a referral but you need to call his office and schedule an appointment. Follow up with your regular doctor. GO TO THE ER FOR ANY WORSENING SYMPTOMS Clinical Impressions Clinical Impression: Right knee sprain, Pain in right knee Stand Alone Forms Stand Alone Forms: Work/School Release Instructions Patient Instructions: DI for Knee Sprain, How to Use a Knee Immobilizer Print Language Print Language: Maltese Discharge ED Provider: Oziel James [facility] General Stated complaint: AO 11-7 right leg and knee pain Time Seen by Provider: 08/04/24 19:33 History of Present Illness Provider Complaint: She states that she fell earlier today and came down on her right knee. She is having right knee pain and swelling. She denies any other injury. She denies hand pain, wrist pain, and neck pain. She denies hitting her head. Related Data Home Medications ?Medication ?Instructions ?Recorded ?Confirmed aspirin 81 mg tablet,delayed 81 mg PO DAILY 05/25/24 07/19/24 release (Adult Low Dose Aspirin) lidocaine-prilocaine 2.5 %-2.5 % topical 07/19/24 07/19/24 topical cream Previous Rx's ?Medication ?Instructions ?Recorded clonidine HCl 0.2 mg tablet 0.2 mg PO TID PRN hypertensive 12/26/22 emergency #90 tabs pen needle, diabetic 32 gauge x #100 ea 12/26/2210/01 blood-glucose meter,continuous #1 ea 07/22/23 (Dexcom G7 Fiscal Services Manager) blood-glucose sensor (Dexcom G7 #1 ea 07/31/23 Sensor device) amlodipine 10 mg tablet 10 mg PO BID blood pressure #180 12/28/23 tabs atorvastatin 10 mg tablet 40 mg (4 x 10 mg) PO HS High 12/28/23 cholesterol #90 tabs losartan 100 1 tab PO DAILY #90 tabs 12/28/23 mg-hydrochlorothiazide 12.5 mg tablet (Hyzaar) insulin glargine 100 unit/mL (3 120 unit (1.2 mL) SQ QPM Diabetes 01/21/24 mL) subcutaneous pen #15 mL acetaminophen 300 mg-codeine 30 mg 1 tab PO TID PRN pain #45 tabs 02/12/24 tablet ondansetron HCl 4 mg tablet 4 mg PO TID #90 tabs 02/12/24 isosorbide mononitrate 30 mg 30 mg PO DAILY #30 tabs 05/11/24 tablet,extended release 24 hr azithromycin 250 mg tablet See Rx Instructions PO .COMPLEX #6 07/19/24 tabs fluticasone propionate 50 1 spray intranasal DAILY #16 grams 07/19/24 mcg/actuation nasal spray,suspension ibuprofen 800 mg tablet (IBU) 800 mg PO Q8HP PRN Moderate Pain 08/04/24 #30 tabs Allergies Allergy/AdvReac Type Severity Reaction Status Date / Time lisinopril Allergy Severe angioedema Verified 07/19/24 13:12 metoprolol AdvReac bradycardia Verified 07/19/24 13:12 [facility] Disclaimer: The information contained in this section may have been updated after the patient was seen, as this information can be updated by other users. Medical History Ischemic pain of left foot Chronic diastolic (congestive) heart failure Diabetes Hypertensive heart disease CAD (coronary artery disease) Diastolic dysfunction HLD (hyperlipidemia) (HFpEF) heart failure with preserved ejection fraction Hypertension Hypertension Pain in right lower leg Surgical History History of appendectomy History of cholecystectomy Family History Other No significant family history Social History Smoking Status: Never smoker alcohol intake: never substance use type: denies use current occupational status: employed Travel in the last 8 weeks: None household members: spouse housing: house 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 current occupational exposures/hazards: No caffeine: No ROS Obtained: Yes All systems reviewed & no additional complaints except as documented Constitutional Constitutional: Denies chills and Denies fever(s) Eyes Eyes: Denies eye discharge ENT Ears, Nose, Mouth, and Throat: Denies dizziness, Denies otalgia and Denies sore throat Cardiovascular Cardiovascular: Denies chest pain Respiratory Respiratory: Denies shortness of breath, Denies chest congestion, Denies cough, Denies stridor and Denies wheezing Gastrointestinal Gastrointestingal: Denies nausea or vomiting Musculoskeletal Musculoskeletal: Reports as per HPI Integumentary/Breasts Skin/Breast: Denies rash Neurologic Neurologic: Denies dizziness and Denies paresthesias Allergic/Immunologic Allergic/Immunologic: Denies wheezing Physical Exam General General appearance: alert and in no apparent distress Head Head exam: atraumatic, normocephalic and normal inspection Eye Eye exam: Present normal appearance, PERRL and EOMI ENT ENT exam: Present normal exam, normal oropharynx, mucous membranes moist, TM's normal bilaterally and normal external ear exam Neck Neck exam: Present normal inspection, full ROM and trachea midline; Absent meningismus or lymphadenopathy Chest Chest inspection: Present normal inspection and symmetric chest wall rise; Absent tenderness Respiratory Respiratory exam: Present normal lung sounds bilaterally; Absent respiratory distress Cardiovascular Cardiovascular exam: Present regular rate and normal rhythm; Absent JVD Abdominal Exam Abdominal exam: Present soft and normal bowel sounds; Absent distention, tenderness or guarding Extremities Exam Extremities exam: Present normal capillary refill; Absent calf tenderness Expanded Lower Extremity Exam Right: Hip/Pelvis exam: Present normal inspection and full ROM; Absent tenderness Upper leg exam: Present normal inspection and full ROM; Absent tenderness Knee exam: Present tenderness, swelling, effusion and knee extension intact; Absent full ROM, abrasion, laceration, ecchymosis, deformity, crepitus, dislocation, erythema, anterior drawer sign, posterior draw sign, pain with valgus, laxity with valgus, pain with varus or laxity with varus Lower leg exam: Present normal inspection, full ROM and Achilles tendon intact; Absent tenderness or Homans' sign Ankle exam: Present normal inspection and full ROM; Absent tenderness Foot/toe exam: Present normal inspection and full ROM; Absent tenderness Neurovascular/Tendon exam: Present normal capillary refill, normal 2-point discrimination and normal fine/light touch; Absent pulse deficit, motor deficit, sensory deficit, tendon deficit, extremity cold to touch or pallor Gait: observed and limited by pain Back Exam Back exam: Present normal inspection; Absent tenderness Neurological Exam Neurological exam: Present alert and oriented X3 Psychiatric Psychiatric exam: Present normal affect and normal mood Skin Skin exam: Present warm, dry, intact and normal color Lymphatic Lymphatic Findings: no adenopathy Medical Decision Making Medical Records Medical records reviewed: No I reviewed the patient's medical records. Screening: Per USPSTF and CDC recommendations, given the prevalence of disease in our region, it is our hospital?s policy to screen for HIV and viral Hepatitis for all patients aged 18 and over and those with ongoing risk factors. Jono Inquiry Pt receiving controlled substance: No Orders (Tests/Meds): ORDERS Category Date Time Status Knee XR right 3 views [XR knee RT 3V] Stat Exams 08/04/24 18:56 Taken Radiology Data #1: Image(s): Knee Image Reviewed: Yes I reviewed the patient's radiology image and Yes I have reviewed radiologist's interpretation Preliminary Findings: No Fracture Seen Accession No. : [id number] Patient Name / ID : STANTON JIN / [id number] Exam Date : 08/04/2024 18:52:19 ( Final ) Study Comment : Sex / Age : F / 58Y Creator : CAL MEYER Dictator : Bus Mechanic : Card Lacer Jacquard : CAL MEYER Approver2 : Report Date : 08/04/2024 20:04:00 My Comment : PROCEDURE INFORMATION: Exam: XR Right Knee Exam date and time: 08/04/2024 6:52 PM Age: 58 years old Clinical indication: Injury or trauma; Fall; Blunt trauma; Knee; Right TECHNIQUE: Imaging protocol: Radiologic exam of the right knee. Views: 3 views. Total images: 3 COMPARISON: NM BONE SCAN WHOLE BODY 04/16/2021 12:22 PM FINDINGS: Bones/joints: Mild osteopenia. No acute fracture, joint dislocation, or joint effusion. Joint spaces are appropriate for age. No significant degenerative arthropathy. Tiny patellar enthesophyte at the quadriceps tendon insertion. Tiny enthesophyte versus soft tissue calcification medial to the medial femoral condyle, potentially sequela of remote MCL injury. Soft tissues: Unremarkable soft tissues. IMPRESSION: 1. No acute osseous abnormality. 2. No joint effusion. 3. Chronic findings. Procedures Risk/Benefits of Procedure(s) Were Explained: Yes Orthopedic Splinting/Casting Injury #1: Side: right Lower Extremity Injury Location: knee Lower Extremity Immobilizer: knee immobilizer and applied by nurse/dr locke Other Orthopedic Equipment: other (she refused crutches. ) Post Cast/Splinting Neuro Status: intact and no change Post Cast/Splinting Vasc Status: intact and no change
[2024-08-04 19:39] VITALS: BP 159/63; PULSE 74; RESP 18; TEMP 36.4; O2SAT 98; BMI 35.2
[2024-08-04 20:25] VITALS: BP 159/63; PULSE 74; RESP 18; TEMP 36.4; O2SAT 98
== END 2024-08-04 20:26 | disposition home or self-care (01) ==
PROVIDERS: Emergency Provider Nurse Practitioner Family; PCP Family Medicine
DX: S83.91XA Sprain of unspecified site of right knee, initial encounter (principal); M25.561 Pain in right knee; M25.461 Effusion, right knee
CPT/HCPCS: 73562; 99212; G0381

== ENCOUNTER 2024-11-30 09:23 | Outpatient (CLI) | payer BC, SELFPAY ==
[2024-11-30 22:14] LABS: Microalbumin/Creatinine Ratio 51.8
[2024-11-30 22:21] LABS: Creatinine,Urine Random 120 mg/dL (Not Estab.)
[2024-12-01 01:15] LABS: Albumin Level 4.2 g/dl (3.5-5.0); Chloride 99 mmol/L (98-107); Potassium 4.2 mmoL/L (3.5-5.1); Sodium 136 mmol/L (136-145)
[2024-12-01 01:18] LABS: Alanine Aminotransferase 42 U/L (12-78); Albumin/Globulin Ratio 1.4 (1.1-1.8); Alkaline Phosphatase 148 U/L (38-126); Anion Gap 14.2 mEq/L (5-15); Aspartate Amino Transferase 51 U/L (14-36); Bilirubin,Total 0.6 mg/dl (0.2-1.3); Blood Urea Nitrogen 15 mg/dl (7-17); Calcium 9.2 mg/dl (8.4-10.2); Carbon Dioxide 27 mmol/L (22.0-30.0); Chol/HDL Ratio 3.8 (1-3.5); Cholesterol 192 mg/dl (140-200); Estimated Glomerular Filt Rate 73 ml/min (>60); GFR (African American) 89 ML/MIN (>60); Globulin 2.9 g/dL (1.3-3.2); HDL Cholesterol 51 mg/dl (40-60); Total Protein,Serum 7.1 g/dl (6.3-8.2); Triglycerides 181 mg/dl (30-150); VLDL Cholesterol 36 mg/dL (0-40)
[2024-12-01 01:29] LABS: Direct LDL Cholesterol 97.79 mg/dL (100-129)
[2024-12-01 01:31] LABS: Glucose 422 mg/dl (74-100)
[2024-12-01 01:48] LABS: Thyroid Stimulating Hormone 1.24 uIU/mL (0.465-4.68)
[2024-12-01 01:59] LABS: HIV Combo NEGATIVE (Negative)
[2024-12-01 02:07] LABS: Hepatitis C Ab Qual. W/ RFX NEGATIVE (Negative)
== END 2024-11-30 23:59 | disposition home or self-care (01) ==
LOC: LAB.DROPOF 12-01 12:30
PROVIDERS: PCP Family Medicine; Visit Provider Family Medicine
DX: Z11.59 Encounter for screening for other viral diseases (principal); E78.5 Hyperlipidemia, unspecified; I10 Essential (primary) hypertension; E11.69 Type 2 diabetes mellitus with other specified complication; Z79.4 Long term (current) use of insulin; R07.9 Chest pain, unspecified
CPT/HCPCS: 80053; 80061; 82043; 82570; 84443; 86803; 87389

== ENCOUNTER 2024-12-30 09:39 | Emergency (ER) | payer OTHER, BC, SELFPAY ==
[2024-12-30] VITALS (9 sets, daily range): BP systolic 150–195; BP diastolic 71–168; PULSE 60–75; RESP 18; TEMP 36.7; O2SAT 97–100; BMI 34.2
--- NOTE | 2024-12-30 10:01 | PC.NURSE ---
DR MATOS AT BEDSIDE
[2024-12-30] MEDS: IBUPROFEN 600 MG TABLET PO (10:03)
[2024-12-30] MEDS: ACETAMINOPHEN 500MG TAB 1000 MG PO (10:03)
--- NOTE | 2024-12-30 10:04 | XR_ITS ---
FINAL REPORT CLINICAL HISTORY: fall, pain fall at work FINDINGS: RIGHT FEMUR Two views were obtained. There is no fracture or dislocation. The joint spaces appear normal. No soft tissue abnormality is identified. IMPRESSION: No acute process. Reviewed, Interpreted and Dictated by Lito Lyons MD Transcribed by Mayra Amin Authenticated and [facility]
--- NOTE | 2024-12-30 10:04 | XR_ITS ---
FINAL REPORT CLINICAL HISTORY: fall, pain FINDINGS: RIGHT KNEE Three views were obtained. There is no fracture or dislocation. There are mild degenerative changes. Small joint effusion is identified. No soft tissue abnormality is identified. IMPRESSION: Mild degenerative changes. Reviewed, Interpreted and Dictated by Lito Lyons MD Transcribed by Mayra Amin Authenticated and [facility]
--- NOTE | 2024-12-30 10:04 | XR_ITS ---
FINAL REPORT CLINICAL HISTORY: fall, pain fall at work FINDINGS: RIGHT HIP Three views were obtained. There is no fracture or dislocation. There are mild degenerative changes. No soft tissue abnormality is identified. IMPRESSION: Mild degenerative changes. Reviewed, Interpreted and Dictated by Lito Lyons MD Transcribed by Mayra Amin Authenticated and [facility]
--- NOTE | 2024-12-30 10:05 | HMH.EDGENADL ---
Discharge Plan Disposition Patient Disposition: Home, Self-Care Condition: Good Prescriptions Prescriptions: No Action (DME) Dexcom G7 Street Light Servicer Misc See Rx Instructions .Route Qty: 1 0RF Rx Instructions: As directed (DME) Dexcom G7 Sensor Device See Rx Instructions .Route Qty: 3 12RF Rx Instructions: As directed insulin aspart U-100 [Novolog FlexPen U-100 Insulin] 100 unit/mL (3 mL) insulin pen 30 unit SQ TID Qty: 15 10RF Rx Instructions: ac ondansetron HCl 4 mg tablet 4 mg PO TID Qty: 90 5RF insulin glargine 100 unit/mL (3 mL) insulin pen 120 unit SQ QPM Qty: 15 10RF clonidine HCl 0.2 mg tablet 0.2 mg PO TID PRN (Reason: hypertensive emergency) Qty: 90 3RF Rx Instructions: take if sbp over 160 (DME) pen needle, diabetic 32 gauge x 1/4 needle See Rx Instructions .Route .MEDSUPPLY Qty: 100 12RF Rx Instructions: As directed aspirin [Adult Low Dose Aspirin] 81 mg tablet,delayed release (DR/EC) 81 mg PO DAILY lidocaine-prilocaine 2.5-2.5 % cream topical fluticasone propionate 50 mcg/actuation spray,suspension 1 spray intranasal DAILY Qty: 16 2RF Rx Instructions: administer into each nostril acetaminophen-codeine 300-30 mg tablet 1 tab PO TID PRN (Reason: pain) Qty: 45 5RF isosorbide mononitrate 30 mg tablet extended release 24 hr 30 mg PO DAILY Qty: 30 5RF dapagliflozin propanediol [Farxiga] 10 mg tablet 10 mg PO DAILY Qty: 90 3RF insulin lispro [Humalog KwikPen Insulin] 100 unit/mL insulin pen 30 unit SQ TID Qty: 15 12RF losartan-hydrochlorothiazide [Hyzaar] 100-12.5 mg tablet 1 tab PO DAILY Qty: 90 3RF amlodipine 10 mg tablet 10 mg PO BID Qty: 180 3RF atorvastatin 40 mg tablet See Rx Instructions .ROUTE .COMPLEX Qty: 90 0RF Dose Instruction: TAKE 1 TABLET BY MOUTH EVERY NIGHT AT BEDTIME FOR HIGH CHOLESTEROL Rx Instructions: TAKE 1 TABLET BY MOUTH EVERY NIGHT AT BEDTIME FOR HIGH CHOLESTEROL fluconazole [Diflucan] 100 mg tablet 100 mg PO BID Qty: 10 0RF ibuprofen [IBU] 800 mg tablet 800 mg PO Q8HP PRN (Reason: Moderate Pain) Qty: 30 0RF Referrals Follow up/Referrals: Angel Walker DO [Staff Physician] - See instructions Louis Rodriguez MD [Primary Care Provider] - See instructions Activity Restrictions/Add. Instructions Additional Instructions/Restrictions: You were evaluated in the emergency department today. At this time, x-rays do not show any acute broken bones. Please follow-up with orthopedics for further evaluation and management. Take Tylenol and ibuprofen as needed for pain. rest, ice, and elevate your knee to help reduce pain and swelling. Return to the emergency department for new or worsening symptoms. Clinical Impressions Clinical Impression: Acute pain of right knee, Fall Stand Alone Forms Stand Alone Forms: Work/School Release Instructions Patient Instructions: DI for Knee Sprain, DI for Knee Pain Print Language Print Language: Slovak Discharge ED Provider: Monica Dejesus General Adult HPI General Chief complaint: PAIN Stated complaint: AO fall @ work 12/30 0330 r knee pain Time Seen by Provider: 12/30/24 10:04 Mode of Arrival: Ambulatory Source of Information: Patient Description of Symptoms (Recalled from ER Triage Doc. by RN): PT REPORTS SLIPPED IN WATER AT WORK LANDING WITH RIGHT KNEE UNDER HER. ABRASION NOTED TO RIGHT KNEE History of Present Illness HPI narrative: This patient is a 59-year-old female with a history of obesity, hypertension, hyperlipidemia, CHF, diabetes presented to the emergency department for evaluation with concern for right knee pain after mechanical ground-level fall. Patient states that she was at work when she slipped in a puddle of water, landing mostly on her right knee. She states she also caught her self with her hands. She notes that her right knee took the majority of the fall, and she has been having pain in her right knee since. This happened around 3:00 this morning. She is still ambulatory but has pain when doing so. She did not hit her head or lose consciousness and denies use of blood thinners or aspirin. She was well prior to the fall without other acute concerns at this time. Related Data Home Medications ?Medication ?Instructions ?Recorded ?Confirmed aspirin 81 mg tablet,delayed 81 mg PO DAILY 05/25/24 11/30/24 release (Adult Low Dose Aspirin) lidocaine-prilocaine 2.5 %-2.5 % topical 07/19/24 11/30/24 topical cream Previous Rx's ?Medication ?Instructions ?Recorded clonidine HCl 0.2 mg tablet 0.2 mg PO TID PRN hypertensive 12/26/22 emergency #90 tabs pen needle, diabetic 32 gauge x #100 ea 12/26/22 1/ fluticasone propionate 50 1 spray intranasal DAILY #16 grams 07/19/24 mcg/actuation nasal spray,suspension ibuprofen 800 mg tablet (IBU) 800 mg PO Q8HP PRN Moderate Pain 08/04/24 #30 tabs acetaminophen 300 mg-codeine 30 mg 1 tab PO TID PRN pain #45 tabs 09/05/24 tablet isosorbide mononitrate 30 mg 30 mg PO DAILY #30 tabs 11/21/24 tablet,extended release 24 hr blood-glucose meter,continuous #1 ea 11/30/24 (Dexcom G7 Street Light Servicer) blood-glucose sensor (Dexcom G7 #3 ea 11/30/24 Sensor device) insulin aspart U-100 100 unit/mL 30 unit (0.3 mL) SQ TID #15 mL 11/30/24 (3 mL) subcutaneous pen (Novolog FlexPen U-100 Insulin aspart) insulin glargine 100 unit/mL (3 120 unit (1.2 mL) SQ QPM Diabetes 11/30/24 mL) subcutaneous pen #15 mL ondansetron HCl 4 mg tablet 4 mg PO TID #90 tabs 11/30/24 dapagliflozin propanediol 10 mg 10 mg PO DAILY #90 tabs 12/01/24 tablet (Farxiga) insulin lispro 100 unit/mL 30 unit (0.3 mL) SQ TID #15 mL 12/12/24 subcutaneous pen (Humalog KwikPen (U-100) Insulin) amlodipine 10 mg tablet 10 mg PO BID blood pressure #180 12/26/24 tabs atorvastatin 40 mg tablet See Rx Instructions .Route 12/26/24 .COMPLEX #90 tabs losartan 100 1 tab PO DAILY #90 tabs 12/26/24 mg-hydrochlorothiazide 12.5 mg tablet (Hyzaar) fluconazole 100 mg tablet 100 mg PO BID #10 tabs 12/27/24 (Diflucan) Allergies Allergy/AdvReac Type Severity Reaction Status Date / Time lisinopril Allergy Severe angioedema Verified 11/30/24 08:27 metoprolol AdvReac bradycardia Verified 11/30/24 08:27 [facility] Disclaimer: The information contained in this section may have been updated after the patient was seen, as this information can be updated by other users. Medical History Ischemic pain of left foot Chronic diastolic (congestive) heart failure Diabetes Hypertensive heart disease CAD (coronary artery disease) Diastolic dysfunction HLD (hyperlipidemia) (HFpEF) heart failure with preserved ejection fraction Hypertension Hypertension Pain in right lower leg Surgical History History of appendectomy History of cholecystectomy Family History Other No significant family history Social History Smoking Status: Never smoker alcohol intake: never substance use type: denies use current occupational status: employed Travel in the last 8 weeks: None household members: spouse housing: house 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 current occupational exposures/hazards: No caffeine: No Other Medical History Have you received the Flu Vaccine for this season: Yes Have you received the Pneumonia Vaccine: Yes ROS Obtained: Yes All systems reviewed & no additional complaints except as documented Physical Exam General General appearance: alert and in no apparent distress Head Head exam: atraumatic and normocephalic Eye Eye exam: Present normal appearance, PERRL and EOMI ENT ENT exam: Present normal exam, normal oropharynx, mucous membranes moist and normal external ear exam Neck Neck exam: Present normal inspection, full ROM and trachea midline; Absent tenderness Chest Chest inspection: Present normal inspection and symmetric chest wall rise; Absent tenderness Respiratory Respiratory exam: Present normal lung sounds bilaterally; Absent respiratory distress, wheezes, stridor or accessory muscle use Cardiovascular Cardiovascular exam: Present regular rate and normal rhythm Abdominal Exam Abdominal exam: Present soft; Absent distention, tenderness or guarding Extremities Exam Extremities exam: Present tenderness, normal capillary refill and other (Abrasion/bruising to the right knee. Tenderness palpation of the right knee joint. No appreciable ligamentous instability, but she does have significant pain with range of motion of the right knee. She is neurovascularly intact distally.); Absent edema Back Exam Back exam: Present normal inspection and full ROM; Absent tenderness Neurological Exam Neurological exam: Present alert, oriented X3, CN II-XII intact and normal gait; Absent motor sensory deficit Psychiatric Psychiatric exam: Present normal affect and normal mood Skin Skin exam: Present warm and dry Medical Decision Making Medical Records Medical records reviewed: Yes I reviewed the patient's medical records. Screening: Per USPSTF and CDC recommendations, given the prevalence of disease in our region, it is our hospital?s policy to screen for HIV and viral Hepatitis for all patients aged 18 and over and those with ongoing risk factors. Jono Inquiry Pt receiving controlled substance: No Vital Signs: 12/30/24 09:45 12/30/24 09:48 12/30/24 09:53 Temperature 98.0 F Temperature Source Oral Pulse Rate 74 74 Pulse Rate [Radial] 75 Respiratory Rate 18 Blood Pressure 195/168 H 189/83 H Blood Pressure [Right Arm] 189/83 H Blood Pressure Mean [Right Arm] 118 Blood Pressure Source Blood Pressure Source [Right Arm] Automatic Cuff Blood Pressure Position Blood Pressure Position [Right Arm] Sitting 02 Sat by Pulse Oximetry 100 99 100 Oxygen Delivery Method Room Air Room Air Room Air 12/30/24 10:00 12/30/24 10:30 12/30/24 11:00 Temperature Temperature Source Pulse Rate 71 67 68 Pulse Rate [Radial] Respiratory Rate Blood Pressure 171/80 H 162/71 H 168/71 H Blood Pressure [Right Arm] Blood Pressure Mean [Right Arm] Blood Pressure Source Blood Pressure Source [Right Arm] Blood Pressure Position Blood Pressure Position [Right Arm] 02 Sat by Pulse Oximetry 99 98 98 Oxygen Delivery Method Room Air Room Air Room Air 12/30/24 11:30 12/30/24 11:45 12/30/24 11:51 Temperature 98.0 F Temperature Source Oral Pulse Rate 61 60 70 Pulse Rate [Radial] Respiratory Rate 18 Blood Pressure 150/71 H 150/71 H 150/71 H Blood Pressure [Right Arm] Blood Pressure Mean [Right Arm] Blood Pressure Source Automatic Cuff Blood Pressure Source [Right Arm] Blood Pressure Position Sitting Blood Pressure Position [Right Arm] 02 Sat by Pulse Oximetry 97 97 Oxygen Delivery Method Room Air Room Air Lab Data Lab results reviewed: Yes I reviewed the patient's lab results. Orders (Tests/Meds): ED MEDICATIONS Discontinued Medications Generic Name Dose Route Start Last Admin Trade Name Freq PRN Reason Stop Dose Admin Acetaminophen 1,000 mg 12/30/24 10:02 12/30/24 10:03 Acetaminophen 500mg Tab PO 12/30/24 10:03 1,000 mg ONCE ONE Administration Ibuprofen 600 mg 12/30/24 10:02 12/30/24 10:03 Ibuprofen 600 Mg Tablet PO 12/30/24 10:03 600 mg ONCE ONE Administration ORDERS Category Date Time Status Femur XR right 2 views [XR femur RT 2V] Stat Exams 12/30/24 10:04 Completed Hip XR right minimum 2 views [XR hip RT 2-3V w/pelvis] Exams 12/30/24 10:04 Completed Stat Knee XR right 3 views [XR knee RT 3V] Stat Exams 12/30/24 10:04 Completed Medical Decision Narrative: In summary, this patient is a 59-year-old female presenting to the Emergency Department for evaluation of right knee pain after mechanical ground-level. Differential diagnoses considered include but are not limited to fracture, ligamentous injury, meniscal injury, polytrauma, neurovascular injury. Ruling out the most morbid conditions drove assessment. It should be noted patient's history includes obesity, hypertension, hyperlipidemia, CAD, diabetes which may not be at goal therapy. This complicates all aspects of care by increasing patient's risk for morbidity. I reviewed patient's past medical records and noted prior evaluation by orthopedics back in July for right knee sprain. On exam, the patient is lying in bed in no acute distress. She has bruising, abrasion, tenderness of the right knee but otherwise no obvious traumatic injuries noted. She is neurovascularly intact. I do not appreciate any significant ligamentous laxity but she does have pain with range of motion of the right knee. She did not hit her head or lose consciousness, based on [place] head CT/C-spine rules I do not feel that imaging is indicated. Workup included x-rays of the right hip, femur, knee. She was given oral Tylenol and ibuprofen for symptomatic improvement of pain. I independently interpreted XR prior to the radiologist read and noted no acute fracture. Please see their read for final interpretation. Ultimately at this time, I feel the patient is appropriate for discharge home with close follow-up with orthopedics. She was given instructions for supportive management and strict return precautions. Critical Care Critical Care Time Critical Care Time: No
== END 2024-12-30 12:05 | disposition home or self-care (01) ==
PROVIDERS: Emergency Provider Emergency Medicine; PCP Family Medicine
DX: M25.561 Pain in right knee (principal); S80.211A Abrasion, right knee, initial encounter; I50.32 Chronic diastolic (congestive) heart failure; I25.10 Atherosclerotic heart disease of native coronary artery without angina pectoris; E78.5 Hyperlipidemia, unspecified; I11.0 Hypertensive heart disease with heart failure; E11.9 Type 2 diabetes mellitus without complications; Y93.9 Activity, unspecified; W01.0XXA Fall on same level from slipping, tripping and stumbling without subsequent striking against object, initial encounter; Y99.0 Civilian activity done for income or pay; Z90.49 Acquired absence of other specified parts of digestive tract; Z88.8 Allergy status to other drugs, medicaments and biological substances
CPT/HCPCS: 73502; 73552; 73562; 99285

== ENCOUNTER 2025-01-04 10:19 | Outpatient (RCR) | payer OTHER, BC, SELFPAY | END 2025-01-04 23:59 | disposition home or self-care (01) | LOC: PT 10:19 | PROVIDERS: Visit Provider Physician Assistant | DX: M25.561 Pain in right knee (principal) | CPT/HCPCS: 97760 ==

== ENCOUNTER 2025-01-31 12:23 | Outpatient (CLI) | payer BC, SELFPAY ==
--- NOTE | 2025-01-31 | CA_ITS ---
APPROVED REPORT EXAM: Comprehensive 2D, Doppler, and color-flow Echocardiogram Sourcing Assistant: Azalia Whiteside RT(R) Ht: 5 ft 5 in Wt: 207lbs BSA: 2.01 BP: 157/68 mmHg Indications: edema, HTN, DM, hyperlipidemia, DD, CAD, HFpEF, cirrhosis, PHTN 2D Dimensions LA Volume 31.40 mL LA Volume Index 15.62 mL/m2 (M/F) 16-34 EF AP4 56.30 % GL Strain -16.8 % M-Mode Dimensions RVDd 2.96 cm (0.9-2.6) LA Diam 3.58 cm (1.9-4.0) LVDd 4.27 cm (3.5-5.7) LVDs 3.19 cm (3.5-5.7) IVSd 0.84 cm (0.6-1.1) PWd 1.08 cm (0.6-1.1) EF (Teich) 50.30% FS 25.30% EDV (Teich) 81.70 mL ESV (Teich) 40.60 mL LV Diastology E Decel Time 210 (160-240 msec) E/A Ratio 0.8 Mitral Valve MV E Max Luke. 73.0 (40-130 cm/s) MV A Velocity 90.0 (40-130 cm/s) E/A Ratio 0.81 MV PHT 62.0 ms Left Ventricle The left ventricle is normal size. The left ventricular systolic function is normal. The left ventricular ejection fraction is within the normal range. There is increased LV wall thickness. There is normal LV segmental wall motion. The left ventricular diastolic function is normal. LVEF is 60%. Right Ventricle The right ventricle is normal size. The right ventricular systolic function is normal. Atria The left atrium size is normal. The right atrium size is normal. There is no Doppler evidence of interatrial shunt. Aortic Valve The aortic valve opens well. There is no aortic valvular stenosis. No aortic regurgitation is present. Mitral Valve The mitral valve is normal in structure. No evidence of mitral valve stenosis. There is no mitral valve regurgitation noted. Tricuspid Valve Tricuspid valve is grossly normal in structure and function. Trace tricuspid regurgitation. There is insufficient TR jet to estimate RVSP. Pulmonic Valve The pulmonary valve is normal in structure. Trace pulmonic regurgitation. Great Vessels The aortic root is normal in size. IVC is normal in size and collapses >50% with inspiration. Pericardium There is no pericardial effusion. Other Information Study Quality: Fair Conclusion Normal biventricular systolic function. No significant valvular stenosis or regurgitation. Electronically signed by : Hyun Alejandra MD 02/07/2025 12:37:29
== END 2025-01-31 23:59 | disposition home or self-care (01) ==
LOC: RT 12:23
PROVIDERS: PCP Family Medicine; Visit Provider Nurse Practitioner Family
DX: R60.0 Localized edema (principal); I50.30 Unspecified diastolic (congestive) heart failure
CPT/HCPCS: 93306

== ENCOUNTER 2025-02-01 09:30 | Outpatient (CLI) | payer BC, SELFPAY ==
[2025-02-01 18:37] LABS: Basophils # 0.1 K/mm3 (0-0.2); Basophils % 0.5 % (0.1-2.0); Eosinophils # 0.1 Kmm3 (0.0-0.4); Eosinophils % 1.4 % (0.1-12.0); Hematocrit 41.3 % (37.0-47.0); Hemoglobin 12.9 g/dL (12.2-16.2); Immature Granulocytes # 0.06 10^3uL; Immature Granulocytes % 0.6 %; Lymphocytes # 2.8 K/mm3 (0.7-4.5); Mean Corpuscular HGB Conc 31.2 g/dL (31.8-35.4); Mean Corpuscular Hemoglobin 27.4 pg (27.0-31.2); Mean Corpuscular Volume 87.9 fl (81-99); Mean Platelet Volume 10.6 fl (7.4-10.4); Monocytes # 0.7 K/mm3 (0.1-1.0); Monocytes % 7.1 % (1.7-9.3); Neutrophils # 6.6 K/mm3 (1.8-7.8); Neutrophils % 63.4 % (37.0-80.0); Nucleated Red Blood Cells # 0 10^3/uL; Nucleated Red Blood Cells % 0 %; Platelet Count 232 K/mm3 (142-424); Red Cell Distribution Width 14.2 % (11.5-17.5); Red Cell Distribution Width-SD 45.4 fL; White Blood Count 10.4 K/mm3 (4.8-10.8)
[2025-02-01 19:07] LABS: Alanine Aminotransferase 26 U/L (12-78); Albumin Level 3.8 g/dl (3.5-5.0); Albumin/Globulin Ratio 1.4 (1.1-1.8); Alkaline Phosphatase 130 U/L (38-126); Aspartate Amino Transferase 31 U/L (14-36); Bilirubin,Total 0.8 mg/dl (0.2-1.3); Blood Urea Nitrogen 25 mg/dl (7-17); Calcium 9.4 mg/dl (8.4-10.2); Carbon Dioxide 29 mmol/L (22.0-30.0); Chloride 99 mmol/L (98-107); Chol/HDL Ratio 3.4 (1-3.5); Cholesterol 158 mg/dl (140-200); Estimated Glomerular Filt Rate 57 ml/min (>60); GFR (African American) 68 ML/MIN (>60); Globulin 2.8 g/dL (1.3-3.2); Glucose 353 mg/dl (74-100); HDL Cholesterol 46 mg/dl (40-60); Sodium 133 mmol/L (136-145); Total Protein,Serum 6.6 g/dl (6.3-8.2); Triglycerides 136 mg/dl (30-150); VLDL Cholesterol 27 mg/dL (0-40)
[2025-02-01 19:18] LABS: Direct LDL Cholesterol 76.05 mg/dL (100-129)
[2025-02-01 19:31] LABS: Microalbumin/Creatinine Ratio 30.3
[2025-02-01 19:40] LABS: Creatinine,Urine Random 118 mg/dL (Not Estab.)
== END 2025-02-01 23:59 | disposition home or self-care (01) ==
LOC: LAB.DROPOF 02-02 08:30
PROVIDERS: PCP Family Medicine; Visit Provider Family Medicine
DX: K75.81 Nonalcoholic steatohepatitis (NASH) (principal); R60.0 Localized edema; M25.561 Pain in right knee; R82.90 Unspecified abnormal findings in urine
CPT/HCPCS: 80053; 80061; 82043; 82570; 85025; 87086; 87088; 87186

== ENCOUNTER 2025-04-01 14:14 | Emergency (ER) | payer BC, SELFPAY ==
--- OUTSIDE RECORDS SUMMARY | 2025-03-03 19:08 | XMS_ITS | Encounter Summary ---
Author Organization [place] [place] [address] Care Team Providers Care Band Edger Name Role Phone Louis Rodriguez MD Primary Care Provider [phone] Reason for Visit * Reason Comments Abdominal Pain Abd pain that starte d today, emesis x3, reports dark urine. Unsure of fevers. * Auth/Cert/Inpt (Routine) Specialty Diagnoses / Procedures Referred By Denise chilel Referred To Contact Diagnoses Ileus (HCC) Referral ID Status Reason Start Date Expiration Date Visits Re quested Visits Authorized [id number] 1 1 Encounter Details Date Type Department Care Team (Late st Contact Info) Description 03/03/2025 7:08 PM EDT - 03/07/2025 11:35 AM EDT Hospital Encounter EDG 2A OBSERVATION UNIT [facility] [place], [place] [id number] Abdullahi Walker MD [address] [place] [address] [id number] Prabhu Longoria MD [address] [place] [address] Ileus (HCC) (Primary Dx); Generalized abdominal pain; Urinary tract infection without hematuria, site unspecified Discharge Disposition: Home or Self Care Social History Tobacco Use Types Packs/Day Years Used Date Smoking Tobacco: Never Smokeless Tobacco: Never Alcohol Use Standard Drinks/Week Comments No 0 (1 standard drink = 0.6 oz pur e alcohol) [facility] Utilities Answer Date Recorded In the [...] Date Recorded PHQ-2 Total Score 0 03/06/2025 [facility] of Occupat ional Health - Occupational Stress [...] things needed for daily living? No 09/28/2021 [facility] IP Transportation Answer D ate Recorded In [...] 7:19 PM EDT Elyse العراقي RN * [place] Suicide Severity Rating Scale (Q shift for moderate and high) Question Answer Date of Assessment Author 1. In the past month, have y ou wished you were or wished you could go to sleep and not wake up? 0 03/03/2025 7:19 PM EDT Elyse Ortez, RHETT 2. In the past month, have y ou actually had any thoughts of killing yourself? (If no, skip to question 6) 0 03/03/2025 7:19 PM EDT Elyse العراقي, Harry N 6. Have you ever done anythi ng, started to do anything, or prepared to do anything to end your life? 0 03/03/2025 7:19 PM EDT Elyse Gupta RN documented as of this encounter Mental [...] Your Medications These medications were sent to [facility] [address] [place] [address] DR Gee [place] [id number] Hours: Thursday-Thursday 8:00am - 6:30pm amoxicillin-clavulanate 875-125 [...] FIBER DIET Follow Up: Louis Rodriguez MD [address] [place] [address] Schedule an appointment as soon as possible for a visit in 3 day(s) Disposition: Home Signed: Festus Burger MD 03/07/2025 documented in this encounter Discharge Instructions * Attachments The following attachments cannot be sent through Care Everywhere. * Amoxicillin and Clavulanate (Mongolian) * Isosorbide Mononitrate (Mongolian) * Urinary tract infections in adults (Mongolian) documented in this encounter Medications at Time of Discharge Aspirin 81 mg Take 81 mg by mouth daily. atorvastatin (LIPITOR) 40 mg Oral Tablet Take 1 Tablet by mouth nightly. 30 Tablet 10/01/2021 11:57 AM EST 10/01/2021 Blood Sugar Diagnostic (FREESTYLE LITE STRIPS) Misc Strip by [employer].(Non-Drug; Combo Route) route. Use to test BS 4 x daily Blood-Glucose Meter (FREESTYLE LITE METER) Misc Kit by [employer].(Non-Drug; Combo Route) route. Use to test BS [...] Means Destination Comment s Home or Self [facility] documented in this encounter Progress Notes * Julissa Anderson CPhT - 03/07/2025 11:30 AM EDT Discharge Medication Delivery Service DMD veterinary laboratory technician has delivered the following medications for Nataly Galvan: Rx#[id number]:AMOXICILLIN 875 MG-POTASSIUM CLAVULANATE 125 MG TABLET-1 Tablet *EVERY 12 HOURS Date/Time of Delivery: 03/07/2025 11:30 AM Delivered to: 2133 handed to pt Please contact [facility] veterinary laboratory technician with any questions. Thanks! Julissa Anderson [...] GALVAN Department: DEPID Room: 2133 Gender: Female Material Reclaimer: Jory : 1965 Requested By: ABDULLAHI Mcdonald Order Number: [id number] Reading MD: Lucy Luong Measurements Intervals [place] Rate: 82 P: 47 MO: 161 QRS: 35 QRSD: 77 T: 30 [...] process Caregiver Name Michael, Does patient need site interpreter? No Activities of Daily Living Prior to [...] Discussed discharge plans with Care Team at [facility] Yes, with nurse in attendance;Yes, with doctor [...] She reports being independent, employed, and drives [employer]. Pt states she lives with her , [...] Completed Yes Post Acute Form Assign to [facility] No Post Acute Form Completed No Care Coordination Discharge Ready? Yes Discharge to Home with Family Post Acute Provider Dr Rodriguez DME at Discharge None DME Assign to [facility] No DME completed by [facility] No Transportation at Discharge Personal vehicle Date Expected 03/06/25 Transportation Assign to [facility] No Confirmed Discharge Transportation Plan? Yes Transportation setup completed by [facility] No PASAR Completed Not Applicable Patient Aware [...] EK EKG 12 LEAD Result Date: 03/04/2025 [facility] Flynn Test Date: 2025-03-03 Pat Name: NATALY GALVAN Department: DEPID Room: 2133 Gender: Female Material Reclaimer: Jory : 1965 Requested By: ABDULLAHI Mcdonald Order Number: [id number] Reading MD: Lucy Luong Measurements Intervals [place] Rate: 82 P: 47 MO: 161 QRS: 35 QRSD: 77 T: 30 [...] CHOLHDLR , NDL , LDL , CALCU Prabhutracy Longoria MD 03/05/2025 Assessment & Plan: Assessment [...] Remains n.p.o. now Chronic diastolic heart failure ([facility]) Compensated Type 2 diabetes mellitus with hyperglycemia, with long-term current use of insulin ([facility]) Given n.p.o., hold high-dose insulin Continue Lantus [...] Pat Name: NATALY GALVAN Department: DEPID Room: [facility] Gender: Female Material Reclaimer: Jory : 1965 Requested By: ABDULLAHI Mcdonald Order Number: [id number] Reading MD: Lucy Luong Measurements Intervals [place] Rate: 82 P: 47 MO: 161 QRS: 35 QRSD: 77 T: 30 [...] Isovue 370 IV contrast given as recorded inEPIC. Dose 1 : CT DLP Total : [...] office of the ordering clinician. * Prabhu Longoria MD - 03/04/2025 12:22 [...] Ordered NPO: Strict DIET EFFECTIVE MIDNIGHT 03/03/25 5150 Comments: Yes, skin intact. Blanchable redness noted to bilateral heels. documented in this encounter H&P Notes * Prabhu Longoria MD - 03/04/2025 12:16 PM EDT Images from the original note were not included. + Name: Nataly Galvan ADDRESS: [address] [place] [address] : 1965 AGE: 59 y.o. Admitting Physician: [...] pulse 96 bpm, respiratory rate 16/min, blood ikewsgwd658/68 mmHg, SpO2 98% on air. She appears [...] CYSTOSCOPY 08/10/2019 Surgeon: Leanna Jimenez MD; Location: [facility] MAIN OR; Service: Urology HYSTERECTOMY KIDNEY STONE SURGERY Right 08/10/2019 CYSTOSCOPY RIGHT STENT INSERTION, RIGHT PERCUTANEOUS NEPHROLITHOTOMY, RIGHT PERCUTANEOUS NEPHROSTOMY TUBE PLACEMENT ; Surgeon: Leanna Jimenez MD; Location: [facility] MAIN OR; Service: Urology LITHOTRIPSY UPPER GASTROINTESTINAL [...] Diagnostic (FREESTYLE LITE STRIPS) Misc Strip by [facility].(Non-Drug; Combo Route) route. Use to test BS 4 x daily Provider, Historical Blood-Glucose Meter (FREESTYLE LITE METER) Misc Kit by [facility].(Non-Drug; Combo Route) route. Use to test BS 4 x daily Provider, Historical Allergies: Allergies Allergen Reactions Lisinopril Anaphylaxis Beta-Blockers (Beta-Adrenergic Blocking Agts) Other (See Comments) bradycardia Iodine Swelling 03/03/[address] with [id number] without any premedications and did not have [...] Pat Name: NATALY GALVAN Department: DEPID Room: [facility] 4 Gender: Female Material Reclaimer: Jory : 1965 Requested By: ABDULLAHI Mcdonald Order Number: [id number] Reading MD: Measurements Intervals [place] Rate: 82 P: 47 MO: 161 QRS: 35 QRSD: 77 T: 30 [...] CYSTOSCOPY 08/10/2019 Surgeon: Leanna Jimenez MD; Location: [facility] MAIN OR; Service: Urology HYSTERECTOMY KIDNEY STONE [...] Iodine Swelling 03/03/[address] with [id number] without any premedications and did not have [...] file Social Connections: Unknown (07/06/2023) Received from [facility] Family and Community Support Help with Day-to-Day Activities: Not on file Lonely or Isolated: Not on file Intimate Partner Violence: Unknown (07/06/2023) Received from [facility] Abuse Screen Unsafe at Home or Work/School: Not on file Feels Threatened by Someone?: Not on file Does Anyone Keep You from Contacting Others or Doint Things Outside the Home?: Not on file Physical Sign of Abuse Present: Not on file Housing Stability: Unknown (07/06/2023) Received from [facility] Housing Stability Current Living Arrangements: Not [...] Pat Name: NATALY GALVAN Department: DEPID Room: [facility] Gender: Female Material Reclaimer: Jory : 1965 Requested By: ABDULLAHI Mcdonald Order Number: [id number] Reading MD: Lucy Luong Measurements Intervals [place] Rate: 82 P: 47 MO:161 QRS: 35 QRSD: 77 T: 30 QT: [...] SpO2 03/03/25 1833 98 % Height 03/03/25 183 5' 5 (1.651 m) Weight 03/03/25 1839 [...] CT of the abdomen pelvis. Patient to [facility] bed for further evaluation and management. Patient [...] sinus rhythm with a rate of 82, MO 161, QRS 77, QTc 426, normal axis, [...] Ariel Pitt MD ASSESSMENT AND PLAN Nataly N Cole is a 59 y.o. year old female [...] CYSTOSCOPY 08/10/2019 Surgeon: Leanna Jimenez MD; Location: [facility] MAIN OR; Service: Urology HYSTERECTOMY KIDNEY STONE SURGERY Right 08/10/2019 CYSTOSCOPY RIGHT STENT INSERTION, RIGHT PERCUTANEOUS NEPHROLITHOTOMY,RIGHT PERCUTANEOUS NEPHROSTOMY TUBE PLACEMENT ; Surgeon: Virgen Jimenez MD; Location: [facility] MAIN OR; Service: Urology LITHOTRIPSY UPPER GASTROINTESTINAL ENDOSCOPY N/A 06/20/2020 ESOPHAGOGASTRODUODENOSCOPY with biopsy via forceps and arrieta dilation COLONOSCOPY with polypectomy via hot and cold snare; Surgeon: Mahin Dallas MD; Location: [facility] ENDOSCOPY; Service: Endoscopy Allergies Allergen Reactions Lisinopril Anaphylaxis Beta-Blockers (Beta-Adrenergic Blocking Agts) Other (See Comments) bradycardia Iodine Swelling 03/03/[address] with Psozla520 without any premedications and didnot have any complications-ANL Ok for CT Isovue 370 with premedication benadryl 25mg and [id number] scanned 1 hour later-pt tolerated contrast with [...] file Social Connections: Unknown (07/06/2023) Received from [facility] Family and Community Support Help with Day-to-Day Activities: Not on file Lonely or Isolated: Not on file Intimate Partner Violence: Unknown (07/06/2023) Received from [facility] Abuse Screen Unsafe at Home or Work/School: Not on file Feels Threatened by Someone?: Not on file Does Anyone Keep You from Contacting Others or Doint Things Outside theHome?: Not on file Physical Sign of Abuse Present: Not on file Housing Stability: Unknown (07/06/2023) Received from [facility] Housing Stability Current Living Arrangements: Not [...] 12 LEAD Result Date: 03/04/2025 [facility] NavarrogoesselTest Date:2025-03-03 Pat Name: NATALY GALVAN Department: DEPIDPatient ID: [id number] Room: [facility] Gender:Female Material Reclaimer: Jory : [id number] By: ABDULLAHI Mcdonald Order Number: [id number] MD: Lucy LuongMeasurements Intervals [place] Rate:82 P: 47 MO: 161QRS: 35 QRSD: 77 T:30 QT: 388 [...] 03/07/2025 10:05 AM EDT [facility] Potassium 3.8 3.5 - 5.0 mmol/L 03/07/2025 10:05 AM EDT [facility] Chloride 101 98 - 107 mmol/L 03/07/2025 10:05 AM EDT [facility] Total CO2 26 22 - 29 mmol/L 03/07/2025 10:05 AM EDT [facility] Anion Gap 11 7 - 16 mmol/L 03/07/2025 10:05 AM EDT [facility] Calcium 9.0 8.8 - 10.4 mg/dL 03/07/2025 10:05 AM EDT [facility] Glucose Lvl 155(H) 70 - 99 mg/dL 03/07/2025 10:05 AM EDT [facility] BUN 12 8 - 23 mg/dL 03/07/2025 10:05 AM EDT [facility] Creatinine 0.75 0.51 - 1.30 mg/dL 03/07/2025 10:05 AM EDT [facility] eGFR (CKD-EPIcr 2020) 91 >=60 mL/min/1.7 3 m2 03/07/2025 10:05 AM EDT [facility] Comment:Estimated GFR was ca lculated using the CKD-EPIcr (2020) equation refit without race. The equation is recommended by the National Kidney Foundation - [place] [employer] of Nephrology Task Force. Blood VENOUS BLOOD / Unknown Venipuncture / Unknown 03/07/2025 8:36 AM EDT 03/07/2025 9:27 AM EDT Sophie Caldwell PA-C CHEMISTRY ORDERABLES Sandie larry Result [facility] [address] [facility] , [address] [place] [id number] * (ABNORMAL) CBC (03/07/2025 8:36 AM EDT) WBC 12.0(H) 3.7 - 10.3 x10(3)/mcL 03/07/2025 9:42 AM EDT [facility] RBC 4.63 3.90 - 5.20 x10(6)/mcL 03/07/2025 9:42 AM EDT [facility] Hgb 12.6 11.2 - 15.7 g/dL 03/07/2025 9:42 AM EDT [facility] Hct 39.6 34.0 - 45.0 % 03/07/2025 [...] 03/07/2025 9:42 AM EDT [facility] MPV 10.0 8.8 - 12.5 fL 03/07/2025 9:42 AM EDT [facility] Blood VENOUS BLOOD / Unknown Venipuncture / Unknown 03/07/2025 8:36 AM EDT 03/07/2025 9:27 AM EDT us Sophie Caldwell PA-C HEMATOLOGY ORDERABLES Fin al Result Performing Organization Address City/[facility]/ZIP Co de Phone Number [facility] [place], [address] , [place] [address] * (ABNORMAL) GLUCOSE METER POC (03/07/2025 8:10 AM EDT) [facility] Glucose Meter POC 169(H) 70 - 100 mg/dL 03/07/2025 8:13 AM EDT [facility] Sample Type Capillary 03/07/2025 8:13 AM EDT [facility] Patient Status Non-Critical Patient 03/07/2025 8:13 AM EDT [facility] Blood BLOOD SPECIMEN / Unknown 03/07/2025 8:10 AM EDT 03/07/2025 8:13 AM EDT Prabhu Longoria MD POINT OF CARE TEST ORDERABLES F inal Result Performing Organization Address City/[facility]/ZIP Co de Phone Number [facility] [address] [place] [address] * (ABNORMAL) GLUCOSE METER POC (03/06/2025 8:29 PM EDT) Glucose Meter POC 323(H) 70 - 100 mg/dL 03/06/2025 8:31 PM EDT [facility] Sample Type Capillary 03/06/2025 8:31 PM EDT [facility] Patient Status Non-Critical Patient 03/06/2025 8:31 PM EDT [facility] Blood BLOOD SPECIMEN / Unknown 03/06/2025 8:29 PM EDT 03/06/2025 8:31 PM EDT us Prabhu Longoria MD POINT OF CARE TEST ORDERABLES F inal Result Performing Organization Address City/[facility]/ZIP Co de Phone Number [facility] [address] [place] [address] * ECG AND WAVEFORMS - TELEMETRY (03/06/2025 7:41 PM EDT) [facility] Signature ECG INTERPRET NSR [facility] 03/06/2025 7:41 PM EDT Narrative [facility] - 03/06/2025 8:08 PM EDT ROUTINE/AM MO 0.15 QRS 0.10 RR 0.81 QT 0.40 See Clinical Report link for waveform capture us Unknown Provider POINT OF CARE CARDIOLOGY Final Result Performing Organization Address City/[facility]/ZIP Co de Phone Number [facility] [address] [place] [address] * (ABNORMAL) GLUCOSE METER POC (03/06/2025 5:14 PM EDT) Glucose Meter POC 231(H) 70 - 100 mg/dL 03/06/2025 5:15 PM EDT [facility] Sample Type Capillary 03/06/2025 5:15 PM EDT [facility] Patient Status Non-Critical Patient 03/06/2025 5:15 PM EDT [facility] Blood BLOOD SPECIMEN / Unknown 03/06/2025 5:14 PM EDT 03/06/2025 5:15 PM EDT Prabhu Longoria MD POINT OF CARE TEST ORDERABLES F inal Result Performing Organization Address City/[facility]/[place] [address] * (ABNORMAL) GLUCOSE METER POC (03/06/2025 11:39 AM EDT) Glucose Meter POC 187(H) 70 - 100 mg/dL 03/06/2025 11:41 AM EDT [facility] Sample Type Capillary 03/06/2025 11:41 AM EDT [facility] Patient Status Non-Critical Patient 03/06/2025 11:41 AM EDT [facility] Blood BLOOD SPECIMEN / Unknown 03/06/2025 11:39 AM EDT 03/06/2025 11:41 AM EDT Prabhu Longoria MD POINT OF CARE TEST ORDERABLES F inal Result Performing Organization Address [facility]/ZIP Co de Phone Number [place] [phone] * POTASSIUM REPEAT (03/06/2025 10:16 AM EDT) Potassium 3.6 3.5 - 5.0 mmol/L 03/06/2025 12:01 PM EDT [facility] Blood VENOUS BLOOD / Unknown Venipuncture / Unknown 03/06/2025 10:16 AM EDT 03/06/2025 11:23 AM EDT Sophie Caldwell PA-C CHEMISTRY ORDERABLES Sandie l Result [facility] [address] [place] [address], [place] [address] * (ABNORMAL) GLUCOSE METER POC (03/06/2025 8:18 AM EDT) Glucose Meter POC 179(H) 70 - 100 mg/dL 03/06/2025 8:20 AM EDT [facility] Sample Type Capillary 03/06/2025 8:20 AM EDT [facility] Patient Status Non-Critical Patient 03/06/2025 8:20 AM EDT [facility] Blood BLOOD SPECIMEN / Unknown 03/06/2025 8:18 AM EDT 03/06/2025 8:20 AM EDT Prabhu Longoria MD POINT OF CARE TEST ORDERABLES F inal Result [facility] [address] [place], [place] [phone] * (ABNORMAL) PHOSPHORUS LEVEL (03/06/2025 7:50 AM EDT) Phosphorus 2.2(L) 2.5 - 4.5 mg/dL 03/06/2025 9:08 AM EDT [facility] Blood VENOUS BLOOD / Unknown Venipuncture / Unknown 03/06/2025 7:50 AM EDT 03/06/2025 8:22 AM EDT Sophie Caldwell PA-C CHEMISTRY ORDERABLES Sandie l Result [facility] [address] [place] [address], [address] [place] [phone] * MAGNESIUM LEVEL (03/06/2025 7:50 AM EDT) Magnesium 2.1 1.6 - 2.4 mg/dL 03/06/2025 9:08 AM EDT [facility] Blood VENOUS BLOOD / Unknown Venipuncture / Unknown 03/06/2025 7:50 AM EDT 03/06/2025 8:22 AM EDT Sophie Caldwell PA-C CHEMISTRY ORDERABLES Sandie l Result [facility] [address] [facility] , [place] [address] * (ABNORMAL) BASIC METABOLIC PANEL (03/06/2025 7:50 AM EDT) Sodium 139 136 - 145 mmol/L 03/06/2025 9:08 AM EDT [facility] Potassium 03/06/2025 9:08 AM EDT [facility] Comment:Unable to result pot assium due to elevated hemolysis. Chloride 107 98 - 107 mmol/L 03/06/2025 9:08 AM EDT [facility] Total CO2 23 22 - 29 mmol/L 03/06/2025 9:08 AM EDT [facility] Anion Gap 9 7 - 16 mmol/L 03/06/2025 9:08 AM EDT [facility] Calcium 8.5(L) 8.8 - 10.4 mg/dL 03/06/2025 9:08 AM EDT [facility] Glucose Lvl 172(H) 70 - 99 mg/dL 03/06/2025 9:08 AM EDT [facility] BUN 13 8 - 23 mg/dL 03/06/2025 9:08 AM EDT [facility] Creatinine 0.73 0.51 - 1.30 mg/dL 03/06/2025 9:08 AM EDT [facility] eGFR (CKD-EPIcr 2020) 94 >=60 mL/min/1.7 3 m2 03/06/2025 9:08 AM EDT [facility] Comment:Estimated GFR was ca lculated using the CKD-EPIcr (2020) equation refit without race. The equation is recommended by the National Kidney Foundation - [place] [employer] of Nephrology Task Force. Blood VENOUS BLOOD / Unknown Venipuncture / Unknown 03/06/2025 7:50 AM EDT 03/06/2025 8:22 AM EDT Sophie Caldwell PA-C CHEMISTRY ORDERABLES Sandie l Result [facility] [address], [place] [address] * (ABNORMAL) CBC (03/06/2025 7:50 AM EDT) [...] ORDERABLES Fin al Result [facility] [address], [place] [address] * ECG AND WAVEFORMS - TELEMETRY (03/06/2025 7:00 AM EDT) ECG INTERPRET NSR [facility] 03/06/2025 7:00 AM EDT Narrative [facility] - 03/06/2025 7:40 AM EDT ECB - ROUTINE MO 0.16 QRS 0.10 RR 0.94 QT 0.41 QTc 0.42 See Clinical Report link for waveform capture us Unknown Provider POINT OF CARE CARDIOLOGY Final Result Performing Organization Address [facility] Co de Phone Number [facility] [address] [place] [address] * (ABNORMAL) GLUCOSE METER POC (03/05/2025 8:46 PM EDT) [facility] Glucose Meter POC 264(H) 70 - 100 mg/dL 03/05/2025 8:48 PM EDT [facility] Sample Type Capillary 03/05/2025 8:48 PM EDT [facility] Patient Status Non-Critical Patient 03/05/2025 8:48 PM EDT [facility] Blood BLOOD SPECIMEN / Unknown 03/05/2025 8:46 PM EDT 03/05/2025 8:48 PM EDT us Prabhu Longoria MD POINT OF CARE TEST ORDERABLES F inal Result Performing Organization Address [facility] Co de Phone Number [facility] [address] [place] [address] * ECG AND WAVEFORMS - TELEMETRY (03/05/2025 7:00 PM EDT) [facility] Signature ECG INTERPRET NSR [facility] 03/05/2025 7:00 PM EDT Narrative [facility] - 03/05/2025 9:18 PM EDT ROUTINE (MS) MO 0.17 QRS 0.08 RR 0.80 QT 0.38 QTc 0.43 See Clinical Report link for waveform capture us Unknown Provider POINT OF CARE CARDIOLOGY Final Result Performing Organization Address [facility] Co de Phone Number [facility] [address] [place] [address] * (ABNORMAL) GLUCOSE METER POC (03/05/2025 6:12 PM EDT) Glucose Meter POC 298(H) 70 - 100 mg/dL 03/05/2025 6:14 PM EDT [facility] Sample Type Capillary 03/05/2025 6:14 PM EDT [facility] Patient Status Non-Critical Patient 03/05/2025 6:14 PM EDT [facility] Blood BLOOD SPECIMEN / Unknown 03/05/2025 6:12 PM EDT 03/05/2025 6:14 PM EDT us Prabhu Longoria MD POINT OF CARE TEST ORDERABLES F inal Result Performing Organization Address [facility]/[place] [address] * (ABNORMAL) GLUCOSE METER POC (03/05/2025 3:45 PM EDT) Glucose Meter POC 185(H) 70 - 100 mg/dL 03/05/2025 3:46 PM EDT [facility] Sample Type Capillary 03/05/2025 3:46 PM EDT [facility] Patient Status Non-Critical Patient 03/05/2025 3:46 PM EDT [facility] Blood BLOOD SPECIMEN / Unknown 03/05/2025 3:45 PM EDT 03/05/2025 3:46 PM EDT us Prabhu Longoria MD POINT OF CARE TEST ORDERABLES F inal Result [place] [id number] * (ABNORMAL) GLUCOSE METER POC (03/05/2025 10:38 AM EDT) Glucose Meter POC 181(H) 70 - 100 mg/dL 03/05/2025 10:39 AM EDT [facility] Sample Type Capillary 03/05/2025 10:39 AM EDT [facility] Patient Status Non-Critical Patient 03/05/2025 10:39 AM EDT [facility] Blood BLOOD SPECIMEN / Unknown 03/05/2025 10:38 AM EDT 03/05/2025 10:39 AM EDT Prabhu Longoria MD POINT OF CARE TEST ORDERABLES F inal Result [facility] LABORATORY 1 [place], [place] [id number] * (ABNORMAL) CBC (03/05/2025 7:42 AM EDT) [...] ORDERABLES Fin al Result Performing Organization Address [facility]/ZIP Co de Phone Number [facility] [employer] [facility] [address] [facility] , [place] [address] * (ABNORMAL) PHOSPHORUS LEVEL (03/05/2025 7:41 AM EDT) Phosphorus 2.3(L) 2.5 - 4.5 mg/dL 03/05/2025 8:19 AM EDT [employer] Blood VENOUS BLOOD / Unknown Venipuncture / Unknown 03/05/2025 7:41 AM EDT 03/05/2025 7:48 AM EDT Sophie Caldwell PA-C CHEMISTRY ORDERABLES Sandie l Result Performing Organization Address [facility] Co de Phone Number [facility] [employer] [facility] [address] [facility] , [place] [address] * MAGNESIUM LEVEL (03/05/2025 7:41 AM EDT) Magnesium 2.1 1.6 - 2.4 mg/dL 03/05/2025 8:19 AM EDT [employer] Blood VENOUS BLOOD / Unknown Venipuncture / Unknown 03/05/2025 7:41 AM EDT 03/05/2025 7:48 AM EDT Sophie Caldwell PA-C CHEMISTRY ORDERABLES Sandie l Result Performing Organization Address [facility] Co de Phone Number [facility] [employer] [facility] [address] [facility] , [place] [address] * (ABNORMAL) BASIC METABOLIC PANEL (03/05/2025 7:41 AM EDT) Sodium 138 136 - 145 mmol/L 03/05/2025 8:19 AM EDT [facility] Potassium 4.2 3.5 - 5.0 mmol/L 03/05/2025 8:19 AM EDT [facility] Chloride 103 98 - 107 mmol/L 03/05/2025 8:19 AM EDT [facility] Total CO2 23 22 - 29 mmol/L 03/05/2025 8:19 AM EDT [facility] Anion Gap 12 7 - 16 mmol/L 03/05/2025 8:19 AM EDT [facility] Calcium 9.1 8.8 - 10.4 mg/dL 03/05/2025 8:19 AM EDT [facility] Glucose Lvl 200(H) 70 - 99 mg/dL 03/05/2025 8:19 AM EDT [facility] BUN 17 8 - 23 mg/dL 03/05/2025 8:19 AM EDT [facility], [facility] Creatinine 0.78 0.51 - 1.30 mg/dL 03/05/2025 8:19 AM EDT [facility], [facility] eGFR (CKD-EPIcr 2020) 86 >=60 mL/min/1.7 3 m2 03/05/2025 8:19 AM EDT [facility] Comment:Estimated GFR was ca lculated using the CKD-EPIcr (2020) equation refit without race. The equation is recommended by the National Kidney Foundation - [place] [employer] Neph[employer] Task Force. Blood VENOUS BLOOD / Unknown Venipuncture / Unknown 03/05/2025 7:41 AM EDT 03/05/2025 7:48 AM EDT us Sophie Caldwell PA-C CHEMISTRY ORDERABLES Sandie l Result [facility] [address] [facility] , [place] [address] * ECG AND WAVEFORMS - TELEMETRY (03/05/2025 7:30 AM EDT) ECG INTERPRET NSR [facility] 03/05/2025 7:30 AM EDT Narrative [facility] - 03/05/2025 7:36 AM EDT TRO/AM ROUTINE MO 0.16 QRS 0.09 RR 0.73 QT 0.40 QTc 0.46 See Clinical Report link for waveform capture us Unknown Provider POINT OF CARE CARDIOLOGY Final Result Performing Organization Address City/[facility] Co de Phone Number [facility] [address] [place] [address] * (ABNORMAL) GLUCOSE METER POC (03/04/2025 8:00 PM EDT) Glucose Meter POC 160(H) 70 - 100 mg/dL 03/04/2025 8:01 PM EDT [facility] Sample Type Capillary 03/04/2025 8:01 PM EDT [facility] Patient Status Non-Critical Patient 03/04/2025 8:01 PM EDT [facility] Blood BLOOD SPECIMEN / Unknown 03/04/2025 8:00 PM EDT 03/04/2025 8:01 PM EDT us Prabhu Longoria MD POINT OF CARE TEST ORDERABLES F inal Result Performing Organization Address [facility] Co de Phone Number [facility] [address] [place] [address] * ECG AND WAVEFORMS - TELEMETRY (03/04/2025 7:00 PM EDT) [facility] Signature ECG INTERPRET NSR [facility] 03/04/2025 7:00 PM EDT Narrative [facility] - 03/04/2025 7:28 PM EDT ROUTINE (HM) MO 0.16 QRS 0.08 RR 0.96 QT 0.34 QTc 0.35 See Clinical Report link for waveform capture us Unknown Provider POINT OF CARE CARDIOLOGY Final Result Performing Organization Address City/[facility] Co de Phone Number [facility] 1 [place] [phone] * (ABNORMAL) GLUCOSE METER POC (03/04/2025 5:30 PM EDT) Glucose Meter POC 151(H) 70 - 100 mg/dL 03/04/2025 5:32 PM EDT [facility] Sample Type Capillary 03/04/2025 5:32 PM EDT [facility] Patient Status Non-Critical Patient 03/04/2025 5:32 PM EDT [facility] Blood BLOOD SPECIMEN / Unknown 03/04/2025 5:30 PM EDT 03/04/2025 5:32 PM EDT us Prabhu Longoria MD POINT OF CARE TEST ORDERABLES F inal Result Performing Organization Address [facility]/[place] [address] * (ABNORMAL) GLUCOSE METER POC (03/04/2025 2:23 PM EDT) [facility] Glucose Meter POC 162(H) 70 - 100 mg/dL 03/04/2025 2:40 PM EDT [facility] Sample Type Capillary 03/04/2025 2:40 PM EDT [facility] Patient Status Non-Critical Patient 03/04/2025 2:40 PM EDT [facility] Blood BLOOD SPECIMEN / Unknown 03/04/2025 2:23 PM EDT 03/04/2025 2:40 PM EDT us Prabhu Longoria MD POINT OF CARE TEST ORDERABLES F inal Result Performing Organization Address [facility]/ZIP Co de Phone Number [facility] [address] [place] [address] * XR CHEST PA OR AP (03/04/2025 [...] GLUCOSE METER POC (03/04/2025 9:56 AM EDT) [facility] Glucose Meter POC 216(H) 70 - 100 mg/dL 03/04/2025 9:57 AM EDT [facility] Sample Type Capillary 03/04/2025 9:57 AM EDT [facility] Patient Status Non-Critical Patient 03/04/2025 9:57 AM EDT [facility] Blood BLOOD SPECIMEN / Unknown 03/04/2025 9:56 AM EDT 03/04/2025 9:57 AM EDT Prabhu Longoria MD POINT OF CARE TEST ORDERABLES F inal Result [facility] 1 [place] [address] * ECG AND WAVEFORMS - TELEMETRY (03/04/2025 7:30 AM EDT) Pathologist [facility] ECG INTERPRET NSR [facility] 03/04/2025 7:30 AM EDT Narrative [facility] - 03/04/2025 7:46 AM EDT TRO/AM ROUTINE MO 0.17 QRS 0.09 RR 0.88 QT 0.41 QTc 0.44 See Clinical Report link for waveform capture us Unknown Provider POINT OF CARE CARDIOLOGY Final Result [facility] 1 [place] [address] * (ABNORMAL) CBC (03/04/2025 6:00 AM EDT) [facility] WBC 10.7(H) 3.7 - 10.3 x10(3)/mcL [...] ORDERABLES Fin al Result [facility] [address] [facility] , [place] [address] * (ABNORMAL) BASIC METABOLIC PANEL (03/04/2025 5:59 AM EDT) [facility] Sodium 137 136 - 145 mmol/L 03/04/2025 [...] recommended by the National Kidney Foundation - [place] [employer] Neph[employer] Task Force. Blood VENOUS BLOOD / Unknown Venipuncture / Unknown 03/04/2025 5:59 AM EDT 03/04/2025 6:13 AM EDT Sophie Caldwell PA-C CHEMISTRY ORDERABLES Sandie l Result Performing Organization Address City/[facility] Co de Phone Number [facility] [address] [facility] , [place] [address] * REPEAT LACTIC ACID (03/04/2025 2:38 AM EDT) Lactic Acid 1.9 0.5 - 1.9 mmol/L 03/04/2025 3:09 AM EDT [facility] Blood VENOUS BLOOD / Unknown Venipuncture / Unknown 03/04/2025 2:38 AM EDT 03/04/2025 2:42 AM EDT Abdullahi Walker MD CHEMISTRY ORDERABLES Final R esult Performing Organization Address [facility] Co de Phone Number [facility] [address] [facility] , [place] [address] * (ABNORMAL) REPEAT LACTIC ACID (03/04/2025 12:50 AM EDT) Lactic Acid 2.0(H) 0.5 - 1.9 mmol/L 03/04/2025 1:18 AM EDT [facility] Blood VENOUS BLOOD / Unknown Venipuncture / Unknown 03/04/2025 12:50 AM EDT 03/04/2025 12:54 AM EDT Abdullahi Walker MD CHEMISTRY ORDERABLES Final R esult Performing Organization Address [facility] Co de Phone Number [facility] [address] [facility] , [place] [address] * ECG AND WAVEFORMS - TELEMETRY (03/04/2025 12:19 AM EDT) ECG INTERPRET NSR [facility] 03/04/2025 12:1 9 AM EDT Narrative [facility] - 03/04/2025 12:21 AM EDT ROUTINE/AM MO 0.16 QRS 0.07 RR 0.81 QT 0.45 See Clinical Report link for waveform capture us Unknown Provider POINT OF CARE CARDIOLOGY Final Result Performing Organization Address [facility]/ZIP Co de Phone Number [facility] 1 [place] [phone] * (ABNORMAL) GLUCOSE METER POC (03/03/2025 11:26 PM EDT) Glucose Meter POC 262(H) 70 - 100 mg/dL 03/03/2025 11:27 PM EDT [facility] Sample Type Capillary 03/03/2025 11:27 PM EDT [facility] Patient Status Non-Critical Patient 03/03/2025 11:27 PM EDT [facility] Blood BLOOD SPECIMEN / Unknown 03/03/2025 11:26 PM EDT 03/03/2025 11:27 PM EDT us Prabhu Longoria MD POINT OF CARE TEST ORDERABLES F inal Result Performing Organization Address [facility] [place] [address] * (ABNORMAL) REPEAT LACTIC ACID (03/03/2025 10:03 PM EDT) Lactic Acid 2.5(H) 0.5 - 1.9 mmol/L 03/03/2025 10:20 PM EDT [facility] Blood VENOUS BLOOD / Unknown Venipuncture / Unknown 03/03/2025 10:03 PM EDT 03/03/2025 10:05 PM EDT us Abdullahi Walker MD CHEMISTRY ORDERABLES Final R esult Performing Organization Address [facility]/ZIP Co de Phone Number [place] [phone] * (ABNORMAL) TROPONIN-T HIGH SENSITIVITY 2HR (03/03/2025 10:03 PM EDT) ts-[id number]-K 2HR 17(H) <14 ng/L 03/03/2025 10:26 PM EDT [facility] hs-cTnT 2Hr Delta from Baseline -1 <4 ng/L 03/03/2025 10:26 PM EDT [facility] Blood VENOUS BLOOD / Unknown Venipuncture / Unknown 03/03/2025 10:03 PM EDT 03/03/2025 10:05 PM EDT Narrative [facility] - 03/03/2025 10:26 PM EDT Ingestion of angy doses of biotin (>5 mg/day) taken within 8 hours of drawing blood sample can interfere with this immunoassay test. us Abdullahi Walker MD CHEMISTRY [place] [address] * CT ABD PEL ED FAST W [...] - 1.9 mmol/L 03/03/2025 8:12 PM EDT [facility] Blood VENOUS BLOOD / Unknown Venipuncture / Unknown 03/03/2025 7:44 PM EDT 03/03/2025 7:57 PM EDT us Abdullahi Walker MD CHEMISTRY ORDERABLES Final R esult Performing Organization Address [facility] [place] [address] * (ABNORMAL) TROPONIN-T HIGH SENSITIVITY BASELINE W/ REFLEX (03/03/2025 7:44 PM EDT) [facility] sg-vNfofagsc-P 18(H) <14 ng/L 03/03/2025 8:16 PM EDT [facility] Blood VENOUS BLOOD / Unknown Venipuncture / Unknown 03/03/2025 7:44 PM EDT 03/03/2025 7:57 PM EDT Narrative [facility] - 03/03/2025 8:16 PM EDT Ingestion of angy doses of biotin (>5 mg/day) taken within 8 hours of drawing blood sample can interfere with this immunoassay test. us Abdullahi Walker MD CHEMISTRY ORDERABLES Final R esult Performing Organization Address City/[facility]/ZIP Co de Phone Number [address] [address] * LIPASE LEVEL (03/03/2025 7:44 PM EDT) Pathologist [facility] Lipase Lvl 22 13 - 60 U/L 03/03/2025 8:14 PM EDT [facility] Blood VENOUS BLOOD / Unknown Venipuncture / Unknown 03/03/2025 7:44 PM EDT 03/03/2025 7:57 PM EDT us Abdullahi Walker MD CHEMISTRY ORDERABLES Final R esult [facility] 1 [place] [address] * (ABNORMAL) COMPREHENSIVE METABOLIC PANEL (03/03/2025 7:44 PM EDT) Sodium 135(L) 136 - 145 mmol/L 03/03/2025 8:14 PM EDT [facility] Potassium 4.1 3.5 - 5.0 mmol/L 03/03/2025 8:14 PM EDT [facility] Chloride 97(L) 98 - 107 mmol/L 03/03/2025 8:14 PM EDT [facility] Total CO2 24 22 - 29 mmol/L 03/03/2025 8:14 PM EDT [facility] Anion Gap 14 7 - 16 mmol/L 03/03/2025 8:14 PM EDT [facility] Calcium 10.1 8.8 - 10.4 mg/dL 03/03/2025 8:14 PM EDT [facility] Glucose Lvl 343(H) 70 - 99 mg/dL 03/03/2025 8:14 PM EDT [facility] BUN 26(H) 8 - 23 mg/dL 03/03/2025 8:14 PM EDT [facility] Creatinine 0.91 0.51 - 1.30 mg/dL 03/03/2025 8:14 PM EDT [facility] Albumin 3.9 3.2 - 4.6 gm/dL 03/03/2025 8:14 PM EDT [facility] Total Protein 7.4 6.4 - 8.3 gm/dL 03/03/2025 8:14 PM EDT [facility] Bili Total 0.2 0.2 - 1.3 mg/dL 03/03/2025 8:14 PM EDT [facility] ALT 22 <=41 U/L 03/03/2025 8:14 PM EDT [facility] AST 27 <=40 U/L 03/03/2025 8:14 PM EDT [facility] Alk Phos 125(H) 36 - 123 U/L 03/03/2025 8:14 PM EDT [facility] eGFR (CKD-EPIcr 2020) 72 >=60 mL/min/1.7 3 m2 03/03/2025 8:14 PM EDT [facility] Comment:Estimated GFR was ca lculated using the CKD-EPIcr (2020) equation refit without race. The equation is recommended by the National Kidney Foundation - [place] [employer] Nephrology Task Force. Blood VENOUS BLOOD / Unknown Venipuncture / Unknown 03/03/2025 7:44 PM EDT 03/03/2025 7:57 PM EDT us Abdullahi Walker MD CHEMISTRY ORDERABLES Final R esult [facility] 1 [place] [phone] * (ABNORMAL) CBC WITH DIFF (03/03/2025 7:44 PM EDT) WBC 12.5(H) 3.7 - 10.3 x10(3)/mcL 03/03/2025 8:00 PM EDT [facility] RBC 4.93 3.90 - 5.20 x10(6)/mcL 03/03/2025 8:00 PM EDT [facility] Hgb 13.5 11.2 - 15.7 g/dL 03/03/2025 8:00 PM EDT [facility] Hct 41.2 34.0 - 45.0 % 03/03/2025 8:00 PM EDT [facility] MCV 83.6 80.0 - 100.0 fL 03/03/2025 8:00 PM EDT [facility] MCH 27.4 26.0 - 34.0 pg 03/03/2025 8:00 PM EDT [facility] MCHC 32.8 30.7 - 35.5 g/dL 03/03/2025 8:00 PM EDT [facility] RDW 13.5 <=14.9 % 03/03/2025 8:00 PM EDT [facility] Platelet 269 155 - 369 x10(3)/mcL 03/03/2025 8:00 PM EDT [facility] MPV 9.9 8.8 - 12.5 fL 03/03/2025 8:00 PM EDT [facility] Neut Percent 59.6 % 03/03/2025 8:00 PM EDT [facility] Comment:Neutrophils equals s egs plus bands Imm Gran% 0.3 % 03/03/2025 8:00 PM T [facility] Comment:Automated count of m etamyelocytes, myelocytes and promyelocytes. Lymph Percent 32.4 % 03/03/2025 8:00 PM EDT [facility] [place] Percent 5.2 % 03/03/2025 8:00 PM EDT [facility] Eos Percent 2.2 % 03/03/2025 8:00 PM EDT [facility] Baso Percent 0.3 % 03/03/2025 8:00 PM T [facility] Neut # 7.4(H) 1.6 - 6.1 x10(3)/mcL 03/03/2025 8:00 PM [facility] Comment:Neutrophils equals s egs plus bands IMMGRAN# 0.0 0.0 - 0.1 x10(3)/mcL 03/03/2025 8:00 PM T [facility] Comment:Automated count of m etamyelocytes, myelocytes and promyelocytes. An absolute IG <0.1 is reported as 0.0. Lymph # 4.1(H) 1.2 - 3.9 x10(3)/mcL 03/[facility]2025 [facility] [place] # 0.7 0.3 - 0.9 x10(3)/mcL 03/03/2025 8[facility] Eos# 0.3 0.0 - 0.5 x10(3)/mcL 03/03/2025 8:00 PM EDT [facility] Baso # 0.0 0.0 - 0.1 x10(3)/mcL 03/03/2025 8:00 PM EDT [facility] Blood VENOUS BLOOD / Unknown Venipuncture / Unknown 03/03/2025 7:44 PM EDT 03/03/2025 7:57 PM EDT Abdullahi Walker MD HEMATOLOGY ORDERABLES Final Result [facility] [address] [place] [address] * (ABNORMAL) URINE CULTURE (NO STAIN) (03/03/2025 7:36 PM EDT) Culture Positive Growth(A) 03/06/2025 11:40 AM EDT [facility] Culture >100,000 CFU/mL Escherichia coli SUSCEPTIBI LITY RESULT 03/06/2025 11:40 AM EDT [facility] Urine STRUCTURE OF URINARY TRACT PROPER / [...] tho xazole SUSCEPTIBILITY RESULT <=0.5/9.5 ug/mL: Susceptible Abdullahi Walker MD MICROBIOLOGY - GENERAL ORDER HALEY Final Result Performing Organization Address [facility]/ZIP Co de Phone Number [facility] [place], [address], [place] [address] * EXTRA NUÑEZ URINE CX (03/03/2025 7:36 PM EDT) Urine STRUCTURE OF URINARY TRACT PROPER / Unknown 03/03/2025 7:36 PM EDT 03/03/2025 8:01 PM EDT Abdullahi Walker MD MICROBIOLOGY - GENERAL ORDER HALEY Final Result Performing Organization Address City/[facility]/[place] [address] * (ABNORMAL) URINALYSIS REFLEX (03/03/2025 7:36 PM EDT) UA Color Light Yellow 03/03/2025 8:06 PM EDT [facility] [place] UA Appear Cloudy(A) Clear 03/03/2025 8:06 PM EDT [facility] UA Glucose 4+ (>1000mg/dL) (A) Negative mg/dL 03/03/2025 8:06 PM EDT [facility] [place] UA Ketones Negative Negative mg/dL 03/03/2025 8:06 PM EDT [facility] UA Blood Negative Negative 03/03/2025 8:06 PM EDT [facility] UA pH 5.5 5.0 - 8.0 pH 03/03/2025 8:06 PM EDT [facility] UA Protein Negative Negative mg/dL 03/03/2025 8:06 PM EDT [facility] UA Urobilinogen Normal <=1 mg/dL 8:06 PM EDT [facility] UA Bili Negative Negative 03/03/2025 8:06 PM EDT [facility] UA Nitrite Positive(A) Negative 03/03/2025 8:06 PM EDT [facility] UA Leuk Est 4+ (500 Eddie/mcl)(A) Negative 03/03/2025 8:06 PM EDT [facility] UA Spec Grav 1.024 1.001 - 1.035 no units 03/03/2025 8:06 PM EDT [facility] Comment:Reference range alana d for random specimens only. UA WBC 86(H) 0 - 4 /HPF 03/03/2025 8:06 PM EDT [facility] UA RBC 2 0 - 3 /HPF 03/03/2025 8:06 PM EDT [facility] UA Squam Epi 4+ /LPF 03/03/2025 8:06 PM EDT [facility] UA Mucus Trace /LPF 03/03/2025 8:06 PM EDT [facility] UA Bacteria 3+(A) Negative /HPF 03/03/2025 8:06 PM EDT [facility] Urine STRUCTURE OF URINARY TRACT PROPER / Unknown 03/03/2025 7:36 PM EDT 03/03/2025 8:01 PM EDT us Abdullahi Walker MD URINE ORDERABLES Final Resul t [facility] [address] [facility] , [place] [address] * EK EKG 12 LEAD (03/03/2025 7:30 PM EDT) Anatomical Region Laterality Modality Electrocardiogra phy 03/03/2025 7:46 PM EDT Impressions 03/04/2025 1:[address] [facility] Test Date: 2025-03-03 Pat Name: NATALY GALVAN Department: DEPID Room: 213 Gender: Female Material Reclaimer: Jory : 1965 Requested By: ABDULLAHI Mcdonald Order Number: [id number] Reading MD: Lucy Luong Measurements Intervals [place] Rate: 82 P: 47 MO: 161 QRS: 35 QRSD: 77 T: 30 QT: 388 QTc: 453 Interpretive Statements SINUS RHYTHM LOW QRS VOLTAGE IN PRECORDIAL LEADS Electronically Signed On 03-04-2025 13:00:59 EDT by Lucy Luong Narrative Procedure Note Lucy Luong MD - 03/04/[address] [facility] [place] [facility] Test Date: 2025-03-03 Pat Name: NATALY GALVAN Department: DEPID Room: 213 Gender: Female Material Reclaimer: [place] : 1965 Requested By: ABDULLAHI Mcdonald Order Number: [id number] Reading MD: Lucy Luong Measurements Intervals [place] Rate: 82 P: 47 MO: 161 QRS: 35 QRSD: 77 T: 30 [...] Moon, RHETT) 08 (Given - Provider: José Moon, RHETT) atorvastatin (LIPITOR) tablet 40 mg 40 mg, Oral, NIGHTLY, First dose on 03/04/25 at 2100, Until Discontinued 2103 (Given - Provider: Kyara Culver RN) 2026 (Given - Provider: Brenda Vargas RN) bisacodyL (DULCOLAX) suppository 10 mg 10 mg, Rectal, 2 TIMES DAILY, First dose (after last modification) on Thu03/05/25 at 1030, Until Discontinued 1135 (Given - Provider: Jennifer Cotas RN)2099 (Not Given - Provider: Kyara Culver [...] Coats RN) 0828 (IV Started - Provider: Joés Moon RN)0858 (Stopped - Provider: José Moon [...] back) 826 (Patch Applied - Provider: José Moon RN)2099 (Patch Checked - Provider: Brenda Vargas, RHETT) [...] met)1725 (Given - Provider: Jennifer Coats RN)1800 (Due)2104 (Given - Provider: Kyara Culver RN) 0825 (Given - Provider: José Moon, RHETT)1219 (Given During Downtime - Provider: José Moon RN)174 (Given - Provider: José Moon, RHETT)203 (Given - Provider: Brenda Vargas RN) 0800 (Given - Provider: José Moon, RHETT) [...] dose by 20%. Waste Sort Code = [facility] 1128 (Given - Provider: Jennifer Coats [...] 08 (Given - Provider: José Moon RN) 08 (Given - Provider: José Moon RN) losartan (COZAAR) tablet 100 mg(Linked Group 2) 100 mg, Oral, DAILY, First dose on 03/04/25 at 1030, Until Discontinued, Give with HCTZ 25 mg for losartan-HCTZ 100-25 mg 0900 (Not Given - Provider: Jennifer Coats RN - Reason: NPO) 08 (Given - Provider: José Moon RN) 08 (Given - Provider: José Moon RN) sodium [...] RN)2029 (Given - Provider: Brenda Vargas, RHETT) 08 (Given - Provider: José Moon RN) sodium [...] 1535, Nausea 0028 (Given - Provider: Bev Steele, RHETT) 1304 (Given - Provider: José Moon, RHETT)2032 (See Alternative - Provider: Brenda Vargas, RHETT) ondansetron (ZOFRAN) tablet 4 mg(Linked Group 5) 4 mg, Oral, EVERY 6 HOURS PRN, Starting on Thu03/03/25 at 2303, Until Thu03/07/25 at 1535, Nausea 0028 (See Alternative - Provider: Bev Steele RN) 1304 (See Alternative - Provider: José Moon, RHETT)2032 (Given - Provider: Brenda Vargas, RHETT) sodium [...] 03/07/2025 documented in this encounter Care Teams Band Edger Relationship Specialty Start Date End Date Louis Rodriguez MD PCP - General 06/10/11 documented as of this encounter
[2025-04-01] VITALS (10 sets, daily range): BP systolic 160–198; BP diastolic 67–83; PULSE 63–67; RESP 11–25; TEMP 36.6–36.7; O2SAT 98–99; BMI 34.9
--- NOTE | 2025-04-01 14:18 | ECG_ITS ---
APPROVED REPORT Exam: Resting ECG HR:71 bpm ECG Measurements Heart Rate [address] 158 P 64 QRSd 85 QRS 74 QT 397 T 63 QTc 420 Conclusion SINUS RHYTHM Normal intervals No STEMI Electronically signed by : Rajan George, 04/01/2025 16:43:23
--- OUTSIDE RECORDS SUMMARY | 2025-04-01 14:19 | XMS_ITS | Clinical Summary ---
Author Organization [facility] Address [address] [place] [address] Phone Care Team Providers Care Multimedia Services Coordinator Name Role Phone Anastasia CHAVES, Louis Brewer Conditions or Problems Problem Name Problem Code Onset Date Status Entry Date Provider Comment Standard Description Annotate WOUND INFECTION L08.9 (ICD-10-CM) 02/06 Active 02/06 Louis Oconnor MD Local infection of the skin and subcutaneous tissue, unspecified LUMBAR RADICULOPATHY [id number] (SNOMED CT) 01/13 Active 01/13 Louis Oconnor MD Lumbar radiculopathy Medications Medication Instructions Start Date Stop Date Generic Name ND Provider TEQUIN 400 MG TABS 1 po q day x 10 days 2 GATIFLOXACIN [id number] Louis Oconnor MD Medications Administered No information available. Allergies, Adverse Reactions, Alerts No information available. Results No information available. Plan of Care Type Date Detail Pending order Other Procedures No information available. Vital Signs Date Name Value Unit Description BP Diastolic 92 mm[Hg] blood pressu re, diastolic BP Systolic 140 mm[Hg] blood pressur e, systolic Immunizations No information available. Advance Directives No information available.
--- OUTSIDE RECORDS SUMMARY | 2025-04-01 14:20 | XMS_ITS | Clinical Summary ---
Author Organization [facility] Address [address] [place] [address] Care Team Providers Care Transportation Manager Name Role Phone Louis Rodriguez MD Primary Care Provider [phone] Source Comments This information has been disclosed to you from confidential records protectedfrom disclosure by state law. You shall make no further disclosure of thisinformation without the specific, written, and informed release of theindividual to whom it pertains, or as otherwise permitted by law. A generalauthorization for the release of medical or other information is not sufficientfor the purposes of therelease of HIV test results or diagnoses. [id number] Allergies Active Allergy Reactions Criticality Noted Date Comments Iodine Swelling 12/31/2013 Swelling only at IV site during contrast CT as teen, thinks this was due to infiltrating IV. Tolerated contrast CT in the past without reaction. Lisinopril Anaphylaxis High 12/31/2013 Medications aspirin 81 MG EC tablet Take 81 mg by mouth daily. Active amLODIPine (NORVASC) 5 MG tablet Take 5 mg by mouth daily. Active ondansetron (ZOFRAN) 4 MG tablet Take 4 mg by mouth every 8 hours as needed for Nausea. Active pantoprazole (PROTONIX) 40 MG tablet Take 40 mg by mouth every morning before breakfast. Active insulin lispro (HUMALOG) 100 unit/mL injection Inject 20 Units subcutaneously 3 times a day with meals. Active ranolazine (RANEXA) 1,000 mg SR tablet Take 1,000 mg by mouth 2 times a day. Active furosemide (LASIX) 40 MG tablet Take 40 mg by mouth daily. Active dicyclomine (BENTYL) 10 MG capsule Take 10 mg by mouth 4 times a day with meals and at bedtime. Active metoprolol tartrate (LOPRESSOR) 25 MG tablet Take 25 mg by mouth 2 times a day. Active Active Problems Problem Noted Date Diagnosed Date Fatty liver 04/24/2021 Right upper quadrant abdominal pain 04/24/2021 Submucosal rectal lesion 07/05/2020 Overview (06/28/2021): Added automatically from request for surgery [id number] Pyelonephritis 06/29/2019 Staghorn kidney stones 06/29/2019 Overview (06/28/2021): Added automatically from request for surgery [id number] Renal cell carcinoma of right kidney 05/26/2019 Overview (05/26/2019): Added automatically from request for surgery [id number] Chronic diastolic heart failure 12/17/2017 Acute renal failure 07/18/2017 DM (diabetes mellitus), seco ndary, uncontrolled, w/renal complications 07/18/2017 Unstable angina 07/18/2017 Essential hypertension 12/31/2013 Severe obesity with body mas s index (BMI) of 35.0 to 39.9 with serious comorbidity 12/31/2013 Family History Medical History Relation Comments Cancer Cousin pancreatic cance r Hypertension Father COPD Maternal Aunt Cancer Maternal Aunt lung Cancer Maternal Grandfather throat Diabetes Maternal Grandmother Heart failure Maternal Grandmother Stroke Maternal Grandmother Cancer Maternal Uncle kidney Anesthesia problems Mother hard to wak e up Coronary artery disease Mother Diabetes Mother Hypertension Mother COPD Paternal Grandfather Heart failure Paternal Grandfather Cancer Paternal Grandmother breast and leukemia Diabetes Paternal Grandmother Relation Status Comments Brother Alive Cousin Father Alive Maternal Aunt Maternal Grandfather Maternal Grandmother Maternal Uncle Mother Alive Paternal Grandfather Paternal Grandmother Social History Tobacco Use Types Packs/Day Years Used Date Smoking Tobacco: Never Smokeless Tobacco: Never Tobacco Cessation:Counseling Given: Yes Alcohol Use Standard Drinks/Week Comments No 0 (1 standard drink = 0.6 oz pur e alcohol) PHQ-2 Answer Date Recorded PHQ-2 Total Score 0 05/15/2021 Comments No Sex and Gender Information Value Date Recorded Sex Assigned at Female 06/17/2021 12:36 PM EDT Legal Sex Female 6:13 PM EST Gender Identity Female 06/17/2021 12:36 PM EDT Sexual Orientation Straight 06/17/2021 12 :36 PM EDT Last Filed Vital Signs Vital Sign Reading Time Taken Comments Blood Pressure 160/91 06/17/2021 1:52 PM EDT Pulse 71 06/17/2021 1:47 PM EDT Temperature 36.7 C (98.1 F) 06/17/2021 1:47 PM EDT Respiratory Rate 16 06/17/2021 1:47 PM EDT Oxygen Saturation 95% 06/17/2021 1:47 PM EDT Inhaled Oxygen Concentration 95% 06/17/2021 1 :47 PM EDT Weight 94.5 kg (208 lb 4.8 oz) 06/17/2021 1:47 P M EDT Height 165.1 cm (5' 5 ) 06/17/2021 1:47 PM EDT Body Mass Index 34.66 06/17/2021 1:47 PM EDT Plan of Treatment Not on file Insurance Care Teams Transportation Manager Relationship Specialty Start Date End Date Louis Rodriguez MD [address] [place] [address] PCP - General Family Medicine 05/06/19
--- OUTSIDE RECORDS SUMMARY | 2025-04-01 14:20 | XMS_ITS | Clinical Summary ---
Author Organization [facility] Address [address] [place] [address] Phone Care Team Providers Care Inpatient Services Rn Name Role Phone Louis Rodriguez MD Primary Care Provider [phone] Allergies Active Allergy Reactions Criticality Noted Date Comments Beta-Blockers (Beta-Adrenergic Blocking Agts) Other (See Comments) 09/28/2021 bradycardia Iodine Swelling 12/31/2013 03/03/[address] with [id number] without any premedications and did not have any complications-ANL Ok for CT Isovue 370 with premedication benadryl 25mg and solu-medrol 125mg scanned 1 hour later-pt tolerated contrast with no reaction or issues-ANL Lisinopril Anaphylaxis High 12/31/2013 Medications Aspirin 81 mg Take 81 mg by mouth daily. Active ondansetron (ZOFRAN, HYDROCHLORIDE,) 4 mg Oral Tablet Take 4 mg by mouth every 6 hours. Takes as needed every 6 hours for nausea Active Blood Sugar Diagnostic (FREESTYLE LITE STRIPS) Misc Strip by [facility]Non-Drug; Combo Route) route. Use to test BS 4 x daily Active Blood-Glucose Meter (FREESTYLE LITE METER) Misc Kit by [facility].(Non-Drug; Combo Route) route. Use to test BS 4 x daily Active insulin glargine U-100 (LANTUS) 100 unit/mL SubQ Solution Subcutaneous (Inject under the skin) 45 Units 2 times daily. 10 mL 12 07/02/20 19 Active Additional Information Patient taking differently: 120 UnitsSubcutaneousNIGHTLY, Reason: Advised by Physician, Reported on 03/03/2025 atorvastatin (LIPITOR) 40 mg Oral Tablet Take 1 Tablet by mouth nightly. 30 Tablet 2 11:57 AM EST 10/01/19 22 Active losartan-hydroc hlorothiazide (HYZAAR) 100-25 mg Oral Tablet Take 1 Tablet by mouth daily. Active isosorbide mononitrate (IMDUR) 60 mg Oral Tablet Sustained Release 24 hr Take 1 Tablet by mouth daily. 30 Tablet 03/07/20 25 Active isosorbide mononitrate (MONOKET) 20 mg Oral Tablet Take 20 mg by mouth daily. 025 Discontinu ed(Stop Taking at Discharge) insulin aspart protamine-insul in aspart (NOVOLOG MIX 70/30) 100 unit/mL (70-30) SubQ Insulin Pen Inject 50 Units under the skin 2 times daily. 025 Discontinu ed(Stop Taking at Discharge) amoxicillin-cla vulanate (AUGMENTIN) 875-125 mg Oral Tablet Take 1 Tablet by mouth every 12 hours for 5 days. 10 Tablet 5 11:17 AM EDT 03/07/20 25 025 Active Problems Problem Noted Date Diagnosed Date Acute cystitis without hematuria 03/04/2025 Assessment & Plan (03/06/2025 10:52 AM EDT): UA suggestive of infection Continue Rocephin Follow-up on the cultures and de-escalate antibiotics Ucx ecoli, pending sensitivity Assessment & Plan (03/05/2025 2:00 PM EDT): UA suggestive of infection Continue Rocephin Follow-up on the cultures and de-escalate antibiotics Assessment & Plan (03/04/2025 12:22 PM EDT): UA suggestive of infection Start Rocephin Follow-up on the cultures and de-escalate antibiotics Ileus 03/03/2025 Assessment & Plan (03/06/2025 10:52 AM EDT): Improving surgery consulted Tolerating clears, advancing to low fiber ambulate Assessment & Plan (03/05/2025 2:00 PM EDT): CT abdomen suggestive of ileus NG decompression no nausea, emesis. NG clamp trial today Assessment & Plan (03/04/2025 12:22 PM EDT): CT abdomen suggestive of ileus Keep n.p.o. Surgery consultation NG decompression Hypertensive urgency 09/27/2021 Chest pain 02/01/2021 Abnormal LFTs 07/05/2020 Overview (07/05/2020): Added automatically from request for surgery [id number] Submucosal rectal lesion 07/05/2020 Overview (07/05/2020): Added automatically from request for surgery [id number] Special screening for malignant neoplasms, colon 05/31/2020 Overview (05/31/2020): Added automatically from request for surgery [id number] LFTs abnormal 05/31/2020 Overview (05/31/2020): Added automatically from request for surgery [id number] Nausea and vomiting 05/31/2020 Overview (05/31/2020): Added automatically from request for surgery [id number] Metabolic syndrome 05/31/2020 Overview (05/31/2020): Added automatically from request for surgery [id number] Kidney stones 07/14/2019 Overview (07/14/2019): Added automatically from request for surgery [id number] Pyelonephritis 06/29/2019 Staghorn right kidney stone 06/29/2019 Type 2 diabetes mellitus wit h hyperglycemia, with long-term current use of insulin 06/29/2019 Assessment & Plan (03/06/2025 10:52 AM EDT): Lantus 10 BID as patient was nPO if tolerates diet will increase dose. Assessment & Plan (03/05/2025 2:00 PM EDT): Given n.p.o., hold high-dose insulin Continue Lantus 10 twice daily Accu-Chek AC and at bedtime Start sliding scale insulin BS acceptable range Assessment & Plan (03/04/2025 12:22 PM EDT): Given n.p.o., hold high-dose insulin Start Lantus 10 twice daily Accu-Chek AC and at bedtime Start sliding scale insulin Sepsis 06/29/2019 Acute chest pain 08/01/2018 RUQ pain 08/01/2018 Nausea 08/01/2018 Dyslipidemia associated with type 2 diabetes shelia litus 12/17/2017 Assessment & Plan (03/06/2025 10:52 AM EDT): At home on atorvastatin Continue home medication Assessment & Plan (03/05/2025 2:00 PM EDT): At home on atorvastatin Continue with the Remains n.p.o. now Assessment & Plan (03/04/2025 12:22 PM EDT): At home on atorvastatin Continue with the Remains n.p.o. now Chronic diastolic heart failure 12/17/2017 Assessment & Plan (03/06/2025 10:52 AM EDT): Compensated Assessment & Plan (03/05/2025 2:00 PM EDT): Compensated Assessment & Plan (03/04/2025 12:22 PM EDT): Compensated Unstable angina 07/18/2017 DM (diabetes mellitus), seco ndary, uncontrolled, w/renal complications 07/18/2017 Acute renal failure 07/18/2017 Hypotension 07/18/2017 Essential hypertension 12/31/2013 Assessment & Plan (03/06/2025 10:52 AM EDT): Continue home medications Clonidine patch placed monitor and adjust Assessment & Plan (03/05/2025 2:00 PM EDT): Continue home medications however as patient n.p.o. start hydralazine 10 mg IV as needed for hypertension Clonidine patch placed Assessment & Plan (03/04/2025 12:22 PM EDT): Continue home medications however as patient n.p.o. start hydralazine 10 mg IV as needed for hypertension Severe obesity with body mas s index (BMI) of 35.0 to 39.9 with serious comorbidity 12/31/2013 Assessment & Plan (03/06/2025 10:52 AM EDT): Obesity (Body mass index is 34.95 kg/m .) - Complicating assessment and treatment. Placing patient at risk for multiple co-morbidities as well as early and contributing to the patient's presentation. Assessment & Plan (03/05/2025 2:00 PM EDT): Obesity (Body mass index is 34.95 kg/m .) - Complicating assessment and treatment. Placing patient at risk for multiple co-morbidities as well as early and contributing to the patient's presentation. Assessment & Plan (03/04/2025 12:22 PM EDT): Obesity (Body mass index is 34.95 kg/m .) - Complicating assessment and treatment. Placing patient at risk for multiple co-morbidities as well as early and contributing to the patient's presentation. Counseled on weight loss. Stenosis of left renal artery Resolved Problems Problem Noted Date Diagnosed Date Resolved Date MELLISSA (acute kidney injury) 07/18/2017 Acute hyponatremia 07/18/2017 8 SCOTT (obstructive sleep apnea) 01/01/2014 01/02/2014 Influenza B 01/01/2014 12/17/2017 Encounters Date Type Department Care Team Description 03/03/2025 7:08 PM EDT - 03/07/2025 11:35 AM EDT Hospital Encounter [facility] 2A OBSERVATION UNIT ONE [facility] [address] SWAN, WILLIAM [address] Abdullahi Walker MD Patel, Jigar D, MD Ileus (HCC) (Primary Dx); Generalized abdominal pain; Urinary tract infection without hematuria, site unspecified Discharge Disposition: Home or Self Care from Last 3 Months Immunizations Immunization Administration Dates Next Due Influenza Vaccine, Unspecified Formulation 07/16 Surgical History Surgery Date Site/Laterality Comments LITHOTRIPSY APPENDECTOMY CHOLECYSTECTOMY HYSTERECTOMY BACK SURGERY L4-5 ruptured disc KIDNEY STONE SURGERY 08/10/2019 Right CYSTOSCOPY RIGHT STENT INSERTION, RIGHT PERCUTANEOUS NEPHROLITHOTOMY, RIGHT PERCUTANEOUS NEPHROSTOMY TUBE PLACEMENT ; Surgeon: Leanna Jimenez MD; Location: [facility]; Service: Urology Medical devices from this surgery are in the Medical Devices section. CYSTOSCOPY 08/10/2019 Surgeon: Leanna Jimenez MD; Location: [facility]; Service: Urology Medical devices from this surgery are in the Medical Devices section. UPPER GASTROINTESTINAL ENDOSCOPY 06/20/2020 N/A ESOPHAGOGASTRODUODENOSCOPY with biopsy via forceps and arrieta dilation COLONOSCOPY with polypectomy via hot and cold snare; Surgeon: Mahin Dallas MD; Location: [facility]OSCOPY; Service: Endoscopy Medical History Medical History Date Comments Kidney stones Diabetes mellitus (HCC) Liver disease Fatty liver Hypertension Heart attack (HCC) right sided d ystolic heart failure - does not have stents TIA (transient ischemic attack) 1999?, no deficits/residuals Chronic diastolic heart failure (HCC) 12/17/2017 Sleep apnea cpap, setting 10 Cardiomegaly Heartburn Irritable bowel syndrome Arthritis Urinary tract infection Anemia with pregnancies Difficult intubation narrow airw ay Wears glasses Family History Medical History Relation Name Comments Diabetes Father High Blood Pressure Father Diabetes Maternal Aunt Cancer Maternal Grandfather Diabetes Mother Heart Disease Mother Diabetes Paternal Aunt Heart Disease Paternal Grandfather Cancer Paternal Grandmother Anesth Problems Neg Hx Relation Name Status Comments Father Maternal Aunt Maternal Grandfather Mother Alive Paternal Aunt Paternal Grandfather Paternal Grandmother Social History Tobacco Use Types Packs/Day Years Used Date Smoking Tobacco: Never Smokeless Tobacco: Never Alcohol Use Standard Drinks/Week Comments No 0 (1 standard drink = 0.6 oz pur e alcohol) [facility] Utilities Answer Date Recorded In the [...] Date Recorded PHQ-2 Total Score 0 03/06/2025 [facility] - Occupational Stress Questionnaire Answer Date Recorded [...] things needed for daily living? No [facility]20[facility] IP Transportation Answer D ate Recorded [...] on file Sexual Orientation Not on file Obstetrics History Last Filed Vital Signs Vital Sign Reading [...] Mass Index 34.95 03/03/2025 6:39 PM EDT Plan of Treatment Health Maintenance Due Date Last Done Comments Annual Wellness Exam 1967 Diabetic Eye Exam 1982 Pneumococcal Vaccine 50+ (1 of 2 - PCV) 1983 Cervical Cancer Screening 1985 Pap Smear 1985 HPV/Pap Cotest 1994 DTaP/TDaP/Td (1 - Tdap) 10/17/1995 10/16/1995 Breast Cancer Screening 2004 Cologuard 2009 FIT 2009 Sigmoidoscopy 2009 Virtual Colonography 2009 Zoster (1 of 2) 2014 Kidney Health: uACR 02/02/2022 02/02/2021, 8 Lipids 02/02/2022 02/02/2021, 07/19/2017 Hemoglobin A1c 03/30/2022 09/30/2021, 05/0 04/2021, 08/01/2018, Additional history exists COVID-19 Vaccine ( season) 2024 02/20/2022, 11/01/2020, 10/11/2020 RSV or 60+ (1 - Risk 60-74 years 1-dose series) 2024 Influenza Vaccine (#1) 2025 , 09/06/2020, 07/16/2018 Kidney Health: eGFR 03/07/2026 03/07/2025, 03/06/2025, 03/05/2025, Additional history exists Colon Cancer Screening 06/20/2030 Colonoscopy 06/20/2030 06/20/2020 Hepatitis B Vaccine Completed 05/31/1996, 12/04/1995, 11/04/1995 Hepatitis C Screening Completed 11/23/2020 Meningococcal B Vaccine Aged Out No l onger eligible based on patient's age to complete this topic Medical Devices Implanted Type [employer] Director Device Identifier Shelf Expiration Date Model / Serial / Lot Stent Contour 6 X 24 #[id number] - [id number] Implanted:Qty: 1 on 08/10/2019 by Leanna Jimenez MD at [facility] Stent Right: Ureter [employer]:MICROV[employer]: UROLOGY 05/02/2022 [id number] / / [id number] Procedures Procedure Name Priority Date/Time Associated Diagnosis Comments SCANNED EKG 03/07/2025 1:23 PM EDT BASIC METABOLIC PANEL KEON 03/07/2025 8:36 AM EDT CBC KEON 03/07/2025 8:36 AM EDT GLUCOSE METER POC Routine 03/07/2025 8:10 AM EDT GLUCOSE METER POC Routine 03/06/2025 8:29 PM EDT ECG AND WAVEFORMS - TELEMETRY Routine 03/06/2025 7:41 PM EDT GLUCOSE METER POC Routine 03/06/2025 5:14 PM EDT GLUCOSE METER POC Routine 03/06/2025 11:39 AM EDT POTASSIUM REPEAT KEON 03/06/2025 10:16 AM EDT GLUCOSE METER POC Routine 03/06/2025 8:18 AM EDT PHOSPHORUS LEVEL KEON 03/06/2025 7:50 AM EDT MAGNESIUM LEVEL KEON 03/06/2025 7:50 AM EDT BASIC METABOLIC PANEL KEON 03/06/2025 7:50 AM EDT CBC KEON 03/06/2025 7:50 AM EDT ECG AND [...] CYSTOSCOPY 08/10/2019 Surgeon: Leanna Jimenez MD; Location: [facility] MAIN OR; Service: Urology HYSTERECTOMY KIDNEY STONE SURGERY Right 08/10/2019 CYSTOSCOPY RIGHT STENT INSERTION, RIGHT PERCUTANEOUS NEPHROLITHOTOMY,RIGHT PERCUTANEOUS NEPHROSTOMY TUBE PLACEMENT ; Surgeon: Virgen Jimenez MD; Location: [facility] MAIN OR; Service: Urology LITHOTRIPSY UPPER GASTROINTESTINAL ENDOSCOPY N/A 06/20/2020 ESOPHAGOGASTRODUODENOSCOPY with biopsy via forceps and arrieta dilation COLONOSCOPY with polypectomy via hot and cold snare; Surgeon: Mahin Dallas MD; Location: [facility] ENDOSCOPY; Service: Endoscopy Allergies Allergen Reactions Lisinopril Anaphylaxis Beta-Blockers (Beta-Adrenergic Blocking Agts) Other (See Comments) bradycardia Iodine Swelling 03/03/[address] with [id number] without any premedications and didnot have any complications-ANL Ok for CT Isovue 370 with premedication benadryl 25mg and [id number] scanned 1 hour later-pt tolerated contrast with [...] file Social Connections: Unknown (07/06/2023) Received from [facility] Family and Community Support Help with Day-to-Day Activities: Not on file Lonely or Isolated: Not on file Intimate Partner Violence: Unknown (07/06/2023) Received from [facility] Abuse Screen Unsafe at Home or Work/School: Not on file Feels Threatened by Someone?: Not on file Does Anyone Keep You from Contacting Others or Doint Things Outside theHome?: Not on file Physical Sign of Abuse Present: Not on file Housing Stability: Unknown (07/06/2023) Received from [facility] Housing Stability Current Living Arrangements: Not on [...] 12 LEAD Result Date: 03/04/2025 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 Sophie Caldwell PA-C 03/04/25 REPEAT LACTIC ACID STAT 03/03/2025 10:03 PM EDT TROPONIN-T HIGH SENSITIVITY 2HR Timed 03/03/2025 10:03 PM EDT ADMIT Routine 03/03/2025 9:[address] ABD PEL ED FAST W CONTRAST STAT 03/03/2025 9:04 PM EDT LACTIC ACID STAT 03/03/2025 7:44 PM EDT TROPONIN-T HIGH SENSITIVITY BASELINE W/ REFLEX STAT 03/03/2025 7:44 PM EDT LIPASE LEVEL STAT 03/03/2025 7:44 PM EDT COMPREHENSIVE METABOLIC PANEL STAT 03/03/2025 7:44 PM EDT CBC WITH DIFF STAT 03/03/2025 7:44 PM EDT URINALYSIS REFLEX STAT 03/03/2025 7:36 PM EDT UA W/REFLEX TO CULTURE STAT 03/03/2025 7:36 PM EDT URINE CULTURE (NO STAIN) STAT 03/03/2025 7:36 PM EDT EXTRA NUÑEZ URINE CX STAT 03/03/2025 7:36 PM EDT EK EKG 12 LEAD STAT 03/03/2025 7:30 PM EDT HEMOGLOBIN A1C Add-On 09/30/2021 10:11 AM EST MICROALBUMIN/CREAT ININE RATIO URINE Routine 02/02/2021 1:47 PM EDT LIPID SCREEN Routine 02/02/2021 12:04 PM EDT HEPATITIS C ANTIBODY IGM + IGG Routine 11/23/2020 3:13 PM EST LFTs abnormal Nausea GMED EGD-COLONOSCOPY Routine 06/20/2020 12:00 PM EDT from Last 3 Months or Most Recently Relevant to Health Maintenance Results * SCANNED EKG (03/07/2025 1:23 PM EDT) Anatomical Region Laterality Modality Other 03/07/2025 1:23 PM EDT us Unknown Provider IMG ECG ORDERABLES Final Result * (ABNORMAL) CBC (03/07/2025 8:36 AM EDT) Only the most recent of4 resultswithin the time period is included. WBC 12.0(H) 3.7 - 10.3 x10(3)/mcL 03/07/2025 9:42 AM EDT [facility] RBC 4.63 3.90 - 5.20 x10(6)/mcL 03/07/2025 9:42 AM EDT [facility] Hgb 12.6 11.2 - 15.7 g/dL 03/07/2025 9:42 AM EDT [facility] Hct 39.6 34.0 - 45.0 % 03/07/2025 [...] ORDERABLES Fin al Result [facility] [address] [facility] , [address] [place] [id number] * (ABNORMAL) BASIC METABOLIC PANEL (03/07/2025 8:36 AM EDT) Only the most recent of4 resultswithin the time period is included. Sodium 138 136 - 145 mmol/L 03/07/2025 10:05 AM EDT [facility] Potassium 3.8 3.5 - 5.0 mmol/L 03/07/2025 10:05 AM EDT [facility] Chloride 101 98 - 107 mmol/L 03/07/2025 10:05 AM EDT [facility] Total CO2 26 22 - 29 mmol/L 03/07/2025 10:05 AM EDT [facility] Anion Gap 11 7 - 16 mmol/L 03/07/2025 10:05 AM EDT [facility] Calcium 9.0 8.8 - 10.4 mg/dL 03/07/2025 10:05 AM EDT [facility] Glucose Lvl 155(H) 70 - 99 mg/dL 03/07/2025 10:05 AM EDT [facility] BUN 12 8 - 23 mg/dL 03/07/2025 10:05 AM EDT [facility] Creatinine 0.75 0.51 - 1.30 mg/dL 03/07/2025 10:05 AM EDT [facility] eGFR (CKD-EPIcr 2020) 91 >=60 mL/min/1.7 3 m2 03/07/2025 10:05 AM EDT [facility] Comment:Estimated GFR was ca lculated using the CKD-EPIcr (2020) equation refit without race. The equation is recommended by the National Kidney Foundation - [place] Society of Nephrology Task Force. Blood VENOUS BLOOD / Unknown Venipuncture / Unknown 03/07/2025 8:36 AM EDT 03/07/2025 9:27 AM EDT us Sophie Caldwell PA-C CHEMISTRY ORDERABLES Sandie l Result [facility] [address], [place] [address] * (ABNORMAL) GLUCOSE METER POC (03/07/2025 8:10 AM EDT) Only the most recent of14 resultswithin the time period is included. [facility] Glucose Meter POC 169(H) 70 - 100 mg/dL 03/07/2025 8:13 AM EDT [facility] Sample Type Capillary 03/07/2025 8:13 AM EDT [facility] Patient Status Non-Critical Patient 03/07/2025 8:13 AM EDT [facility] Blood BLOOD SPECIMEN / Unknown 03/07/2025 8:10 AM EDT 03/07/2025 8:13 AM EDT Prabhu Longoria MD POINT OF CARE TEST ORDERABLES F inal Result Performing Organization Address City/[facility]/ZIP Co de Phone Number [facility] [address] [place] [phone] * ECG AND WAVEFORMS - TELEMETRY (03/06/2025 7:41 PM EDT) Only the most recent of7 resultswithin the time period is included. Pathologist [facility] ECG INTERPRET NSR [facility] 03/06/2025 7:41 PM EDT Narrative [facility] - 03/06/2025 8:08 PM EDT ROUTINE/AM GA 0.15 QRS 0.10 RR 0.81 QT 0.40 See Clinical Report link for waveform capture us Unknown Provider POINT OF CARE CARDIOLOGY Final Result Performing Organization Address [facility] Co de Phone Number [facility] [address] [place] [phone] * POTASSIUM REPEAT (03/06/2025 10:16 AM EDT) [facility] Potassium 3.6 3.5 - 5.0 mmol/L 03/06/2025 12:01 PM EDT [facility] [employer] Blood VENOUS BLOOD / Unknown Venipuncture / Unknown 03/06/2025 10:16 AM EDT 03/06/2025 11:23 AM EDT us Sophie Caldwell PA-C CHEMISTRY ORDERABLES Sandie l Result Performing Organization Address City/[facility] Co de Phone Number [facility] [address] [place] [address] , [place] [address] * (ABNORMAL) PHOSPHORUS LEVEL (03/06/2025 7:50 AM EDT) Only the most recent of2 resultswithin the time period is included. Phosphorus 2.2(L) 2.5 - 4.5 mg/dL 03/06/2025 9:08 AM EDT [employer] Blood VENOUS BLOOD / Unknown Venipuncture / Unknown 03/06/2025 7:50 AM EDT 03/06/2025 8:22 AM EDT Sophie Caldwell PA-C CHEMISTRY ORDERABLES Sandie l Result Performing Organization Address City/[facility] Co de Phone Number [employer] [address] [place] [address] , [place] [address] * MAGNESIUM LEVEL (03/06/2025 7:50 AM EDT) Only the most recent of2 resultswithin the time period is included. Magnesium 2.1 1.6 - 2.4 mg/dL 03/06/2025 9:08 AM EDT [employer] Blood VENOUS BLOOD / Unknown Venipuncture / Unknown 03/06/2025 7:50 AM EDT 03/06/2025 8:22 AM EDT Sophie Caldwell PA-C CHEMISTRY ORDERABLES Sandie l Result Performing Organization Address [facility] Co de Phone Number [employer] [address] [place] [address] , [place] [address] * XR CHEST PA OR AP (03/04/2025 [...] DIAGNOSTIC IMAGING OR DERABLES Final Result * REPEAT LACTIC ACID (03/04/2025 2:38 AM EDT) Only the most recent of3 resultswithin the time period is included. [facility] Lactic Acid 1.9 0.5 - 1.9 mmol/L 03/04/2025 3:09 AM EDT [employer] Blood VENOUS BLOOD / Unknown Venipuncture / Unknown 03/04/2025 2:38 AM EDT 03/04/2025 2:42 AM EDT Abdullahi Walker MD CHEMISTRY ORDERABLES Final R esult [facility] [address] [facility] , [place] [address] * (ABNORMAL) TROPONIN-T HIGH SENSITIVITY 2HR (03/03/2025 10:03 PM EDT) [facility] [id number]-[id number] 2HR 17(H) <14 ng/L 03/03/2025 10:26 PM EDT [facility] hs-cTnT 2Hr Delta from Baseline -1 <4 ng/L 03/03/2025 10:26 PM EDT [facility] Blood VENOUS BLOOD / Unknown Venipuncture / Unknown 03/03/2025 10:03 PM EDT 03/03/2025 10:05 PM EDT Narrative [facility] - 03/03/2025 10:26 PM EDT Ingestion of angy doses of biotin (>5 mg/day) taken within 8 hours of drawing blood sample can interfere with this immunoassay test. us Abdullahi Walker MD CHEMISTRY ORDERABLES Final R esult [facility] [address] [place] [phone] * CT ABD PEL ED FAST W [...] the ordering clinician. us Abdullahi Walker MD IM CT ORDERABLES Final Resu lt * (ABNORMAL) TROPONIN-T HIGH SENSITIVITY BASELINE W/ REFLEX (03/03/2025 7:44 PM EDT) [id number]-[id number] 18(H) <14 ng/L 03/03/2025 8:16 PM EDT [facility] Blood VENOUS BLOOD / Unknown Venipuncture / Unknown 03/03/2025 7:44 PM EDT 03/03/2025 7:57 PM EDT Narrative [facility] - 03/03/2025 8:16 PM EDT Ingestion of angy doses of biotin (>5 mg/day) taken within 8 hours of drawing blood sample can interfere with this immunoassay test. us Abdullahi Walker MD CHEMISTRY ORDERABLES Final R esult [facility] [address] [place] [phone] * (ABNORMAL) CBC WITH DIFF (03/03/2025 7:44 PM EDT) WBC 12.5(H) 3.7 - 10.3 x10(3)/mcL 03/03/2025 8:00 PM EDT [facility] RBC 4.93 3.90 - 5.20 x10(6)/mcL 03/03/2025 8:00 PM EDT [facility] Hgb 13.5 11.2 - 15.7 g/dL 03/03/2025 8:00 PM EDT [facility] Hct 41.2 34.0 - 45.0 % 03/03/2025 8:00 PM EDT [facility] MCV 83.6 80.0 - 100.0 fL 03/03/2025 8:00 PM EDT [facility] MCH 27.4 26.0 - 34.0 pg 03/03/2025 8:00 PM EDT [facility] MCHC 32.8 30.7 - 35.5 g/dL 03/03/2025 8:00 PM EDT [facility] RDW 13.5 <=14.9 % 03/03/2025 8:00 PM EDT [facility] Platelet 269 155 - 369 x10(3)/mcL 03/03/2025 8:00 PM EDT [facility] MPV 9.9 8.8 - 12.5 fL 03/03/2025 8:00 PM EDT [facility] Neut Percent 59.6 % 03/03/2025 8:00 PM EDT [facility] Comment:Neutrophils equals s egs plus bands Imm Gran% 0.3 % 03/03/2025 8:00 PM EDT [facility] Comment:Automated count of m etamyelocytes, myelocytes and promyelocytes. Lymph Percent 32.4 % 03/03/2025 8:00 PM EDT [facility] [place] Percent 5.2 % 03/03/2025 8:00 PM EDT [facility] Eos Percent 2.2 % 03/03/2025 8:00 PM EDT [facility] Baso Percent 0.3 % 03/03/2025 8:00 PM EDT [facility] Neut # 7.4(H) 1.6 - 6.1 x10(3)/[facility] 03/03/2025 8:00 PM EDT [facility] Comment:Neutrophils equals s egs plus bands IMMGRAN# 0.0 0.0 - 0.1 x10(3)/mcL 03/03/2025 8:00 PM EDT [facility] Comment:Automated count of m etamyelocytes, myelocytes and promyelocytes. An absolute IG <0.1 is reported as 0.0. Lymph # 4.1(H) 1.2 - 3.9 x10(3)/mcL 03/03/2025 8:00 PM EDT [facility] [place] # 0.7 0.3 - 0.9 x10(3)/mcL 03/03/2025 8:00 PM EDT [facility] Eos# 0.3 0.0 - 0.5 x10(3)/[facility] 03/03/2025 8:00 PM EDT [facility] Baso # 0.0 0.0 - 0.1 x10(3)/[facility] 03/03/2025 8:00 PM EDT [facility] Blood VENOUS BLOOD / Unknown Venipuncture / Unknown 03/03/2025 7:44 PM EDT 03/03/2025 7:57 PM EDT Abdullahi Walker MD HEMATOLOGY ORDERABLES Final Result [facility] [address] [place] [address] * LIPASE LEVEL (03/03/2025 7:44 PM EDT) Pathologist [facility] Lipase Lvl 22 13 - 60 U/L 03/03/2025 8:14 PM EDT [facility] Blood VENOUS BLOOD / Unknown Venipuncture / Unknown 03/03/2025 7:44 PM EDT 03/03/2025 7:57 PM EDT Abdullahi Walker MD CHEMISTRY ORDERABLES Final R esult Performing Organization Address [facility] [place] [address] * (ABNORMAL) LACTIC ACID (03/03/2025 7:44 PM EDT) [facility] Lactic Acid 2.6(H) 0.5 - 1.9 mmol/L 03/03/2025 8:12 PM EDT [facility] Blood VENOUS BLOOD / Unknown Venipuncture / Unknown 03/03/2025 7:44 PM EDT 03/03/2025 7:57 PM EDT us Abdullahi Walker MD CHEMISTRY ORDERABLES Final R esult Performing Organization Address [facility] [place] [address] * (ABNORMAL) COMPREHENSIVE METABOLIC PANEL (03/03/2025 7:44 PM EDT) Sodium 135(L) 136 - 145 mmol/L 03/03/2025 8:14 PM EDT [facility] Potassium 4.1 3.5 - 5.0 mmol/L 03/03/2025 8:14 PM EDT [facility] Chloride 97(L) 98 - 107 mmol/L 03/03/2025 8:14 PM EDT [facility] Total CO2 24 22 - 29 mmol/L 03/03/2025 8:14 PM EDT [facility] Anion Gap 14 7 - 16 mmol/L 03/03/2025 8:14 PM EDT [facility] Calcium 10.1 8.8 - 10.4 mg/dL 03/03/2025 8:14 PM EDT [facility] Glucose Lvl 343(H) 70 - 99 mg/dL 03/03/2025 8:14 PM EDT [facility] BUN 26(H) 8 - 23 mg/dL 03/03/2025 8:14 PM EDT [facility] Creatinine 0.91 0.51 - 1.30 mg/dL 03/03/2025 8:14 PM EDT [facility] Albumin 3.9 3.2 - 4.6 gm/dL 03/03/2025 8:14 PM EDT [facility] Total Protein 7.4 6.4 - 8.3 gm/dL 03/03/2025 8:14 PM EDT [facility] Bili Total 0.2 0.2 - 1.3 mg/dL 03/03/2025 8:14 PM EDT [facility] ALT 22 <=41 U/L 03/03/2025 8:14 PM EDT [facility] AST 27 <=40 U/L 03/03/2025 8:14 PM EDT [facility] Alk Phos 125(H) 36 - 123 U/L 03/03/2025 8:14 PM EDT [facility] eGFR (CKD-EPIcr 2020) 72 >=60 mL/min/1.7 3 m2 03/03/2025 8:14 PM EDT [facility] Comment:Estimated GFR was ca lculated using the CKD-EPIcr (2020) equation refit without race. The equation is recommended by the National Kidney Foundation - [place] Society of Nephrology Task Force. Blood VENOUS BLOOD / Unknown Venipuncture / Unknown 03/03/2025 7:44 PM EDT 03/03/2025 7:57 PM EDT us Abdullahi Walker MD CHEMISTRY ORDERABLES Final R esult [facility] [id number] * (ABNORMAL) URINALYSIS REFLEX (03/03/2025 7:36 PM EDT) UA Color Light Yellow 03/03/2025 8:06 PM EDT [facility] UA Appear Cloudy(A) Clear 03/03/2025 8:06 PM EDT [facility] UA Glucose 4+ (>1000mg/dL) (A) Negative mg/dL 03/03/2025 8:06 PM EDT [facility] UA Ketones Negative Negative mg/dL 03/03/2025 8:06 PM EDT [facility] UA Blood Negative Negative 03/03/2025 8:06 PM EDT [facility] UA pH 5.5 5.0 - 8.0 pH 03/03/2025 8:06 PM EDT [facility] UA Protein Negative Negative mg/dL 03/03/2025 8:06 PM EDT [facility] UA Urobilinogen Normal <=1 mg/dL 8:06 PM EDT [facility] UA Bili Negative Negative 03/03/2025 8:06 PM EDT [facility] UA Nitrite Positive(A) Negative 03/03/2025 8:06 PM EDT [facility] UA Leuk Est 4+ (500 Eddie/mcl)(A) Negative 03/03/2025 8:06 PM EDT [facility] UA Spec Grav 1.024 1.001 - 1.035 no units 03/03/2025 8:06 PM EDT [facility] Comment:Reference range alana d for random specimens [...] /HPF 03/03/2025 8:06 PM EDT [facility] [employer] Urine STRUCTURE OF URINARY TRACT PROPER / Unknown 03/03/2025 7:36 PM EDT 03/03/2025 8:01 PM EDT us Abdullahi Walker MD URINE ORDERABLES Final Resul t Performing Organization Address City/[facility]/ZIP Co de Phone Number [facility] [employer] [address], [place] [address] * EXTRA NUÑEZ URINE CX (03/03/2025 7:36 PM EDT) Urine STRUCTURE OF URINARY TRACT PROPER / Unknown 03/03/2025 7:36 PM EDT 03/03/2025 8:01 PM EDT us Abdullahi Walekr MD MICROBIOLOGY - GENERAL ORDER HALEY Final Result Performing Organization Address [facility] [place] [address] * (ABNORMAL) URINE CULTURE (NO STAIN) (03/03/2025 7:36 PM EDT) Culture Positive Growth(A) 03/06/2025 11:40 AM EDT [facility] Culture >100,000 CFU/mL Escherichia coli SUSCEPTIBI LITY RESULT 03/06/2025 11:40 AM EDT [facility] [employer] Urine STRUCTURE OF URINARY TRACT PROPER / [...] ORDER HALEY Final Result Performing Organization Address City/State/[facility] Co de Phone Number [facility], [address], [place] [address] * EK EKG 12 LEAD (03/03/2025 7:30 PM EDT) Anatomical Region Laterality Modality Electrocardiogra phy 03/03/2025 7:46 PM EDT Impressions 03/04/2025 1:01 PM EDT [facility] Test Date: 2025-03-03 Pat Name: NATALY GALVAN Department: DEPID Room: 2133 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 Avg Glucose 306 mg/dL 10/01/2021 11:47 AM EST [employer] Blood Venipuncture / Unknown 09/30/2021 10:11 AM EST 09/30/2021 10:16 AM EST Narrative [employer] - 10/01/2021 11:47 AM EST REFERENCE RANGE: Normal: 4.0-5.6% Pre-diabetes: 5.7-6.4% Provisional diagnosis of diabetes: >6.4% Hgb F>10% and anything which shortens red cell survival, such as hemolytic anemia, or unstable hemoglobin variants such as HbSS, HbSC, or HbCC, will lower the HbA1c value associated with a given level of glycemic control. us Shady Francisco MD CHEMISTRY ORDERABLES Fin al Result Performing Organization Address [facility] de Phone Number [facility] [address] [facility] , [place] [address] * (ABNORMAL) MICROALBUMIN/CREATININE RATIO URINE (02/02/2021 1:47 PM EDT) Urine Microalb 39.3 mg/L 02/02/2021 2:19 PM EDT [facility] [employer] Urine Creatinine 110.8 mg/dL 02/02/2021 2:19 PM EDT [facility] Ur Microalb/Creat 35(H) 0 - 30 mg/g 02/02/2021 2:19 PM EDT [facility] [employer] [facility] Urine STRUCTURE OF URINARY TRACT PROPER / Unknown 02/02/2021 1:47 PM EDT 02/02/2021 1:51 PM EDT Eleazar Solano MD URINE ORDERABLES Final Result Performing Organization Address [facility] de Phone Number [employer] [facility] [address] [facility] , [place] [address] * (ABNORMAL) LIPID SCREEN (02/02/2021 12:04 PM EDT) Cholesterol 180 <200 mg/dL 02/02/2021 1:43 PM EDT [facility] [employer] Comment: < 200 Desirable 200 - 239 Borderline High >= 240 High Triglyceride 116 <150 mg/dL 02/02/2021 1:43 PM EDT [facility] Comment: < 150 Normal 150 - 199 Borderline High 200 - 499 High >= 500 Very High HDL 49 >=40 mg/dL 02/02/2021 1:43 PM EDT [employer] [facility] Comment: > 60 Optimal 40 - 60 Acceptable < 40 Low LDL Calculated 108(H) <100 mg/dL 02/02/2021 1:43 PM EDT [facility] Comment: < 100 Optimal 100 - 129 Near or above optimal 130 - 159 Borderline High 160 - 189 High >= 190 Very High Non-HDL-C Calculated 131(H) <=129 mg/dL 02/02/2021 1:43 PM EDT [facility] Comment: <130 Desirable 130-159 Above Desirable 160-189 Borderline High 190-219 High >= 220 Very High Fasting Specimen? Yes None 021 1:43 PM EDT [facility] Blood VENOUS BLOOD / Unknown Venipuncture / Unknown 02/02/2021 12:04 PM EDT 02/02/2021 1:13 PM EDT Eleazar Solano MD CHEMISTRY ORDERABLES Final Resul t Performing Organization Address [facility] Co de Phone Number [facility] [employer] [address] , [address] [place] [phone] [facility] [address] [place], [place] [phone] * HEPATITIS C ANTIBODY IGM + IGG (11/23/2020 3:13 PM EST) Hep C Ab Non-Reactiv e Non-Reacti ve 11/23/2020 8:51 PM EST [facility] [employer] [facility] Blood VENOUS BLOOD / Unknown Venipuncture / Unknown 11/23/2020 3:13 PM EST 11/23/2020 3:13 PM EST Mahin Dallas MD IMMUNOLOGY ORDERABLES Final Result Performing Organization Address [facility] de Phone Number [facility] [employer] [address] , [address] [place] [phone] * GMED EGD-COLONOSCOPY (06/20/2020 12:00 PM EDT) 06/20/2020 12:0 0 PM EDT Impressions [facility] - 06/20/2020 1:36 PM EDT Plan: 1) office f/u in 2 months, please call office for an appointment, 2) recall colonoscopy in 3 years, 3) repeat EGD with dilation as needed, 4) high fiber diet, 5) flex sig with EUS pending today's biopsies, if lipoma not diagnosed on bx, 6) if no results received in 4 weeks, please call office. This section is an excerpt of the full report. us Mahin Dallas MD GI PROCEDURE ORDERABLES Fin al Result [facility] [address] [place] [phone] from Last 3 Months or Most Recently Relevant to Health Maintenance Insurance ANTHEM PPO ANTHEM PPO ANTHEM PPO ANTHEM PPO Advance Directives For more information, please contact: [phone] * Full Code (Latest Code Status on File) Date Activated Date Inactivated Comments 03/04/2025 8:35 AM 03/07/2025 3:35 PM * Full Code Date Activated Date Inactivated Comments 09/27/2021 2:15 AM 10/01/2021 4:39 PM * Full Code Date Activated Date Inactivated Comments 02/01/2021 11:16 PM 02/06/2021 1:03 AM * Full Code Date Activated Date Inactivated Comments 08/10/2019 5:46 PM 08/12/2019 6:55 PM * Full Code Date Activated Date Inactivated Comments 06/28/2019 11:18 PM 07/02/2019 5:45 PM Care Teams Inpatient Services Rn Relationship Specialty Start Date End Date Louis Rodriguez MD PCP - General 06/10/11
--- NOTE | 2025-04-01 14:21 | ED_ITS ---
Discharge Plan Disposition Patient Disposition: Home, Self-Care Prescriptions Prescriptions: No Action ondansetron HCl 4 mg tablet 4 mg PO TID Qty: 90 5RF insulin glargine 100 unit/mL (3 mL) insulin pen 120 unit SQ QPM Qty: 15 10RF Humulin 70/30 U-100 KwikPen 100 unit/mL (70-30) insulin pen 50 unit SQ BID Qty: 15 12RF clonidine HCl 0.2 mg tablet 0.2 mg PO TID PRN (Reason: hypertensive emergency) Qty: 90 3RF Rx Instructions: take if sbp over 160 (DME) pen needle, diabetic 32 gauge x 1/4 needle See Rx Instructions .Route .MEDSUPPLY Qty: 100 12RF Rx Instructions: As directed aspirin [Adult Low Dose Aspirin] 81 mg tablet,delayed release (DR/EC) 81 mg PO DAILY losartan-hydrochlorothiazide 100-25 mg tablet 1 tab PO DAILY Qty: 30 3RF isosorbide mononitrate 60 mg tablet extended release 24 hr 60 mg PO DAILY Qty: 90 3RF hydralazine 100 mg tablet 100 mg PO BID Qty: 180 3RF metoclopramide HCl [Reglan] 10 mg tablet 10 mg PO Q6H PRN (Reason: nausea and vomiting) Qty: 120 1RF (DME) Dexcom G7 Sensor Device See Rx Instructions .Route Qty: 3 12RF Rx Instructions: As directed (DME) Dexcom G7 Fireman Helper Misc See Rx Instructions .Route Qty: 1 0RF Rx Instructions: As directed acetaminophen-codeine 300-30 mg tablet 1 tab PO TID PRN (Reason: pain) Qty: 45 5RF atorvastatin 40 mg tablet See Rx Instructions .ROUTE .COMPLEX Qty: 90 0RF Dose Instruction: TAKE 1 TABLET BY MOUTH EVERY NIGHT AT BEDTIME FOR HIGH CHOLESTEROL Rx Instructions: TAKE 1 TABLET BY MOUTH EVERY NIGHT AT BEDTIME FOR HIGH CHOLESTEROL ibuprofen [IBU] 800 mg tablet 800 mg PO Q8HP PRN (Reason: Moderate Pain) Qty: 30 0RF Referrals Follow up/Referrals: Delta Sanchez MD [Staff Physician, Cardiology] - See instructions Provider,Referral, [Referring, Medical] - See instructions Activity Restrictions/Add. Instructions Additional Instructions/Restrictions: No evidence of diabetes/endocrine emergency. Your blood sugar today was 157 strongly recommend that she get a new glucometer or have yours calibrated as your home reading was significantly off from ours here at the hospital. Additionally there is no evidence of any endorgan damage associated with your high blood pressure therefore no further emergent medical management is needed. I recommend you closely follow-up with your primary care doctor and Dr. Sanchez. Return with any significant worsening of your symptoms. Clinical Impressions Clinical Impression: Hypertension, Hyperglycemia Print Language Print Language: Prydeinig Discharge ED Provider: Rajan George General Adult HPI <Rajan George DO - Last Filed: 04/01/25 16:23> General Chief complaint: Chest Pain Stated complaint: CHEST PAIN Time Seen by Provider: 04/01/25 14:19 History of Present Illness HPI narrative: This is a 59-year-old female patient, with past medical history of hypertension, insulin-dependent diabetes, heart failure with preserved ejection fraction, coronary artery disease, and hypertensive heart disease, who is presented to the emergency department today for evaluation of chest pain. The patient states that prior to arrival she was shopping with her and she began experiencing chest pain. During this time she was also feeling lightheaded and had some blurred vision so she measured her blood sugar and found that it was elevated at 800. She did not take any additional insulin and came immediately to the emergency department. She does not describe her pain is exertional in nature. She is not experiencing any shortness of breath. No radiation of her pain to her back, neck, arms, or jaw. She is not experiencing any abdominal pain. The patient does tell me that earlier this week she was admitted to an outside hospital with chest pain and positive troponins and ultimately underwent a cardiac catheterization which revealed no significant coronary occlusions. She was told by the rare/endangered species specialist at this hospital that she likely had a troponin leak secondary to her profound hypertension. Related Data Home Medications ?Medication ?Instructions ?Recorded ?Confirmed aspirin 81 mg tablet,delayed 81 mg PO DAILY 05/25/24 0 03/13/25 release (Adult Low Dose Aspirin) Previous Rx's ?Medication ?Instructions ?Recorded clonidine HCl 0.2 mg tablet 0.2 mg PO TID PRN hyperten sive 12/26/22 emergency #90 tabs pen needle, diabetic 32 gauge x #100 ea 12/26/22 1/4 ibuprofen 800 mg tablet (IBU) 800 mg PO Q8HP PRN Moder ate Pain 08/04/24 #30 tabs acetaminophen 300 mg-codeine 30 mg 1 tab PO TID PRN pa in #45 tabs 09/05/24 tablet insulin glargine 100 unit/mL (3 120 unit (1.2 mL) SQ Q PM Diabetes 11/30/24 mL) subcutaneous pen #15 mL ondansetron HCl 4 mg tablet 4 mg PO TID #90 tabs 11/30 isosorbide mononitrate 60 mg 60 mg PO DAILY #90 tabs 0 01/17/25 tablet,extended release 24 hr losartan 100 1 tab PO DAILY #30 tabs 12/28 11/22 mg-hydrochlorothiazide 25 mg tablet insulin NPH-regular 70-30 U-100 50 unit (0.5 mL) SQ BI D #15 mL 02/01/25 insulin 100 unit/mL subcutaneous pen (Humulin 70/30 U-100 KwikPen) blood-glucose sensor (Dexcom G7 #3 ea 03/13/25 Sensor device) blood-glucose,freight receiver,cont #1 ea 03/13/25 (Dexcom G7 Fireman Helper) hydralazine 100 mg tablet 100 mg PO BID #180 tabs 02/26 03/22 metoclopramide HCl 10 mg tablet 10 mg PO Q6H PRN nause a and 03/13/25 (Reglan) vomiting #120 tabs atorvastatin 40 mg tablet See Rx Instructions .Route 0 03/24/25 .COMPLEX #90 tabs Allergies Allergy/AdvReac Type Severity Reaction Status Date / Time lisinopril Allergy Severe angioedema Verified 03/13/25 11:17 semaglutide (From Ozempic) AdvReac Mild gastropares Verified 03/13/25 11:17 is metoprolol AdvReac bradycardia Verified 03/13/25 11:17 [facility] <Rajan George DO - Last Filed: 04/01/25 16:23> [facility] Disclaimer: The information contained in this section may have been updated after the patient was seen, as this information can be updated by other users. Medical History Edema of both lower extremities Ischemic pain of left foot Chronic diastolic (congestive) heart failure Diabetes Hypertensive heart disease CAD (coronary artery disease) Diastolic dysfunction HLD (hyperlipidemia) (HFpEF) heart failure with preserved ejection fraction Hypertension Hypertension Pain in right lower leg Surgical History History of appendectomy History of cholecystectomy Family History Other No significant family history Social History Smoking Status: Never smoker alcohol intake: never substance use type: denies use current occupational status: employed Travel in the last 8 weeks?: None household members: spouse housing: house 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 current occupational exposures/hazards: No caffeine: No Have you lived/traveled outside [place] in past 30 days?: No Contact w/someone who lives/traveled outside US past 30 days?: No Exposure to someone with infectious disease in past 14 days?: No Do you have a fever (greater than 100.4 F or 38 C)?: No Have you tested positive for COVID-19?: No Exposed to someone with COVID-19 in past 14 days?: No Do you have a sore throat?: No Do you have a cough?: No Do you have any weakness?: No Do you have any diarrhea?: No Are you experiencing any unusual bleeding?: No Do you have any muscle aches/pain?: No Do you have any abdominal pain?: No Are you experiencing loss of taste or smell?: No Other Medical History Have you received the Flu Vaccine for this season: Yes Have you received the Pneumonia Vaccine: Yes <Rajan George DO - Last Filed: 04/01/25 16:23> ROS Obtained: Yes Systems reviewed as appropriate & no additional complaints except as documented Physical Exam <Rajan George DO - Last Filed: 04/01/25 16:23> General General appearance: alert and in no apparent distress Head Head exam: atraumatic and normocephalic Eye Eye exam: Present normal appearance and PERRL ENT ENT exam: Present normal oropharynx and mucous membranes moist Neck Neck exam: Present full ROM and trachea midline Chest Chest inspection: Present symmetric chest wall rise Respiratory Respiratory exam: Present normal lung sounds bilaterally Cardiovascular Cardiovascular exam: Present regular rate and normal rhythm Abdominal Exam Abdominal exam: Present soft; Absent tenderness Extremities Exam Extremities exam: Present normal inspection; Absent tenderness Back Exam Back exam: Absent CVA tenderness (R) or CVA tenderness (L) Neurological Exam Neurological exam: Present alert and oriented X3 Medical Decision Making <Rajan George DO - Last Filed: 04/01/25 16:23> Medical Records Screening: Per USPSTF and CDC recommendations, given the prevalence of disease in our region, it is our hospital?s policy to screen for HIV and viral Hepatitis for all patients aged 18 and over and those with ongoing risk factors. Jono Inquiry Pt receiving controlled substance: No Jono was queried for this patient: No Vital Signs: 04/01/25 14:21 04/01/25 15:00 04/01/25 15:30 Temperature 97.9 F Temperature Source Oral Pulse Rate 66 66 Pulse Rate [Right Radial] 67 Respiratory Rate 15 12 18 Blood Pressure 186/81 H 183/74 H Blood Pressure [Right Arm] 198/83 H Blood Pressure Mean [Right Arm] 121 Blood Pressure Source [Right Arm] Automatic Cuff Blood Pressure Position [Right Arm] Sitting 02 Sat by Pulse Oximetry 99 99 98 Oxygen Delivery Method Room Air Room Air Room Air 04/01/25 16:00 04/01/25 16:30 04/01/25 17:00 Temperature Temperature Source Pulse Rate 66 63 63 Pulse Rate [Right Radial] Respiratory Rate 13 11 L 16 Blood Pressure 179/77 H 168/76 H 181/68 H Blood Pressure [Right Arm] Blood Pressure Mean [Right Arm] Blood Pressure Source [Right Arm] Blood Pressure Position [Right Arm] 02 Sat by Pulse Oximetry 99 99 99 Oxygen Delivery Method Room Air 04/01/25 17:30 Temperature Temperature Source Pulse Rate 65 Pulse Rate [Right Radial] Respiratory Rate 16 Blood Pressure 169/67 H Blood Pressure [Right Arm] Blood Pressure Mean [Right Arm] Blood Pressure Source [Right Arm] Blood Pressure Position [Right Arm] 02 Sat by Pulse Oximetry 98 Oxygen Delivery Method Room Air Lab Data Lab Results 04/01/25 14:25: WBC 15.4 H, RBC 4.72, Hgb 12.9, Hct 40.3, MCV 85.4, MCH 27.3, MCHC 32.0, RDW 14.4, Plt Count 288, MPV 9.8, Neut % (Auto) 59.0, Lymph % (Auto) 33.3, [place] % (Auto) 5.5, Eos % (Auto) 1.3, Baso % (Auto) 0.4, Neut # (Auto) 9.1 H, Lymph # (Auto) 5.1 H, [place] # (Auto) 0.8, Eos # (Auto) 0.2, Baso # (Auto) 0.1, Total Counted 100, Neutrophils % (Manual) 56, Lymphocytes % (Manual) 40, Monocytes % (Manual) 3, Eosinophils % (Manual) 1, Nucleated RBCs 1, Differential Comment Not Reportable, Platelet Estimate Normal, RBC Morphology Normal, Sodium 137, Potassium 3.9, Chloride 99, Carbon Dioxide 30, Anion Gap 11.9, BUN 25 H, Creatinine 1.00, Estimated Creat Clear 90, Estimated GFR 57 L, Est GFR ( Amer) 68, Glucose 157 H, Calcium 9.8, Magnesium 2.0, Total Bilirubin 0.5, AST 45 H, ALT 41, Alkaline Phosphatase 95, Troponin I 0.03, Total Protein 7.4, Albumin 4.2, Globulin 3.2, Albumin/Globulin Ratio 1.3, Lipase 41 04/01/25 17:20: Troponin I 0.03 04/01/25 14:25 04/01/25 14:25 Orders (Tests/Meds): ED MEDICATIONS Discontinued Medications Generic Name Dose Route Start Last Admin Trade Name Freq PRN Reason Stop Dose Admin Aspirin 325 mg 04/01/25 14:29 04/01/25 14:43 Aspirin 325mg Tablet PO 04/01/25 14:30 325 mg ONCE ONE Administration Hydralazine HCl 25 mg 04/01/25 16:05 04/01/25 16:17 Hydralazine Hcl 25mg Tablet PO 04/01/25 16:06 25 mg ONCE ONE Administration Nitroglycerin 0.4 mg 04/01/25 14:29 04/01/25 14:44 Nitroglycerin 0.4mg Sl Tablet SL 04/01/25 14:30 0.4 mg ONCE ONE Administration ORDERS Category Date Time Status CXR --portable [XR chest portable] Stat Exams 04/01/25 14:28 Completed CBC w/Auto Diff [Complete Blood Count Auto Diff] Stat Lab 04/01/25 14:25 Completed CMP [Comprehensive Metabolic Panel] Stat Lab 04/01/25 14:25 Completed Lipase Stat Lab 04/01/25 14:25 Completed Magnesium Stat Lab 04/01/25 14:25 Completed Troponin I Q3H Lab 04/01/25 17:20 Completed Troponin I Q3H Lab 04/01/25 20:30 Ordered Troponin I Stat Lab 04/01/25 14:25 Completed UA [Urinalysis and Microscopic] Stat Lab 04/01/25 16:02 Received ECG Data Tracing #1: I reviewed this ECG and interpreted as documented below: EKG personally interpreted by me demonstrates normal sinus rhythm with a rate of 71 bpm, normal axis, no MN prolongation, narrow QRS, no QTc prolongation. No ST elevation or depression. No overt signs of ischemia or arrhythmia HEART Score History (anamnesis): Moderately suspicious ECG: Normal Age: 45-65 years Risk factors: 3 or more risk factors Troponin: </= normal limit HEART Score: 4 Medical Decision Narrative: In summary, this is a 59-year-old female patient, with past medical history of hypertension, insulin-dependent diabetes, hypertensive heart disease, heart failure with preserved ejection fraction, who is presenting to the emergency department today for evaluation of chest pain in relation to significantly elevated blood pressure. The patient's comorbidities listed above do complicate her medical care as they increase her risk of morbidity and can be exacerbating her symptoms. On initial evaluation of the patient they were resting comfortably in no acute distress and nontoxic in appearance. They are hemodynamically stable, saturating well room air, and are neurologically intact. On examination of the patient she has no abnormalities on auscultation of her chest bilaterally. She is moving air well. Radial pulses are symmetric bilaterally. She does not have any significant lower extremity erythema or edema. Differential diagnosis includes acute coronary syndrome, myocardial infarction, hypoglycemia, diabetic ketoacidosis, hypertensive urgency, hypertensive emergency, among others. Workup was initiated with hematologic labs as well as a chest x-ray. Chest x-ray personally interpreted by me demonstrates no lobar consolidation or pleural effusion. Please see EKG interpretation above. In short there is no ischemic changes. Labs personally interpreted by me demonstrate no actionable abnormalities. Second troponin is pending. We did treat the patient with sublingual nitroglycerin as well as 325 mg of aspirin orally. On repeat reassessment she is resting comfortably and is in no acute distress. Her blood pressure has decreased from 190 systolic to 179 systolic. At the time of shift change second troponin was pending. This case was handed off to Dr. Culver who will follow-up on the second troponin and disposition the patient appropriately. <Valentina Culver MD - Last Filed: 04/01/25 18:17> Vital Signs: 04/01/25 14:21 04/01/25 15:00 04/01/25 15:30 Temperature 97.9 F Temperature Source Oral Pulse Rate 66 66 Pulse Rate [Right Radial] 67 Respiratory Rate 15 12 18 Blood Pressure 186/81 H 183/74 H Blood Pressure [Right Arm] 198/83 H Blood Pressure Mean [Right Arm] 121 Blood Pressure Source [Right Arm] Automatic Cuff Blood Pressure Position [Right Arm] Sitting 02 Sat by Pulse Oximetry 99 99 98 Oxygen Delivery Method Room Air Room Air Room Air 04/01/25 16:00 04/01/25 16:30 04/01/25 17:00 Temperature Temperature Source Pulse Rate 66 63 63 Pulse Rate [Right Radial] Respiratory Rate 13 11 L 16 Blood Pressure 179/77 H 168/76 H 181/68 H Blood Pressure [Right Arm] Blood Pressure Mean [Right Arm] Blood Pressure Source [Right Arm] Blood Pressure Position [Right Arm] 02 Sat by Pulse Oximetry 99 99 99 Oxygen Delivery Method Room Air 04/01/25 17:30 Temperature Temperature Source Pulse Rate 65 Pulse Rate [Right Radial] Respiratory Rate 16 Blood Pressure 169/67 H Blood Pressure [Right Arm] Blood Pressure Mean [Right Arm] Blood Pressure Source [Right Arm] Blood Pressure Position [Right Arm] 02 Sat by Pulse Oximetry 98 Oxygen Delivery Method Room Air Lab Data Lab results reviewed: Yes I reviewed the patient's lab results. Lab Results 04/01/25 14:25: WBC 15.4 H, RBC 4.72, Hgb 12.9, Hct 40.3, MCV 85.4, MCH 27.3, MCHC 32.0, RDW 14.4, Plt Count 288, MPV 9.8, Neut % (Auto) 59.0, Lymph % (Auto) 33.3, [place] % (Auto) 5.5, Eos % (Auto) 1.3, Baso % (Auto) 0.4, Neut # (Auto) 9.1 H, Lymph # (Auto) 5.1 H, [place] # (Auto) 0.8, Eos # (Auto) 0.2, Baso # (Auto) 0.1, Total Counted 100, Neutrophils % (Manual) 56, Lymphocytes % (Manual) 40, Monocytes % (Manual) 3, Eosinophils % (Manual) 1, Nucleated RBCs 1, Differential Comment Not Reportable, Platelet Estimate Normal, RBC Morphology Normal, Sodium 137, Potassium 3.9, Chloride 99, Carbon Dioxide 30, Anion Gap 11.9, BUN 25 H, Creatinine 1.00, Estimated Creat Clear 90, Estimated GFR 57 L, Est GFR ( Amer) 68, Glucose 157 H, Calcium 9.8, Magnesium 2.0, Total Bilirubin 0.5, AST 45 H, ALT 41, Alkaline Phosphatase 95, Troponin I 0.03, Total Protein 7.4, Albumin 4.2, Globulin 3.2, Albumin/Globulin Ratio 1.3, Lipase 41 04/01/25 17:20: Troponin I 0.03 Orders (Tests/Meds): ED MEDICATIONS Discontinued Medications Generic Name Dose Route Start Last Admin Trade Name Raminq PRN Reason Stop Dose Admin Aspirin 325 mg 04/01/25 14:29 04/01/25 14:43 Aspirin 325mg Tablet PO 04/01/25 14:30 325 mg ONCE ONE Administration Hydralazine HCl 25 mg 04/01/25 16:05 04/01/25 16:17 Hydralazine Hcl 25mg Tablet PO 04/01/25 16:06 25 mg ONCE ONE Administration Nitroglycerin 0.4 mg 04/01/25 14:29 04/01/25 14:44 Nitroglycerin 0.4mg Sl Tablet SL 04/01/25 14:30 0.4 mg ONCE ONE Administration ORDERS Category Date Time Status CXR --portable [XR chest portable] Stat Exams 04/01/25 14:28 Completed CBC w/Auto Diff [Complete Blood Count Auto Diff] Stat Lab 04/01/25 14:25 Completed CMP [Comprehensive Metabolic Panel] Stat Lab 04/01/25 14:25 Completed Lipase Stat Lab 04/01/25 14:25 Completed Magnesium Stat Lab 04/01/25 14:25 Completed Troponin I Q3H Lab 04/01/25 17:20 Completed Troponin I Q3H Lab 04/01/25 20:30 Ordered Troponin I Stat Lab 04/01/25 14:25 Completed UA [Urinalysis and Microscopic] Stat Lab 04/01/25 16:02 Received HEART Score HEART Score: 4 Medical Decision Narrative: In summary, this is a 59-year-old female patient, with past medical history of hypertension, insulin-dependent diabetes, hypertensive heart disease, heart failure with preserved ejection fraction, who is presenting to the emergency department today for evaluation of chest pain in relation to significantly elevated blood pressure. The patient's comorbidities listed above do complicate her medical care as they increase her risk of morbidity and can be exacerbating her symptoms. On initial evaluation of the patient they were resting comfortably in no acute distress and nontoxic in appearance. They are hemodynamically stable, saturating well room air, and are neurologically intact. On examination of the patient she has no abnormalities on auscultation of her chest bilaterally. She is moving air well. Radial pulses are symmetric bilaterally. She does not have any significant lower extremity erythema or edema. Differential diagnosis includes acute coronary syndrome, myocardial infarction, hypoglycemia, diabetic ketoacidosis, hypertensive urgency, hypertensive emergency, among others. Workup was initiated with hematologic labs as well as a chest x-ray. Chest x-ray personally interpreted by me demonstrates no lobar consolidation or pleural effusion. Please see EKG interpretation above. In short there is no ischemic changes. Labs personally interpreted by me demonstrate no actionable abnormalities. Second troponin is pending. We did treat the patient with sublingual nitroglycerin as well as 325 mg of aspirin orally. On repeat reassessment she is resting comfortably and is in no acute distress. Her blood pressure has decreased from 190 systolic to 179 systolic. At the time of shift change second troponin was pending. This case was handed off to Dr. Culver who will follow-up on the second troponin and disposition the patient appropriately. This is Dr. Culver I took over from Dr. George around 3 PM. Pending second troponin. Second troponin was less than 99th percentile. This is not consistent with endorgan damage from hypertension. Patient clinically has no other signs or symptoms of endorgan damage either. Labs are essentially otherwise unremarkable. She does have a nonspecific leukocytosis. She is asymptomatic from a cardiopulmonary standpoint currently with no dyspnea and no chest pain. Pulmonary embolism is not in the differential at this point given her lack of any symptoms right now. Patient still states she has a mild headache. But denies any other symptoms. Upon being discharged patient asked me if her urine looked okay. I asked her why she asked this question she stated that a urine was sent. I looked into this further and a urine specimen was obtained from triage given the fact that the initial concern was for hyperglycemia which proved to be not the case however patient had no signs or symptoms of urinary tract infection therefore no urinalysis was sent. She did tell me that she has chronic UTIs and has had some urgency but states this is no different than her baseline I told her that I could send a urinalysis but she declined this and states she will follow-up with Dr. Rodriguez and Dr. Sanchez outpatient. No further need for hospitalization at the moment. Patient was discharged in stable condition. Critical Care <Rajan George DO - Last Filed: 04/01/25 16:23> Critical Care Time Critical Care Time: No
--- NOTE | 2025-04-01 14:22 | PC.NURSE ---
FSBS 147 AT THIS TIME.
--- NOTE | 2025-04-01 14:28 | XR_ITS ---
PROCEDURE INFORMATION: Exam: XR Chest Exam date and time: 04/01/2025 2:47 PM Age: 59 years old Clinical indication: Pain; Chest pressure; Additional info: Chest pain TECHNIQUE: Imaging protocol: Radiologic exam of the chest. Views: 1 view. COMPARISON: CR XR CHEST PORTABLE 05/09/2024 5:56 PM FINDINGS: Lungs: Unremarkable. No consolidation. Pleural spaces: Unremarkable. No pleural effusion. No pneumothorax. Heart/Mediastinum: Unremarkable. No cardiomegaly. Bones/joints: Unremarkable. IMPRESSION: No acute findings.
[2025-04-01 14:35] LABS: Hematocrit 40.3 % (37.0-47.0); Hemoglobin 12.9 g/dL (12.2-16.2); Immature Granulocytes % 0.5 %; Mean Corpuscular HGB Conc 32.0 g/dL (31.8-35.4); Mean Corpuscular Hemoglobin 27.3 pg (27.0-31.2); Mean Corpuscular Volume 85.4 fl (81-99); Nucleated Red Blood Cells % 0 %; Platelet Count 288 K/mm3 (142-424); Red Blood Count 4.72 M/mm3 (4.20-5.40); Red Cell Distribution Width-SD 45.0 fL; White Blood Count 15.4 K/mm3 (4.8-10.8)
[2025-04-01] MEDS: ASPIRIN 325MG TABLET 325 MG PO (14:43)
[2025-04-01] MEDS: NITROGLYCERIN 0.4MG SL TABLET 0.4 MG SL (14:44)
[2025-04-01 14:46] LABS: Alanine Aminotransferase 41 U/L (12-78); Albumin Level 4.2 g/dl (3.5-5.0); Albumin/Globulin Ratio 1.3 (1.1-1.8); Alkaline Phosphatase 95 U/L (38-126); Anion Gap 11.9 mEq/L (5-15); Aspartate Amino Transferase 45 U/L (14-36); Bilirubin,Total 0.5 mg/dl (0.2-1.3); Blood Urea Nitrogen 25 mg/dl (7-17); Calcium 9.8 mg/dl (8.4-10.2); Carbon Dioxide 30 mmol/L (22.0-30.0); Chloride 99 mmol/L (98-107); Creatinine Clearance Estimated 90 mL/min (50-200); Creatinine,Serum 1.00 mg/dl (0.52-1.04); Estimated Glomerular Filt Rate 57 ml/min (>60); GFR (African American) 68 ML/MIN (>60); Globulin 3.2 g/dL (1.3-3.2); Glucose 157 mg/dl (74-100); Lipase 41 U/L (23-300); Magnesium 2.0 mg/dl (1.6-2.3); Potassium 3.9 mmoL/L (3.5-5.1); Sodium 137 mmol/L (136-145); Total Protein,Serum 7.4 g/dl (6.3-8.2)
[2025-04-01 14:58] LABS: Troponin I 0.03 ng/ml (0.00-0.034)
[2025-04-01 15:46] LABS: Total Cells Counted 100
[2025-04-01 15:49] LABS: RBC Morphology Normal
[2025-04-01] MEDS: HYDRALAZINE HCL 25MG TABLET 25 MG PO (16:17)
[2025-04-01 17:56] LABS: Troponin I 0.03 ng/ml (0.00-0.034)
== END 2025-04-01 18:35 | disposition home or self-care (01) ==
PROVIDERS: Emergency Provider Student in an Organized Health Care Education/Training Program; PCP Family Medicine
DX: R07.9 Chest pain, unspecified (principal); I11.0 Hypertensive heart disease with heart failure; E11.65 Type 2 diabetes mellitus with hyperglycemia; I50.32 Chronic diastolic (congestive) heart failure; I25.10 Atherosclerotic heart disease of native coronary artery without angina pectoris; E78.5 Hyperlipidemia, unspecified
CPT/HCPCS: 71045; 80053; 83690; 83735; 84484; 85007; 85025; 85027; 93005; 99284

== ENCOUNTER 2025-04-20 08:28 | Outpatient (CLI) | payer BC, SELFPAY ==
--- OUTSIDE RECORDS SUMMARY | 2025-03-03 19:08 | XMS_ITS | Encounter Summary ---
Author Organization [facility] [place] [address] Care Team Providers Care Business Excellence Leader Name Role Phone Louis Rodriguez MD Primary Care Provider [phone] Reason for Visit * Reason Comments Abdominal Pain Abd pain that starte d today, emesis x3, reports dark urine. Unsure of fevers. * Auth/Cert/Inpt (Routine) Specialty Diagnoses / Procedures Referred By Denise chilel Referred To Contact Diagnoses Ileus (HCC) Referral ID Status Reason Start Date Expiration Date Visits Re quested Visits Authorized [id number] 1 1 Encounter Details Date Type Department Care Team (Late st Contact Info) Description 03/03/2025 7:08 PM EDT - 03/07/2025 11:35 AM EDT Hospital Encounter EDG 2A OBSERVATION UNIT [facility] [place], [place] [id number] Abdullahi Walker MD [address] [place] [address] [id number] Prabhu Longoria MD [address] [place] [address] Ileus (HCC) (Primary Dx); Generalized abdominal pain; Urinary tract infection without hematuria, site unspecified Discharge Disposition: Home or Self Care Social History Tobacco Use Types Packs/Day Years Used Date Smoking Tobacco: Never Smokeless Tobacco: Never Alcohol Use Standard Drinks/Week Comments No 0 (1 standard drink = 0.6 oz pur e alcohol) [facility] Utilities Answer Date Recorded In the past 12 months has th e electric, gas, oil, or water company threatened to shut off services in your home? No 03/06/2025 Overall Financial Resource Strain (CARDIA) Answe r Date Recorded How hard is it for you to pa y for the very basics like food, housing, medical care, and heating? Somewhat hard 03/06/2025 PHQ-2 Answer Date Recorded PHQ-2 Total Score 0 03/06/2025 [facility] - Occupational Stress Questionnaire Answer Date Recorded Do you feel stress - tense, restless, nervous, or anxious, or unable to sleep at night because your mind is troubled all the time - these days? Very much 03/06/2025 Exercise Vital Sign Answer Date Recorde d On average, how many days pe r week do you engage in moderate to strenuous exercise (like a brisk walk)? 0 days 03/06/2025 On average, how many minutes do you engage in exercise at this level? 0 min 03/06/2025 Hunger Vital Sign Answer Date Recorded Within the past 12 months, y ou worried that your food would run out before you got the money to buy more. Never true 03/06/20 25 Within the past 12 months, t he food you bought just didn't last and you didn't have money to get more. Never true 03/06/2025 PRAPARE - Transportation Answer Date Re corded In the past 12 months, has l ack of transportation kept you from medical appointments or from getting medications? No 09/2021 In the past 12 months, has l ack of transportation kept you from meetings, work, or from getting things needed for daily living? No 09/28/2021 [facility] IP Transportation Answer D ate Recorded In the past 12 months, has l ack of reliable transportation kept you from medical appointments, meetings, work or from getting things needed for daily living? No 03/06/2025 Comments No Sex and Gender Information Value Date Recorded Sex Assigned at Not on file Legal Sex Female 1:18 PM EDT Gender Identity Not on file Sexual Orientation Not on file documented as of this encounter Last Filed Vital Signs Vital Sign Reading Time Taken Comments Blood Pressure 160/62 03/07/2025 7:21 AM EDT Pulse 59 03/07/2025 7:21 AM EDT Temperature 37.2 C (99 F) 03/07/2025 7:21 AM EDT Respiratory Rate 16 03/07/2025 7:21 AM EDT Oxygen Saturation 97% 03/07/2025 7:21 AM EDT Inhaled Oxygen Concentration - - Weight 95.3 kg (210 lb) 03/03/2025 6:39 PM EDT Height 165.1 cm (5' 5 ) 03/03/2025 6:39 PM EDT Body Mass Index 34.95 03/03/2025 6:39 PM EDT documented in this encounter Functional Status * Alcohol Screening Score Answer Date of Assessment Author 0 03/03/2025 10:49 PM EDT Pipo Schumacher RN * Drug Screening Score Answer Date of Assessment Author 0 03/03/2025 10:49 PM EDT Pipo Schumacher RN * Question Answer Date of Assessment Author How often do you have a drin k containing alcohol? 0 03/03/2025 10:49 PM EDT Yash Schumacher RN How many drinks containing alcohol do you have on a typical day when you are drinking? 0 03/03/2025 10:49 PM EDT Evelyn Schumacher RN How often do you have six or more drinks on one occasion? 0 03/03/2025 10:49 PM EDT Yash Schumacher RN AUDIT-C to Determine Rows 4-10 0 03/03/2025 10:49 PM EDT Yash Schumacher RN * Is the person deaf or does he/she have serious difficulty hearing? Answer Date of Assessment Author No 02/05/2021 3:33 PM EDT Nataly Chamberlain RN * Is the person blind or does he/she have serious difficulty seeing even when wearing glasses? Answer Date of Assessment Author No 02/05/2021 3:33 PM EDT Nataly Chamberlain RN * Does this person have serious difficulty walking or climbing stairs? Answer Date of Assessment Author No 02/05/2021 3:33 PM EDT Nataly Chamberlain RN * Does this person have difficulty dressing or bathing? Answer Date of Assessment Author No 02/05/2021 3:33 PM EDT Nataly Chamberlain RN * Because of a physical, mental or emotional condition, does this person have difficulty doing errands alone such as visiting a doctor's office or shopping? Answer Date of Assessment Author No 02/05/2021 3:33 PM EDT Nataly Chamberlain RN * Question Answer Date of Assessment Author Little interest or pleasure in doing things 0 03/06/2025 3:23 PM EDT Angelina Martines RN Feeling down, depressed, or hopeless 0 03/06/2025 3:23 PM EDT Angelina Martines RN PHQ-2 Total Score 0 03/06/2025 3:23 PM EDT Angelina Martines RN * PHQ-9 Total Score Answer Date of Assessment Author 0 03/06/2025 3:23 PM EDT Angelina Martines RN * PHQ-2 Total Score Answer Date of Assessment Author 0 03/06/2025 3:23 PM EDT Angelina Martines RN * Suicide Severity Rating Answer Date of Assessment Author No Risk 03/03/2025 7:19 PM EDT Elyse العراقي RN * [place] Suicide Severity Rating Scale (Q shift for moderate and high) Question Answer Date of Assessment Author 1. In the past month, have y ou wished you were or wished you could go to sleep and not wake up? 0 03/03/2025 7:19 PM EDT Elyse Ortez RN 2. In the past month, have y ou actually had any thoughts of killing yourself? (If no, skip to question 6) 0 03/03/2025 7:19 PM EDT Elyse العراقي R N 6. Have you ever done anythi ng, started to do anything, or prepared to do anything to end your life? 0 03/03/2025 7:19 PM EDT Elyse Barrientos RN documented as of this encounter Mental Status * Because of a physical, mental or emotional condition, does this person have serious difficulty concentrating, remembering or making decisions? Answer Entry Date Author No 02/05/2021 3:33 PM EDT Nataly Chamberlain RN documented in this encounter Discharge Summaries * Festus Burger MD - 03/07/2025 7:29 AM EDT Images from the original note were not included. Discharge Summary Patient Name: Nataly Galvan : 1965 Admit Date: 03/03* Discharge Date: 03/07/2025 Admitting Physician: Prabhu Longoria MD Discharge Physician: Festus Burger MD Hospital Course: Nataly Galvan was admitted for nausea. Found to have ileus and improved with NG decompression and supportive care. Recommendations for follow-up provider: Augmentin for UTI Discharge Exam: GEN: NAD. HEENT: Normocephalic, Atraumatic. Mucous membranes moist Neck: Supple CVS: Normal rate Pulm: CTAB. No accessory muscle use Abdominal: Nontender to palpation Extremities: No pitting edema. Skin: Warm and dry Neuro: Alert and Oriented to person, place, situation Discharge Medications: Medication List START taking these medications amoxicillin-clavulanate 875-125 mg Tab Commonly known as: AUGMENTIN Take 1 Tablet by mouth every 12 hours for 5 days. isosorbide mononitrate 60 mg Tb24 Commonly known as: IMDUR Take 1 Tablet by mouth daily. Replaces: isosorbide mononitrate 20 mg Tab CONTINUE taking these medications aspirin 81 mg Chew atorvastatin 40 mg Tab Commonly known as: LIPITOR Take 1 Tablet by mouth nightly. FreeStyle Lite Meter Kit Generic drug: Blood-Glucose Meter FreeStyle Lite Strips Strp Generic drug: Blood Sugar Diagnostic insulin glargine U-100 100 unit/mL Soln Commonly known as: LANTUS Subcutaneous (Inject under the skin) 45 Units 2 times daily. losartan-hydrochlorothiazide 100-25 mg Tab Commonly known as: HYZAAR Zofran 4 mg Tab Generic drug: ondansetron STOP taking these medications insulin aspart protamine-insulin aspart 100 unit/mL (70-30) Inpn Commonly known as: NovoLOG Mix 70/30 isosorbide mononitrate 20 mg Tab Commonly known as: MONOKET Replaced by: isosorbide mononitrate 60 mg Tb24 Where to Get Your Medications These medications were sent to [facility] [address] [place] [id number] Hours: Thursday-Thursday 8:00am - 6:30pm amoxicillin-clavulanate 875-125 mg Tab isosorbide mononitrate 60 mg Tb24 Discharge diagnoses: Active Hospital Problems Acute cystitis without hematuria *Ileus (HCC) Type 2 diabetes mellitus with hyperglycemia, with long-term current use of insulin (HCC) Dyslipidemia associated with type 2 diabetes mellitus (HCC) Chronic diastolic heart failure (HCC) Essential hypertension Severe obesity with body mass index (BMI) of 35.0 to 39.9 with serious comorbidity (HCC) Diet: LOW FAT / LOW FIBER DIET Follow Up: Louis Rodriguez MD [id number] [place] [phone] Schedule an appointment as soon as possible for a visit in 3 day(s) Disposition: Home Signed: Festus Burger MD 03/07/2025 documented in this encounter Discharge Instructions * Attachments The following attachments cannot be sent through Care Everywhere. * Amoxicillin and Clavulanate (Wallisian) * Isosorbide Mononitrate (Wallisian) * Urinary tract infections in adults (Wallisian) documented in this encounter Medications at Time of Discharge Aspirin 81 mg Take 81 mg by mouth daily. atorvastatin (LIPITOR) 40 mg Oral Tablet Take 1 Tablet by mouth nightly. 30 Tablet 10/01/2021 11:57 AM EST 10/01/2021 Blood Sugar Diagnostic (FREESTYLE LITE STRIPS) Misc Strip by [employer].(Non-Drug; Combo Route) route. Use to test BS 4 x daily Blood-Glucose Meter (FREESTYLE LITE METER) Misc Kit by [employer].(Non-Drug; Combo Route) route. Use to test BS 4 x daily insulin glargine U-100 (LANTUS) 100 unit/mL SubQ Solution Subcutaneous (Inject under the skin) 45 Units 2 times daily. 10 mL 12 07/02/2019 isosorbide mononitrate (IMDUR) 60 mg Oral Tablet Sustained Release 24 hr Take 1 Tablet by mouth daily. 30 Tablet 03/07/2025 losartan-hydrochl orothiazide (HYZAAR) 100-25 mg Oral Tablet Take 1 Tablet by mouth daily. ondansetron (ZOFRAN, HYDROCHLORIDE,) 4 mg Oral Tablet Take 4 mg by mouth every 6 hours. Takes as needed every 6 hours for nausea amoxicillin-clavu lanate (AUGMENTIN) 875-125 mg Oral Tablet Take 1 Tablet by mouth every 12 hours for 5 days. 10 Tablet 03/07/2025 11:17 AM EDT 03/07/2025 documented as of this encounter Ordered Prescriptions Prescription Sig Dispense Quantity Refills Last Filled Start Date End Date isosorbide mononitrate (IMDUR) 60 mg Oral Tablet Sustained Release 24 hr Take 1 Tablet by mouth daily. 30 Tablet 03/07/2025 amoxicillin-clavul anate (AUGMENTIN) 875-125 mg Oral Tablet Take 1 Tablet by mouth every 12 hours for 5 days. 10 Tablet 03/07/2025 11:17 AM EDT 03/07/2025 03/12/2025 documented in this encounter Discharge Disposition Disposition Code Departure Means Destination Comment s Home or Self [facility] documented in this encounter Progress Notes * Julissa Anderson CPhT - 03/07/2025 11:30 AM EDT Discharge Medication Delivery Service [employer] photo optics technician has delivered the following medications for Nataly Galvan: Rx#[id number]:AMOXICILLIN 875 MG-POTASSIUM CLAVULANATE 125 MG TABLET-1 Tablet *EVERY 12 HOURS Date/Time of Delivery: 03/07/2025 11:30 AM Delivered to: [id number] handed to pt Please contact [employer] photo optics technician with any questions. Thanks! Julissa Anderson CPhT * Sophie Caldwell PA-C - 03/07/2025 7:21 AM EDT GENERAL SURGERY PROGRESS NOTE IMPRESSION/PLAN Nataly Galvan is a 59 y.o. female that we are seeing for CC of abdominal pain. Dx with ileus likely secondary to E. coli UTI. Admitted on 03/03/2025. Pain much improved, still mild soreness Tolerating diet, no n/v Having bowel movements Abdomen is soft, not distended, mild ttp left of midline, not guarding Ok for discharge home today from surgical perspective Continue diet as tolerated Mobilize as much as tolerated, OOB TID, ambulate to chair Pt on board with discharge planning, all questions answered Sophie Caldwell PA-C 03/07/25 Time spent reviewing chart, discussing plan/answering questions of family, and at the bedside examining patient: 25 minutes SUBJECTIVE: Feeling much better today, still some mild abdominal soreness, but improving. Tolerating diet, having bowel movements. Vitals: 03/06/25 1504 03/06/25 1600 03/06/25 1709 03/06/252023 BP: 155/55 149/58 BP Location: Left arm Left arm Patient Position: Semi Fowlers Semi Fowlers Pulse: 68 66 66 72 Resp: 16 18 Temp: 97.9 ??F (36.6 ??C) 98.1 ??F (36.7 ??C) TempSrc: Oral Oral SpO2: 96% 98% Weight: Height: ABDOMEN:Abdomen is soft, not distended, mild ttp left of midline, not guarding LABS AND RADIOLOGY *I reviewed the following labs and studies WBC: Lab Results Component Value Date WBC 11.1 (H) 03/06/2025 Hemoglobin/Hematocrit: Lab Results Component Value Date HGB 12.9 03/06/2025 HCT 40.7 03/06/2025 BMP: Lab Results Component Value Date NA 139 03/06/2025 K 3.6 03/06/2025 CL 107 03/06/2025 CO2 23 03/06/2025 BUN 13 03/06/2025 CREATININE 0.73 03/06/2025 CALCIUM 8.5 (L) 03/06/2025 EK EKG 12 LEAD Result Date: 03/04/2025 [facility] Test Date: 2025-03-03 Pat Name: NATALY GALVAN Department: DEPID Room: 2133 Gender: Female Works Manager: Jory : 1965 Requested By: ABDULLAHI Mcdonald Order Number: [id number] Reading MD: Lucy Luong Measurements Intervals [place] Rate: 82 P: 47 VA: 161 QRS: 35 QRSD: 77 T: 30 QT: 388 QTc: 453 Interpretive Statements SINUS RHYTHM LOW QRS VOLTAGE INPRECORDIAL LEADS Electronically Signed On 03-04-2025 13:00:59 EDT by Lucy Luong XR CHEST PA OR AP Result Date: 03/04/2025 CHEST XRAY PA or AP, 03/04/2025 11:03 AM. CLINICAL HISTORY: -verify tube placement COMPARISON: X-ray 09/26/2021 PROCEDURE COMMENTS: Single view chest xray, PA or AP technique. FINDINGS: Support devices: NG tube with the tip and side-port in the stomach Unchanged cardiomediastinal silhouette. No active failure, pneumonia, or visible effusion. No visible pneumothorax. NG tube placement - Note: Radiology results need to be interpreted within a comprehensive clinical context. If you have questions about the radiology report, please contact the office of the orderingclinician. CT ABD PEL ED FAST W CONTRAST Result Date: 03/03/2025 CT ABDOMEN AND PELVIS WITH CONTRAST (FAST), 03/03/2025 9:04 PM CLINICAL HISTORY: - upper abd and bernard flank pain. COMPARISON: None. PROCEDURE COMMENTS: Multi- detector CT scanning of the abdomen and pelvis with multiplanar reformatting per expedited protocol. Isovue 370 IV contrast given as recorded in EPIC. Dose 1 : CT DLP Total : 705.68 mGycm DLP Spiral Max : 701.34 mGycm Maximum CTDI Vol : 14.21 mGy SSDE : 10.0891 mGy SSDE Diameter : 44.9 cm SSDE Source : AP+Lat FINDINGS: Lower chest: No acute abnormality. Liver: Hepatic steatosis and enlargement. Gallbladder: Cholecystectomy. Biliary tract: Normal for age. Pancreas: Normal. Spleen: Normal. Adrenals: Normal. Kidneys: Small renal cysts. Multiple nonobstructing left kidney stones in the 3 mm range. Gastrointestinal tract: Mild duodenal and proximal jejunal ileus. No acute small bowel findings.Grossly unremarkable stomach.Minimal colonic diverticulosis. No CT findings to suggest acute appendicitis. Peritoneum: No pneumoperitoneum or pathologic free fluid. Mesentery and retroperitoneum: No adenopathy or aneurysm. Pelvic organs: No acute findings.Surgically absent uterus. Abdominal wall and diaphragm: Intact. Musculoskeletal: Unremarkable for age. Impression: 1. Mild duodenal and proximal jejunal ileus. 2. Nonobstructing left nephrolithiasis. 3.Hepatic steatosis and enlargement. - Note: Radiology results need to be interpreted within a comprehensive clinical context. If you have questions about the radiology report, please contact the office of the ordering clinician. Cosigned by Jillian Santos MD at 03/08/2025 6:23 AM EDT Associated attestation - Jillian Santos MD - 03/08/2025 6:23 AM EDT I have not seen the patient today. Please see the note below from the practitioner. * Angelina Martines RN - 03/06/2025 3:30 PM EDT 03/06/25 1524 Discharge Planning Evaluation Completed by CC/SW Yes IP Mental Health Referral Pending No Who you interviewed In person interview with patient Mental Status Alert and oriented Decision Maker Patient Who does pt identify as their caregiver/support person who will be their active partner in the dc planning process Pt identified caregiver/support person for dc planning process Caregiver Name Michael, Does patient need wash tub machine operator? No Activities of Daily Living Prior to Admission Independent with ADLS;Independent with Homemaking;Independent with mobility DME Used at Home CPAP Patient's Living Arrangments Prior to Admission? Private Residence With Other(s) Private Residence With Other(s) Spouse/Significant Other;Parent;Children Support Systems Spouse/Significant Other;Parent;Children;Family Members Is PCP listed on facesheet correct? Yes Quality of Support System Adequate APS/CPS Report Made No Anticipated post-acute care needs Home with OP Follow Up Discussed discharge plans with Patient/Family/Caregiver/Support Person Yes, Discussed with patient Discussed discharge plans with Care Team at [facility] Yes, with nurse in attendance;Yes, with doctor in attendance Patient's goals for recovery Return to Prior Level of Functioning Actual Discharge Plan 03/06/25- CC INITIAL/FINAL: Chart reviewed. Pt admitted for an ileus. Surgery following. Pt had NGT during stay but has had it removed and attempted to eat today. Has had BMs. Is on abx for positive urine culture for Ecoli. Sensitivities pending. Anticipating d/c tomorrow per MDM. Met with pt at bedside. Pt is alert and oriented. She reports being independent, employed, and drives [employer]. Pt states she lives with her , parents, and 2 sons in a private residence. Denies having or needing HH. DME: CPAP with [employer] but is not using them anymore PCP: Dr Rodriguez RX: Nahomy Calhoun DMD: Yes. Pt denies any financial concerns for food, medication, or transportation. No d/c needs verbalized or identified. Pt states her will provide transportation home. CC will sign off. Final Note Referral to [facility] Care Management (SEP patients only) N/A Discharge Round Completed Yes Post Acute Form Assign to [employer] No Post Acute Form Completed No Care Coordination Discharge Ready? Yes Discharge to Home with Family Post Acute Provider Dr Rodriguez DME at Discharge None DME Assign to [employer] No DME completed by [employer] No Transportation at Discharge Personal vehicle Date Expected 03/06/25 Transportation Assign to [employer] No Confirmed Discharge Transportation Plan? Yes Transportation setup completed by [employer] No PASAR Completed Not Applicable Patient Aware and Agrees with DC Plan Yes Primary Caregiver/Legal Decision Maker aware and agree with Discharge Plan No (Pt states she will call family) Did patient request for family to not be notified Yes Does family and/or caregiver verbalize readiness, willingness, and ability to provide or support patient's self-management activities as appropriate? No, patient declined primary caregiver to be contacted MD Aware of Plan Yes RN Notified of Plan Yes * Prabhu Longoria MD - 03/06/2025 10:52 AM EDTAssociated Problem(s): Ileus (HCC) Improving surgery consulted Tolerating clears, advancing to low fiber ambulate * Prabhu Longoria MD - 03/06/2025 10:52 AM EDTAssociated Problem(s): Essential hypertension Continue home medications Clonidine patch placed monitor and adjust * Prabhu Longoria MD - 03/06/2025 10:52 AM EDTAssociated Problem(s): Severe obesity with body mass index (BMI) of 35.0 to 39.9 with serious comorbidity (HCC) Obesity (Body mass index is 34.95 kg/m??.) - Complicating assessment and treatment. Placing patientat risk for multiple co-morbidities as well as early and contributing to the patient's presentation. * Prabhu Longoria MD - 03/06/2025 10:52 AM EDTAssociated Problem(s): Dyslipidemia associated with type 2 diabetes mellitus (HCC) At home on atorvastatin Continue home medication * Prabhu Longoria MD - 03/06/2025 10:52 AM EDTAssociated Problem(s): Chronic diastolic heart failure (HCC) Compensated * Prabhu Longoria MD - 03/06/2025 10:52 AM EDTAssociated Problem(s): Type 2 diabetes mellitus with hyperglycemia, with long-term current use of insulin (HCC) Lantus 10 BID as patient was nPO if tolerates diet will increase dose. * Prabhu Longoria MD - 03/06/2025 10:52 AM EDTAssociated Problem(s): Acute cystitis without hematuria UA suggestive of infection Continue Rocephin Follow-up on the cultures and de-escalate antibiotics Ucx ecoli, pending sensitivity * Prabhu Longoria MD - 03/06/2025 10:49 AM EDT Images from the original note were not included. PROGRESS NOTE CC: Chief Complaint Patient presents with Abdominal Pain Abd pain that started today, emesis x3, reports dark urine. Unsure of fevers. Reason for follow up : Ileus (HCC) Hospital Day: 4 Nataly Galvan is a 59 y.o. female who presents with Ileus (HCC) Subjective/Interval history Denies any nausea abd pain improving small BM afebrile Objective. BP (!) 172/62 (BP Location: Left arm, Patient Position: Semi Fowlers) Pulse 69 Temp 97.8 ??F (36.6 ??C) (Oral) Resp 16 Ht 5' 5 (1.651 m) Wt 210 lb (95.3 kg) SpO2 96% BMI 34.95 kg/m?? I/O last 3 completed shifts: In: 3120.6 [I.V.:3071; IV Piggyback:49.6] Out: 200 [Emesis/NG output:200] Weight: 210 lb (95.3 kg) General: NAD, ill appearing Eyes: EOMI ENT: neck supple Cardiovascular: Regular rate. Respiratory: Clear to auscultation Gastrointestinal: Soft, non tender Genitourinary: no suprapubic tenderness Musculoskeletal: No edema Skin: warm, dry Neuro: Alert. Psych: Mood appropriate Labs: Laboratory data and diagnostic testing reviewed 03/06/25. Recent Labs 03/04/25 0600 03/05/25 0742 03/06/25 0750 WBC 10.7* 12.5* 11.1* HGB 13.4 13.8 12.9 HCT 41.0 42.7 40.7 PLT 235 251 218 Recent Labs 03/03/25 1944 03/04/25 0559 03/05/25 0741 03/06/25 0750 NA 135* 137 138 139 K 4.1 3.8 4.2 -- CL 97* 101 103 107 CO2 24 24 23 23 PHOS -- -- 2.3* 2.2* BUN 26* 21 17 13 CREATININE 0.91 0.80 0.78 0.73 Recent Labs 03/03/251943 AST 27 ALT 22 ALKPHOS 125* Recent Labs 03/03/251943 PROT 7.4 No results for input(s): APTT in the last 72 hours. No results for input(s): CKTOTAL , CKMB , CKMBINDEX , TROPONINI in the last 72 hours. Invalid input(s): PNP No results for input(s): CHOL , TRIG in the last 72 hours. Invalid input(s): CHOLHDLR , NDL , LDL , CALCU Prabhu Longoria MD 03/06/2025 Assessment & Plan: Assessment & Plan Ileus (HCC) Improving surgery consulted Tolerating clears, advancing to low fiber ambulate Essential hypertension Continue home medications Clonidine patch placed monitor and adjust Severe obesity with body mass index (BMI) of 35.0 to 39.9 with serious comorbidity (HCC) Obesity (Body mass index is 34.95 kg/m??.) - Complicating assessment and treatment. Placing patientat risk for multiple co-morbidities as well as early and contributing to the patient's presentation. Dyslipidemia associated with type 2 diabetes mellitus (HCC) At home on atorvastatin Continue home medication Chronic diastolic heart failure (HCC) Compensated Type 2 diabetes mellitus with hyperglycemia, with long-term current use of insulin (HCC) Lantus 10 BID as patient was nPO if tolerates diet will increase dose. Acute cystitis without hematuria UA suggestive of infection Continue Rocephin Follow-up on the cultures and de-escalate antibiotics Ucx ecoli, pending sensitivity VTE Prophylaxis: Ready for dc 24 hours pending tolerance to diet MDM Number and Complexity of Problems: [] 1 or more chronic illness(es) with exacerbation, progression, or side effects of treatment. [x] 2+ stable chronic illnesses [] 1 undiagnosed new problem with uncertain prognosis [x] 1 acute illness with systemic symptoms Amount and/or Complexity of Data Ordered, Reviewed, or Analyzed (1+ of 3): [] Review of external note [] Independent history obtained from family member/friend/ health care facility [x] Tests ordered: [x] Labs reviewed [] Independent interpretation of test(s) [] Discussion of management of test interpretation with other healthcare provider. Risk of Complication and/or Morbidity or Mortality of Patient Management: [x] Prescription drug management [] Parentral controlled substance management []Vancomycin, Monitoring for renal toxicity, monitoring with renal panel, vanc trough. []anticoagulant therapeutic dosage , monitoring for bleeding with cbc, plt count [x]Insulin management, monitoring for hypoglycemia [] Blood product transfusion needing monitoring for transfusion reaction, TRALI, fluid overload [] IV Diuresis needing monitoring of lytes Medical complexity: Moderate * Cal Lindsay PA-C - 03/06/2025 8:56 AM EDT GENERAL SURGERY PROGRESS NOTE Nataly Galvan is a 59 y.o. female that we are seeing for CC of abdominal pain. Dx with ileus likely secondary to E. coli UTI. Admitted on 03/03/2025. Length of stay: 2 Days PLAN: Advance diet as tolerated to low fiber. Ambulate minimum 3 times daily Optimize electrolytes Start MiraLAX and Senokot Okay to DC maintenance IV fluids from surgical standpoint Antibiotics for UTI per hospitalist-currently on Rocephin. SUBJECTIVE/INTERVAL HX: NG tube removed yesterday and started on clear liquid diet yesterday evening. Tolerated small amount of clears last night and taking some morning for breakfast this morning at time of exam. 2X bowel movements since NG tube removed and passing small amount of flatus this morning. Subjectively decreased abdominal bloating/distention with no abdominal pain. Did have small amount of hiccups this morning but has since resolved with no belching, nausea, hiccups at this time. Urine culture positive for E. coli EXAM: ABDOMEN: Abdomen soft, mildly distended over upper abdomen and minimally tympanic. No tenderness topalpation. General Surgery Disposition Perspective - Medically Ready for Discharge: No Ready when/if?: Off IV antibiotics, tolerating diet, adequate bowel function. Cal Lindsay PA-C 03/06/25 Time spent reviewing chart, discussing plan/answering questions of family, and at the bedside examining patient: 15 minutes Vitals: 03/06/25 0254 03/06/25 0424 03/06/25 0454 03/06/25 0817 BP: 136/47 (!) 172/62 BP Location: Right arm Left arm Patient Position: Lying left side Semi Fowlers Pulse: 63 66 61 69 Resp: 17 16 Temp: 97.7 ??F (36.5 ??C) 97.8 ??F (36.6 ??C) TempSrc: Oral Oral SpO2: 96% 96% Weight: Height: LABS AND RADIOLOGY *I reviewed the following labs and studies WBC: Lab Results Component Value Date WBC 11.1 (H) 03/06/2025 Hemoglobin/Hematocrit: Lab Results Component Value Date HGB 12.9 03/06/2025 HCT 40.7 03/06/2025 BMP: Lab Results Component Value Date NA 138 03/05/2025 K 4.2 03/05/2025 CL 103 03/05/2025 CO2 23 03/05/2025 BUN 17 03/05/2025 CREATININE 0.78 03/05/2025 CALCIUM 9.1 03/05/2025 EK EKG 12 LEAD Result Date: 03/04/2025 [facility] Test Date: 2025-03-03 Pat Name: NATALY GALVAN Department: DEPID Room: 2133 Gender: Female Works Manager: Jory : 1965 Requested By: ABDULLAHI Mcdonald Order Number: [id number] Reading MD: Lucy Luong Measurements Intervals [place] Rate: 82 P: 47 VA: 161 QRS: 35 QRSD: 77 T: 30 QT: 388 QTc: 453 Interpretive Statements SINUS RHYTHM LOW QRS VOLTAGE IN PRECORDIAL LEADS Electronically Signed On 03-04-2025 13:00:59 EDT by Lucy Luong XR CHEST PA OR AP Result Date: 03/04/2025 CHEST XRAY PA or AP, 03/04/2025 11:03 AM. CLINICAL HISTORY: -verify tube placement COMPARISON: X-ray09/26/2021 PROCEDURE COMMENTS: Single view chest xray, PA or AP technique. FINDINGS: Support devices: NG tube with the tip and side-port in the stomach Unchanged cardiomediastinal silhouette. No active failure, pneumonia, or visible effusion. No visible pneumothorax. NG tube placement - Note: Radiology results need to be interpreted within a comprehensive clinical context. If you have questions about the radiology report, please contact the office of the orderingclinician. CT ABD PEL ED FAST W CONTRAST Result Date: 03/03/2025 CT ABDOMEN AND PELVIS WITH CONTRAST (FAST), 03/03/2025 9:04 PM CLINICAL HISTORY: - upper abd and bernard flank pain. COMPARISON: None. PROCEDURE COMMENTS: Multi- detector CT scanning of the abdomen and pelvis with multiplanar reformatting per expedited protocol. Isovue 370 IV contrast given as recorded in EPIC. Dose 1 : CT DLP Total : 705.68 mGycm DLP Spiral Max : 701.34 mGycm Maximum CTDI Vol : 14.21 mGy SSDE : 10.0891 mGy SSDE Diameter : 44.9 cm SSDE Source : AP+Lat FINDINGS: Lower chest: No acute abnormality. Liver: Hepatic steatosis and enlargement. Gallbladder: Cholecystectomy. Biliary tract: Normal for age. Pancreas: Normal. Spleen: Normal. Adrenals: Normal. Kidneys: Small renal cysts. Multiple nonobstructing left kidney stones in the 3 mm range. Gastrointestinal tract: Mild duodenal and proximal jejunal ileus. No acute small bowel findings.Grossly unremarkable stomach.Minimal colonic diverticulosis. No CT findings to suggest acute appendicitis. Peritoneum: No pneumoperitoneum or pathologic free fluid. Mesentery and retroperitoneum: No adenopathy or aneurysm. Pelvic organs: No acute findings.Surgically absent uterus. Abdominal wall and diaphragm: Intact. Musculoskeletal: Unremarkable for age. Impression: 1. Mild duodenal and proximal jejunal ileus. 2. Nonobstructing left nephrolithiasis. 3.Hepatic steatosis and enlargement. - Note: Radiology results need to be interpreted within a comprehensive clinical context. If you have questions about the radiology report, please contact the office of the ordering clinician. Cosigned by Ariel Pitt MD at 03/06/2025 3:39 PM EDT Associated attestation - Ariel Pitt MD - 03/06/2025 3:39 PM EDT EGS ATTENDING ATTESTATION Patient seen and examined. PA note reviewed in full. Agree with assessment and plan. Abdomen soft, not tender, mildy distended. Patient having flatus and BM's. On low fiber diet started today. Did have nausea and bloating with PO intake today. This did improve with zofran. Would not discharge today. Could be ready for d/c tomorrow. Will continue to follow. Ariel Pitt MD 03/06/2025 3:35 PM Total time spent by me on all aspects of patient's care: 20 minutes Greater than 50% of this time was spent at the patient's bedside and coordinating care. * Prabhu Longoria MD - 03/05/2025 2:00 PM EDTAssociated Problem(s): Ileus (HCC) CT abdomen suggestive of ileus NG decompression no nausea, emesis. NG clamp trial today * Prabhu Longoria MD - 03/05/2025 2:00 PM EDTAssociated Problem(s): Essential hypertension Continue home medications however as patient n.p.o. start hydralazine 10 mg IV as needed for hypertension Clonidine patch placed * Prabhu Longoria MD - 03/05/2025 2:00 PM EDTAssociated Problem(s): Severe obesity with body mass index (BMI) of 35.0 to 39.9 with serious comorbidity (HCC) Obesity (Body mass index is 34.95 kg/m??.) - Complicating assessment and treatment. Placing patientat risk for multiple co-morbidities as well as early and contributing to the patient's presentation. * Prabhu Longoria MD - 03/05/2025 2:00 PM EDTAssociated Problem(s): Dyslipidemia associated with type 2 diabetes mellitus (HCC) At home on atorvastatin Continue with the Remains n.p.o. now * Prabhu Longoria MD - 03/05/2025 2:00 PM EDTAssociated Problem(s): Chronic diastolic heart failure (HCC) Compensated * Prabhu Longoria MD - 03/05/2025 2:00 PM EDTAssociated Problem(s): Type 2 diabetes mellitus with hyperglycemia, with long-term current use of insulin (HCC) Given n.p.o., hold high-dose insulin Continue Lantus 10 twice daily Accu-Chek AC and at bedtime Start sliding scale insulin BS acceptable range * Prabhu Longoria MD - 03/05/2025 2:00 PM EDTAssociated Problem(s): Acute cystitis without hematuria UA suggestive of infection Continue Rocephin Follow-up on the cultures and de-escalate antibiotics * Prabhu Longoria MD - 03/05/2025 1:57 PM EDT Images from the original note were not included. PROGRESS NOTE CC: Chief Complaint Patient presents with Abdominal Pain Abd pain that started today, emesis x3, reports dark urine. Unsure of fevers. Reason for follow up : Ileus (HCC) Hospital Day: 3 Nataly Galvan is a 59 y.o. female who presents with Ileus (HCC) Subjective/Interval history c/o throat discomfort with NG tube Objective. BP (!) 164/77 (BP Location: Left arm, Patient Position: Lying right side) Pulse 73 Temp 99.9 ??F (37.7 ??C) (Oral) Resp 18 Ht 5' 5 (1.651 m) Wt 210 lb (95.3 kg) SpO2 96% BMI 34.95 kg/m?? I/O last 3 completed shifts: In: 123.2 [I.V.:3.2; NG/GT:120] Out: 530 [Emesis/NG output:530] Weight: 210 lb (95.3 kg) General: NAD, ill appearing Eyes: EOMI ENT: neck supple Cardiovascular: Regular rate. Respiratory: Clear to auscultation Gastrointestinal: Soft, non tender Genitourinary: no suprapubic tenderness Musculoskeletal: No edema Skin: warm, dry Neuro: Alert. Psych: Mood appropriate Labs: Laboratory data and diagnostic testing reviewed 03/05/25. Recent Labs 03/03/25194303/04/25 0600 03/05/25 0742 WBC 12.5* 10.7* 12.5* HGB 13.5 13.4 13.8 HCT 41.2 41.0 42.7 PLT 269 235 251 Recent Labs 03/03/254 03/04/25 0559 03/05/25 0741 NA 135* 137 138 K 4.1 3.8 4.2 CL 97* 101 103 CO2 24 24 23 PHOS -- -- 2.3* BUN 26* 21 17 CREATININE 0.91 0.80 0.78 Recent Labs 03/03/251943 AST 27 ALT 22 ALKPHOS 125* Recent Labs 03/03/251943 PROT 7.4 No results for input(s): APTT in the last 72 hours. No results for input(s): CKTOTAL , CKMB , CKMBINDEX , TROPONINI in the last 72 hours. Invalid input(s): PNP No results for input(s): CHOL , TRIG in the last 72 hours. Invalid input(s): CHOLHDLR , NDL , LDL , CALCU Prabhu Longoria MD 03/05/2025 Assessment & Plan: Assessment & Plan Ileus (HCC) CT abdomen suggestive of ileus NG decompression no nausea, emesis. NG clamp trial today Essential hypertension Continue home medications however as patient n.p.o. start hydralazine 10 mg IV as needed for hypertension Clonidine patch placed Severe obesity with body mass index (BMI) of 35.0 to 39.9 with serious comorbidity (HCC) Obesity (Body mass index is 34.95 kg/m??.) - Complicating assessment and treatment. Placing patientat risk for multiple co-morbidities as well as early and contributing to the patient's presentation. Dyslipidemia associated with type 2 diabetes mellitus (HCC) At home on atorvastatin Continue with the Remains n.p.o. now Chronic diastolic heart failure (HCC) Compensated Type 2 diabetes mellitus with hyperglycemia, with long-term current use of insulin ([facility]) Given n.p.o., hold high-dose insulin Continue Lantus 10 twice daily Accu-Chek AC and at bedtime Start sliding scale insulin BS acceptable range Acute cystitis without hematuria UA suggestive of infection Continue Rocephin Follow-up on the cultures and de-escalate antibiotics VTE Prophylaxis: Handoff Completed:Yes/No: No Disposition Perspective - Medically ready for discharge: No Anticipated ready for discharge timeframe?: >2 days Ready for discharge when / if?: improved MDM Number and Complexity of Problems: [x] 1 or more chronic illness(es) with exacerbation, progression, or side effects of treatment. [x] 2+ stable chronic illnesses [] 1 undiagnosed new problem with uncertain prognosis [x] 1 acute illness with systemic symptoms Amount and/or Complexity of Data Ordered, Reviewed, or Analyzed (1+ of 3): [] Review of external note [] Independent history obtained from family member/friend/ health care facility [x] Tests ordered: [x] Labs reviewed [] Independent interpretation of test(s) [] Discussion of management of test interpretation with other healthcare provider. Risk of Complication and/or Morbidity or Mortality of Patient Management: [x] Prescription drug management [x] Parentral controlled substance management []Vancomycin, Monitoring for renal toxicity, monitoring with renal panel, vanc trough. []anticoagulant therapeutic dosage , monitoring for bleeding with cbc, plt count []Insulin management, monitoring for hypoglycemia [] Blood product transfusion needing monitoring for transfusion reaction, TRALI, fluid overload [] IV Diuresis needing monitoring of lytes Medical complexity: Moderate * Sophie Caldwell PA-C - 03/05/2025 8:34 AM EDT GENERAL SURGERY PROGRESS NOTE IMPRESSION/PLAN Nataly Galvan is a 59 y.o. female that we are seeing for CC of abdominal pain. Dx with ileus. Admitted on 03/03/2025. Discomfort with NG tube, but abdominal pain much improved, denies nausea No flatus or BM WBC mildly increased, 12.5 from 10.7, afebrile Phos low, 2.3 NG output 530 mL all day yesterday, 200 mL in canister this morning, thin Abdomen is soft, not distended, not tender to palpation Replace phos Add suppositories Clamp trial initiated at 0845: -Clamp NG for 4 hours (until 1245) -Hook back to suction for 30min -If output less than 200mL, may remove NG -If pt feels nauseated or bloated at any time during trial, hook back to suction, and notify Surgery Sophie Caldwell PA-C 03/05/25 Time spent reviewing chart, discussing plan/answering questions of family, and at the bedside examining patient: 15 minutes SUBJECTIVE: Complaining of discomfort with NG tube, but abdomen feels better today, denies abdominal pain at this time. Denies nausea. No flatus or BM Vitals: 03/05/25 0101 03/05/25 0303 03/05/25 0435 03/05/25 0523 BP: (!) 186/74 BP Location: Right arm Patient Position: Semi Fowlers Pulse: 83 70 77 78 Resp: 19 Temp: 98.3 ??F (36.8 ??C) TempSrc: Oral SpO2: 93% Weight: Height: ABDOMEN: Abdomen is soft, not distended, not tender to palpation LABS AND RADIOLOGY *I reviewed the following labs and studies WBC: Lab Results Component Value Date WBC 12.5 (H) 03/05/2025 Hemoglobin/Hematocrit: Lab Results Component Value Date HGB 13.8 03/05/2025 HCT 42.7 03/05/2025 BMP: Lab Results Component Value Date NA 138 03/05/2025 K 4.2 03/05/2025 CL 103 03/05/2025 CO2 23 03/05/2025 BUN 17 03/05/2025 CREATININE 0.78 03/05/2025 CALCIUM 9.1 03/05/2025 EK EKG 12 LEAD Result Date: 03/04/2025 [facility] Test Date: 2025-03-03 Pat Name: NATALY GALVAN Department: DEPID Room: [facility] Gender: Female Works Manager: Jory : 1965 Requested By: ABDULLAHI Mcdonald Order Number: [id number] Reading MD: Lucy Luong Measurements Intervals [place] Rate: 82 P: 47 VA: 161 QRS: 35 QRSD: 77 T: 30 QT: 388 QTc: 453 Interpretive Statements SINUS RHYTHM LOW QRS VOLTAGE INPRECORDIAL LEADS Electronically Signed On 03-04-2025 13:00:59 EDT by Lucy Luong XR CHEST PA OR AP Result Date: 03/04/2025 CHEST XRAY PA or AP, 03/04/2025 11:03 AM. CLINICAL HISTORY: -verify tube placement COMPARISON: X-ray 09/26/2021 PROCEDURE COMMENTS: Single view chest xray, PA or AP technique. FINDINGS: Support devices: NG tube with the tip and side-port in the stomach Unchanged cardiomediastinal silhouette. No active failure, pneumonia, or visible effusion. No visible pneumothorax. NG tube placement - Note: Radiology results need to be interpreted within a comprehensive clinical context. If you have questions about the radiology report, please contact the office of the orderingclinician. CT ABD PEL ED FAST W CONTRAST Result Date: 03/03/2025 CT ABDOMEN AND PELVIS WITH CONTRAST (FAST), 03/03/2025 9:04 PM CLINICAL HISTORY: - upper abd and bernard flank pain. COMPARISON: None. PROCEDURE COMMENTS: Multi- detector CT scanning of the abdomen and pelvis with multiplanar reformatting per expedited protocol. Isovue 370 IV contrast given as recorded in EPIC. Dose 1 : CT DLP Total : 705.68 mGycm DLP Spiral Max : 701.34 mGycm Maximum CTDI Vol : 14.21 mGy SSDE : 10.0891 mGy SSDE Diameter : 44.9 cm SSDE Source : AP+Lat FINDINGS: Lower chest: No acute abnormality. Liver: Hepatic steatosis and enlargement. Gallbladder: Cholecystectomy. Biliary tract: Normal for age. Pancreas: Normal. Spleen: Normal. Adrenals: Normal. Kidneys: Small renal cysts. Multiple nonobstructing left kidney stones in the 3 mm range. Gastrointestinal tract: Mild duodenal and proximal jejunal ileus. No acute small bowel findings.Grossly unremarkable stomach.Minimal colonic diverticulosis. No CT findings to suggest acute appendicitis. Peritoneum: No pneumoperitoneum or pathologic free fluid. Mesentery and retroperitoneum: No adenopathy or aneurysm. Pelvic organs: No acute findings.Surgically absent uterus. Abdominal wall and diaphragm: Intact. Musculoskeletal: Unremarkable for age. Impression: 1. Mild duodenal and proximal jejunal ileus. 2. Nonobstructing left nephrolithiasis. 3.Hepatic steatosis and enlargement. - Note: Radiology results need to be interpreted within a comprehensive clinical context. If you have questions about the radiology report, please contact the office of the ordering clinician. * Prabhu Longroia MD - 03/04/2025 12:22 PM EDTAssociated Problem(s): Ileus (HCC) CT abdomen suggestive of ileus Keep n.p.o. Surgery consultation NG decompression * Prabhu Longoria MD - 03/04/2025 12:22 PM EDTAssociated Problem(s): Essential hypertension Continue home medications however as patient n.p.o. start hydralazine 10 mg IV as needed for hypertension * Prabhu Longoria MD - 03/04/2025 12:22 PM EDTAssociated Problem(s): Severe obesity with body mass index (BMI) of 35.0 to 39.9 with serious comorbidity (HCC) Obesity (Body mass index is 34.95 kg/m??.) - Complicating assessment and treatment. Placing patientat risk for multiple co-morbidities as well as early and contributing to the patient's presentation. Counseled on weight loss. * Prabhu Longoria MD - 03/04/2025 12:22 PM EDTAssociated Problem(s): Dyslipidemia associated with type 2 diabetes mellitus (HCC) At home on atorvastatin Continue with the Remains n.p.o. now * Prabhu Longoria MD - 03/04/2025 12:22 PM EDTAssociated Problem(s): Chronic diastolic heart failure (HCC) Compensated * Prabhu Longoria MD - 03/04/2025 12:22 PM EDTAssociated Problem(s): Type 2 diabetes mellitus with hyperglycemia, with long-term current use of insulin (HCC) Given n.p.o., hold high-dose insulin Start Lantus 10 twice daily Accu-Chek AC and at bedtime Start sliding scale insulin * Prabhu Longoria MD - 03/04/2025 12:22 PM EDTAssociated Problem(s): Acute cystitis without hematuria UA suggestive of infection Start Rocephin Follow-up on the cultures and de-escalate antibiotics * Carol Ferro RN - 03/04/2025 12:00 AM EDT Patient arrived on unit and 4 Eyes Skin Assessment within 4 hours completed with Ernesto Quevedo, Charge Nurse. Marcus Score: 21 Devices Removed/ Reapplied for Skin Assessment NA Wound Present of Arrival: Yes No - Yes Explain: No Wound LDAs None Initiate prevention protocol and No prevention protocol needed Dietary Orders Ordered NPO: Strict DIET EFFECTIVE MIDNIGHT 03/03/25 9565 Comments: Yes, skin intact. Blanchable redness noted to bilateral heels. documented in this encounter H&P Notes * Prabhu Longoria MD - 03/04/2025 12:16 PM EDT Images from the original note were not included. + Name: Nataly Galvan ADDRESS: [address] [place] [address] : 1965 AGE: 59 y.o. Admitting Physician: Prabhu Longoria MD Date of Admit: 03/03/2025 PCP: Louis Rodriguez MD Chief Complaint: Abdominal Pain (Abd pain that started today, emesis x3, reports dark urine. Unsureof fevers.) History of Present Illness: 59-year-old female with a background of unstable angina, diabetes, hyperlipidaemia, heart failure (ejection fraction 65% in 2020), sepsis, renal artery stenosis, hypertension, obesity, pyelonephritis, and kidney stones presents with a new onset of intermittent, now constant, upper abdominal pain radiating to both flanks. This started yesterday . She reports associated nausea and three episodes ofemesis. She describes her urine as dark and mentions pain on defecation, although she has had a bowel movement today. She denies fever, chest pain, and shortness of breath. She has a known history ofgastroparesis. Observations on arrival: afebrile at 36.6 ?C, pulse 96 bpm, respiratory rate 16/min, blood /68 mmHg, SpO2 98% on air. She appears mildly uncomfortable. Abdominal examination reveals diffuse upper abdominal tenderness without rebound or guarding; no lower abdominal or costovertebral angle tenderness. Initial management has included administration of morphine and ondansetron. CT abdomen pelvis in the ER suggested possible ileus, she is admitted for further management Past Medical History: Past Medical History: Diagnosis Date Anemia with pregnancies Arthritis Cardiomegaly Chronic diastolic heart failure (HCC) 12/17/2017 Diabetes mellitus (HCC) Difficult intubation narrow airway Fatty liver Heart attack (HCC) right sided dystolic heart failure - does not have stents Heartburn Hypertension Irritable bowel syndrome Kidney stones Liver disease Sleep apnea cpap, setting 10 TIA (transient ischemic attack) 1999?, no deficits/residuals Urinary tract infection Wears glasses Past Surgical History: Past Surgical History: Procedure Laterality Date APPENDECTOMY BACK SURGERY L4-5 ruptured disc CHOLECYSTECTOMY CYSTOSCOPY 08/10/2019 Surgeon: Leanna Jimenez MD; Location: [facility] MAIN OR; Service: Urology HYSTERECTOMY KIDNEY STONE SURGERY Right 08/10/2019 CYSTOSCOPY RIGHT STENT INSERTION, RIGHT PERCUTANEOUS NEPHROLITHOTOMY, RIGHT PERCUTANEOUS NEPHROSTOMY TUBE PLACEMENT ; Surgeon: Leanna Jimenez MD; Location: [facility]; Service: Urology LITHOTRIPSY UPPER GASTROINTESTINAL ENDOSCOPY N/A 06/20/2020 ESOPHAGOGASTRODUODENOSCOPY with biopsy via forceps and arrieta dilation COLONOSCOPY with polypectomy via hot and cold snare; Surgeon: Mahin Dallas MD; Location[facility]; Service: Endoscopy Home Medications: Prior to Admission medications Medication Sig Start Date End Date Last Dose Authorizing Provider Aspirin 81 mg Take 81 mg by mouth daily. 03/03/2025 Morning Provider, Historical atorvastatin (LIPITOR) 40 mg Oral Tablet Take 1 Tablet by mouth nightly. 10/01/21 03/03/2025 Evening Shady Francisco MD insulin aspart protamine-insulin aspart (NOVOLOG MIX 70/30) 100 unit/mL (70-30) SubQ Insulin Pen Inject 50 Units under the skin 2 times daily. 03/03/2025 Evening Provider, Historical insulin glargine U-100 (LANTUS) 100 unit/mL SubQ Solution Subcutaneous (Inject under the skin) 45 Units 2 times daily. Patient taking differently: Inject 120 Units under the skin nightly. 07/02/19 03/03/2025 Evening Mariposa Cali MD isosorbide mononitrate (MONOKET) 20 mg Oral Tablet Take 20 mg by mouth daily. 03/03/2025 Morning Provider, Historical losartan-hydrochlorothiazide (HYZAAR) 100-25 mg Oral Tablet Take 1 Tablet by mouth daily. 03/03/2025 Morning Provider, Historical ondansetron (ZOFRAN, HYDROCHLORIDE,) 4 mg Oral Tablet Take 4 mg by mouth every 6 hours. Takes asneeded every 6 hours for nausea Taking Provider, Historical Blood Sugar Diagnostic (FREESTYLE LITE STRIPS) Misc Strip by [facility].(Non-Drug; Combo Route) route. Use to test BS 4 x daily Provider, Historical Blood-Glucose Meter (FREESTYLE LITE METER) [facility].(Non-Drug; Combo Route) route. Use to test BS 4 x daily Provider, Historical Allergies: Allergies Allergen Reactions Lisinopril Anaphylaxis Beta-Blockers (Beta-Adrenergic Blocking Agts) Other (See Comments) bradycardia Iodine Swelling 03/03/[address] with [id number] without any premedications and did not have any complications-ANL Ok for CT Isovue 370 with premedication benadryl 25mg and solu-medrol 125mg scanned 1 hour later-pttolerated contrast with no reaction or issues-ANL Social History: Social History Tobacco Use Smoking status: Never Smokeless tobacco: Never Vaping Use Vaping status: Never Used Substance Use Topics Alcohol use: No Drug use: No Family History: Family History Problem Relation Age of Onset Diabetes Mother Heart Disease Mother High Blood Pressure Father Diabetes Father Diabetes Maternal Aunt Diabetes Paternal Aunt Cancer Maternal Grandfather Cancer Paternal Grandmother Heart Disease Paternal Grandfather Anesth Problems Neg Hx Review of Systems: The listed systems were reviewed and reveal the following in addition to any already discussed in the HPI: ROS Positive for abdominal pain, nausea, emesis Physical Exam: Physical Exam Constitutional: Appearance: Normal appearance. She is ill-appearing. HENT: Head: Normocephalic and atraumatic. Cardiovascular: Rate and Rhythm: Normal rate and regular rhythm. Pulses: Normal pulses. Heart sounds: Normal heart sounds. Pulmonary: Effort: Pulmonary effort is normal. Breath sounds: Normal breath sounds. Abdominal: General: Bowel sounds are normal. There is distension. Musculoskeletal: General: Normal range of motion. Skin: General: Skin is warm and dry. Capillary Refill: Capillary refill takes less than 2 seconds. Neurological: General: No focal deficit present. Mental Status: She is alert and oriented to person, place, and time. Psychiatric: Mood and Affect: Mood normal. Behavior: Behavior normal. Labs: Recent Labs 03/03/25194303/04/25 0600 WBC 12.5* 10.7* HGB 13.5 13.4 HCT 41.2 41.0 PLT 269 235 Recent Labs 03/03/25194303/04/25 0559 NA 135* 137 K 4.1 3.8 CL 97* 101 CO2 24 24 BUN 26* 21 CREATININE 0.91 0.80 Recent Labs 03/03/251943 AST 27 ALT 22 ALKPHOS 125* Recent Labs 03/03/251943 PROT 7.4 No results for input(s): APTT in the last 72 hours. No results for input(s): CKTOTAL , CKMB , CKMBINDEX , TROPONINI in the last 72 hours. Invalid input(s): PNP No results for input(s): CHOL , TRIG in the last 72 hours. Invalid input(s): CHOLHDLR , NDL , LDL , CALCU Radiology: XR CHEST PA OR AP Final Result NG tube placement - Note: Radiology results need to be interpreted within a comprehensive clinical context. If you have questions about the radiology report, please contact the office of the ordering clinician. CT ABD PEL ED FAST W CONTRAST Final Result Impression: 1. Mild duodenal and proximal jejunal ileus. 2. Nonobstructing left nephrolithiasis. 3. Hepatic steatosis and enlargement. - Note: Radiology results need to be interpreted within a comprehensive clinical context. If you have questions about the radiology report, please contact the office of the ordering clinician. EK EKG 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 Assessment and Plan: Active Hospital Problems Diagnosis *Ileus (HCC) Type 2 diabetes mellitus with hyperglycemia, with long-term current use of insulin (HCC) Dyslipidemia associated with type 2 diabetes mellitus (HCC) Chronic diastolic heart failure (HCC) Essential hypertension Severe obesity with body mass index (BMI) of 35.0 to 39.9 with serious comorbidity (HCC) Resolved Hospital Problems No resolved problems to display. Assessment & Plan Ileus (HCC) CT abdomen suggestive of ileus Keep n.p.o. Surgery consultation NG decompression Essential hypertension Continue home medications however as patient n.p.o. start hydralazine 10 mg IV as needed for hypertension Severe obesity with body mass index (BMI) of 35.0 to 39.9 with serious comorbidity (HCC) Obesity (Body mass index is 34.95 kg/m??.) - Complicating assessment and treatment. Placing patientat risk for multiple co-morbidities as well as early and contributing to the patient's presentation. Counseled on weight loss. Dyslipidemia associated with type 2 diabetes mellitus (HCC) At home on atorvastatin Continue with the Remains n.p.o. now Chronic diastolic heart failure (HCC) Compensated Type 2 diabetes mellitus with hyperglycemia, with long-term current use of insulin (HCC) Given n.p.o., hold high-dose insulin Start Lantus 10 twice daily Accu-Chek AC and at bedtime Start sliding scale insulin Acute cystitis without hematuria UA suggestive of infection Start Rocephin Follow-up on the cultures and de-escalate antibiotics Personally reviewed Lab Studies and Imaging Discussed management of the case with care team, consultants EKG interpreted personally and results sinus rhythm Imaging that was interpreted personally includes CT abdomen High risk Drug needing intensive monitoring include Morphine through IV method of monitoring respiratory rate Dispo: Admit to acute medicine VTE Prophylaxis: Anti-Embolism Intervention: Fran Longoria MD documented in this encounter Consult Notes * Sophie Caldwell PA-C - 03/04/2025 7:16 AM EDTAssociated Order(s): IP CONSULT TO GENERAL SURGERY EMERGENCY GENERAL SURGERY CONSULT CONSULTING PHYSICIAN: Ariel Pitt MD ASSESSMENT AND PLAN Nataly Galvan is a 59 y.o. year old female who I am asked to see for CC of Abdominal pain, nausea.Dx with same. Plan: Given persistent nausea and pain through the night, plan for NG placement NG to CLWS Bowel rest IV fluids Check mag/phos in AM Replace electrolytes as needed to keep mag >2, phos >3, K >4 Objective: CT images reviewed by me, mild ileus, mild gastric dilation WBC mildly elevated, 10.7 from 12.5 yesterday, afebrile Abdomen is soft, mild bloating, tender to palpation in epigastrium and bilateral upper quadrants mild localized guarding, no rebound I spent a total of 60 minutes with over 50% of the time spent at the bedside and coordinating care. HISTORY OF PRESENT ILLNESS Patient is a 59-year-old female with a history of diabetes, hypertension, CHF, heart attack, kidneydisease, WALTERS, who presents to the hospital with 3 days of worsening abdominal pain. She states that the pain has been like a sharp pressure in her epigastrium and radiating down along both sides of her abdomen. She does not notice anything that makes it better or worse. Yesterday she began to havenausea and multiple episodes of vomiting. Last bowel movement was yesterday, no blood noted in stool. Has not had flatus since that time. Surgical history includes appendectomy, cholecystectomy, hysterectomy. She takes aspirin daily but no other blood thinners. HISTORY Past Medical History: Diagnosis Date Anemia with pregnancies Arthritis Cardiomegaly Chronic diastolic heart failure (HCC) 12/17/2017 Diabetes mellitus (HCC) Difficult intubation narrow airway Fatty liver Heart attack (HCC) right sided dystolic heart failure - does not have stents Heartburn Hypertension Irritable bowel syndrome Kidney stones Liver disease Sleep apnea cpap, setting 10 TIA (transient ischemic attack) 1999?, no deficits/residuals Urinary tract infection Wears glasses Past Surgical History: Procedure Laterality Date APPENDECTOMY BACK SURGERY L4-5 ruptured disc CHOLECYSTECTOMY CYSTOSCOPY 08/10/2019 Surgeon: Leanna Jimenez MD; Location: ED MAIN OR; Service: Urology HYSTERECTOMY KIDNEY STONE SURGERY Right 08/10/2019 CYSTOSCOPY RIGHT STENT INSERTION, RIGHT PERCUTANEOUS NEPHROLITHOTOMY, RIGHT PERCUTANEOUS NEPHROSTOMY TUBE PLACEMENT ; Surgeon: Leanna Jimenez MD; Location: ED MAIN OR; Service: Urology LITHOTRIPSY UPPER GASTROINTESTINAL ENDOSCOPY N/A 06/20/2020 ESOPHAGOGASTRODUODENOSCOPY with biopsy via forceps and arrieta dilation COLONOSCOPY with polypectomy via hot and cold snare; Surgeon: Mahin Dallas MD; Location: EDGENDOSCOPY; Service: Endoscopy Allergies Allergen Reactions Lisinopril Anaphylaxis Beta-Blockers (Beta-Adrenergic Blocking Agts) Other (See Comments) bradycardia Iodine Swelling 03/03/[address] with [id number] without any premedications and did not have any complications-ANL Ok for CT Isovue 370 with premedication benadryl 25mg and solu-medrol 125mg scanned 1 hour later-pttolerated contrast with no reaction or issues-ANL Social History Socioeconomic History Marital status: Spouse name: Not on file Number of children: Not on file Years of education: Not on file Highest education level: Not on file Occupational History Not on file Tobacco Use Smoking status: Never Smokeless tobacco: Never Vaping Use Vaping status: Never Used Substance and Sexual Activity Alcohol use: No Drug use: No Sexual activity: Not on file Other Topics Concern Not on file Social History Narrative Not on file Social Drivers of Health Financial Resource Strain: High Risk (09/28/2021) Overall Financial Resource Strain (CARDIA) Difficulty of Paying Living Expenses: Hard Food Insecurity: No Food Insecurity (09/28/2021) Hunger Vital Sign Worried About Running Out of Food in the Last Year: Never true Ran Out of Food in the Last Year: Never true Transportation Needs: No Transportation Needs (09/28/2021) PRAPARE - Transportation Lack of Transportation (Medical): No Lack of Transportation (Non-Medical): No Physical Activity: Not on file Stress: Not on file Social Connections: Unknown (07/06/2023) Received from [facility] Family and Community Support Help with Day-to-Day Activities: Not on file Lonely or Isolated: Not on file Intimate Partner Violence: Unknown (07/06/2023) Received from [facility] Abuse Screen Unsafe at Home or Work/School: Not on file Feels Threatened by Someone?: Not on file Does Anyone Keep You from Contacting Others or Doint Things Outside the Home?: Not on file Physical Sign of Abuse Present: Not on file Housing Stability: Unknown (07/06/2023) Received from [facility] Housing Stability Current Living Arrangements: Not on file Potentially Unsafe Housing Conditions: Not on file Family History Problem Relation Age of Onset Diabetes Mother Heart Disease Mother High Blood Pressure Father Diabetes Father Diabetes Maternal Aunt Diabetes Paternal Aunt Cancer Maternal Grandfather Cancer Paternal Grandmother Heart Disease Paternal Grandfather Anesth Problems Neg Hx REVIEW OF SYSTEMS Constitutional: Negative for fever, chills HENT: Negative for congestion, sore throat Eyes: Negative for pain, redness Respiratory: Negative for cough, chest tightness, shortness of breath Cardiovascular: Negative for chest pain, palpitations Gastrointestinal: see HPI Genitourinary: Negative for dysuria, urgency, frequency Musculoskeletal: Negative for back pain, arthralgias Skin: Negative for rash and wound. Neurological: Negative for dizziness, weakness Hematological: Negative for bruise/bleed easily. Psychiatric/Behavioral: Negative for hallucinations, confusion PHYSICAL EXAMINATION Vitals: 03/04/25 0844 03/04/25 1107 03/04/25 1206 03/04/25 1306 BP: (!) 168/61 147/56 BP Location: Left arm Right arm Patient Position: Semi Fowlers Pulse: 68 68 66 64 Resp: 16 16 Temp: 97.9 ??F (36.6 ??C) 98.2 ??F (36.8 ??C) TempSrc: Oral Oral SpO2: 97% 95% Weight: Height: Constitutional: Oriented to person, place, time. Vital signs are above. Well- developed and well-nourished. Active and cooperative. Non-toxic. No distress. Head: Normocephalic and atraumatic. Ears: Right Ear: External ear normal. Left Ear: External ear normal. Nose: nares patent Mouth/Throat: Oropharynx clear and moist. No oropharyngeal exudate Eyes: Conjunctivae and EOM grossly normal. Pupils equal and round. Right eye no discharge. Left eyeno discharge. No scleral icterus. Neck: Trachea normal. \No tracheal deviation. Cardiovascular: Normal rate Pulmonary/Chest: Effort normal. No accessory muscle usage or stridor. No distress. Abdominal: Abdomen is soft, mild bloating, tender to palpation in epigastrium and bilateral upper quadrants mild localized guarding, no rebound Musculoskeletal: Normal range of motion. Neurological: Alert and oriented to person, place, time. Coordination normal. Skin: Skin warm and dry. No abrasion, no rash noted, not diaphoretic. No cyanosis or erythema. No pallor. Psychiatric: Normal mood and affect. Speech normal and behavior is normal. LABS AND RADIOLOGY *I reviewed the following labs and studies. I personally viewed the pertinent images WBC: Lab Results Component Value Date WBC 10.7 (H) 03/04/2025 Hemoglobin/Hematocrit: Lab Results Component Value Date HGB 13.4 03/04/2025 HCT 41.0 03/04/2025 BMP: Lab Results Component Value Date NA 137 03/04/2025 K 3.8 03/04/2025 CL 101 03/04/2025 CO2 24 03/04/2025 BUN 21 03/04/2025 CREATININE 0.80 03/04/2025 CALCIUM 9.7 03/04/2025 PT/INR: No results found for: PROTIME , INR PTT: No results found for: APTT [APTT EK EKG 12 LEAD Result Date: 03/04/2025 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 CLINICAL HISTORY: -verify tube placement COMPARISON: X-ray 09/26/2021 PROCEDURE COMMENTS: Single view chest xray, PA or AP technique. FINDINGS: Support devices: NG tube with the tip and side-port in the stomach Unchanged cardiomediastinal silhouette. No active failure, pneumonia, or visible effusion. No visible pneumothorax. NG tube placement - Note: Radiology results need to be interpreted within a comprehensive clinical context. If you have questions about the radiology report, please contact the office of the orderingclinician. CT ABD PEL ED FAST W CONTRAST Result Date: 03/03/2025 CT ABDOMEN AND PELVIS WITH CONTRAST (FAST), 03/03/2025 9:04 PM CLINICAL HISTORY: - upper abd and bernard flank pain. COMPARISON: None. PROCEDURE COMMENTS: Multi- detector CT scanning of the abdomen and pelvis with multiplanar reformatting per expedited protocol. Isovue 370 IV contrast given as recorded in EPIC. Dose 1 : CT DLP Total : 705.68 mGycm DLP Spiral Max : 701.34 mGycm Maximum CTDI Vol : 14.21 mGy SSDE : 10.0891 mGy SSDE Diameter : 44.9 cm SSDE Source : AP+Lat FINDINGS: Lower chest: No acute abnormality. Liver: Hepatic steatosis and enlargement. Gallbladder: Cholecystectomy. Biliary tract: Normal for age. Pancreas: Normal. Spleen: Normal. Adrenals: Normal. Kidneys: Small renal cysts. Multiple nonobstructing left kidney stones in the 3 mm range. Gastrointestinal tract: Mild duodenal and proximal jejunal ileus. No acute small bowel findings.Grossly unremarkable stomach.Minimal colonic diverticulosis. No CT findings to suggest acute appendicitis. Peritoneum: No pneumoperitoneum or pathologic free fluid. Mesentery and retroperitoneum: No adenopathy or aneurysm. Pelvic organs: No acute findings.Surgically absent uterus. Abdominal wall and diaphragm: Intact. Musculoskeletal: Unremarkable for age. Impression: 1. Mild duodenal and proximal jejunal ileus. 2. Nonobstructing left nephrolithiasis. 3.Hepatic steatosis and enlargement. - Note: Radiology results need to be interpreted within a comprehensive clinical context. If you have questions about the radiology report, please contact the office of the ordering clinician. Sophie Caldwell PA-C 03/04/25 Cosigned by Ariel Pitt MD at 03/15/2025 8:59 AM EDT Associated attestation - Ariel Pitt MD - 03/15/2025 8:59 AM EDT Attending Attestation I have not personally seen the patient but have reviewed the plan of care and agree with associatedassessment and plan. Ariel Pitt MD documented in this encounter ED Notes * Abdullahi Walker MD - 03/03/2025 6:31 PM EDT Physician in Triage Note CHIEF COMPLAINT Chief Complaint Patient presents with Abdominal Pain Abd pain that started today, emesis x3, reports dark urine. Unsure of fevers. HPI Nataly Galvan is a 59 y.o. female with PMH of unstable angina, diabetes, hyperlipidemia, CHF (ECHOin 2020 with EF of 65%), sepsis, renal artery stenosis, hypertension, obesity, pyelonephritis, kidney stone who presents with abdominal pain. Patient states she started today with intermittent pain that has been become more constant. Complains of pain through the upper abdomen which radiates to thebilateral flanks. Endorses associated nausea and vomiting. States it hurts in her stomach when she has a bowel movement but has had a bowel movement today. Denies fever. Denies chest pain or shortness of breath. Endorses dark urine. States she has been told in the past she has a history of gastroparesis. PHYSICAL EXAM VITAL SIGNS: ED Triage Vitals Temp 03/03/25 1839 97.8 ??F (36.6 ??C) Pulse 03/03/25 1833 96 Resp 03/03/25 1833 16 BP 03/03/25 1839 (!) 173/68 SpO2 03/03/25 1833 98 % Height 03/03/25 1839 5' 5 (1.651 m) Weight 03/03/25 1839 210 lb (95.3 kg) General: Appears mildly uncomfortable but nontoxic. HEENT: Normocephalic, atraumatic. Eyes: No scleral icterus. CV: Regular rate and rhythm. No murmurs, gallops, or rubs. Resp: Lungs clear to auscultation bilaterally. No increased work of breathing. GI: Soft, nondistended. No masses. Tender to palpation throughout the upper abdomen without reboundor guarding. No lower abdominal tenderness. No CVA tenderness. Extremities/MSK: No deformities, swelling, or tenderness appreciated. Skin: No rashes or bruising. Neuro: Alert, speech normal. Moves all extremities spontaneously. Psych: Mood and affect appropriate for situation. MEDICAL DECISION MAKING Pertinent Labs & Imaging studies reviewed. (See chart for details). Medications morphine injection 4 mg (has no administration in time range) ondansetron (ZOFRAN) injection 4 mg (has no administration in time range) On initial assessment, patient appears uncomfortable but nontoxic. She is afebrile and hemodynamically stable. Physical exam notable for tenderness to palpation diffusely throughout the upper abdomenwithout rebound or guarding. No CVA tenderness. She is given morphine for pain and Zofran for nausea. Will obtain EKG, labs, urine, CT of the abdomen pelvis. Patient to [facility] bed for further evaluation and management. Patient was seen in the PIT area. This functions as a screening examination and is not meant to be a comprehensive evaluation. Initial diagnostic testing and therapeutics were initiated. Pt will undergo further evaluation by JOHN. I reviewed the patient's medical record. Abdullahi Walker MD 03/03/25 1932 ED Course as of 03/04/25 1221 Abdullahi Walker's Documentation ThuMar 03, [id number] My EKG interpretation shows sinus rhythm with a rate of 82, VA 161, QRS 77, QTc 426, normal axis, no ST elevations or depressions. Stable when compared with previous EKG. Others' Documentation ThuMar 03, [id number] Patient arrives to the emergency department for evaluation of abdominal pain with associated nausea. Her workup in the ED does indicate elevated white blood cell count and elevated lactic. Lab results also indicate a urinary tract infection. CT imaging performed and suggest ileus. Reviewed these results with the patient. Started patient on Rocephin intravenously. Admitted to the hospitalist service for further evaluation and general surgery consultation. [MC] ED Course User Index [MC] Vanita Cabrera APRN Hunt, Alexandra R, MD 03/04/25 1221 documented in this encounter Miscellaneous Notes * Utilization Review Notes - Lisa New LPN - 03/04/2025 9:39 AM EDT 03/03 ER, ADMIT OBV, CHANGED TO INPT ON 03/04 WITH ABD PAIN STARTED TODAY AND EMESIS X 3, DARK URINE, UNSURE OF FEVERS, 173/68, HR 96, RESP 16, TEMP 97.8 Tender to palpation throughout the upper abdomen without rebound or guarding. No lower abdominal tenderness. No CVA tenderness. CT ABD Mild duodenal and proximal jejunal ileus. 2. Nonobstructing left nephrolithiasis. 3. Hepatic steatosis and enlargement. WBC 12.5, BUN 26, CREAT 0.91, LACTICA ACID 2.5 THEN REPEAT 1.9, UA +4 GLU, +4 UA LEUK EST, + NITRITE, +3 BACTERIA, UA WBC 85, , IVF 75 HR, CARDIAC MONITORING, ROCEPHIN 1GM IVX1 GENERAL SURGERY CONSULT, NG TUBE TO CLWS, NPO, MORPHINE IV PRN, ZOFRAN IV PRN, documented in this encounter Plan of Treatment Not on file documented as of this encounter Procedures Procedure Name Priority Date/Time Associated Diagnosis Comments SCANNED EKG 03/07/2025 1:23 PM EDT CBC KEON 03/07/2025 8:36 AM EDT BASIC METABOLIC PANEL KEON 03/07/2025 8:36 AM EDT GLUCOSE METER POC Routine 03/07/2025 8:10 AM EDT GLUCOSE METER POC Routine 03/06/2025 8:29 PM EDT ECG AND WAVEFORMS - TELEMETRY Routine 03/06/2025 7:41 PM EDT GLUCOSE METER POC Routine 03/06/2025 5:14 PM EDT GLUCOSE METER POC Routine 03/06/2025 11:39 AM EDT POTASSIUM REPEAT KEON 03/06/2025 10:16 AM EDT GLUCOSE METER POC Routine 03/06/2025 8:18 AM EDT CBC KEON 03/06/2025 7:50 AM EDT PHOSPHORUS LEVEL KEON 03/06/2025 7:50 AM EDT MAGNESIUM LEVEL KEON 03/06/2025 7:50 AM EDT BASIC METABOLIC PANEL KEON 03/06/2025 7:50 AM EDT ECG AND WAVEFORMS - TELEMETRY Routine 03/06/2025 7:00 AM EDT GLUCOSE METER POC Routine 03/05/2025 8:46 PM EDT ECG AND WAVEFORMS - TELEMETRY Routine 03/05/2025 7:00 PM EDT GLUCOSE METER POC Routine 03/05/2025 6:12 PM EDT GLUCOSE METER POC Routine 03/05/2025 3:45 PM EDT GLUCOSE METER POC Routine 03/05/2025 10:38 AM EDT CBC KEON 03/05/2025 7:42 AM EDT PHOSPHORUS LEVEL KEON 03/05/2025 7:41 AM EDT MAGNESIUM LEVEL KEON 03/05/2025 7:41 AM EDT BASIC METABOLIC PANEL KEON 03/05/2025 7:41 AM EDT ECG AND WAVEFORMS - TELEMETRY Routine 03/05/2025 7:30 AM EDT GLUCOSE METER POC Routine 03/04/2025 8:00 PM EDT ECG AND WAVEFORMS - TELEMETRY Routine 03/04/2025 7:00 PM EDT GLUCOSE METER POC Routine 03/04/2025 5:30 PM EDT GLUCOSE METER POC Routine 03/04/2025 2:23 PM EDT XR CHEST PA OR AP STAT 03/04/2025 11:03 AM EDT GLUCOSE METER POC Routine 03/04/2025 9:56 AM EDT ADMIT Routine 03/04/2025 9:46 AM EDT ECG AND WAVEFORMS - TELEMETRY Routine 03/04/2025 7:30 AM EDT CBC KEON 03/04/2025 6:00 AM EDT BASIC METABOLIC PANEL KEON 03/04/2025 5:59 AM EDT REPEAT LACTIC ACID KEON 03/04/2025 2:38 AM EDT REPEAT LACTIC ACID KEON 03/04/2025 12:50 AM EDT ECG AND WAVEFORMS - TELEMETRY Routine 03/04/2025 12:19 AM EDT GLUCOSE METER POC Routine 03/03/2025 11:26 PM EDT IP CONSULT TO GENERAL SURGERY Routine 03/03/2025 11:03 PM EDT Procedure Note - Sophie Caldwell PA-C - 03/04/2025 7:16 AM EDTThis note is in progress. EMERGENCY GENERAL SURGERY CONSULT CONSULTING PHYSICIAN: Ariel Pitt MD ASSESSMENT AND PLAN Nataly Galvan is a 59 y.o. year old female who I am asked to see for CCof Abdominal pain, nausea. Dx with same. Plan: Given persistent nausea and pain through the night, plan for NGplacement NG to CLWS Bowel rest IV fluids Check mag/phos in AM Replace electrolytes as needed to keep mag >2, phos >3, K >4 Objective: CT images reviewed by me, mild ileus, mild gastric dilation WBC mildly elevated, 10.7 from 12.5 yesterday, afebrile Abdomen is soft, mild bloating, tender to palpation in epigastrium andbilateral upper quadrants mild localized guarding, no rebound I spent a total of 60 minutes with over 50% of the time spent at thebedside and coordinating care. HISTORY OF PRESENT ILLNESS Patient is a 59-year-old female with a history of diabetes, hypertension,CHF, heart attack, kidney disease, WALTERS, who presents to the hospital with3 days of worsening abdominal pain. She states that the pain has beenlike a sharp pressure in her epigastrium and radiating down along bothsides of her abdomen. She does not notice anything that makes it betteror worse. Yesterday she began to have nausea and multiple episodes ofvomiting. Last bowel movement was yesterday, no blood noted in stool.Has not had flatus since that time. Surgical history includesappendectomy, cholecystectomy, hysterectomy. She takes aspirin daily butno other blood thinners. HISTORY Past Medical History: Diagnosis Date Anemia with pregnancies Arthritis Cardiomegaly Chronic diastolic heart failure (HCC) 12/17/2017 Diabetes mellitus (HCC) Difficult intubation narrow airway Fatty liver Heart attack (HCC) right sided dystolic heart failure - does not have stents Heartburn Hypertension Irritable bowel syndrome Kidney stones Liver disease Sleep apnea cpap, setting 10 TIA (transient ischemic attack) 1999?, no deficits/residuals Urinary tract infection Wears glasses Past Surgical History: Procedure Laterality Date APPENDECTOMY BACK SURGERY L4-5 ruptured disc CHOLECYSTECTOMY CYSTOSCOPY 08/10/2019 Surgeon: Leanna Jimenez MD; Location: [facility] MAIN OR; Service: Urology HYSTERECTOMY KIDNEY STONE SURGERY Right 08/10/2019 CYSTOSCOPY RIGHT STENT INSERTION, RIGHT PERCUTANEOUS NEPHROLITHOTOMY,RIGHT PERCUTANEOUS NEPHROSTOMY TUBE PLACEMENT ; Surgeon: Virgen Jimenez MD; Location: ED MAIN OR; Service: Urology LITHOTRIPSY UPPER GASTROINTESTINAL ENDOSCOPY N/A 06/20/2020 ESOPHAGOGASTRODUODENOSCOPY with biopsy via forceps and arrieta dilation COLONOSCOPY with polypectomy via hot and cold snare; Surgeon: Mahin Dallas MD; Location: ED ENDOSCOPY; Service: Endoscopy Allergies Allergen Reactions Lisinopril Anaphylaxis Beta-Blockers (Beta-Adrenergic Blocking Agts) Other (See Comments) bradycardia Iodine Swelling 03/03/[address] with [id number] without any premedications and didnot have any complications-ANL Ok for CT Isovue 370 with premedication benadryl 25mg and [id number] scanned 1 hour later-pt tolerated contrast with no reaction orissues-ANL Social History Socioeconomic History Marital status: Spouse name: Not on file Number of children: Not on file Years of education: Not on file Highest education level: Not on file Occupational History Not on file Tobacco Use Smoking status: Never Smokeless tobacco: Never Vaping Use Vaping status: Never Used Substance and Sexual Activity Alcohol use: No Drug use: No Sexual activity: Not on file Other Topics Concern Not on file Social History Narrative Not on file Social Drivers of Health Financial Resource Strain: High Risk (09/28/2021) Overall Financial Resource Strain (CARDIA) Difficulty of Paying Living Expenses: Hard Food Insecurity: No Food Insecurity (09/28/2021) Hunger Vital Sign Worried About Running Out of Food in the Last Year: Never true Ran Out of Food in the Last Year: Never true Transportation Needs: No Transportation Needs (09/28/2021) PRAPARE - Transportation Lack of Transportation (Medical): No Lack of Transportation (Non-Medical): No Physical Activity: Not on file Stress: Not on file Social Connections: Unknown (07/06/2023) Received from [facility] Family and Community Support Help with Day-to-Day Activities: Not on file Lonely or Isolated: Not on file Intimate Partner Violence: Unknown (07/06/2023) Received from [facility] Abuse Screen Unsafe at Home or Work/School: Not on file Feels Threatened by Someone?: Not on file Does Anyone Keep You from Contacting Others or Doint Things Outside theHome?: Not on file Physical Sign of Abuse Present: Not on file Housing Stability: Unknown (07/06/2023) Received from [facility] Housing Stability Current Living Arrangements: Not on file Potentially Unsafe Housing Conditions: Not on file Family History Problem Relation Age of Onset Diabetes Mother Heart Disease Mother High Blood Pressure Father Diabetes Father Diabetes Maternal Aunt Diabetes Paternal Aunt Cancer Maternal Grandfather Cancer Paternal Grandmother Heart Disease Paternal Grandfather Anesth Problems Neg Hx REVIEW OF SYSTEMS Constitutional: Negative for fever, chills HENT: Negative for congestion, sore throat Eyes: Negative for pain, redness Respiratory: Negative for cough, chest tightness, shortness of breath Cardiovascular: Negative for chest pain, palpitations Gastrointestinal: see HPI Genitourinary: Negative for dysuria, urgency, frequency Musculoskeletal: Negative for back pain, arthralgias Skin: Negative for rash and wound. Neurological: Negative for dizziness, weakness Hematological: Negative for bruise/bleed easily. Psychiatric/Behavioral: Negative for hallucinations, confusion PHYSICAL EXAMINATION Vitals: 03/04/25 0844 03/04/25 1107 03/04/25 1206 03/04/25 1306 BP: (!) 168/61 147/56 BP Location: Left arm Right arm Patient Position: Semi Fowlers Pulse: 68 68 66 64 Resp: 16 16 Temp: 97.9 F (36.6 C) 98.2 F (36.8 C) TempSrc: Oral Oral SpO2: 97% 95% Weight: Height: Constitutional: Oriented to person, place, time. Vital signs are above.Well-developed and well-nourished. Active and cooperative. Non-toxic. Nodistress. Head: Normocephalic and atraumatic. Ears: Right Ear: External ear normal. Left Ear: External ear normal. Nose: nares patent Mouth/Throat: Oropharynx clear and moist. No oropharyngeal exudate Eyes: Conjunctivae and EOM grossly normal. Pupils equal and round. Righteye no discharge. Left eye no discharge. No scleral icterus. Neck: Trachea normal. \No tracheal deviation. Cardiovascular: Normal rate Pulmonary/Chest: Effort normal. No accessory muscle usage or stridor. Nodistress. Abdominal: Abdomen is soft, mild bloating, tender to palpation inepigastrium and bilateral upper quadrants mild localized guarding, norebound Musculoskeletal: Normal range of motion. Neurological: Alert and oriented to person, place, time. Coordinationnormal. Skin: Skin warm and dry. No abrasion, no rash noted, not diaphoretic. Nocyanosis or erythema. No pallor. Psychiatric: Normal mood and affect. Speech normal and behavior is normal. LABS AND RADIOLOGY *I reviewed the following labs and studies. I personally viewed thepertinent images WBC: Lab Results Component Value Date WBC 10.7 (H) 03/04/2025 Hemoglobin/Hematocrit: Lab Results Component Value Date HGB 13.4 03/04/2025 HCT 41.0 03/04/2025 BMP: Lab Results Component Value Date NA 137 03/04/2025 K 3.8 03/04/2025 CL 101 03/04/2025 CO2 24 03/04/2025 BUN 21 03/04/2025 CREATININE 0.80 03/04/2025 CALCIUM 9.7 03/04/2025 PT/INR: No results found for: PROTIME , INR PTT: No results found for: APTT [APTT EK EKG 12 LEAD Result Date: 03/04/2025 [place] [place] [place]:2025-03[place]03 Pat Name: NATALY GALVAN Department: DEPIDPatient ID: [id number] [facility]: [facility] Gender:Female Works 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 CLINICAL HISTORY: -verify tubeplacement COMPARISON: X-ray 09/26/2021 PROCEDURE COMMENTS: Single viewchest xray, PA or AP technique. FINDINGS: Support devices: NG tube withthe tip and side-port in the stomach Unchanged cardiomediastinalsilhouette. No active failure, pneumonia, or visible effusion. Novisible pneumothorax. NG tube placement - Note: Radiology results need to be interpreted withina comprehensive clinical context. If you have questions about theradiology report, please contact the office of the ordering clinician. CT ABD PEL ED FAST W CONTRAST Result Date: 03/03/2025 CT ABDOMEN AND PELVIS WITH CONTRAST (FAST), 03/03/2025 9:04 PM CLINICALHISTORY: -upper abd and bernard flank pain. COMPARISON: None. PROCEDURECOMMENTS: Multi-detector CT scanning of the abdomen and pelvis withmultiplanar reformatting per expedited protocol. Isovue 370 IV contrastgiven as recorded in EPIC. Dose 1 : CT DLP Total : 705.68 mGycm DLP SpiralMax : 701.34 mGycm Maximum CTDI Vol : 14.21 mGy SSDE : 10.0891 mGy SSDEDiameter : 44.9 cm SSDE Source : AP+Lat FINDINGS: Lower chest: No acuteabnormality. Liver: Hepatic steatosis and enlargement. Gallbladder:Cholecystectomy. Biliary tract: Normal for age. Pancreas: Normal. Spleen:Normal. Adrenals: Normal. Kidneys: Small renal cysts. Multiplenonobstructing left kidney stones in the 3 mm range. Gastrointestinaltract: Mild duodenal and proximal jejunal ileus. No acute small bowelfindings.Grossly unremarkable stomach.Minimal colonic diverticulosis. NoCT findings to suggest acute appendicitis. Peritoneum: No pneumoperitoneumor pathologic free fluid. Mesentery and retroperitoneum: No adenopathy oraneurysm. Pelvic organs: No acute findings.Surgically absent uterus.Abdominal wall and diaphragm: Intact. Musculoskeletal: Unremarkable forage. Impression: 1. Mild duodenal and proximal jejunal ileus. 2.Nonobstructing left nephrolithiasis. 3. Hepatic steatosis andenlargement. - Note: Radiology results need to be interpreted within acomprehensive clinical context. If you have questions about the radiologyreport, please contact the office of the ordering clinician. Sophie Caldwell PA-C 03/04/25 TROPONIN-T HIGH SENSITIVITY 2HR Timed 03/03/2025 10:03 PM EDT REPEAT LACTIC ACID STAT 03/03/2025 10:03 PM EDT ADMIT Routine 03/03/2025 9:[address] ABD PEL ED FAST W CONTRAST STAT 03/03/2025 9:04 PM EDT TROPONIN-T HIGH SENSITIVITY BASELINE W/ REFLEX STAT 03/03/2025 7:44 PM EDT CBC WITH DIFF STAT 03/03/2025 7:44 PM EDT LIPASE LEVEL STAT 03/03/2025 7:44 PM EDT LACTIC ACID STAT 03/03/2025 7:44 PM EDT COMPREHENSIVE METABOLIC PANEL STAT 03/03/2025 7:44 PM EDT URINALYSIS REFLEX STAT 03/03/2025 7:36 PM EDT UA W/REFLEX TO CULTURE STAT 03/03/2025 7:36 PM EDT EXTRA NUÑEZ URINE CX STAT 03/03/2025 7:36 PM EDT URINE CULTURE (NO STAIN) STAT 03/03/2025 7:36 PM EDT EK EKG 12 LEAD STAT 03/03/2025 7:30 PM EDT documented in this encounter Results * SCANNED EKG (03/07/2025 1:23 PM EDT) Anatomical Region Laterality Modality Other 03/07/2025 1:23 PM EDT us Unknown Provider IMG ECG ORDERABLES Final Result * (ABNORMAL) BASIC METABOLIC PANEL (03/07/2025 8:36 AM EDT) Sodium 138 136 - 145 mmol/L 03/07/2025 10:05 AM EDT [facility] Potassium 3.8 3.5 - 5.0 mmol/L 03/07/2025 10:05 AM EDT [facility] Chloride 101 98 - 107 mmol/L 03/07/2025 10:05 AM EDT [facility] Total CO2 26 22 - 29 mmol/L 03/07/2025 10:05 AM EDT [facility] Anion Gap 11 7 - 16 mmol/L 03/07/2025 10:05 AM EDT [facility] Calcium 9.0 8.8 - 10.4 mg/dL 03/07/2025 10:05 AM EDT [facility] Glucose Lvl 155(H) 70 - 99 mg/dL 03/07/2025 10:05 AM EDT [facility] BUN 12 8 - 23 mg/dL 03/07/2025 10:05 AM EDT [facility] Creatinine 0.75 0.51 - 1.30 mg/dL 03/07/2025 10:05 AM EDT [facility] eGFR (CKD-EPIcr 2020) 91 >=60 mL/min/1.7 3 m2 03/07/2025 10:05 AM EDT [facility] Comment:Estimated GFR was ca lculated using the CKD-EPIcr (2020) equation refit without race. The equation is recommended by the National Kid[employer] - [employer] Neph[employer] Task Force. Blood VENOUS BLOOD / Unknown Venipuncture / Unknown 03/07/2025 8:36 AM EDT 03/07/2025 9:27 AM EDT Sophie Caldwell PA-C CHEMISTRY ORDERABLES Sandie l Result [facility] [address] [facility] , [address] [place] [phone] * (ABNORMAL) CBC (03/07/2025 8:36 AM EDT) WBC 12.0(H) 3.7 - 10.3 x10(3)/mcL 03/07/2025 9:42 AM EDT [facility] RBC 4.63 3.90 - 5.20 x10(6)/mcL 03/07/2025 9:42 AM EDT [facility] Hgb 12.6 11.2 - 15.7 g/dL 03/07/2025 9:42 AM EDT [facility] Hct 39.6 34.0 - 45.0 % 03/07/2025 9:42 AM EDT [facility] MCV 85.5 80.0 - 100.0 fL 03/07/2025 9:42 AM EDT [facility] MCH 27.2 26.0 - 34.0 pg 03/07/2025 9:42 AM EDT [facility] MCHC 31.8 30.7 - 35.5 g/dL 03/07/2025 9:42 AM EDT [facility] RDW 14.1 <=14.9 % 03/07/2025 9:42 AM EDT [facility] Platelet 246 155 - 369 x10(3)/mcL 03/07/2025 9:42 AM EDT [facility] MPV 10.0 8.8 - 12.5 fL 03/07/2025 9:42 AM EDT [facility] Blood VENOUS BLOOD / Unknown Venipuncture / Unknown 03/07/2025 8:36 AM EDT 03/07/2025 9:27 AM EDT us Sophie Caldwell PA-C HEMATOLOGY ORDERABLES Fin al Result Performing Organization Address [facility]/ZIP Co de Phone Number [facility], [address] , [place] [address] * (ABNORMAL) GLUCOSE METER POC (03/07/2025 8:10 AM EDT) [facility] Glucose Meter POC 169(H) 70 - 100 mg/dL 03/07/2025 8:13 AM EDT [facility] Sample Type Capillary 03/07/2025 8:13 AM EDT [facility] Patient Status Non-Critical Patient 03/07/2025 8:13 AM EDT [facility] Blood BLOOD SPECIMEN / Unknown 03/07/2025 8:10 AM EDT 03/07/2025 8:13 AM EDT us Prabhu Longoria MD POINT OF CARE TEST ORDERABLES F inal Result [facility] [address] [place] [address] * (ABNORMAL) GLUCOSE METER POC (03/06/2025 8:29 PM EDT) Glucose Meter POC 323(H) 70 - 100 mg/dL 03/06/2025 8:31 PM EDT [facility] Sample Type Capillary 03/06/2025 8:31 PM EDT [facility] Patient Status Non-Critical Patient 03/06/2025 8:31 PM EDT [facility] Blood BLOOD SPECIMEN / Unknown 03/06/2025 8:29 PM EDT 03/06/2025 8:31 PM EDT us Prabhu Longoria MD POINT OF CARE TEST ORDERABLES F inal Result Performing Organization Address City/[facility]/ZIP Co de Phone Number [facility] [address] [place] [address] * ECG AND WAVEFORMS - TELEMETRY (03/06/2025 7:41 PM EDT) [facility] Signature ECG INTERPRET NSR [facility] 03/06/2025 7:41 PM EDT Narrative [facility] - 03/06/2025 8:08 PM EDT ROUTINE/AM VA 0.15 QRS 0.10 RR 0.81 QT 0.40 See Clinical Report link for waveform capture us Unknown Provider POINT OF CARE CARDIOLOGY Final Result Performing Organization Address City/[facility]/ZIP Co de Phone Number [facility] [address] [place] [address] * (ABNORMAL) GLUCOSE METER POC (03/06/2025 5:14 PM EDT) Glucose Meter POC 231(H) 70 - 100 mg/dL 03/06/2025 5:15 PM EDT [facility] Sample Type Capillary 03/06/2025 5:15 PM EDT [facility] Patient Status Non-Critical Patient 03/06/2025 5:15 PM EDT [facility] Blood BLOOD SPECIMEN / Unknown 03/06/2025 5:14 PM EDT 03/06/2025 5:15 PM EDT Prabhu Longoria MD POINT OF CARE TEST ORDERABLES F inal Result Performing Organization Address City/[facility]/[place] [address] * (ABNORMAL) GLUCOSE METER POC (03/06/2025 11:39 AM EDT) Glucose Meter POC 187(H) 70 - 100 mg/dL 03/06/2025 11:41 AM EDT [facility] Sample Type Capillary 03/06/2025 11:41 AM EDT [facility] Patient Status Non-Critical Patient 03/06/2025 11:41 AM EDT [facility] Blood BLOOD SPECIMEN / Unknown 03/06/2025 11:39 AM EDT 03/06/2025 11:41 AM EDT Prabhu Longoria MD POINT OF CARE TEST ORDERABLES F inal Result Performing Organization Address [facility] de Phone Number [place] [phone] * POTASSIUM REPEAT (03/06/2025 10:16 AM EDT) Potassium 3.6 3.5 - 5.0 mmol/L 03/06/2025 12:01 PM EDT [facility] Blood VENOUS BLOOD / Unknown Venipuncture / Unknown 03/06/2025 10:16 AM EDT 03/06/2025 11:23 AM EDT Sophie Caldwell PA-C CHEMISTRY ORDERABLES Sandie l Result Performing Organization Address City/[facility]/ZIP Co de Phone Number [employer] [employer] [address] [place] [address], [place] [address] * (ABNORMAL) GLUCOSE METER POC (03/06/2025 8:18 AM EDT) Glucose Meter POC 179(H) 70 - 100 mg/dL 03/06/2025 8:20 AM EDT [facility] Sample Type Capillary 03/06/2025 8:20 AM EDT [facility] Patient Status Non-Critical Patient 03/06/2025 8:20 AM EDT [facility] Blood BLOOD SPECIMEN / Unknown 03/06/2025 8:18 AM EDT 03/06/2025 8:20 AM EDT Prabhu Longoria MD POINT OF CARE TEST ORDERABLES F inal Result [facility] [address] [place], [place] [phone] * (ABNORMAL) PHOSPHORUS LEVEL (03/06/2025 7:50 AM EDT) Phosphorus 2.2(L) 2.5 - 4.5 mg/dL 03/06/2025 9:08 AM EDT [facility] Blood VENOUS BLOOD / Unknown Venipuncture / Unknown 03/06/2025 7:50 AM EDT 03/06/2025 8:22 AM EDT Sophie Caldwell PA-C CHEMISTRY ORDERABLES Sandie l Result [employer] [address] [place] [address], [address] [place] [phone] * MAGNESIUM LEVEL (03/06/2025 7:50 AM EDT) Magnesium 2.1 1.6 - 2.4 mg/dL 03/06/2025 9:08 AM EDT [employer] Blood VENOUS BLOOD / Unknown Venipuncture / Unknown 03/06/2025 7:50 AM EDT 03/06/2025 8:22 AM EDT Sophie Caldwell PA-C CHEMISTRY ORDERABLES Sandie l Result [facility] [address] [facility] , [place] [address] * (ABNORMAL) BASIC METABOLIC PANEL (03/06/2025 7:50 AM EDT) Sodium 139 136 - 145 mmol/L 03/06/2025 9:08 AM EDT [facility] Potassium 03/06/2025 9:08 AM EDT [facility] Comment:Unable to result pot assium due to elevated hemolysis. Chloride 107 98 - 107 mmol/L 03/06/2025 9:08 AM EDT [facility] Total CO2 23 22 - 29 mmol/L 03/06/2025 9:08 AM EDT [facility] Anion Gap 9 7 - 16 mmol/L 03/06/2025 9:08 AM EDT [facility] Calcium 8.5(L) 8.8 - 10.4 mg/dL 03/06/2025 9:08 AM EDT [facility] Glucose Lvl 172(H) 70 - 99 mg/dL 03/06/2025 9:08 AM EDT [facility] BUN 13 8 - 23 mg/dL 03/06/2025 9:08 AM EDT [facility] Creatinine 0.73 0.51 - 1.30 mg/dL 03/06/2025 9:08 AM EDT [facility] eGFR (CKD-EPIcr 2020) 94 >=60 mL/min/1.7 3 m2 03/06/2025 9:08 AM EDT [facility] Comment:Estimated GFR was ca lculated using the CKD-EPIcr (2020) equation refit without race. The equation is recommended by the National Kidney Foundation - [place] [employer] Nephrology Task Force. Blood VENOUS BLOOD / Unknown Venipuncture / Unknown 03/06/2025 7:50 AM EDT 03/06/2025 8:22 AM EDT Sophie Caldwell PA-C CHEMISTRY ORDERABLES Sandie l Result [facility] [address] [facility] , [place] [address] * (ABNORMAL) CBC (03/06/2025 7:50 AM EDT) WBC 11.1(H) 3.7 - 10.3 x10(3)/mcL 03/06/2025 8:29 AM EDT [facility] RBC 4.66 3.90 - 5.20 x10(6)/mcL 03/06/2025 8:29 AM EDT [facility] Hgb 12.9 11.2 - 15.7 g/dL 03/06/2025 8:29 AM EDT [facility] Hct 40.7 34.0 - 45.0 % 03/06/2025 8:29 AM EDT [facility] MCV 87.3 80.0 - 100.0 fL 03/06/2025 8:29 AM EDT [facility] MCH 27.7 26.0 - 34.0 pg 03/06/2025 8:29 AM EDT [facility] MCHC 31.7 30.7 - 35.5 g/dL 03/06/2025 8:29 AM EDT [facility] RDW 14.2 <=14.9 % 03/06/2025 8:29 AM EDT [facility] Platelet 218 155 - 369 x10(3)/mcL 03/06/2025 8:29 AM EDT [facility] MPV 10.3 8.8 - 12.5 fL 03/06/2025 8:29 AM EDT [facility] Blood VENOUS BLOOD / Unknown Venipuncture / Unknown 03/06/2025 7:50 AM EDT 03/06/2025 8:22 AM EDT us Sophie Caldwell PA-C HEMATOLOGY ORDERABLES Fin al Result [facility] [address] [facility] [address], [place] [address] * ECG AND WAVEFORMS - TELEMETRY (03/06/2025 7:00 AM EDT) ECG INTERPRET NSR [facility] 03/06/2025 7:00 AM EDT Narrative [facility] - 03/06/2025 7:40 AM EDT ECB - ROUTINE VA 0.16 QRS 0.10 RR 0.94 QT 0.41 QTc 0.42 See Clinical Report link for waveform capture us Unknown Provider POINT OF CARE CARDIOLOGY Final Result Performing Organization Address [facility] Co de Phone Number [facility] [address] [place] [address] * (ABNORMAL) GLUCOSE METER POC (03/05/2025 8:46 PM EDT) [facility] Glucose Meter POC 264(H) 70 - 100 mg/dL 03/05/2025 8:48 PM EDT [facility] Sample Type Capillary 03/05/2025 8:48 PM EDT [facility] Patient Status Non-Critical Patient 03/05/2025 8:48 PM EDT [facility] Blood BLOOD SPECIMEN / Unknown 03/05/2025 8:46 PM EDT 03/05/2025 8:48 PM EDT us Prabhu Longoria MD POINT OF CARE TEST ORDERABLES F inal Result Performing Organization Address [facility] Co de Phone Number [facility] [address] [place] [address] * ECG AND WAVEFORMS - TELEMETRY (03/05/2025 7:00 PM EDT) [facility] Signature ECG INTERPRET NSR [facility] 03/05/2025 7:00 PM EDT Narrative [facility] - 03/05/2025 9:18 PM EDT ROUTINE (MS) VA 0.17 QRS 0.08 RR 0.80 QT 0.38 QTc 0.43 See Clinical Report link for waveform capture us Unknown Provider POINT OF CARE CARDIOLOGY Final Result Performing Organization Address [facility] Co de Phone Number [facility] [address] [place] [phone] * (ABNORMAL) GLUCOSE METER POC (03/05/2025 6:12 PM EDT) Glucose Meter POC 298(H) 70 - 100 mg/dL 03/05/2025 6:14 PM EDT [facility] Sample Type Capillary 03/05/2025 6:14 PM EDT [facility] Patient Status Non-Critical Patient 03/05/2025 6:14 PM EDT [facility] Blood BLOOD SPECIMEN / Unknown 03/05/2025 6:12 PM EDT 03/05/2025 6:14 PM EDT us Prabhu Longoria MD POINT OF CARE TEST ORDERABLES F inal Result Performing Organization Address [facility]/ZIP Co de Phone Number [address] [address] * (ABNORMAL) GLUCOSE METER POC (03/05/2025 3:45 PM EDT) Glucose Meter POC 185(H) 70 - 100 mg/dL 03/05/2025 3:46 PM EDT [facility] Sample Type Capillary 03/05/2025 3:46 PM EDT [facility] Patient Status Non-Critical Patient 03/05/2025 3:46 PM EDT [facility] Blood BLOOD SPECIMEN / Unknown 03/05/2025 3:45 PM EDT 03/05/2025 3:46 PM EDT us Prabhu Longoria MD POINT OF CARE TEST ORDERABLES F inal Result [place] [phone] * (ABNORMAL) GLUCOSE METER POC (03/05/2025 10:38 AM EDT) Glucose Meter POC 181(H) 70 - 100 mg/dL 03/05/2025 10:39 AM EDT [facility] Sample Type Capillary 03/05/2025 10:39 AM EDT [facility] Patient Status Non-Critical Patient 03/05/2025 10:39 AM EDT [facility] Blood BLOOD SPECIMEN / Unknown 03/05/2025 10:38 AM EDT 03/05/2025 10:39 AM EDT Prabhu Longoria MD POINT OF CARE TEST ORDERABLES F inal Result [facility] [address] [place] [phone] * (ABNORMAL) CBC (03/05/2025 7:42 AM EDT) WBC 12.5(H) 3.7 - 10.3 x10(3)/mcL 03/05/2025 7:53 AM EDT [facility] RBC 4.97 3.90 - 5.20 x10(6)/mcL 03/05/2025 7:53 AM EDT [facility] Hgb 13.8 11.2 - 15.7 g/dL 03/05/2025 7:53 AM EDT [facility] Hct 42.7 34.0 - 45.0 % 03/05/2025 7:53 AM EDT [facility] MCV 85.9 80.0 - 100.0 fL 03/05/2025 7:53 AM EDT [facility] MCH 27.8 26.0 - 34.0 pg 03/05/2025 7:53 AM EDT [facility] MCHC 32.3 30.7 - 35.5 g/dL 03/05/2025 7:53 AM EDT [facility] RDW 14.1 <=14.9 % 03/05/2025 7:53 AM EDT [facility] Platelet 251 155 - 369 x10(3)/mcL 03/05/2025 7:53 AM EDT [facility] MPV 9.5 8.8 - 12.5 fL 03/05/2025 7:53 AM EDT [facility] Blood VENOUS BLOOD / Unknown Venipuncture / Unknown 03/05/2025 7:42 AM EDT 03/05/2025 7:48 AM EDT Sophie Caldwell PA-C HEMATOLOGY ORDERABLES Fin al Result Performing Organization Address City/[facility]/ZIP Co de Phone Number [facility] [employer] [facility] [address] , [place] [address] * (ABNORMAL) PHOSPHORUS LEVEL (03/05/2025 7:41 AM EDT) Phosphorus 2.3(L) 2.5 - 4.5 mg/dL 03/05/2025 8:19 AM EDT [facility] [employer] [facility] Blood VENOUS BLOOD / Unknown Venipuncture / Unknown 03/05/2025 7:41 AM EDT 03/05/2025 7:48 AM EDT Sophie Caldwell PA-C CHEMISTRY ORDERABLES Sandie l Result Performing Organization Address [facility] Co de Phone Number [facility] [employer] [facility] [address] , [place] [address] * MAGNESIUM LEVEL (03/05/2025 7:41 AM EDT) Magnesium 2.1 1.6 - 2.4 mg/dL 03/05/2025 8:19 AM EDT [employer] Blood VENOUS BLOOD / Unknown Venipuncture / Unknown 03/05/2025 7:41 AM EDT 03/05/2025 7:48 AM EDT Sophie Caldwell PA-C CHEMISTRY ORDERABLES Sandie l Result Performing Organization Address [facility] Co de Phone Number [employer] [facility] [address] , [place] [address] * (ABNORMAL) BASIC METABOLIC PANEL (03/05/2025 7:41 AM EDT) Sodium 138 136 - 145 mmol/L 03/05/2025 8:19 AM EDT [facility] Potassium 4.2 3.5 - 5.0 mmol/L 03/05/2025 8:19 AM EDT [facility] Chloride 103 98 - 107 mmol/L 03/05/2025 8:19 AM EDT [facility] Total CO2 23 22 - 29 mmol/L 03/05/2025 8:19 AM EDT [facility] Anion Gap 12 7 - 16 mmol/L 03/05/2025 8:19 AM EDT [facility] Calcium 9.1 8.8 - 10.4 mg/dL 03/05/2025 8:19 AM EDT [facility] Glucose Lvl 200(H) 70 - 99 mg/dL 03/05/2025 8:19 AM EDT [facility] BUN 17 8 - 23 mg/dL 03/05/2025 8:19 AM EDT [facility] Creatinine 0.78 0.51 - 1.30 mg/dL 03/05/2025 8:[address] [facility] eGFR (CKD-EPIcr 2020) 86 >=60 mL/min/1.7 3 m2 03/05/2025 8:19 AM EDT [facility] Comment:Estimated GFR was ca lculated using the CKD-EPIcr (2020) equation refit without race. The equation is recommended by the [employer] Kid[employer] - [employer] Neph[employer] Task Force. Blood VENOUS BLOOD / Unknown Venipuncture / Unknown 03/05/2025 7:41 AM EDT 03/05/2025 7:48 AM EDT us Sophie Caldwell PA-C CHEMISTRY ORDERABLES Sandie l Result [facility] [address] , [address] [place] [phone] * ECG AND WAVEFORMS - TELEMETRY (03/05/2025 7:30 AM EDT) ECG INTERPRET NSR [facility] 03/05/2025 7:30 AM EDT Narrative [facility] - 03/05/2025 7:36 AM EDT TRO/AM ROUTINE VA 0.16 QRS 0.09 RR 0.73 QT 0.40 QTc 0.46 See Clinical Report link for waveform capture us Unknown Provider POINT OF CARE CARDIOLOGY Final Result Performing Organization Address City/[facility]/ZIP Co de Phone Number [facility] [address] [place] [address] * (ABNORMAL) GLUCOSE METER POC (03/04/2025 8:00 PM EDT) Glucose Meter POC 160(H) 70 - 100 mg/dL 03/04/2025 8:01 PM EDT [facility] Sample Type Capillary 03/04/2025 8:01 PM EDT [facility] Patient Status Non-Critical Patient 03/04/2025 8:01 PM EDT [facility] Blood BLOOD SPECIMEN / Unknown 03/04/2025 8:00 PM EDT 03/04/2025 8:01 PM EDT us Prabhu Longoria MD POINT OF CARE TEST ORDERABLES F inal Result Performing Organization Address [facility] Co de Phone Number [facility] [address] [place] [address] * ECG AND WAVEFORMS - TELEMETRY (03/04/2025 7:00 PM EDT) ECG INTERPRET NSR [facility] 03/04/2025 7:00 PM EDT Narrative [facility] - 03/04/2025 7:28 PM EDT ROUTINE (HM) VA 0.16 QRS 0.08 RR 0.96 QT 0.34 QTc 0.35 See Clinical Report link for waveform capture us Unknown Provider POINT OF CARE CARDIOLOGY Final Result Performing Organization Address [facility]/ZIP Co de Phone Number [facility] [address] [place] [phone] * (ABNORMAL) GLUCOSE METER POC (03/04/2025 5:30 PM EDT) Glucose Meter POC 151(H) 70 - 100 mg/dL 03/04/2025 5:32 PM EDT [facility] Sample Type Capillary 03/04/2025 5:32 PM EDT [facility] Patient Status Non-Critical Patient 03/04/2025 5:32 PM EDT [facility] Blood BLOOD SPECIMEN / Unknown 03/04/2025 5:30 PM EDT 03/04/2025 5:32 PM EDT us Prabhu Longoria MD POINT OF CARE TEST ORDERABLES F inal Result Performing Organization Address [facility]/[place] [address] * (ABNORMAL) GLUCOSE METER POC (03/04/2025 2:23 PM EDT) [facility] Glucose Meter POC 162(H) 70 - 100 mg/dL 03/04/2025 2:40 PM EDT [facility] Sample Type Capillary 03/04/2025 2:40 PM EDT [facility] Patient Status Non-Critical Patient 03/04/2025 2:40 PM EDT [facility] Blood BLOOD SPECIMEN / Unknown 03/04/2025 2:23 PM EDT 03/04/2025 2:40 PM EDT us Prabhu Longoria MD POINT OF CARE TEST ORDERABLES F inal Result Performing Organization Address [facility]/ZIP Co de Phone Number [facility] [address] [place] [address] * XR CHEST PA OR AP (03/04/2025 11:03 AM EDT) Anatomical Region Laterality Modality Chest Radiographic Yecenia ging 03/04/2025 11:0 3 AM EDT Impressions 03/04/2025 11:12 AM EDT NG tube placement - Note: Radiology results need to be interpreted within a comprehensive clinical context. If you have questions about the radiology report, please contact the office of the ordering clinician. Narrative 03/04/2025 11:12 AM EDT CHEST XRAY PA or AP, 03/04/2025 11:03 AM. CLINICAL HISTORY: -verify tube placement COMPARISON: X-ray 09/26/2021 PROCEDURE COMMENTS: Single view chest xray, PA or AP technique. FINDINGS: Support devices: NG tube with the tip and side-port in the stomach Unchanged cardiomediastinal silhouette. No active failure, pneumonia, or visible effusion. No visible pneumothorax. Procedure Note Nikhil Bowie MD - 03/04/2025 CHEST XRAY PA or AP, 03/04/2025 11:03 AM. CLINICAL HISTORY: -verify tube placement COMPARISON: X-ray 09/26/2021 PROCEDURE COMMENTS: Single view chest xray, PA or AP technique. FINDINGS: Support devices: NG tube with the tip and side-port in the stomach Unchanged cardiomediastinal silhouette. No active failure, pneumonia,or visible effusion. No visible pneumothorax. IMPRESSION: NG tube placement - Note: Radiology results need to be interpreted within a comprehensiveclinical context. If you have questions about the radiology report, please contactthe office of the ordering clinician. Sophie Caldwell PA-C IMG DIAGNOSTIC IMAGING OR DERABLES Final Result * (ABNORMAL) GLUCOSE METER POC (03/04/2025 9:56 AM EDT) [facility] Glucose Meter POC 216(H) 70 - 100 mg/dL 03/04/2025 9:57 AM EDT [facility] Sample Type Capillary 03/04/2025 9:57 AM EDT [facility] Patient Status Non-Critical Patient 03/04/2025 9:57 AM EDT [facility] Blood BLOOD SPECIMEN / Unknown 03/04/2025 9:56 AM EDT 03/04/2025 9:57 AM EDT Prabhu Longoria MD POINT OF CARE TEST ORDERABLES F inal Result [facility] [address] [place] [phone] * ECG AND WAVEFORMS - TELEMETRY (03/04/2025 7:30 AM EDT) Pathologist [facility] ECG INTERPRET NSR [facility] 03/04/2025 7:30 AM EDT Narrative [facility] - 03/04/2025 7:46 AM EDT TRO/AM ROUTINE VA 0.17 QRS 0.09 RR 0.88 QT 0.41 QTc 0.44 See Clinical Report link for waveform capture us Unknown Provider POINT OF CARE CARDIOLOGY Final Result [facility] [address] [place] [address] * (ABNORMAL) CBC (03/04/2025 6:00 AM EDT) Pathologist [facility] WBC 10.7(H) 3.7 - 10.3 x10(3)/mcL 03/04/2025 6:19 AM EDT [facility] RBC 4.89 3.90 - 5.20 x10(6)/mcL 03/04/2025 6:19 AM EDT [facility] Hgb 13.4 11.2 - 15.7 g/dL 03/04/2025 6:19 AM EDT [facility] Hct 41.0 34.0 - 45.0 % 03/04/2025 6:19 AM EDT [facility] MCV 83.8 80.0 - 100.0 fL 03/04/2025 6:19 AM EDT [facility] MCH 27.4 26.0 - 34.0 pg 03/04/2025 6:19 AM EDT [facility] MCHC 32.7 30.7 - 35.5 g/dL 03/04/2025 6:19 AM EDT [facility] RDW 13.7 <=14.9 % 03/04/2025 6:19 AM EDT [facility] Platelet 235 155 - 369 x10(3)/mcL 03/04/2025 6:19 AM EDT [facility] MPV 9.8 8.8 - 12.5 fL 03/04/2025 6:19 AM EDT [facility] Blood VENOUS BLOOD / Unknown Venipuncture / Unknown 03/04/2025 6:00 AM EDT 03/04/2025 6:13 AM EDT us Sophie Caldwell PA-C HEMATOLOGY ORDERABLES Fin al Result [facility] [address] , [place] [address] * (ABNORMAL) BASIC METABOLIC PANEL (03/04/2025 5:59 AM EDT) Sodium 137 136 - 145 mmol/L 03/04/2025 6:47 AM EDT [facility] Potassium 3.8 3.5 - 5.0 mmol/L 03/04/2025 6:47 AM EDT [facility] Chloride 101 98 - 107 mmol/L 03/04/2025 6:47 AM EDT [facility] Total CO2 24 22 - 29 mmol/L 03/04/2025 6:47 AM EDT [facility] Anion Gap 12 7 - 16 mmol/L 03/04/2025 6:47 AM EDT [facility] Calcium 9.7 8.8 - 10.4 mg/dL 03/04/2025 6:47 AM EDT [facility] Glucose Lvl 210(H) 70 - 99 mg/dL 03/04/2025 6:47 AM EDT [facility] BUN 21 8 - 23 mg/dL 03/04/2025 6:47 AM EDT [facility] Creatinine 0.80 0.51 - 1.30 mg/dL 03/04/2025 6:47 AM EDT [facility] eGFR (CKD-EPIcr 2020) 84 >=60 mL/min/1.7 3 m2 03/04/2025 6:47 AM EDT [facility] Comment:Estimated GFR was ca lculated using the CKD-EPIcr (2020) equation refit without race. The equation is recommended by the National Kidney [employer] - [place] [employer] Nephrology Task Force. Blood VENOUS BLOOD / Unknown Venipuncture / Unknown 03/04/2025 5:59 AM EDT 03/04/2025 6:13 AM EDT Sophie Caldwell PA-C CHEMISTRY ORDERABLES Sandie l Result Performing Organization Address City/[facility] Co de Phone Number [employer] [address] , [place] [address] * REPEAT LACTIC ACID (03/04/2025 2:38 AM EDT) Lactic Acid 1.9 0.5 - 1.9 mmol/L 03/04/2025 3:09 AM EDT [employer] Blood VENOUS BLOOD / Unknown Venipuncture / Unknown 03/04/2025 2:38 AM EDT 03/04/2025 2:42 AM EDT Abdullahi Walker MD CHEMISTRY ORDERABLES Final R esult Performing Organization Address [facility] Co de Phone Number [employer] [address] , [place] [address] * (ABNORMAL) REPEAT LACTIC ACID (03/04/2025 12:50 AM EDT) Lactic Acid 2.0(H) 0.5 - 1.9 mmol/L 03/04/2025 1:18 AM EDT [employer] Blood VENOUS BLOOD / Unknown Venipuncture / Unknown 03/04/2025 12:50 AM EDT 03/04/2025 12:54 AM EDT Abdullahi Walker MD CHEMISTRY ORDERABLES Final R esult Performing Organization Address [facility]/ZIP Co de Phone Number [employer] [address] , [place] [address] * ECG AND WAVEFORMS - TELEMETRY (03/04/2025 12:19 AM EDT) ECG INTERPRET NSR [facility] 03/04/2025 12:1 9 AM EDT Narrative [facility] - 03/04/2025 12:21 AM EDT ROUTINE/AM VA 0.16 QRS 0.07 RR 0.81 QT 0.45 See Clinical Report link for waveform capture us Unknown Provider POINT OF CARE CARDIOLOGY Final Result Performing Organization Address City/[facility]/ZIP Co de Phone Number [facility] [address] [place], [place] [address] * (ABNORMAL) GLUCOSE METER POC (03/03/2025 11:26 PM EDT) Glucose Meter POC 262(H) 70 - 100 mg/dL 03/03/2025 11:27 PM EDT [facility] Sample Type Capillary 03/03/2025 11:27 PM EDT [facility] Patient Status Non-Critical Patient 03/03/2025 11:27 PM EDT [facility] Blood BLOOD SPECIMEN / Unknown 03/03/2025 11:26 PM EDT 03/03/2025 11:27 PM EDT us Prabhu Longoria MD POINT OF CARE TEST ORDERABLES F inal Result Performing Organization Address [facility] [place] [address] * (ABNORMAL) REPEAT LACTIC ACID (03/03/2025 10:03 PM EDT) Lactic Acid 2.5(H) 0.5 - 1.9 mmol/L 03/03/2025 10:20 PM EDT [facility] Blood VENOUS BLOOD / Unknown Venipuncture / Unknown 03/03/2025 10:03 PM EDT 03/03/2025 10:05 PM EDT us Abdullahi Walker MD CHEMISTRY ORDERABLES Final R esult Performing Organization Address [facility]/ZIP Co de Phone Number [address] [phone] * (ABNORMAL) TROPONIN-T HIGH SENSITIVITY 2HR (03/03/2025 10:03 PM EDT) rp-[id number]-Q 2HR 17(H) <14 ng/L 03/03/2025 10:26 PM EDT [facility] hs-cTnT 2Hr Delta from Baseline -1 <4 ng/L 03/03/2025 10:26 PM EDT [facility] Blood VENOUS BLOOD / Unknown Venipuncture / Unknown 03/03/2025 10:03 PM EDT 03/03/2025 10:05 PM EDT Narrative [facility] - 03/03/2025 10:26 PM EDT Ingestion of angy doses of biotin (>5 mg/day) taken within 8 hours of drawing blood sample can interfere with this immunoassay test. us Abdullahi Walker MD CHEMISTRY ORDERABLES Final R esult [place] [phone] * CT ABD PEL ED FAST W CONTRAST (03/03/2025 9:04 PM EDT) Anatomical Region Laterality Modality Abdomen, Pelvis Computed Tomogra phy 03/03/2025 9:04 PM EDT Impressions 03/03/2025 9:16 PM EDT Impression: 1. Mild duodenal and proximal jejunal ileus. 2. Nonobstructing left nephrolithiasis. 3. Hepatic steatosis and enlargement. - Note: Radiology results need to be interpreted within a comprehensive clinical context. If you have questions about the radiology report, please contact the office of the ordering clinician. Narrative 03/03/2025 9:[address] ABDOMEN AND PELVIS WITH CONTRAST (FAST), 03/03/2025 9:04 PM CLINICAL HISTORY: -upper abd and bernard flank pain. COMPARISON: None. PROCEDURE COMMENTS: Multi-detector CT scanning of the abdomen and pelvis with multiplanar reformatting per expedited protocol. Isovue 370 IV contrast given as recorded in EPIC. Dose 1 : CT DLP Total : 705.68 mGycm DLP Spiral Max : 701.34 mGycm Maximum CTDI Vol : 14.21 mGy SSDE : 10.0891 mGy SSDE Diameter : 44.9 cm SSDE Source : AP+Lat FINDINGS: Lower chest: No acute abnormality. Liver: Hepatic steatosis and enlargement. Gallbladder: Cholecystectomy. Biliary tract: Normal for age. Pancreas: Normal. Spleen: Normal. Adrenals: Normal. Kidneys: Small renal cysts. Multiple nonobstructing left kidney stones in the 3 mm range. Gastrointestinal tract: Mild duodenal and proximal jejunal ileus. No acute small bowel findings.Grossly unremarkable stomach.Minimal colonic diverticulosis. No CT findings to suggest acute appendicitis. Peritoneum: No pneumoperitoneum or pathologic free fluid. Mesentery and retroperitoneum: No adenopathy or aneurysm. Pelvic organs: No acute findings.Surgically absent uterus. Abdominal wall and diaphragm: Intact. Musculoskeletal: Unremarkable for age. Procedure Note Amish Pa MD - 03/03/2025 CT ABDOMEN AND PELVIS WITH CONTRAST (FAST), 03/03/2025 9:04 PM CLINICAL HISTORY: -upper abd and bernard flank pain. COMPARISON: None. PROCEDURE COMMENTS: Multi-detector CT scanning of the abdomen and pelviswith multiplanar reformatting per expedited protocol. Isovue 370 IV contrastgiven as recorded in EPIC. Dose 1 : CT DLP Total : 705.68 mGycm DLP Spiral Max : 701.34 mGycm Maximum CTDI Vol : 14.21 mGy SSDE : 10.0891 mGy SSDE Diameter : 44.9 cm SSDE Source : AP+Lat FINDINGS: Lower chest: No acute abnormality. Liver: Hepatic steatosis and enlargement. Gallbladder: Cholecystectomy. Biliary tract: Normal for age. Pancreas: Normal. Spleen: Normal. Adrenals: Normal. Kidneys: Small renal cysts. Multiple nonobstructing left kidney stones inthe 3 mm range. Gastrointestinal tract: Mild duodenal and proximal jejunal ileus. No acutesmall bowel findings.Grossly unremarkable stomach.Minimal colonicdiverticulosis. No CT findings to suggest acute appendicitis. Peritoneum: No pneumoperitoneum or pathologic free fluid. Mesentery and retroperitoneum: No adenopathy or aneurysm. Pelvic organs: No acute findings.Surgically absent uterus. Abdominal wall and diaphragm: Intact. Musculoskeletal: Unremarkable for age. IMPRESSION: Impression: 1. Mild duodenal and proximal jejunal ileus. 2. Nonobstructing left nephrolithiasis. 3. Hepatic steatosis and enlargement. - Note: Radiology results need to be interpreted within a comprehensiveclinical context. If you have questions about the radiology report, please contactthe office of the ordering clinician. us Abdullahi Walker MD IMG CT ORDERABLES Final Resu lt * (ABNORMAL) LACTIC ACID (03/03/2025 7:44 PM EDT) Lactic Acid 2.6(H) 0.5 - 1.9 mmol/L 03/03/2025 8:12 PM EDT [facility] Blood VENOUS BLOOD / Unknown Venipuncture / Unknown 03/03/2025 7:44 PM EDT 03/03/2025 7:57 PM EDT us Abdullahi Walker MD CHEMISTRY ORDERABLES Final R esult Performing Organization Address [facility]/[place] [address] * (ABNORMAL) TROPONIN-T HIGH SENSITIVITY BASELINE W/ REFLEX (03/03/2025 7:44 PM EDT) [facility] kv-zEimdtubu-H 18(H) <14 ng/L 03/03/2025 8:16 PM EDT [facility] Blood VENOUS BLOOD / Unknown Venipuncture / Unknown 03/03/2025 7:44 PM EDT 03/03/2025 7:57 PM EDT Narrative [facility] - 03/03/2025 8:16 PM EDT Ingestion of angy doses of biotin (>5 mg/day) taken within 8 hours of drawing blood sample can interfere with this immunoassay test. us Abdullahi Walker MD CHEMISTRY ORDERABLES Final R esult Performing Organization Address City/[facility]/[place] [address] * LIPASE LEVEL (03/03/2025 7:44 PM EDT) Pathologist [facility] Lipase Lvl 22 13 - 60 U/L 03/03/2025 8:14 PM EDT [facility] Blood VENOUS BLOOD / Unknown Venipuncture / Unknown 03/03/2025 7:44 PM EDT 03/03/2025 7:57 PM EDT us Abdullahi Walker MD CHEMISTRY ORDERABLES Final R esult [facility] [address] [place] [phone] * (ABNORMAL) COMPREHENSIVE METABOLIC PANEL (03/03/2025 7:44 PM EDT) Sodium 135(L) 136 - 145 mmol/L 03/03/2025 8:14 PM EDT [facility] Potassium 4.1 3.5 - 5.0 mmol/L 03/03/2025 8:14 PM EDT [facility] Chloride 97(L) 98 - 107 mmol/L 03/03/2025 8:14 PM EDT [facility] Total CO2 24 22 - 29 mmol/L 03/03/2025 8:14 PM EDT [facility] Anion Gap 14 7 - 16 mmol/L 03/03/2025 8:14 PM EDT [facility] Calcium 10.1 8.8 - 10.4 mg/dL 03/03/2025 8:14 PM EDT [facility] Glucose Lvl 343(H) 70 - 99 mg/dL 03/03/2025 8:14 PM EDT [facility] BUN 26(H) 8 - 23 mg/dL 03/03/2025 8:14 PM EDT [facility] Creatinine 0.91 0.51 - 1.30 mg/dL 03/03/2025 8:14 PM EDT [facility] Albumin 3.9 3.2 - 4.6 gm/dL 03/03/2025 8:14 PM EDT [facility] Total Protein 7.4 6.4 - 8.3 gm/dL 03/03/2025 8:14 PM EDT [facility] Bili Total 0.2 0.2 - 1.3 mg/dL 03/03/2025 8:14 PM EDT [facility] ALT 22 <=41 U/L 03/03/2025 8:14 PM EDT [facility] AST 27 <=40 U/L 03/03/2025 8:14 PM EDT [facility] Alk Phos 125(H) 36 - 123 U/L 03/03/2025 8:14 PM EDT [facility] eGFR (CKD-EPIcr 2020) 72 >=60 mL/min/1.7 3 m2 03/03/2025 8:14 PM EDT [facility] Comment:Estimated GFR was ca lculated using the CKD-EPIcr (2020) equation refit without race. The equation is recommended by the National Kid[employer] - [place] [employer] Neph[employer] Task Force. Blood VENOUS BLOOD / Unknown Venipuncture / Unknown 03/03/2025 7:44 PM EDT 03/03/2025 7:57 PM EDT us Abdullahi Walker MD CHEMISTRY ORDERABLES Final R esult [place] [phone] * (ABNORMAL) CBC WITH DIFF (03/03/2025 7:44 PM EDT) WBC 12.5(H) 3.7 - 10.3 x10(3)/mcL 03/03/2025 8:00 PM EDT [facility] RBC 4.93 3.90 - 5.20 x10(6)/mcL 03/03/2025 8:00 PM EDT [facility] Hgb 13.5 11.2 - 15.7 g/dL 03/03/2025 8:00 PM EDT [facility] Hct 41.2 34.0 - 45.0 % 03/03/2025 8:00 PM EDT [facility] MCV 83.6 80.0 - 100.0 fL 03/03/2025 8:00 PM EDT [facility] MCH 27.4 26.0 - 34.0 pg 03/03/2025 8:00 PM EDT [facility] MCHC 32.8 30.7 - 35.5 g/dL 03/03/2025 8:00 PM EDT [facility] RDW 13.5 <=14.9 % 03/03/2025 8:00 PM EDT [facility] Platelet 269 155 - 369 x10(3)/mcL 03/03/2025 8:00 PM EDT [facility] MPV 9.9 8.8 - 12.5 fL 03/03/2025 8:00 PM EDT [facility] Neut Percent 59.6 % 03/03/2025 8:00 PM EDT [facility] Comment:Neutrophils equals s egs plus bands Imm Gran% 0.3 % 03/03/2025 8:00 PM T [facility] Comment:Automated count of m etamyelocytes, myelocytes and promyelocytes. Lymph Percent 32.4 % 03/03/2025 8:00 PM EDT [facility] Crawford Percent 5.2 % 03/03/2025 8:00 PM EDT [facility] Eos Percent 2.2 % 03/03/2025 8:00 PM EDT [facility] Baso Percent 0.3 % 03/03/2025 8:00 PM T [facility] Neut # 7.4(H) 1.6 - 6.1 x10(3)/mcL 03/03/2025 8:00 PM [facility] Comment:Neutrophils equals s egs plus bands IMMGRAN# 0.0 0.0 - 0.1 x10(3)/mcL 03/03/2025 8:00 PM T [facility] Comment:Automated count of m etamyelocytes, myelocytes and promyelocytes. An absolute IG <0.1 is reported as 0.0. Lymph # 4.1(H) 1.2 - 3.9 x10(3)/mcL 03[facility] [place] # 0.7 0.3 - 0.9 x10(3)/mcL 03/03/2025 8:00 PM EDT [facility] Eos# 0.3 0.0 - 0.5 x10(3)/mcL 03/03/2025 8:00 PM EDT [facility] Baso # 0.0 0.0 - 0.1 x10(3)/mcL 03/03/2025 8:00 PM EDT [facility] Blood VENOUS BLOOD / Unknown Venipuncture / Unknown 03/03/2025 7:44 PM EDT 03/03/2025 7:57 PM EDT us Abdullahi Walker MD HEMATOLOGY ORDERABLES Final Result [facility] [address] [place] [address] * (ABNORMAL) URINE CULTURE (NO STAIN) (03/03/2025 7:36 PM EDT) Culture Positive Growth(A) 03/06/2025 11:40 AM EDT [facility] Culture >100,000 CFU/mL Escherichia coli SUSCEPTIBI LITY RESULT 03/06/2025 11:40 AM EDT [facility] [employer] Urine STRUCTURE OF URINARY TRACT PROPER / Unknown 03/03/2025 7:36 PM EDT 03/03/2025 8:06 PM EDT Narrative Organism Antibiotic Method Susceptibility Escherichia coli Amikacin SUSCEPTIBILITY RESULT Escherichia coli Amoxicillin/Clavulanate SUSCEPTIBILIT Y RESULT <=8/4 ug/mL: Susceptible Escherichia coli Ampicillin SUSCEPTIBILITY RESULT <=8 ug/mL: Susceptible Escherichia coli Ampicillin/Sulbactam SUSCEPTIBILITY R ESULT <=4/2 ug/mL: Susceptible Escherichia coli Aztreonam SUSCEPTIBILITY RESULT <=4 ug/mL: Susceptible Escherichia coli Cefazolin SUSCEPTIBILITY RESULT <=2 ug/mL: Susceptible Escherichia coli Cefepime SUSCEPTIBILITY RESULT Escherichia coli Cefotaxime SUSCEPTIBILITY RESULT Escherichia coli Cefoxitin SUSCEPTIBILITY RESULT <=8 ug/mL: Susceptible Escherichia coli Ceftazidime SUSCEPTIBILITY RESULT Escherichia coli Ceftazidime/Avibactam SUSCEPTIBILITY RESULT Escherichia coli Ceftolozane/Tazobactam SUSCEPTIBILITY RESULT Escherichia coli Ceftriaxone SUSCEPTIBILITY RESULT Escherichia coli Cefuroxime SUSCEPTIBILITY RESULT Escherichia coli Ciprofloxacin SUSCEPTIBILITY RESULT >2 ug/mL: Resistant Escherichia coli Ertapenem SUSCEPTIBILITY RESULT <=0.5 ug/mL: Susceptible Escherichia coli Gentamicin SUSCEPTIBILITY RESULT <=2 ug/mL: Susceptible Escherichia coli Imipenem SUSCEPTIBILITY RESULT <=1 ug/mL: Susceptible Escherichia coli Levofloxacin SUSCEPTIBILITY RESULT >4 ug/mL: Resistant Escherichia coli Meropenem SUSCEPTIBILITY RESULT <=1 ug/mL: Susceptible Escherichia coli Meropenem/Vaborbactam SUSCEPTIBILITY RESULT Escherichia coli Minocycline SUSCEPTIBILITY RESULT Escherichia coli Moxifloxacin SUSCEPTIBILITY RESULT Escherichia coli Nitrofurantoin SUSCEPTIBILITY RESULT <=32 ug/mL: Susceptible Escherichia coli Piperacillin/Tazobactam SUSCEPTIBILIT Y RESULT <=8 ug/mL: Susceptible Escherichia coli Tetracycline SUSCEPTIBILITY RESULT >8 ug/mL: Resistant Escherichia coli Tigecycline SUSCEPTIBILITY RESULT Escherichia coli Tobramycin SUSCEPTIBILITY RESULT <=2 ug/mL: Susceptible Escherichia coli Trimethoprim/Sulfame tho xazole SUSCEPTIBILITY RESULT <=0.5/9.5 ug/mL: Susceptible us Abdullahi Walker MD MICROBIOLOGY - GENERAL ORDER HALEY Final Result Performing Organization Address [facility]/ZIP Co de Phone Number [facility], [address], [place] [address] * EXTRA NUÑEZ URINE CX (03/03/2025 7:36 PM EDT) Urine STRUCTURE OF URINARY TRACT PROPER / Unknown 03/03/2025 7:36 PM EDT 03/03/2025 8:01 PM EDT us Abdullahi Walker MD MICROBIOLOGY - GENERAL ORDER HALEY Final Result Performing Organization Address [facility]/[place] [address] * (ABNORMAL) URINALYSIS REFLEX (03/03/2025 7:36 PM EDT) UA Color Light Yellow 03/03/2025 8:06 PM EDT [facility] [employer] UA Appear Cloudy(A) Clear 03/03/2025 8:06 PM EDT [facility] UA Glucose 4+ (>1000mg/dL) (A) Negative mg/dL 03/03/2025 8:06 PM EDT [facility] UA Ketones Negative Negative mg/dL 03/03/2025 8:06 PM EDT [facility] UA Blood Negative Negative 03/03/2025 8:06 PM EDT [facility] UA pH 5.5 5.0 - 8.0 pH 03/03/2025 8:06 PM EDT [facility] UA Protein Negative Negative mg/dL 03/03/2025 8:06 PM EDT [facility] UA Urobilinogen Normal <=1 mg/dL 8:06 PM EDT [facility] UA Bili Negative Negative 03/03/2025 8:06 PM EDT [facility] UA Nitrite Positive(A) Negative 03/03/2025 8:06 PM EDT [facility] UA Leuk Est 4+ (500 Eddie/mcl)(A) Negative 03/03/2025 8:06 PM EDT [facility] UA Spec Grav 1.024 1.001 - 1.035 no units 03/03/2025 8:06 PM EDT [facility] Comment:Reference range alana d for random specimens only. UA WBC 86(H) 0 - 4 /HPF 03/03/2025 8:06 PM EDT [facility] UA RBC 2 0 - 3 /HPF 03/03/2025 8:06 PM EDT [facility] UA Squam Epi 4+ /LPF 03/03/2025 8:06 PM EDT [facility] UA Mucus Trace /LPF 03/03/2025 8:06 PM EDT [facility] UA Bacteria 3+(A) Negative /HPF 03/03/2025 8:06 PM EDT [facility] Urine STRUCTURE OF URINARY TRACT PROPER / Unknown 03/03/2025 7:36 PM EDT 03/03/2025 8:01 PM EDT us Abdullahi Walker MD URINE ORDERABLES Final Resul t [facility] [address] , [place] [address] * EK EKG 12 LEAD (03/03/2025 7:30 PM EDT) Anatomical Region Laterality Modality Electrocardiogra phy 03/03/2025 7:46 PM EDT Impressions 03/04/2025 1:[address] [facility] Test Date: 2025-03-03 Pat Name: NATALY GALVAN Department: DEPID Room: 213 Gender: Female Works Manager: Kerr : 1965 Requested By: ABDULLAHI Mcdonald Order Number: [id number] Reading MD: Lucy Luong Measurements Intervals [place] Rate: 82 P: 47 VA: 161 QRS: 35 QRSD: 77 T: 30 QT: 388 QTc: 453 Interpretive Statements SINUS RHYTHM LOW QRS VOLTAGE IN PRECORDIAL LEADS Electronically Signed On 03-04-2025 13:00:59 EDT by Lucy Luong Narrative Procedure Note Lucy Luong MD - 03/04/[address] [facility] Test Date: 2025-03-03 Pat Name: NATALY GALVAN Department: DEPID Room: 213 Gender: Female Works Manager: Kerr : 1965 Requested By: ABDULLAHI Mcdonald Order Number: [id number] Reading MD: Lucy Luong Measurements Intervals [place] Rate: 82 P: 47 VA: 161 QRS: 35 QRSD: 77 T: 30 QT: 388 QTc: 453 Interpretive Statements SINUS RHYTHM LOW QRS VOLTAGE IN PRECORDIAL LEADS Electronically Signed On 03-04-2025 13:00:59 EDT by Lucy Luong us Abdullahi Walker MD IMG ECG ORDERABLES Final Res ult documented in this encounter Visit Diagnoses Diagnosis Ileus (HCC)- Primary Paralytic ileus Ileus (HCC) Paralytic ileus Generalized abdominal pain Abdominal pain, generalized Urinary tract infection without hematuria, site unspecified Essential hypertension Unspecified essential hypertension Severe obesity with body mass index (BMI) of 35.0 to 39.9 with serious comorbidity (HCC) Dyslipidemia associated with type 2 diabetes mellitus (HCC) Type II or unspecified type diabetes mellitus with other specified manifestations, not stated as uncontrolled Chronic diastolic heart failure (HCC) Chronic diastolic heart failure Type 2 diabetes mellitus with hyperglycemia, with long-term current use of insulin (HCC) Acute cystitis without hematuria Acute cystitis documented in this encounter Admitting Diagnoses Diagnosis Ileus (HCC) Paralytic ileus documented in this encounter Administered Medications Inactive Administered Medications - up to 1 most recent administrations Medication Order MAR Action Action Date Dose Rate Site 0.9 % NaCl infusion Intravenous, at 75 mL/hr, CONTINUOUS, Starting on Thu03/04/25 at 0845, Until Thu03/05/25 at 0844 Rate/Dose Verify 03/05/2025 7:45 AM EDT 75 mL/hr 0.9 % NaCl infusion Intravenous, at 75 mL/hr, CONTINUOUS, Starting on Thu03/05/25 at 1200, Until 03/06/25 at 1159 New Bag 03/06/2025 4:23 AM EDT 75 mL/hr acetaminophen (OFIRMEV) infusion 1,000 mg 1,000 mg, Intravenous, EVERY 6 HOURS PRN, Starting on Thu03/03/25 at 2153, Until Thu03/07/25 at 1535, Pain, Fever, Headaches, Administer over 15 Minutes, Maximum adult dose of acetaminophen is 4000 mg from all sources in 24 hours. IV Started 03/04/2025 12:09 AM EDT 1,000 mg 400 mL/hr acetaminophen (TYLENOL) suppository 650 mg 650 mg, Rectal, EVERY 4 HOURS PRN, Starting on Thu03/03/25 at 2303, Until Thu03/07/25 at 1535, Fever, Headaches, Maximum adult dose of acetaminophen is 4000 mg from all sources in 24 hours. acetaminophen (TYLENOL) tablet 650 mg 650 mg, Oral, EVERY 4 HOURS PRN, Starting on Thu03/03/25 at 2303, Until Thu03/07/25 at 1535, Fever, Headaches, Maximum adult dose of acetaminophen is 4000 mg from all sources in 24 hours. aspirin chewable tablet 81 mg 81 mg, Oral, DAILY, First dose on Thu03/04/25 at 1015, Until Discontinued Given 03/07/2025 8:27 AM EDT 81 mg atorvastatin (LIPITOR) tablet 40 mg 40 mg, Oral, NIGHTLY, First dose on Thu03/04/25 at 2100, Until Discontinued Given 03/06/2025 8:27 PM EDT 40 mg bisacodyL (DULCOLAX) suppository 10 mg 10 mg, Rectal, 2 TIMES DAILY, First dose (after last modification) on Thu03/05/25 at 1030, Until Discontinued Given 03/06/2025 8:27 PM EDT 10 mg cefTRIAXone (ROCEPHIN) 1 g in sterile water 9.6 mL IVP 1 g, Intravenous, ONCE, 1 dose, On Thu03/03/25 at 2200, Draw up 9.6 mL of Sterile Water for Injection into syringe and inject into cefTRIAXone 1 g vial. Shake vial until powder is completely dissolved. Draw up entire content of vial (about 10 mL) into syringe. Administer intravenous push (IVP) over a period of 3 to 5 minutes., Reason for Therapy: Infection Documented, Indication: Urinary Tract Infection Given 03/03/2025 9:50 PM EDT 1 g cefTRIAXone in dextrose (ROCEPHIN) 1 gram/50 mL IVPB 1 g 1 g, Intravenous, DAILY, 7 doses, First dose (after last reorder) on Thu03/04/25 at 1200, Last dose on Thu03/10/25 at 0900, Administer over 30 Minutes, Reason for Therapy: Infection Documented, Indication: Urinary Tract Infection IV Started 03/06/2025 8:28 AM EDT 1 g 100 mL/hr cloNIDine (CATAPRES) 0.1 mg/24 hr 1 Patch 1 Patch, Transdermal, WEEKLY, First dose on Thu03/05/25 at 0830, Until Discontinued, Remove current patch prior to applying new patch, Administer over 7 Days Patch Applied 03/05/2025 10:20 AM EDT 1 Patch Back clonidine (CATAPRES) patch CHECK Transdermal, EVERY 12 HOURS SCHEDULED (2 times per day), First dose on Thu03/05/25 at 2030, Until Discontinued, Verify patch is in place. Do NOT change patch. See other order for patch change/administration times Patch Applied 03/07/2025 8:28 AM EDT 1 Patch dextrose 50 % solution 25 mL 25 mL, Intravenous, PRN, Starting on Thu03/03/25 at 2152, Until Thu03/07/25 at 1535, Low blood sugar, If FSBS less than 70 mg/dl and patient cannot take orally, Check FSBS every 15 minutes and repeat 25 mL of D50 IV push and notify physician if FSBS less than 70 mg/dL VESICANT glucagon (GLUCAGEN) injection 1 mg 1 mg, Intramuscular, PRN, Starting on Thu03/03/25 at 2152, Until Thu03/07/25 at 1535, Low blood sugar, If FSBS less than 70 mg/dl, patient cannot take orally and without IV access, If patient is without IV access, give Glucagon 1 mg Intramuscularly, insert IV and call physician. hydrALAZINE (APRESOLINE) injection 10 mg 10 mg, Intravenous, ONCE, 1 dose, On Thu03/04/25 at 0000 Given 03/03/2025 11:49 PM EDT 10 mg hydrALAZINE (APRESOLINE) injection 10 mg 10 mg, Intravenous, EVERY 6 HOURS PRN, Starting on Thu03/04/25 at 1220, Until Thu03/07/25 at 1535, High Blood Pressure, SBP>180, DBP>110, Blood Pressure options: SBP greater than (>) 160 Given 03/05/2025 2:56 PM EDT 10 mg hydroCHLOROthiazide tablet 25 mg 25 mg, Oral, DAILY, First dose on Thu03/04/25 at 1030, Until Discontinued, Give with losartan 100 mg for losartan-HCTZ 100-25 mg Given 03/07/2025 8:27 AM EDT 25 mg insulin aspart U-100 (NovoLOG) injection 1-5 Units 1-5 Units, Subcutaneous, 4 TIMES DAILY WITH MEALS, First dose on Thu03/03/25 at 2200, Until Discontinued, Low dose algorithm: FSBS Correction NPO/Bedtime 121-149 0 units 0 units 150-199 1 units 0 units 200-250 2 units 1 units 251-300 3 units 1 units 301-350 4 units 2 units Greater than 350___5 units call MD _3 units call MD Notify physician if FSBS less than 50 or greater than 350 Do not use NPO dosing If patient receiving TPN or tube feeds. Correction insulin doses must be by at least 3 hours. Waste Sort Code = BLACK [employer] Hazardous Waste Container Given 03/07/2025 8:00 AM EDT 1 Units Left Arm insulin glargine U-100 (LANTUS) injection 10 Units 10 Units, Subcutaneous, 2 TIMES DAILY (INSULIN), First dose on Thu03/04/25 at 1015, Until Discontinued, Do not mix with other insulins A blood sugar is not required prior to administering the Lantus dose. Assess the trend of blood sugars within the last 24 hours. If 2 out of 3 blood sugars are less than (<) 120, contact pharmacy to decrease the total Lantus dose by 20%. Waste Sort Code = [facility] Given 03/07/2025 6:45 AM EDT 10 Units Left Neck iopamidoL (ISOVUE-370) 370 mg iodine /mL (76 %) injection (LOW) 100 mL 100 mL, Intravenous, ONCE PRN, 1 dose, Starting on Thu03/03/25 at 2023, Until Thu03/03/25 at 2055, Radiography/Imaging, Radiology Procedure, VESICANT , CT (Contrasts) Given 03/03/2025 8:56 PM EDT 100 mL isosorbide mononitrate (IMDUR) CR tablet 60 mg 60 mg, Oral, DAILY, First dose on Thu03/04/25 at 1045, Until Discontinued Given 03/07/2025 8:27 AM EDT 60 mg losartan (COZAAR) tablet 100 mg 100 mg, Oral, DAILY, First dose on Thu03/04/25 at 1030, Until Discontinued, Give with HCTZ 25 mg for losartan-HCTZ 100-25 mg Given 03/07/2025 8:27 AM EDT 100 mg morphine injection 4 mg 4 mg, Intravenous, ONCE, 1 dose, On Thu03/03/25 at 1945 Given 03/03/2025 7:48 PM EDT 4 mg morphine injection 4 mg 4 mg, Intravenous, ONCE, 1 dose, On Thu03/03/25 at 2145 Given 03/03/2025 9:50 PM EDT 4 mg morphine injection 4 mg 4 mg, Intravenous, EVERY 3 HOURS PRN, Starting on Thu03/03/25 at 2153, Until Thu03/07/25 at 1535, Pain Given 03/05/2025 12:28 AM EDT 4 mg ondansetron (ZOFRAN) injection 4 mg 4 mg, Intravenous, ONCE, 1 dose, On Thu03/03/25 at 1945 Given 03/03/2025 7:49 PM EDT 4 mg ondansetron (ZOFRAN) injection 4 mg 4 mg, Intravenous, ONCE, 1 dose, On Thu03/03/25 at 2145 Given 03/03/2025 9:49 PM EDT 4 mg ondansetron (ZOFRAN) injection 4 mg 4 mg, Intravenous, EVERY 6 HOURS PRN, Starting on Thu03/03/25 at 2303, Until Thu03/07/25 at 1535, Nausea Given 03/06/2025 1:04 PM EDT 4 mg ondansetron (ZOFRAN) tablet 4 mg 4 mg, Oral, EVERY 6 HOURS PRN, Starting on Thu03/03/25 at 2303, Until Thu03/07/25 at 1535, Nausea Given 03/06/2025 8:33 PM EDT 4 mg sodium chloride 0.9% IV line flush 20-50 mL 20-50 mL, Intravenous, at 150-600 mL/hr, PRN, Starting on Thu03/03/25 at 2353, Until Thu03/07/25 at 1535, Line Care, Flush with a minimum of 20 mL after IVPB to insure complete administration of the dose. May use the saline infusion to back flush IVPB tubing as needed. IV Restarted 03/05/2025 5:37 PM EDT 150 mL/hr sodium chloride 0.9% syringe Intravenous, ONCE PRN, 1 dose, Starting on Thu03/03/25 at 2024, Until Thu03/03/25 at 2055, Line Care, Flush peripheral lines every 12 hours, central lines every 8 hours, and after IV medication, CT (Contrasts) Given 03/03/2025 8:56 PM EDT 10 mL sodium chloride 0.9% syringe Intravenous, EVERY 12 HOURS SCHEDULED (2 times per day), First dose on Thu03/04/25 at 0130, Until Discontinued, Flush with 3-5 mL saline for PERIPHERAL saline lock maintenance. Given 03/07/2025 8:29 AM EDT sodium chloride 0.9% syringe Intravenous, PRN, Starting on Thu03/03/25 at 2353, Until Thu03/07/25 at 1535, Line Care, Flush with 5-10 mL saline pre/post IVP, and 5 mL prior to IVPB or blood product administration. Given 03/04/2025 4:48 AM EDT 10 mL sodium phosphate 12 mmol in dextrose 5% 250 mL IVPB 12 mmol, Intravenous, ONCE, 1 dose, On Thu03/05/25 at 1015, Administer over 6 Hours IV Started 03/05/2025 11:35 AM EDT 12 mmol 42.3 mL/hr sterile water injection 1 mL 1 mL, Injection, PRN, Starting on Thu03/03/25 at 2152, Until Thu03/07/25 at 1535, Use for drug dilution, Use to dilute and administer glucagon injection documented in this encounter Discontinued Medications Medication Sig Discontinue Reason Start Date End Da te allopurinoL (ZYLOPRIM) 300 mg Oral Tablet Take 300 mg by mouth 2 times daily. Removed During Admission Medication Review 03/03/2025 amLODIPine (NORVASC) 10 mg Oral Tablet Take 1 Tablet by mouth daily. Removed During Admission Medication Review 10/01/2021 03/03/2025 dicyclomine (BENTYL) 10 mg Oral Capsule Take 20 mg by mouth 3 times daily (with meals). Removed During Admission Medication Review 03/03/2025 fUROsemide (LASIX) 20 mg Oral Tablet Take 20 mg by mouth daily. Removed During Admission Medication Review 03/03/2025 hydrALAZINE (APRESOLINE) 25 mg Oral Tablet Take 1 Tablet by mouth 2 times daily as needed for systolic blood pressure over 160 Removed During Admission Medication Review 10/01/2021 03/03/2025 HYDROcodone-acetamino phen (NORCO) 5-325 mg Oral Tablet Take by mouth every 8 hours as needed for Chronic Pain (G89.29). Removed During Admission Medication Review 03/03/2025 insulin aspart U-100 (NOVOLOG FLEXPEN U-100 INSULIN) 100 unit/mL SubQ Insulin Pen Subcutaneous (Inject under the skin) 3 times daily (before meals). 3 times daily before meals per sliding scale Removed During Admission Medication Review 03/03/2025 nitrofurantoin monohyd/m-cryst (MACROBID ORAL) Take 50 mg by mouth daily. preventative Removed During Admission Medication Review 03/03/2025 pantoprazole (PROTONIX) 40 mg Oral Tablet, Delayed Release (E.C.) Take 40 mg by mouth daily. Removed During Admission Medication Review 03/03/2025 ranolazine (RANEXA) 500 mg Oral Tablet Sustained Release 12 hr Take 1,000 mg by mouth 2 times daily. Removed During Admission Medication Review 01/30/2021 03/03/2025 spironolactone (ALDACTONE) 25 mg Oral Tablet Take by mouth 2 times daily. Removed During Admission Medication Review 03/03/2025 isosorbide mononitrate (MONOKET) 20 mg Oral Tablet Take 20 mg by mouth daily. Stop Taking at Discharge 03/07/2025 insulin aspart protamine-insulin aspart (NOVOLOG MIX 70/30) 100 unit/mL (70-30) SubQ Insulin Pen Inject 50 Units under the skin 2 times daily. Stop Taking at Discharge 03/07/2025 documented as of this encounter Historical Medications * This list may reflect changes made after this encounter. losartan-hydrochl orothiazide (HYZAAR) 100-25 mg Oral Tablet Take 1 Tablet by mouth daily. insulin aspart protamine-insulin aspart (NOVOLOG MIX 70/30) 100 unit/mL (70-30) SubQ Insulin Pen Inject 50 Units under the skin 2 times daily. 03/07/2025 added in this encounter Active and Recently Administered Medications Times are shown in EDT. Scheduled Medication Order 03/05/2025 03/06/2025 03/07/2025 aspirin chewable tablet 81 mg 81 mg, Oral, DAILY, First dose on 03/04/25 at 1015, Until Discontinued 0900 (Not Given - Provider: Jennifer Coats RN - Reason: NPO) 0825 (Given - Provider: José Moon, RHETT) 08 (Given - Provider: José Moon RN) atorvastatin (LIPITOR) tablet 40 mg 40 mg, Oral, NIGHTLY, First dose on 03/04/25 at 2100, Until Discontinued 2103 (Given - Provider: Kyara Culver RN) 2026 (Given - Provider: Brenda Vargas RN) bisacodyL (DULCOLAX) suppository 10 mg 10 mg, Rectal, 2 TIMES DAILY, First dose (after last modification) on Thu03/05/25 at 1030, Until Discontinued 1135 (Given - Provider: Jennifer Coats RN)2099 (Not Given - Provider: Kyara Culver RN - Reason: Patient Declined) 08 (Not Given - Provider: José Moon RN - Reason: Patient Declined)2026 (Given - Provider: Brenda Vargas, RN) 08 (Not Given - Provider: José Moon RN - Reason: Patient Declined) cefTRIAXone in dextrose (ROCEPHIN) 1 gram/50 mL IVPB 1 g 1 g, Intravenous, DAILY, 7 doses, First dose (after last reorder) on Thu03/04/25 at 1200, Last dose on Thu03/10/25 at 0900, Administer over 30 Minutes, Reason for Therapy: Infection Documented, Indication: Urinary Tract Infection 1043 (IV Started - Provider: Jennifer Coats RN)1113 (Stopped - Provider: Jennifer Coats RN) 0828 (IV Started - Provider: José Moon RN)0858 (Stopped - Provider: José Moon RN) 0900 (Due) cloNIDine (CATAPRES) 0.1 mg/24 hr 1 Patch(Linked Group 1) 1 Patch, Transdermal, WEEKLY, First dose on Thu03/05/25 at 0830, Until Discontinued, Remove current patch prior to applying new patch, Administer over 7 Days 1020 (Patch Applied - Provider: Jennifer Coats RN) 1135 (Due: Patch Removed - Provider: Automatic Discharge Provider - Comment: Time automatically adjusted from order being discontinued) clonidine (CATAPRES) patch CHECK(Linked Group 1) Transdermal, EVERY 12 HOURS SCHEDULED (2 times per day), First dose on Thu03/05/25 at 2030, Until Discontinued, Verify patch is in place. Do NOT change patch. See other order for patch change/administration times 2029 (Patch Applied - Provider: Kyara Culver RN - Comment: L upper back) 826 (Patch Applied - Provider: José Moon, RHETT)2099 (Patch Checked - Provider: Brenda Vargas, RHETT) 08 (Patch Applied - Provider: José Moon RN) hydroCHLOROthiazide tablet 25 mg(Linked Group 2) 25 mg, Oral, DAILY, First dose on Thu03/04/25 at 1030, Until Discontinued, Give with losartan 100 mg for losartan-HCTZ 100-25 mg 0900 (Not Given - Provider: Jennifer Coats RN - Reason: NPO) 0825 (Given - Provider: José Moon RN) 0827 (Given - Provider: José Moon, RHETT) insulin aspart U-100 (NovoLOG) injection 1-5 Units 1-5 Units, Subcutaneous, 4 TIMES DAILY WITH MEALS, First dose on Thu03/03/25 at 2200, Until Discontinued, Low dose algorithm: FSBS Correction NPO/Bedtime 121-149 0 units 0 units 150-199 1 units 0 units 200-250 2 units 1 units 251-300 3 units 1 units 301-350 4 units 2 units Greater than 350___5 units call MD _3 units call MD Notify physician if FSBS less than 50 or greater than 350 Do not use NPO dosing If patient receiving TPN or tube feeds. Correction insulin doses must be by at least 3 hours. Waste Sort Code = [employer] Hazardous Waste Container 0800 (Not Given - Provider: Jennifer Coats RN - Reason: Order parameters not met)1725 (Given - Provider: Jennifer Coats RN)1800 (Due)2103 (Given - Provider: Kyara Culver RN) 0825 (Given - Provider: José Moon, RHETT)1219 (Given During Downtime - Provider: José Moon RN)174 (Given - Provider: José Moon, RHETT)203 (Given - Provider: Brenda Vargas, RHETT) 0800 (Given - Provider: José Moon, RHETT) insulin glargine U-100 (LANTUS) injection 10 Units 10 Units, Subcutaneous, 2 TIMES DAILY (INSULIN), First dose on Thu03/04/25 at 1015, Until Discontinued, Do not mix with other insulins A blood sugar is not required prior to administering the Lantus dose. Assess the trend of blood sugars within the last 24 hours. If 2 out of 3 blood sugars are less than (<) 120, contact pharmacy to decrease the total Lantus dose by 20%. Waste Sort Code = [facility] 1128 (Given - Provider: Jennifer Coats RN)1900 (Not Given - Provider: Kyara Culver RN - Reason: Other - Comment: due at 2099) 06 (Given - Provider: Kyara Culver RN)174 (Given - Provider: José Moon RN) 0645 (Given - Provider: Brenda Vargas, RHETT) isosorbide mononitrate (IMDUR) CR tablet 60 mg 60 mg, Oral, DAILY, First dose on 03/04/25 at 1045, Until Discontinued 0900 (Not Given - Provider: Jennifer Coats RN - Reason: NPO) 08 (Given - Provider: José Moon RN) 0827 (Given - Provider: José Moon RN) losartan (COZAAR) tablet 100 mg(Linked Group 2) 100 mg, Oral, DAILY, First dose on 03/04/25 at 1030, Until Discontinued, Give with HCTZ 25 mg for losartan-HCTZ 100-25 mg 0900 (Not Given - Provider: Jennifer Coats RN - Reason: NPO) 0825 (Given - Provider: José Moon RN) 0827 (Given - Provider: José Moon RN) sodium chloride 0.9% syringe Intravenous, EVERY 12 HOURS SCHEDULED (2 times per day), First dose on 03/04/25 at 0130, Until Discontinued, Flush with 3-5 mL saline for PERIPHERAL saline lock maintenance. 1023 (Given - Provider: Jennifer Coats RN)2099 (Not Given - Provider: Kyara Culver RN - Reason: IV Infusing) 08 (Given - Provider: José Moon RN)2029 (Given - Provider: Brenda Vargas, RHETT) 0829 (Given - Provider: José Moon RN) sodium phosphate 12 mmol in dextrose 5% 250 mL IVPB (COMPLETED) 12 mmol, Intravenous, ONCE, 1 dose, On 03/05/25 at 1015, Administer over 6 Hours 1135 (IV Started - Provider: Jennifer Coats RN)1735 (IV Stopped by Other - Provider: Kyara Culver RN) Continuous Medication Order 03/05/2025 03/06/2025 03/07/2025 0.9 % NaCl infusion () Intravenous, at 75 mL/hr, CONTINUOUS, Starting on 03/04/25 at 0845, Until 03/05/25 at 0844 0018 (IV Paused - Provider: Jennifer Coats RN)0033 (New Bag - Provider: Bev Steele RN - Comment: [Order ends at this time. Document the following action when infusion is complete: Stopped])0035 (Rate/Dose Verify - Provider: Jennifer Coats RN)0745 (Rate/Dose Verify - Provider: Jennifer Coats RN)0844 (Stopped - Provider: Jennifer Coats RN - Comment: [Order ends at this time. Document the following action when infusion is complete: Stopped]) 0.9 % NaCl infusion () Intravenous, at 75 mL/hr, CONTINUOUS, Starting on 03/05/25 at 1200, Until 03/06/25 at 1159 1041 (New Bag - Provider: Jennifer Coats RN)1506 (New Bag - Provider: Jennifer Coats RN - Comment: [Order ends at this time. Document the following action when infusion is complete: Stopped]) 0423 (New Bag - Provider: Kyara Culver RN)[phone] (Stopped - Provider: José Moon RN - Comment: [Order ends at this time. Document the following action when infusion is complete: Stopped]) PRN Medication Order 03/05/2025 03/06/2025 03/07/2025 acetaminophen (OFIRMEV) infusion 1,000 mg 1,000 mg, Intravenous, EVERY 6 HOURS PRN, Starting on Thu03/03/25 at 2153, Until Thu03/07/25 at 1535, Pain, Fever, Headaches, Administer over 15 Minutes, Maximum adult dose of acetaminophen is 4000 mg from all sources in 24 hours. acetaminophen (TYLENOL) suppository 650 mg(Linked Group 3) 650 mg, Rectal, EVERY 4 HOURS PRN, Starting on Thu03/03/25 at 2303, Until Thu03/07/25 at 1535, Fever, Headaches, Maximum adult dose of acetaminophen is 4000 mg from all sources in 24 hours. acetaminophen (TYLENOL) tablet 650 mg(Linked Group 3) 650 mg, Oral, EVERY 4 HOURS PRN, Starting on Thu03/03/25 at 2303, Until Thu03/07/25 at 1535, Fever, Headaches, Maximum adult dose of acetaminophen is 4000 mg from all sources in 24 hours. dextrose 50 % solution 25 mL 25 mL, Intravenous, PRN, Starting on Thu03/03/25 at 2152, Until Thu03/07/25 at 1535, Low blood sugar, If FSBS less than 70 mg/dl and patient cannot take orally, Check FSBS every 15 minutes and repeat 25 mL of D50 IV push and notify physician if FSBS less than 70 mg/dL VESICANT glucagon (GLUCAGEN) injection 1 mg(Linked Group 4) 1 mg, Intramuscular, PRN, Starting on Thu03/03/25 at 2152, Until Thu03/07/25 at 1535, Low blood sugar, If FSBS less than 70 mg/dl, patient cannot take orally and without IV access, If patient is without IV access, give Glucagon 1 mg Intramuscularly, insert IV and call physician. hydrALAZINE (APRESOLINE) injection 10 mg 10 mg, Intravenous, EVERY 6 HOURS PRN, Starting on Thu03/04/25 at 1220, Until Thu03/07/25 at 1535, High Blood Pressure, SBP>180, DBP>110, Blood Pressure options: SBP greater than (>) 160 0458 (Given - Provider: Bev Steele RN)1456 (Given - Provider: Jennifer Coats RN) morphine injection 4 mg 4 mg, Intravenous, EVERY 3 HOURS PRN, Starting on Thu03/03/25 at 2153, Until Thu03/07/25 at 1535, Pain 0028 (Given - Provider: Bev Steele RN) ondansetron (ZOFRAN) injection 4 mg(Linked Group 5) 4 mg, Intravenous, EVERY 6 HOURS PRN, Starting on Thu03/03/25 at 2303, Until Thu03/07/25 at 1535, Nausea 0028 (Given - Provider: Bev Steele RN) 1304 (Given - Provider: José Moon, RHETT)2032 (See Alternative - Provider: Brenda Vargas, RHETT) ondansetron (ZOFRAN) tablet 4 mg(Linked Group 5) 4 mg, Oral, EVERY 6 HOURS PRN, Starting on Thu03/03/25 at 2303, Until Thu03/07/25 at 1535, Nausea 0028 (See Alternative - Provider: Bev Steele RN) 1304 (See Alternative - Provider: José Mono, RN)2032 (Given - Provider: Brenda Vargas, RHETT) sodium chloride 0.9% IV line flush 20-50 mL 20-50 mL, Intravenous, at 150-600 mL/hr, PRN, Starting on Thu03/03/25 at 2353, Until Thu03/07/25 at 1535, Line Care, Flush with a minimum of 20 mL after IVPB to insure complete administration of the dose. May use the saline infusion to back flush IVPB tubing as needed. 1042 (IV Started - Provider: Jennifer Coats RN)1042 (IV Paused - Provider: Torrey Goldman RN)1043 (IV Paused - Provider: Torrey Goldman RN)1113 (IV Restarted - Provider: Torrey Goldman RN)1129 (Stopped - Provider: Torrey Goldman RN)1133 (Stopped - Provider: Torrey Goldman RN)1133 (Stopped - Provider: Torrey Goldman RN)1133 (Stopped - Provider: Torrey Goldman RN)1133 (Stopped - Provider: Torrey Goldman RN)1133 (IV Started - Provider: Jennifer Coats RN)1135 (IV Paused - Provider: Torrey Goldman RN)1737 (IV Restarted - Provider: Torrey Goldman RN)1801 (Stopped - Provider: Torrey Goldman RN) sodium chloride 0.9% syringe Intravenous, PRN, Starting on Thu03/03/25 at 2353, Until Thu03/07/25 at 1535, Line Care, Flush with 5-10 mL saline pre/post IVP, and 5 mL prior to IVPB or blood product administration. sterile water injection 1 mL(Linked Group 4) 1 mL, Injection, PRN, Starting on Thu03/03/25 at 2152, Until Thu03/07/25 at 1535, Use for drug dilution, Use to dilute and administer glucagon injection Linked Groups Order Group 1: cloNIDine (CATAPRES) 0.1 mg/24 hr 1 PatchJump to med 1 Patch, Transdermal, WEEKLY, First dose on Thu03/05/25 at 0830, Until Discontinued, Remove current patch prior to applying new patch, Administer over 7 Days And clonidine (CATAPRES) patch CHECKJump to med Transdermal, EVERY 12 HOURS SCHEDULED (2 times per day), First dose on Thu03/05/25 at 2030, Until Discontinued, Verify patch is in place. Do NOT change patch. See other order for patch change/administration times Group 2: losartan (COZAAR) tablet 100 mgJump to med 100 mg, Oral, DAILY, First dose on Thu03/04/25 at 1030, Until Discontinued, Give with HCTZ 25 mg for losartan-HCTZ 100-25 mg And hydroCHLOROthiazide tablet 25 mgJump to med 25 mg, Oral, DAILY, First dose on Thu03/04/25 at 1030, Until Discontinued, Give with losartan 100 mg for losartan-HCTZ 100-25 mg Group 3: acetaminophen (TYLENOL) tablet 650 mgJump to med 650 mg, Oral, EVERY 4 HOURS PRN, Starting on Thu03/03/25 at 2303, Until Thu03/07/25 at 1535, Fever, Headaches, Maximum adult dose of acetaminophen is 4000 mg from all sources in 24 hours. Or acetaminophen (TYLENOL) suppository 650 mgJump to med 650 mg, Rectal, EVERY 4 HOURS PRN, Starting on Thu03/03/25 at 2303, Until Thu03/07/25 at 1535, Fever, Headaches, Maximum adult dose of acetaminophen is 4000 mg from all sources in 24 hours. Group 4: glucagon (GLUCAGEN) injection 1 mgJump to med 1 mg, Intramuscular, PRN, Starting on Thu03/03/25 at 2152, Until Thu03/07/25 at 1535, Low blood sugar, If FSBS less than 70 mg/dl, patient cannot take orally and without IV access, If patient is without IV access, give Glucagon 1 mg Intramuscularly, insert IV and call physician. And sterile water injection 1 mLJump to med 1 mL, Injection, PRN, Starting on Thu03/03/25 at 2152, Until Thu03/07/25 at 1535, Use for drug dilution, Use to dilute and administer glucagon injection Group 5: ondansetron (ZOFRAN) tablet 4 mgJump to med 4 mg, Oral, EVERY 6 HOURS PRN, Starting on Thu03/03/25 at 2303, Until Thu03/07/25 at 1535, Nausea Or ondansetron (ZOFRAN) injection 4 mgJump to med 4 mg, Intravenous, EVERY 6 HOURS PRN, Starting on Thu03/03/25 at 2303, Until Thu03/07/25 at 1535, Nausea documented in this encounter Orders Medications Ordered That [place] h[place] Not Have Been Administered Count Last Ordered Date First Ordered Date bisacodyL (DULCOLAX) suppository 10 mg 1 isosorbide mononitrate (MONO KET) tablet 20 mg 1 03/04/2025 losartan-hydrochlorothiazide (HYZAAR) 100-25 mg per tablet 1 Tablet 1 03/04/2025 acetaminophen (TYLENOL) suppository 650 mg 1 03/03/2025 acetaminophen (TYLENOL) tablet 650 mg 1 02/2025 dextrose 50 % solution 25 mL 1 03/03/2025 glucagon (GLUCAGEN) injection 1 mg 1 2024 morphine injection 2 mg 1 03/03/2025 morphine injection 4 mg 1 03/03/2025 ondansetron (ZOFRAN) injection 4 mg 1 03/03 sterile water injection 1 mL 1 03/03/2025 Nursing Count Last Ordered Date First Orde red Date NASOGASTRIC TUBE DISCONTINUE 1 03/05/2025 Consult Count Last Ordered Date First Orde red Date IP CONSULT TO GENERAL SURGERY 1 03/03/2025 Admission Count Last Ordered Date First Orde red Date ADMIT 2 03/04/2025 03/03/2025 Transfer Count Last Ordered Date First Orde red Date TRANSFER PATIENT 1 03/04/2025 Discharge Count Last Ordered Date First Orde red Date DISCHARGE PATIENT 1 03/07/2025 documented in this encounter Care Teams Business Excellence Leader Relationship Specialty Start Date End Date Louis Rodriguez MD PCP - General 06/10/11 documented as of this encounter
--- OUTSIDE RECORDS SUMMARY | 2025-04-20 08:30 | XMS_ITS | Clinical Summary ---
Author Organization [facility] Address [address] [place] [address] Phone Care Team Providers Care Fisher Troll Line Name Role Phone Anastasia CHAVES, Louis Brewer [phone] Conditions or Problems Problem Name Problem Code Onset Date Status Entry Date Provider Comment Standard Description Annotate WOUND INFECTION L08.9 (ICD-10-CM) 02/06 Active 02/06 Louis Oconnor MD Local infection of the skin and subcutaneous tissue, unspecified LUMBAR RADICULOPATHY [id number] (SNOMED CT) 01/13 Active 01/13 Louis Oconnor MD Lumbar radiculopathy Medications Medication Instructions Start Date Stop Date Generic Name ND Provider TEQUIN 400 MG TABS 1 po q day x 10 days 2 GATIFLOXACIN [id number] Louis Oconnor MD Medications Administered No information [...]
--- OUTSIDE RECORDS SUMMARY | 2025-04-20 08:31 | XMS_ITS | Clinical Summary ---
Author Organization [facility] Address [address] [place] [address] Phone Care Team Providers Care Drywall Application Supervisor Name Role Phone Louis Rodriguez MD Primary Care Provider [phone] Allergies Active Allergy Reactions Criticality Noted Date Comments Beta-Blockers (Beta-Adrenergic Blocking Agts) Other (See Comments) 09/28/2021 bradycardia Iodine Swelling 12/31/2013 03/03/[address] with [id number] without any premedications and did not have [...] Diagnostic (FREESTYLE LITE STRIPS) Misc Strip by [facility].(Non-Drug; Combo Route) route. Use to test BS 4 x daily Active Blood-Glucose Meter (FREESTYLE LITE METER) Misc Kit by [employer].(Non-Drug; Combo Route) route. Use to test BS 4 x daily Active insulin glargine U-100 (LANTUS) 100 unit/mL SubQ Solution Subcutaneous (Inject under the skin) 45 Units 2 times daily. 10 mL 12 9 Active Additional Information Patient taking differently: 120 UnitsSubcutaneousNIGHTLY, Reason: Advised by Physician, Reported on 03/03/2025 atorvastatin (LIPITOR) 40 mg Oral Tablet Take 1 Tablet by mouth nightly. 30 Tablet 10/01/2021 11:57 AM EST 2 Active losartan-hydroc hlorothiazide (HYZAAR) 100-25 mg Oral Tablet Take 1 Tablet by mouth daily. Active isosorbide mononitrate (IMDUR) 60 mg Oral Tablet Sustained Release 24 hr Take 1 Tablet by mouth daily. 30 Tablet 5 Active Active Problems Problem Noted Date Diagnosed [...] (07/05/2020): Added automatically from request for surgery [id number] Submucosal rectal lesion 07/05/2020 Overview (07/05/2020): Added automatically from request for surgery [id number] Special screening for malignant neoplasms, colon 05/31/2020 Overview (05/31/2020): Added automatically from request for surgery [id number] LFTs abnormal 05/31/2020 Overview (05/31/2020): Added automatically from request for surgery [id number] Nausea and vomiting 05/31/2020 Overview (05/31/2020): Added automatically from request for surgery [id number] Metabolic syndrome 05/31/2020 Overview (05/31/2020): Added automatically from request for surgery [id number] Kidney stones 07/14/2019 Overview (07/14/2019): Added automatically from request for surgery [id number] Pyelonephritis 06/29/2019 St[place] right kidney stone 06/29/2019 [...] EDT Hospital Encounter EDG 2A OBSERVATION UNIT [facility] [place] [address] Abdullahi Walker MD Patel, Jigar D, MD [...] MD; Location: ED MAIN OR; Service: Urology Medical devices from this surgery are in the Medical Devices section. UPPER GASTROINTESTINAL ENDOSCOPY 06/20/2020 N/A ESOPHAGOGASTRODUODENOSCOPY with biopsy via forceps and arrieta dilation COLONOSCOPY with polypectomy via hot and cold snare; Surgeon: Mahin Dallas MD; Location: ED ENDOSCOPY; Service: Endoscopy Medical History Medical History [...] drink = 0.6 oz pur e alcohol) [facility] Utilities Answer Date Recorded In the past 12 months has [employer], gas, oil, or water [employer] threatened to shut off services in your home? No 03/06/2025 Overall Financial Resource Strain (CARDIA) Answe r Date Recorded How hard is it for you to pa y for the very basics like food, housing, medical care, and heating? Somewhat hard 03/06/2025 PHQ-2 Answer Date Recorded PHQ-2 Total Score 0 03/06/2025 [facility] of Occupat ional Health - Occupational Stress [...] things needed for daily living? 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 Device Identifier Shelf Expiration Date Model / Serial / Lot Stent Contour 6 X 24 #[id number] - [id number] Implanted:Qty: 1 on 08/10/2019 by Leanna Jimenez MD at [facility] Stent Right: Ureter [employer]:MICROVASIVE: UROLOGY 05/02/2022 [id number] / / [id number] Procedures Procedure Name Priority Date/Time Associated Diagnosis [...] PLACEMENT ; Surgeon: Virgen Jimenez MD; Location: EDG MAIN OR; Service: Urology LITHOTRIPSY UPPER GASTROINTESTINAL ENDOSCOPY N/A 06/20/2020 ESOPHAGOGASTRODUODENOSCOPY with biopsy via forceps and arrieta dilation COLONOSCOPY with polypectomy via hot and cold snare; Surgeon: Mahin Dallas MD; Location: ED ENDOSCOPY; Service: Endoscopy Allergies Allergen Reactions Lisinopril Anaphylaxis Beta-Blockers (Beta-Adrenergic Blocking Agts) Other (See Comments) bradycardia Iodine Swelling 03/03/[address] with [id number] without any premedications and didnot have any complications-ANL Ok for CT Isovue 370 with premedication benadryl 25mg and [id number] scanned 1 hour later-pt tolerated contrast with [...] file Social Connections: Unknown (07/06/2023) Received from [facility] Family and Community Support Help with Day-to-Day Activities: Not on file Lonely or Isolated: Not on file Intimate Partner Violence: Unknown (07/06/2023) Received from [facility] Abuse Screen Unsafe at Home or Work/School: Not on file Feels Threatened by Someone?: Not on file Does Anyone Keep You from Contacting Others or Doint Things [facility]?: Not on file Physical Sign of Abuse Present: Not on file Housing Stability: Unknown (07/06/2023) Received from [facility] Housing Stability Current Living Arrangements: Not on [...] EK EKG 12 LEAD Result Date: 03/04/2025 [place]:2025[place]03 Pat Name: NATALY GALVAN Department: DEPIDPatient ID: [id number] Room: 2133 Gender:Female Home Health Care Worker: Jory : [id number] By: ABDULLAHI Mcdonald Order Number: [id number] MD: Lucy LuongMeasurements Intervals [place] Rate:82 P: 47 NH: 161QRS: 35 QRSD: 77 T:30 QT: 388 [...] 9:42 AM EDT [facility] RBC 4.63 3.90 - 5.20 x10(6)/mcL 03/07/2025 9:42 AM EDT [facility] Hgb 12.6 11.2 - 15.7 g/dL 03/07/2025 9:42 AM EDT [facility] Hct 39.6 34.0 - 45.0 % 03/07/2025 [...] al Result [facility] [address] [facility] , [place] [address] * (ABNORMAL) BASIC METABOLIC PANEL (03/07/2025 8:36 [...] 10:05 AM EDT [facility] Glucose Lvl 155(H) 70 - 99 mg/dL 03/07/2025 10:05 AM EDT [facility] BUN 12 8 - 23 mg/dL 03/07/2025 10:05 AM EDT [facility] Creatinine 0.75 0.51 - 1.30 mg/dL 03/07/2025 10:05 AM EDT [facility] eGFR (CKD-EPIcr 2020) 91 >=60 mL/min/1.7 3 m2 03/07/2025 10:05 AM EDT [facility] Comment:Estimated GFR was ca lculated using the CKD-EPIcr (2020) equation refit without race. The equation is recommended by the National Kidney Foundation - [place] [employer] of Nephrology Task Force. Blood VENOUS BLOOD / Unknown Venipuncture / Unknown 03/07/2025 8:36 AM EDT 03/07/2025 9:27 AM EDT Sophie Caldwell PA-C CHEMISTRY ORDERABLES Sandie l Result Performing Organization Address [facility] de Phone Number [facility] [employer] [address] [facility], [address] [place] [id number] * (ABNORMAL) GLUCOSE METER POC (03/07/2025 8:10 AM EDT) Only the most recent of14 resultswithin the time period is included. Glucose Meter POC 169(H) 70 - 100 mg/dL 03/07/2025 8:13 AM EDT [facility] Sample Type Capillary 03/07/2025 8:13 AM EDT [facility] Patient Status Non-Critical Patient 03/07/2025 8:13 AM EDT [facility] Blood BLOOD SPECIMEN / Unknown 03/07/2025 8:10 AM EDT 03/07/2025 8:13 AM EDT Prabhu Longoria MD POINT OF CARE TEST ORDERABLES F inal Result Performing Organization Address [facility] de Phone Number [facility] [address] [employer], [place] [id number] * ECG AND WAVEFORMS - TELEMETRY (03/06/2025 7:41 PM EDT) Only the most recent of7 resultswithin the time period is included. ECG INTERPRET NSR [facility] 03/06/2025 7:[address] [facility] - 03/06/2025 8:08 PM EDT ROUTINE/AM [place] 0.15 QRS 0.10 RR 0.81 QT 0.40 See Clinical Report link for waveform capture Unknown Provider POINT OF CARE CARDIOLOGY Final Result [facility] [address] [place] [address] * POTASSIUM REPEAT (03/06/2025 10:16 AM EDT) Potassium 3.6 3.5 - 5.0 mmol/L 03/06/2025 12:01 PM EDT [facility] Blood VENOUS BLOOD / Unknown Venipuncture / Unknown 03/06/2025 10:16 AM EDT 03/06/2025 11:23 AM EDT Sophie Caldwell PA-C CHEMISTRY ORDERABLES Sandie l Result Performing Organization Address [facility] Co de Phone Number [facility] [employer] [address] [place] [address] , [place] [address] * (ABNORMAL) PHOSPHORUS LEVEL (03/06/2025 7:50 AM EDT) Only the most recent of2 resultswithin the time period is included. Phosphorus 2.2(L) 2.5 - 4.5 mg/dL 03/06/2025 9:08 AM EDT [facility] Blood VENOUS BLOOD / Unknown Venipuncture / Unknown 03/06/2025 7:50 AM EDT 03/06/2025 8:22 AM EDT Sophie Caldwell PA-C CHEMISTRY ORDERABLES Sandie l Result Performing Organization Address City/[facility]/ZIP Co de Phone Number [facility] [address] [place] [address] , [place] [address] * MAGNESIUM LEVEL (03/06/2025 7:50 AM EDT) Only the most recent of2 resultswithin the time period is included. Magnesium 2.1 1.6 - 2.4 mg/dL 03/06/2025 9:08 AM EDT [facility] Blood VENOUS BLOOD / Unknown Venipuncture / Unknown 03/06/2025 7:50 AM EDT 03/06/2025 8:22 AM EDT Sophie Caldwell PA-C CHEMISTRY ORDERABLES Sandie l Result [facility] [employer] [address] [facility], [place] [address] * XR CHEST PA OR AP (03/04/2025 [...] of3 resultswithin the time period is included. Lactic Acid 1.9 0.5 - 1.9 mmol/L 03/04/2025 3:09 AM EDT [facility] brettapproved [facility] Blood VENOUS BLOOD / Unknown Venipuncture / Unknown 03/04/2025 2:38 AM EDT 03/04/2025 2:42 AM EDT Abdullahi Walker MD CHEMISTRY ORDERABLES Final R esult Performing Organization Address City/[facility]/ZIP Co de Phone Number [facility] brettapproved [facility] [address] [facility], [address] [place] [phone] * (ABNORMAL) TROPONIN-T HIGH SENSITIVITY 2HR (03/03/2025 10:03 PM EDT) [id number] 2HR 17(H) <14 ng/L 03/03/2025 10:26 PM EDT [facility] hs-cTnT 2Hr Delta from Baseline -1 <4 ng/L 03/03/2025 10:[address] [facility] Blood VENOUS BLOOD / Unknown Venipuncture / Unknown 03/03/2025 10:03 PM EDT 03/03/2025 10:05 PM EDT Narrative [facility] - 03/03/2025 10:26 PM EDT Ingestion of angy doses of biotin (>5 mg/day) taken within 8 hours of drawing blood sample can interfere with this immunoassay test. Abdullahi Walker MD CHEMISTRY ORDERABLES Final R esult Performing Organization Address City/[facility]/ZIP Co de Phone Number [facility] [address] [place] [address] * CT ABD PEL ED FAST W [...] please contactthe office of the ordering clinician. Abdullahi Walker MD IMG CT ORDERABLES Final Resu lt * (ABNORMAL) TROPONIN-T HIGH SENSITIVITY BASELINE W/ REFLEX (03/03/2025 7:44 PM EDT) ya-lHsldkuyo-G 18(H) <14 ng/L 03/03/2025 8:16 PM EDT [facility] Blood VENOUS BLOOD / Unknown Venipuncture / Unknown 03/03/2025 7:44 PM EDT 03/03/2025 7:57 PM EDT Narrative [facility] - 03/03/2025 8:16 PM EDT Ingestion of angy doses of biotin (>5 mg/day) taken within 8 hours of drawing blood sample can interfere with this immunoassay test. Abdullahi Walker MD CHEMISTRY ORDERABLES Final R esult [facility] [address] [place] [address] * (ABNORMAL) CBC WITH DIFF (03/03/2025 7:44 PM EDT) [facility] WBC 12.5(H) 3.7 - 10.3 x10(3)/mcL 03/03/2025 8:[address] [facility] RBC 4.93 3.90 - 5.20 x10(6)/mcL 03/03/2025 8:[address] [facility] Hgb 13.5 11.2 - 15.7 g/dL 03/03/2025 8:[address] [facility] Hct 41.2 34.0 - 45.0 % 03/03/2025 8:[address] [facility] MCV 83.6 80.0 - 100.0 fL 03/03/2025 8:[address] [facility] MCH 27.4 26.0 - 34.0 pg 03/03/2025 8:[address] [facility] MCHC 32.8 30.7 - 35.5 g/dL 03/03/2025 8:[address] [facility] RDW 13.5 <=14.9 % 03/03/2025 8:[address] [facility] Platelet 269 155 - 369 x10(3)/mcL 03/03/2025 8:[address] [facility] MPV 9.9 8.8 - 12.5 fL 03/03/2025 8:[address] [facility] Neut Percent 59.6 % 03/03/2025 8:[address] [facility] Comment:Neutrophils equals s egs plus bands Imm Gran% 0.3 % 03/03/2025 8:[address] [facility] Comment:Automated count of m etamyelocytes, myelocytes and promyelocytes. Lymph Percent 32.4 % 03/03/2025 8:00 PM EDT [facility] [place] Percent 5.2 % 03/03/2025 8:00 PM EDT [facility] Eos Percent 2.2 % 03/03/2025 8:00 PM EDT [facility] Baso Percent 0.3 % 03/03/2025 8:00 PM EDT [facility] Neut # 7.4(H) 1.6 - 6.1 x10(3)/[facility] 03/03/2025 8:00 PM EDT [facility] Comment:Neutrophils equals s egs plus bands IMMGRAN# 0.0 0.0 - 0.1 x10(3)/[facility] 03/03/2025 8:00 PM EDT [facility] Comment:Automated count of m etamyelocytes, myelocytes and promyelocytes. An absolute IG <0.1 is reported as 0.0. Lymph # 4.1(H) 1.2 - 3.9 x10(3)/[facility] 03/03/2025 8:00 PM EDT [facility] [place] # 0.7 0.3 - 0.9 x10(3)/[facility] 03/03/2025 8:00 PM EDT [facility] Eos# 0.3 0.0 - 0.5 x10(3)/[facility] 03/03/2025 8:00 PM EDT [facility] Baso # 0.0 0.0 - 0.1 x10(3)/[facility] 03/03/2025 8:00 PM EDT [facility] Blood VENOUS BLOOD / Unknown Venipuncture / Unknown 03/03/2025 7:44 PM EDT 03/03/2025 7:57 PM EDT us Abdullahi Walker MD HEMATOLOGY ORDERABLES Final Result [facility] [address] [employer], [place] [phone] * LIPASE LEVEL (03/03/2025 7:44 PM EDT) Lipase Lvl 22 13 - 60 U/L 03/03/2025 8:14 PM EDT [facility] Blood VENOUS BLOOD / Unknown Venipuncture / Unknown 03/03/2025 7:44 PM EDT 03/03/2025 7:57 PM EDT us Abdullahi Walker MD CHEMISTRY ORDERABLES Final R esult Performing Organization Address [facility]/ZIP Co de Phone Number [facility] [address] [place] [address] * (ABNORMAL) LACTIC ACID (03/03/2025 7:44 PM EDT) [facility] Lactic Acid 2.6(H) 0.5 - 1.9 mmol/L 03/03/2025 8:12 PM EDT [facility] Blood VENOUS BLOOD / Unknown Venipuncture / Unknown 03/03/2025 7:44 PM EDT 03/03/2025 7:57 PM EDT Abdullahi Walker MD CHEMISTRY ORDERABLES Final R esult Performing Organization Address [facility] Co de Phone Number [facility] [address] [place] [address] * (ABNORMAL) COMPREHENSIVE METABOLIC PANEL (03/03/2025 7:44 PM EDT) [facility] Sodium 135(L) 136 - 145 mmol/L 03/03/2025 8:14 PM EDT [facility] Potassium 4.1 3.5 - 5.0 mmol/L 03/03/2025 8:14 PM EDT [facility] Chloride 97(L) 98 - 107 mmol/L 03/03/2025 8:14 PM EDT [facility] Total CO2 24 22 - 29 mmol/L 03/03/2025 8:14 PM EDT [facility] Anion Gap 14 7 - 16 mmol/L 03/03/2025 8:14 PM EDT [facility] Calcium 10.1 8.8 - 10.4 mg/dL 03/03/2025 8:14 PM EDT [facility] Glucose Lvl 343(H) 70 - 99 mg/dL 03/03/2025 8:14 PM EDT [facility] BUN 26(H) 8 - 23 mg/dL 03/03/2025 8:14 PM EDT [facility] Creatinine 0.91 0.51 - 1.30 mg/dL 03/03/2025 8:14 PM EDT [facility] Albumin 3.9 3.2 - 4.6 gm/dL 03/03/2025 8:14 PM EDT [facility] Total Protein 7.4 6.4 - 8.3 gm/dL 03/03/2025 8:14 PM EDT [facility] Bili Total 0.2 0.2 - 1.3 mg/dL 03/03/2025 8:14 PM EDT [facility] ALT 22 <=41 U/L 03/03/2025 8:14 PM EDT [facility] AST 27 <=40 U/L 03/03/2025 8:14 PM EDT [facility] Alk Phos 125(H) 36 - 123 U/L 03/03/2025 8:14 PM EDT [facility] eGFR (CKD-EPIcr 2020) 72 >=60 mL/min/1.7 3 m2 03/03/2025 8:14 PM EDT [facility] Comment:Estimated GFR was ca lculated using the CKD-EPIcr (2020) equation refit without race. The equation is recommended by the National Kidney Foundation - [place] [employer] of Nephrology Task Force. Blood VENOUS BLOOD / Unknown Venipuncture / Unknown 03/03/2025 7:44 PM EDT 03/03/2025 7:57 PM EDT us Abdullahi Walker MD CHEMISTRY ORDERABLES Final R esult [facility] [address] [place] [id number] * (ABNORMAL) URINALYSIS REFLEX (03/03/2025 7:36 PM EDT) UA Color Light Yellow 03/03/2025 8:06 PM EDT [facility] UA Appear Cloudy(A) Clear 03/03/2025 8:06 PM EDT [facility] UA Glucose 4+ (>1000mg/dL) (A) Negative mg/dL 03/03/2025 8:06 PM EDT [facility] UA Ketones Negative Negative mg/dL 03/03/2025 8:06 PM EDT [facility] UA Blood Negative Negative 03/03/2025 8:06 PM EDT [facility] UA pH 5.5 5.0 - 8.0 pH 03/03/2025 8:06 PM EDT [facility] UA Protein Negative Negative mg/dL 03/03/2025 8:06 PM EDT [facility] UA Urobilinogen Normal <=1 mg/dL 8:06 PM EDT [facility] UA Bili Negative Negative 03/03/2025 8:06 PM EDT [facility] UA Nitrite Positive(A) Negative 03/03/2025 8:06 PM EDT [facility] UA Leuk Est 4+ (500 Eddie/mcl)(A) Negative 03/03/2025 8:06 PM EDT [facility] UA Spec Grav 1.024 1.001 - 1.035 no units 03/03/2025 8:06 PM EDT [facility] Comment:Reference range alana d for random specimens only. UA WBC 86(H) 0 - 4 /HPF 03/03/2025 8:06 PM EDT [facility] UA RBC 2 0 - 3 /HPF 03/03/2025 8:06 PM EDT [facility] UA Squam Epi 4+ /LPF 03/03/2025 8:06 PM EDT [facility] UA Mucus Trace /LPF 03/03/2025 8:06 PM EDT [facility] UA Bacteria 3+(A) Negative /HPF 03/03/2025 8:06 PM EDT [facility] Urine STRUCTURE OF URINARY TRACT PROPER / Unknown 03/03/2025 7:36 PM EDT 03/03/2025 8:01 PM EDT us Abdullahi Walker MD URINE ORDERABLES Final Resul t [facility] [address] [facility] , [place] [address] * EXTRA NUÑEZ URINE CX (03/03/2025 7:36 PM EDT) Urine STRUCTURE OF URINARY TRACT PROPER / Unknown 03/03/2025 7:36 PM EDT 03/03/2025 8:01 PM EDT Abdullahi Walker MD MICROBIOLOGY - GENERAL ORDER [place] [address] * (ABNORMAL) URINE CULTURE (NO STAIN) (03/03/2025 7:36 PM EDT) Culture Positive Growth(A) 03/06/2025 11:40 AM EDT [facility] [place] [place] Culture >100,000 CFU/mL Escherichia coli SUSCEPTIBI LITY RESULT 03/06/2025 11:40 AM EDT [facility] [place] Urine STRUCTURE OF URINARY TRACT PROPER / [...] MICROBIOLOGY - GENERAL ORDER HALEY Final Result [facility] [employer], [address], [facility] [address] * EK EKG 12 LEAD (03/03/2025 7:30 PM EDT) Anatomical Region Laterality Modality Electrocardiogra phy 03/03/2025 7:46 PM EDT Impressions 03/04/2025 1:01 PM EDT [facility] Test Date: 2025-03-03 Pat Name: NATALY GALVAN Department: DEPID Room: [facility] Gender: Female Home Health Care Worker: Jory FRAGAB: 1965 Requested By: ABDULLAHI Mcdonald Order Number: [id number] Jon MD: Lucy Luong Measurements Intervals [place] Rate: 82 P: 47 NH: 161 QRS: 35 QRSD: 77 T: 30 QT: 388 QTc: 453 Interpretive Statements SINUS RHYTHM LOW QRS VOLTAGE IN PRECORDIAL LEADS Electronically Signed On 03-04-2025 13:00:59 EDT by Lucy Luong Narrative Procedure Note Lucy Luong MD - 03/04/2025 IMPRESSION [facility] Test Date: 2025-03-03 Pat Name: NATALY GALVAN Department: DEPID Room: 2133 Gender: Female Home Health Care Worker: Jory : 1965 Requested By: ABDULLAHI Mcdonald Order Number: [id number] Reading MD: Lucy Luong Measurements Intervals [place] Rate: 82 P: 47 NH: 161 QRS: 35 QRSD: 77 T: 30 QT: 388 QTc: 453 Interpretive Statements SINUS RHYTHM LOW QRS VOLTAGE IN PRECORDIAL LEADS Electronically Signed On 03-04-2025 13:00:59 EDT by Lucy Luong Abdullahi Walker MD IMG ECG ORDERABLES Final Res ult * (ABNORMAL) HEMOGLOBIN A1C (09/30/2021 10:11 AM EST) Hgb A1C 12.3(H) 4.2 - 5.6 % 10/01/2021 11:47 AM EST [facility] Est. Avg Glucose 306 mg/dL 10/01/2021 11:47 AM EST [facility] Blood Venipuncture / Unknown 09/30/2021 10:11 AM EST 09/30/2021 10:16 AM EST Narrative [facility] - 10/01/2021 11:47 AM EST REFERENCE RANGE: Normal: 4.0-5.6% Pre-diabetes: 5.7-6.4% Provisional diagnosis of diabetes: >6.4% Hgb F>10% and anything which shortens red cell survival, such as hemolytic anemia, or unstable hemoglobin variants such as HbSS, HbSC, or HbCC, will lower the HbA1c value associated with a given level of glycemic control. Shady Francisco MD CHEMISTRY ORDERABLES Fin al Result [facility] [address] [facility] , [place] [place] [address] * (ABNORMAL) MICROALBUMIN/CREATININE RATIO URINE (02/02/2021 1:47 PM EDT) Urine Microalb 39.3 mg/L 02/02/2021 2:19 PM EDT [facility] Creatinine 110.8 mg/dL 02/02/2021 2:19 PM EDT [facility] Microalb/Creat 35(H) 0 - 30 mg/g 02/02/2021 2:19 PM EDT [facility] STRUCTURE OF URINARY TRACT PROPER / Unknown 02/02/2021 1:47 PM EDT 02/02/2021 1:51 PM EDT us Eleazar Solano MD URINE ORDERABLES Final Result Performing Organization Address City/[facility] Co de Phone Number [facility] [address] [facility] , [place] [address] * (ABNORMAL) LIPID SCREEN (02/02/2021 12:04 PM EDT) Cholesterol 180 <200 mg/dL 02/02/2021 1:43 PM EDT [facility] Comment: < 200 Desirable 200 - 239 Borderline High >= 240 High Triglyceride 116 <150 mg/dL 02/02/2021 1:43 PM EDT [facility] Comment: < 150 Normal 150 - 199 Borderline High 200 - 499 High >= 500 Very High HDL 49 >=40 mg/dL 02/02/2021 1:43 PM EDT [facility] Comment: > 60 Optimal 40 - 60 Acceptable < 40 Low LDL Calculated 108(H) <100 mg/dL 02/02/2021 1:43 PM EDT [facility] Comment: < 100 Optimal 100 - 129 Near or above optimal 130 - 159 Borderline High 160 - 189 High >= 190 Very High Non-HDL-C Calculated 131(H) <=129 mg/dL 02/02/2021 1:43 PM EDT [facility] Comment: <130 Desirable 130-159 Above Desirable 160-189 Borderline High 190-219 High >= 220 Very High Fasting Specimen? Yes None 021 1:[address] [facility] Blood VENOUS BLOOD / Unknown Venipuncture / Unknown 02/02/2021 12:04 PM EDT 02/02/2021 1:13 PM EDT us Eleazar Solano MD CHEMISTRY ORDERABLES Final Resul t Performing Organization Address City/[facility] Co de Phone Number PREFERRED [facility], [employer] [address] [place], [place] [id number] [facility] [address] [place], [place] [id number] * HEPATITIS C ANTIBODY IGM + IGG (11/23/2020 3:13 PM EST) Hep C Ab Non-Reactiv e Non-Reacti ve 11/23/2020 8:51 PM EST [facility] Blood VENOUS BLOOD / Unknown Venipuncture / Unknown 11/23/2020 3:13 PM EST 11/23/2020 3:13 PM EST Mahin [place] MD IMMUNOLOGY ORDERABLES Final Result Performing Organization Address [facility] Co de Phone Number [facility] [address] [place] [address] * GMED EGD-COLONOSCOPY (06/20/2020 12:00 PM EDT) 06/20/2020 12:[address] [facility] - 06/20/2020 1:36 PM EDT Plan: [...] is an excerpt of the full report. Mahin [place] MD GI PROCEDURE ORDERABLES Fin al Result Performing Organization Address City/[facility]/ZIP Co de Phone Number [facility] [address] [place] [address] from Last 3 Months or Most Recently Relevant to Health Maintenance Insurance PPO ANTHEM PPO ANTHEM PPO PADMINI PPO Advance Directives For more information, please contact: [phone] * Full Code (Latest Code Status on [...] 11:18 PM 07/02/2019 5:45 PM Care Teams Drywall Application Supervisor Relationship Specialty Start Date End Date Louis Rodriguez MD PCP - General 06/10/11
--- NOTE | 2025-04-20 09:00 | CA_ITS ---
FINAL REPORT TECHNIQUE: Spectral and color Doppler exam CLINICAL HISTORY: HTN,HX KIDNEY STONES FINDINGS: DOPPLER RENAL VESSELS FINDINGS: Intrarenal resistive indices on the right are 0.68-0.82, normal . Intrarenal resistive indices on the left are 0.72-0.82, normal . Renal size is normal and symmetric. Right main renal artery systolic velocity: 153 cm/sec. Aortic-right renal artery flow velocity ratio: 1.29 COMMENT: No evidence of hemodynamically significant renal artery stenosis . Left main renal artery systolic velocity: 359 cm/sec. Aortic-left renal artery flow velocity ratio: 3.02 COMMENT: Less than 60% stenosis.. IMPRESSION: No evidence of stenosis on the right. Less than 60% stenosis on the left. Recommend CTA or MRA to confirm presence of stenosis. Reviewed, Interpreted and Dictated by Lito Lyons MD Transcribed by Beth Prado Authenticated and [facility]
--- NOTE | 2025-04-20 10:00 | US_ITS ---
FINAL REPORT TECHNIQUE: Ultrasound images of the kidneys and bladder were obtained. CLINICAL HISTORY: I10 - Essential (primary) hypertension FINDINGS: The right kidney measures 10.7 cm in length. It is normal in echogenicity. There is no hydronephrosis. The left kidney measures 11.8 cm in length. It is normal in echogenicity. There is no hydronephrosis. There are benign central left renal cyst measuring between 1 to 2 cm. No solid renal mass is identified. The urinary bladder is unremarkable. IMPRESSION: No obstruction or significant parenchymal atrophy. Reviewed, Interpreted and Dictated by Lito Lyons MD Transcribed by Mayra Amin Authenticated and [facility]
== END 2025-04-20 23:59 | disposition home or self-care (01) ==
LOC: RT 08:28
PROVIDERS: PCP Family Medicine; Visit Provider Nurse Practitioner
DX: I70.1 Atherosclerosis of renal artery (principal); I10 Essential (primary) hypertension; Z87.442 Personal history of urinary calculi
CPT/HCPCS: 76770; 93976

== ENCOUNTER 2025-07-10 11:13 | Outpatient (CLI) | payer BC, SELFPAY ==
--- OUTSIDE RECORDS SUMMARY | 2025-07-11 11:13 | XMS_ITS | Clinical Summary ---
Author Organization [facility] Address [address] [place] [address] Phone Care Team Providers Care Veterinary Hospital Attendant Name Role Phone Anastasia CHAVES, Louis Brewer [phone] Conditions or Problems Problem Name Problem Code Onset Date Status Entry Date Provider Comment Standard Description Annotate WOUND INFECTION L08.9 (ICD-10-CM) 02/06 Active 02/06 Louis Oconnor MD Local infection of the skin and subcutaneous tissue, unspecified LUMBAR RADICULOPATHY 325082512 (SNOMED CT) 01/13 Active 01/13 Louis Oconnor MD Lumbar radiculopathy Medications Medication Instructions Start Date Stop Date Generic Name ND Provider TEQUIN 400 MG TABS 1 po q day x 10 days 2 GATIFLOXACIN [id number] Louis Oconnor MD Medications Administered No information [...]
--- OUTSIDE RECORDS SUMMARY | 2025-07-11 11:14 | XMS_ITS | Clinical Summary ---
Author Organization [facility] Address [address] [place] [address] Phone Care Team Providers Care Card Lacer Jacquard Name Role Phone Anastasia CHAVES, Louis Brewer [phone] Conditions or Problems Problem Name Problem Code Onset Date Status Entry Date Provider Comment Standard Description Annotate WOUND INFECTION L08.9 (ICD-10-CM) 02/06 Active 02/06 Louis Oconnor MD Local infection of the skin and subcutaneous tissue, unspecified LUMBAR RADICULOPATHY [id number] (SNOMED CT) 01/13 Active 01/13 Louis Oconnor MD Lumbar radiculopathy Medications Medication Instructions Start Date Stop Date Generic Name ND Provider TEQUIN 400 MG TABS 1 po q day x 10 days 2 GATIFLOXACIN [id number] Louis Oconnor MD Medications Administered No information [...]
--- OUTSIDE RECORDS SUMMARY | 2025-07-11 11:14 | XMS_ITS | Clinical Summary ---
Author Organization [facility] Address [address] [place] [address] Care Team Providers Care Gluer And Slicer Hand Name Role Phone Louis Rodriguez MD Primary Care Provider [phone] Source Comments This information has been disclosed [...] therelease of HIV test results or diagnoses. [id number] Allergies Active Allergy Reactions Criticality Noted Date [...] (06/28/2021): Added automatically from request for surgery [id number] Pyelonephritis 06/29/2019 Staghorn kidney stones 06/29/2019 Overview (06/28/2021): Added automatically from request for surgery [id number] Renal cell carcinoma of right kidney 05/26/2019 Overview (05/26/2019): Added automatically from request for surgery [id number] Chronic diastolic heart failure 12/17/2017 Acute renal [...] Treatment Not on file Insurance Care Teams Gluer And Slicer Hand Relationship Specialty Start Date End Date Louis Rodriguez MD [address] [place] [address] PCP - General Family Medicine 05/06/19
--- OUTSIDE RECORDS SUMMARY | 2025-07-11 11:15 | XMS_ITS | Clinical Summary ---
Author Organization [facility] Address [address] [place] [address] Phone Care Team Providers Care Phytochemistry Professor Name Role Phone Louis Rodriguez MD Primary Care Provider [phone] Allergies Active Allergy Reactions Criticality Noted Date Comments Beta-Blockers (Beta-Adrenergic Blocking Agts) Other (See Comments) 09/28/2021 bradycardia Iodine Swelling 12/31/2013 03/03/[address] with [id number] without any premedications and did not have [...] Diagnostic (FREESTYLE LITE STRIPS) Misc Strip by [employer].(Non-Drug; Combo Route) route. Use to test BS 4 x daily Active Blood-Glucose Meter (FREESTYLE LITE METER) Misc Kit by [employer].(Non-Drug; Combo Route) route. Use to test BS [...] (07/05/2020): Added automatically from request for surgery [id number] Submucosal rectal lesion 07/05/2020 Overview (07/05/2020): Added automatically from request for surgery [id number] Special screening for malignant neoplasms, colon 05/31/2020 Overview (05/31/2020): Added automatically from request for surgery [id number] LFTs abnormal 05/31/2020 Overview (05/31/2020): Added automatically from request for surgery [id number] Nausea and vomiting 05/31/2020 Overview (05/31/2020): Added automatically from request for surgery [id number] Metabolic syndrome 05/31/2020 Overview (05/31/2020): Added automatically from request for surgery [id number] Kidney stones 07/14/2019 Overview (07/14/2019): Added automatically from request for surgery [id number] Pyelonephritis 06/29/2019 Staghorn right kidney stone 06/29/2019 [...] apnea) 01/01/2014 01/02/2014 Influenza B 01/01/2014 12/17/2017 Immunizations Immunization Administration Dates Next Due Influenza [...] 0.6 oz pur e alcohol) [facility] Utilities Answer Date Recorded In the past 12 months has e [employer], gas, oil, or water Nextt threatened to shut off services in your home? No 03/06/2025 Overall Financial Resource Strain (CARDIA) Answe r Date Recorded How hard is it for you to pa y for the very basics like food, housing, medical care, and heating? Somewhat hard 03/06/2025 PHQ-2 Answer Date Recorded PHQ-2 Total Score 0 03/06/2025 [facility] Occupat ional Health - Occupational Stress [...] things needed for daily living? No 09/28/2021 [facility] IP Transportation Answer D ate Recorded [...] on file Sexual Orientation Not on file Last Filed Vital Signs Vital Sign Reading [...] 09/30/2021, 05/0 04/2021, 08/01/2018, Additional history exists RSV or 60+ (1 - Risk 60-74 years 1-dose series) 2024 COVID-19 Vaccine ( season) 2025 02/20/2022, 11/01/2020, 10/11/2020 Influenza Vaccine (#1) 2025 , 09/06/2020, 07/16/2018 Kidney Health: eGFR 03/07/2026 03/07/2025, 03/06/2025, 03/05/2025, Additional history exists Colon Cancer Screening 06/20/2030 Colonoscopy 06/20/2030 06/20/2020 Hepatitis B Vaccine Completed 05/31/1996, 12/04/1995, 11/04/1995 Hepatitis C Screening Completed 11/23/2020 Meningococcal B Vaccine Aged Out No l onger eligible based on patient's age to complete this topic Medical Devices Implanted Type Area Business Manager Device Identifier Shelf Expiration Date Model / Serial / Lot Stent Contour 6 X 24 #[id number] - [id number] Implanted:Qty: 1 on 08/10/2019 by Leanna Jimenez MD at [facility] Stent Right: Ureter [employer]:MICROVASIVE: UROLOGY 05/02/2022 [id number] / / [id number] Procedures Procedure Name Priority Date/Time Associated Diagnosis Comments BASIC METABOLIC PANEL KEON 03/07/2025 8:36 AM EDT HEMOGLOBIN A1C Add-On 09/30/2021 10:11 AM EST MICROALBUMIN/CREATIN INE RATIO URINE Routine 02/02/2021 1:47 PM EDT LIPID SCREEN Routine 02/02/2021 12:04 PM EDT HEPATITIS C ANTIBODY IGM + IGG Routine 11/23/2020 3:13 PM EST LFTs abnormal Nausea GMED EGD-COLONOSCOPY Routine 06/20/2020 12:00 PM EDT from Last 3 Months or Most Recently Relevant to Health Maintenance Results * (ABNORMAL) BASIC METABOLIC PANEL (03/07/2025 8:36 AM EDT) Sodium 138 136 - 145 mmol/L 03/07/2025 10:05 AM EDT [facility] Potassium 3.8 3.5 - 5.0 mmol/L 03/07/2025 10:05 AM EDT [facility] Chloride 101 98 - 107 mmol/L 03/07/2025 10:05 AM EDT [facility] Total CO2 26 22 - 29 mmol/L 03/07/2025 10:05 AM EDT [facility] Anion Gap 11 7 - 16 mmol/L 03/07/2025 10:05 AM EDT [facility] Calcium 9.0 8.8 - 10.4 mg/dL 03/07/2025 10:05 AM EDT [facility] Glucose Lvl 155(H) 70 - 99 mg/dL 03/07/2025 10:05 AM EDT [facility] BUN 12 8 - 23 mg/dL 03/07/2025 10:05 AM EDT [facility] Creatinine 0.75 0.51 - 1.30 mg/dL 03/07/2025 10:05 AM EDT [facility] eGFR (CKD-EPIcr 2020) 91 >=60 mL/min/1.7 3 m2 03/07/2025 10:05 AM EDT [facility] Comment:Estimated GFR was ca lculated using the CKD-EPIcr (2020) equation refit without race. The equation is recommended by the National Kidney Foundation - [place] [employer] of Nephrology Task Force. Blood VENOUS BLOOD / Unknown Venipuncture / Unknown 03/07/2025 8:36 AM EDT 03/07/2025 9:27 AM EDT Sophie Caldwell PA-C CHEMISTRY ORDERABLES Sandie l Result Performing Organization Address [facility] Co de Phone Number [employer] [address] , [place] [address] * (ABNORMAL) HEMOGLOBIN A1C (09/30/2021 10:11 AM EST) Hgb A1C 12.3(H) 4.2 - 5.6 % 10/01/2021 11:47 AM EST [facility] Avg Glucose 306 mg/dL 10/01/2021 11:47 AM EST [facility] Blood Venipuncture / Unknown 09/30/2021 10:11 AM EST 09/30/2021 10:16 AM EST Narrative [facility] - 10/01/2021 11:47 AM EST REFERENCE RANGE: Normal: 4.0-5.6% Pre-diabetes: 5.7-6.4% Provisional diagnosis of diabetes: >6.4% Hgb F>10% and anything which shortens red cell survival, such as hemolytic anemia, or unstable hemoglobin variants such as HbSS, HbSC, or HbCC, will lower the HbA1c value associated with a given level of glycemic control. Shady Francisco MD CHEMISTRY ORDERABLES Fin al Result Performing Organization Address [facility] Co de Phone Number [employer] [address] , [place] [address] * (ABNORMAL) MICROALBUMIN/CREATININE RATIO URINE (02/02/2021 1:47 PM EDT) Urine Microalb 39.3 mg/L 02/02/2021 2:19 PM EDT [facility] Urine Creatinine 110.8 mg/dL 02/02/2021 2:19 PM EDT [facility] Ur Microalb/Creat 35(H) 0 - 30 mg/g 02/02/2021 2:19 PM EDT [facility] Urine STRUCTURE OF URINARY TRACT PROPER / Unknown 02/02/2021 1:47 PM EDT 02/02/2021 1:51 PM EDT Eleazar Solano MD URINE ORDERABLES Final Result Alert[facility] [address] , [place] [address] * (ABNORMAL) LIPID SCREEN (02/02/2021 12:04 PM EDT) Cholesterol 180 <200 mg/dL 02/02/2021 1:43 PM EDT [facility] Comment: < 200 Desirable 200 - 239 Borderline High >= 240 High Triglyceride 116 <150 mg/dL 02/02/2021 1:43 PM EDT [facility] Comment: < 150 Normal 150 - 199 Borderline High 200 - 499 High >= 500 Very High HDL 49 >=40 mg/dL 02/02/2021 1:43 PM EDT [facility] Comment: > 60 Optimal 40 - 60 Acceptable < 40 Low LDL Calculated 108(H) <100 mg/dL 02/02/2021 1:43 PM EDT [facility] Comment: < 100 Optimal 100 - 129 Near or above optimal 130 - 159 Borderline High 160 - 189 High >= 190 Very High Non-HDL-C Calculated 131(H) <=129 mg/dL 02/02/2021 1:43 PM EDT [facility] Comment: <130 Desirable 130-159 Above Desirable 160-189 Borderline High 190-219 High >= 220 Very High Fasting Specimen? Yes None 021 1:43 PM EDT [facility] Blood VENOUS BLOOD / Unknown Venipuncture / Unknown 02/02/2021 12:04 PM EDT 02/02/2021 1:13 PM EDT Eleazar Solano MD CHEMISTRY ORDERABLES Final Resul t Alerts [address] [place] [address] [facility] [address] [place] [address] * HEPATITIS C ANTIBODY IGM + IGG (11/23/2020 3:13 PM EST) Hep C Ab Non-Reactiv e Non-Reacti ve 11/23/2020 8:51 PM EST [facility] Blood VENOUS BLOOD / Unknown Venipuncture / Unknown 11/23/2020 3:13 PM EST 11/23/2020 3:13 PM EST Mahin [place] MD IMMUNOLOGY ORDERABLES Final Result Performing Organization Address [facility] Co de Phone Number [facility] [address], [place] [address] * [facility]ED EGD-COLONOSCOPY (06/20/2020 12:00 PM EDT) 06/20/2020 12:0 0 PM EDT [facility] - 06/20/2020 1:36 PM EDT [...] ORDERABLES Fin al Result Performing Organization Address [facility] [place] [address] from Last 3 Months or Most Recently Relevant to Health Maintenance [facility] ANTHEM PPO [facility] PPO [place] [id number] [address] [id number] Advance Directives For more information, please contact: [phone] * Full Code (Latest Code Status on [...] 11:18 PM 07/02/2019 5:45 PM Care Teams Phytochemistry Professor Relationship Specialty Start Date End Date Louis Rodriguez MD PCP - General 06/10/11
== END 2025-07-10 23:59 | disposition home or self-care (01) ==
LOC: LAB.DROPOF 07-11 11:13
PROVIDERS: PCP Family Medicine; Visit Provider Family Medicine
DX: N39.0 Urinary tract infection, site not specified (principal); E11.9 Type 2 diabetes mellitus without complications; R10.9 Unspecified abdominal pain
CPT/HCPCS: 82043; 82570; 87086

== ENCOUNTER 2025-08-09 08:45 | Outpatient (CLI) | payer BC, SELFPAY ==
--- OUTSIDE RECORDS SUMMARY | 2025-08-10 11:09 | XMS_ITS | Clinical Summary ---
Author Organization [facility] Address [address] [place] [address] Phone Care Team Providers Care Braider Setter Name Role Phone Anastasia CHAVES, Louis Brewer [phone] Conditions or Problems Problem Name Problem Code Onset Date Status Entry Date Provider Comment Standard Description Annotate WOUND INFECTION L08.9 (ICD-10-CM) 02/06 Active 02/06 Louis Oconnor MD Local infection of the skin and subcutaneous tissue, unspecified LUMBAR RADICULOPATHY [id number] (SNOMED CT) 01/13 Active 01/13 Louis Oconnor MD Lumbar radiculopathy Medications Medication Instructions Start Date Stop Date Generic Name ND Provider TEQUIN 400 MG TABS 1 po q day x 10 days 2 GATIFLOXACIN [id number] Louis Oconnor MD Medications Administered No information [...]
--- OUTSIDE RECORDS SUMMARY | 2025-08-10 11:10 | XMS_ITS | Clinical Summary ---
Author Organization [facility] Address [address] [place] [address] Phone Care Team Providers Care Classroom Monitor Name Role Phone Louis Rodriguez MD Primary Care Provider [phone] Allergies Active Allergy Reactions Criticality Noted Date Comments Beta-Blockers (Beta-Adrenergic Blocking Agts) Other (See Comments) 09/28/2021 bradycardia Iodine Swelling 12/31/2013 03/03/[address] with [id number] without any premedications and did not have [...] Diagnostic (FREESTYLE LITE STRIPS) Misc Strip by [facility].(Non-Drug; Combo Route) route. Use to test BS 4 x daily Active Blood-Glucose Meter (FREESTYLE LITE METER) Misc Kit by [employer].(Non-Drug; Combo Route) route. Use to test BS [...] (07/05/2020): Added automatically from request for surgery [id number] Submucosal rectal lesion 07/05/2020 Overview (07/05/2020): Added automatically from request for surgery [id number] Special screening for malignant neoplasms, colon 05/31/2020 Overview (05/31/2020): Added automatically from request for surgery [id number] LFTs abnormal 05/31/2020 Overview (05/31/2020): Added automatically from request for surgery [id number] Nausea and vomiting 05/31/2020 Overview (05/31/2020): Added automatically from request for surgery [id number] Metabolic syndrome 05/31/2020 Overview (05/31/2020): Added automatically from request for surgery [id number] Kidney stones 07/14/2019 Overview (07/14/2019): Added automatically from request for surgery [id number] Pyelonephritis 06/29/2019 Staghorn right kidney stone 06/29/2019 [...] drink = 0.6 oz pur e alcohol) [facility] Utilities Answer Date Recorded In the past 12 months has e [employer], gas, oil, or water [employer] threatened to shut off services in your home? No 03/06/2025 Overall Financial Resource Strain (CARDIA) Answe r Date Recorded How hard is it for you to pa y for the very basics like food, housing, medical care, and heating? Somewhat hard 03/06/2025 PHQ-2 Answer Date Recorded PHQ-2 Total Score 0 03/06/2025 [facility] [place] [facility] Occupat ional Health - Occupational Stress [...] things needed for daily living? No 09/28/2021 [facility] IP Transportation Answer D ate Recorded In [...] FIT 2009 Sigmoidoscopy 2009 Virtual Colonography 2009 RSV or 60+ (1 - Risk 50-74 years 1-dose series) 2014 Zoster (1 of 2) 2014 Kidney Health: uACR 02/02/2022 02/02/2021, 8 Lipids 02/02/2022 02/02/2021, 07/19/2017 Hemoglobin A1c 03/30/2022 09/30/2021, 05/0 04/2021, 08/01/2018, Additional history exists COVID-19 Vaccine ( season) 2025 02/20/2022, 11/01/2020, [...] this topic Medical Devices Implanted Type Area Gastroenterology Nurse Device Identifier Shelf Expiration Date Model / Serial / Lot Stent Contour 6 X 24 #[id number] - [id number] Implanted:Qty: 1 on 08/10/2019 by Leanna Jimenez MD at [facility] Stent Right: Ureter [employer]:MICROVASIVE: UROLOGY 05/02/2022 [id number] / / [id number] Procedures Procedure Name Priority Date/Time Associated Diagnosis Comments BASIC METABOLIC PANEL KEON 03/07/2025 8:36 AM EDT HEMOGLOBIN A1C Add-On 09/30/2021 10:11 AM EST ALBUMIN/CREATININE RATIO, RANDOM URINE Routine 02/02/2021 1:47 PM EDT LIPID [...] 03/07/2025 10:05 AM EDT [facility] Potassium 3.8 3.5 - 5.0 mmol/L 03/07/2025 10:05 AM EDT [facility] Chloride 101 98 - 107 mmol/L 03/07/2025 10:05 AM EDT [facility] Total CO2 26 22 - 29 mmol/L 03/07/2025 10:05 AM EDT [facility] Anion Gap 11 7 - 16 mmol/L 03/07/2025 10:05 AM EDT [facility] Calcium 9.0 8.8 - 10.4 mg/dL 03/07/2025 10:05 AM EDT [facility] Glucose Lvl 155(H) 70 - 99 mg/dL 03/07/2025 10:05 AM EDT [facility] BUN 12 8 - 23 mg/dL 03/07/2025 10:05 AM EDT [facility] Creatinine 0.75 0.51 - 1.30 mg/dL 03/07/2025 10:05 AM EDT [facility] eGFR (CKD-EPIcr 2020) 91 >=60 mL/min/1.7 3 m2 03/07/2025 10:05 AM EDT [facility] Comment:Estimated GFR was ca lculated using the CKD-EPIcr (2020) equation refit without race. The equation is recommended by the National Kidney Foundation - [place] Society of Nephrology Task Force. Blood VENOUS BLOOD / Unknown Venipuncture / Unknown 03/07/2025 8:36 AM EDT 03/07/2025 9:27 AM EDT Sophie Caldwell PA-C CHEMISTRY ORDERABLES Sandie l Result Performing Organization Address [facility] Co de Phone Number [employer] [address] , [place] [address] * (ABNORMAL) HEMOGLOBIN A1C (09/30/2021 10:11 AM EST) Hgb A1C 12.3(H) 4.2 - 5.6 % 10/01/2021 11:47 AM EST [facility] [employer] Est. Avg Glucose 306 mg/dL 10/01/2021 11:47 AM EST [facility] Blood Venipuncture / Unknown 09/30/2021 10:11 AM EST 09/30/2021 10:16 AM EST Narrative [facility] - 10/01/2021 11:47 AM EST REFERENCE RANGE: [...] Result Performing Organization Address [facility] Co de Phone Number [employer] [address] , [place] [address] * (ABNORMAL) MICROALBUMIN/CREATININE RATIO URINE (02/02/2021 1:47 PM EDT) Urine Albumin 39.3 mg/L 02/02/2021 2:19 PM EDT [facility] [employer] [facility] Urine Creatinine 110.8 mg/dL 02/02/2021 2:19 PM EDT [facility] [employer] [facility] Ur Albumin/Creat Ratio 35(H) 0 - 30 mg/g 02/02/2021 2:19 PM EDT [facility] [employer] [facility] Urine STRUCTURE OF URINARY TRACT PROPER / Unknown 02/02/2021 1:47 PM EDT 02/02/2021 1:51 PM EDT Eleazar Solano MD URINE ORDERABLES Final Result [facility] [address] [facility] [address], [place] [address] * (ABNORMAL) LIPID SCREEN (02/02/2021 12:04 PM EDT) Cholesterol 180 <200 mg/dL 02/02/2021 1:43 PM EDT [facility] Comment: < 200 Desirable 200 - 239 Borderline High >= 240 High Triglyceride 116 <150 mg/dL 02/02/2021 1:43 PM EDT [employer] Comment: < 150 Normal 150 - 199 Borderline High 200 - 499 High >= 500 Very High HDL 49 >=40 mg/dL 02/02/2021 1:43 PM EDT [employer] Comment: > 60 Optimal 40 - 60 Acceptable < 40 Low LDL Calculated 108(H) <100 mg/dL 02/02/2021 1:43 PM EDT [employer] Comment: < 100 Optimal 100 - 129 Near or above optimal 130 - 159 Borderline High 160 - 189 High >= 190 Very High Non-HDL-C Calculated 131(H) <=129 mg/dL 02/02/2021 1:43 PM EDT [employer] Comment: <130 Desirable 130-159 Above Desirable 160-189 Borderline High 190-219 High >= 220 Very High Fasting Specimen? Yes None 021 1:43 PM EDT [facility] Blood VENOUS BLOOD / Unknown Venipuncture / Unknown 02/02/2021 12:04 PM EDT 02/02/2021 1:13 PM EDT Eleazra Solano MD CHEMISTRY ORDERABLES Final Resul t [facility] [address] [place] [address] [facility] [address] [place] [address] * HEPATITIS C ANTIBODY IGM + IGG (11/23/2020 3:13 PM EST) Hep C Ab Non-Reactiv e Non-Reacti ve 11/23/2020 8:51 PM EST [employer] Blood VENOUS BLOOD / Unknown Venipuncture / Unknown 11/23/2020 3:13 PM EST 11/23/2020 3:13 PM EST Mahin Dallas MD IMMUNOLOGY ORDERABLES Final Result Performing Organization Address [facility] Co de Phone Number [employer] [address] [facility], [address] [place] [id number] * [facility] EGD-COLONOSCOPY (06/20/2020 12:00 PM EDT) 06/20/2020 12:0 0 PM EDT Impressions [facility] - 06/20/2020 1:36 PM EDT Plan: [...] ORDERABLES Fin al Result Performing Organization Address [facility] [place] [address] from Last 3 Months or Most Recently Relevant to Health Maintenance Insurance [facility] ANTHEM PPO ANTHEM PPO [facility] Advance Directives For more information, please contact: [phone] * Full Code (Latest Code Status on [...] 11:18 PM 07/02/2019 5:45 PM Care Teams Classroom Monitor Relationship Specialty Start Date End Date Louis Rodriguez MD PCP - General 06/10/11
--- OUTSIDE RECORDS SUMMARY | 2025-08-10 11:10 | XMS_ITS | Clinical Summary ---
Author Organization [facility] Address [address] [place] [address] Care Team Providers Care Packing Shed Supervisor Name Role Phone Louis Rodriguez MD Primary Care Provider [phone] Source Comments This information has been disclosed [...] therelease of HIV test results or diagnoses. [id number] Allergies Active Allergy Reactions Criticality Noted [...] (06/28/2021): Added automatically from request for surgery [id number] Pyelonephritis 06/29/2019 Staghorn kidney stones 06/29/2019 Overview (06/28/2021): Added automatically from request for surgery [id number] Renal cell carcinoma of right kidney 05/26/2019 Overview (05/26/2019): Added automatically from request for surgery [id number] Chronic diastolic heart failure 12/17/2017 Acute renal [...] Treatment Not on file Insurance Care Teams Packing Shed Supervisor Relationship Specialty Start Date End Date Louis Rodriguez MD [address] [place] [address] PCP - General Family Medicine 05/06/19
== END 2025-08-09 23:59 | disposition home or self-care (01) ==
LOC: LAB.DROPOF 08-10 10:54
PROVIDERS: PCP Family Medicine; Visit Provider Family Medicine
DX: N30.00 Acute cystitis without hematuria (principal); R10.11 Right upper quadrant pain
CPT/HCPCS: 87086

== ENCOUNTER 2025-09-13 12:50 | Emergency (ER) | payer BC, SELFPAY ==
[2025-09-13 12:51] VITALS: BP 212/84; PULSE 64; RESP 20; TEMP 36.6; O2SAT 99; BMI 33.3
[2025-09-13 13:06] VITALS: PULSE 59; O2SAT 98; O2SAT 99
--- NOTE | 2025-09-13 13:17 | ED_ITS ---
<Statement entered by Bernard Hernandez MD - 09/15/25 16:28> Bernard Hernandez MD: I was consulted by the JOHN, and we discussed the complexity of the problems being addressed. I approve the treatment and management plan for this patient's care in the emergency department, thus performing a substantive portion of the medical decision making. Discharge Plan Disposition Patient Disposition: Home, Self-Care Condition: Good Prescriptions Prescriptions: New methocarbamol 750 mg tablet 750 mg PO HS Qty: 30 0RF No Action ondansetron HCl 4 mg tablet 4 mg PO TID Qty: 90 5RF Humulin 70/30 U-100 KwikPen 100 unit/mL (70-30) insulin pen 50 unit SQ BID Qty: 15 12RF clonidine HCl 0.2 mg tablet 0.2 mg PO TID PRN (Reason: hypertensive emergency) Qty: 90 3RF Rx Instructions: take if sbp over 160 (DME) pen needle, diabetic 32 gauge x 1/4 needle See Rx Instructions .Route .MEDSUPPLY Qty: 100 12RF Rx Instructions: As directed aspirin [Adult Low Dose Aspirin] 81 mg tablet,delayed release (DR/EC) 81 mg PO DAILY isosorbide mononitrate 60 mg tablet extended release 24 hr 60 mg PO DAILY Qty: 90 3RF hydralazine 100 mg tablet 100 mg PO BID Qty: 180 3RF metoclopramide HCl [Reglan] 10 mg tablet 10 mg PO Q6H PRN (Reason: nausea and vomiting) Qty: 120 1RF (DME) Dexcom G7 Sensor Device See Rx Instructions .Route Qty: 3 12RF Rx Instructions: As directed (DME) Dexcom G7 Nutrition Internship Misc See Rx Instructions .Route Qty: 1 0RF Rx Instructions: As directed dapagliflozin propanediol [Farxiga] 10 mg tablet 10 mg PO DAILY Qty: 90 3RF cefdinir 300 mg capsule PO hydrocodone-acetaminophen 7.5-325 mg tablet 1 tab PO Q8H Qty: 10 0RF acetaminophen-codeine 300-30 mg tablet 1 tab PO TID PRN (Reason: pain) Qty: 45 5RF insulin glargine 100 unit/mL (3 mL) insulin pen 120 unit SQ QPM Qty: 15 10RF losartan-hydrochlorothiazide 100-25 mg tablet 1 tab PO DAILY Qty: 90 3RF atorvastatin 40 mg tablet See Rx Instructions .ROUTE .COMPLEX Qty: 90 0RF Dose Instruction: TAKE 1 TABLET BY MOUTH EVERY NIGHT AT BEDTIME FOR HIGH CHOLESTEROL Rx Instructions: TAKE 1 TABLET BY MOUTH EVERY NIGHT AT BEDTIME FOR HIGH CHOLESTEROL ibuprofen [IBU] 800 mg tablet 800 mg PO Q8HP PRN (Reason: Moderate Pain) Qty: 30 0RF Referrals Follow up/Referrals: Louis Rodriguez MD [Primary Care Provider, Family Practice] - See instructions Activity Restrictions/Add. Instructions Additional Instructions/Restrictions: Please return to the emergency department with any worsening signs or symptoms. Please follow-up with your PCP in the upcoming days/weeks. Please utilize your muscle relaxer as prescribed. Could consider outpatient evaluation/referral for physical therapy or new MRI of your lumbar spine if symptoms worsen within the next couple of weeks or they do not improve. Could also utilize anti- inflammatory medication such as ibuprofen and Tylenol as needed for symptomatic relief. Clinical Impressions Clinical Impression: Fall, Acute exacerbation of chronic low back pain Instructions Patient Instructions: DI for Low Back Pain, How to Prevent Falls Print Language Print Language: Peruvian Discharge ED Provider: Bernard Hernandez General Adult HPI General Chief complaint: Fall Stated complaint: AO/, back pain Time Seen by Provider: 09/13/25 13:00 Mode of Arrival: Ambulatory Source of Information: Patient Description of Symptoms (Recalled from ER Triage Doc. by RN): pt slipped and fell this morning at 0730 on some snow/ice landing on her backside and striking back of head. abrasions to both posterior elbows and scalp. pt states main pain is in low back/ pelvis, sacrum History of Present Illness HPI narrative: 59-year-old female presents to the emergency department with a ground-level fall that occurred today, patient states she was coming down some steps, and she was off the steps, on her driveway when there was some residual snow , patient states she slipped and fell, striking her head, no LOC no presyncopal or syncopal event, admits to lower back pain and tailbone type pain, she admits to subjective numbness and tingling to the lateral aspect of her left thigh, patient does have some residual numbness and tingling at baseline does have previous history of what sounds like discectomy/laminectomies at the L4-L5 x 2, no radicular symptomatology at this time, patient denies any upper or lower extremity weakness, denies any anticoagulant use, denies any saddle anesthesia denies urinary bladder or bowel dysfunction, denies any fever chills chest pain shortness of breath nausea vomiting constipation diarrhea no abdominal pain, do es admit to right wrist pain states that she attempted to catch her self with the right wrist. Other past medical history is consistent with hypertension, HFpEF, T2DM, fatty liver disease, CAD, hyperlipidemia, carotid artery stenosis, renal artery stenosis, gastroparesis. Initial triage vitals notable for hypertension, could be in the setting of pain, as it improved, initial blood pressure was over 200 systolic. Please note that above description of symptoms, in this electronic medical record under categorization of recalled from ER triage doctor by RN are reflective of an initial nursing assessment, however, is not reflective of my full history and physical exam that was personally taken and clarified. Consequentially, this preceding description of symptoms, which may include the patient's categorized chief complaint in the EMR, do not reflect my personal clinical impression, and the ultimate description of history of present illness and patient stated complaints should be deferred to this section of the note. Unless stated otherwise or congruent with this section of the note, additional signs, symptoms, or incongruence should be interpreted as inaccurate with my clinical impression. Onset (ago): hour(s) Related Data Home Medications ?Medication ?Instructions ?Recorded ?Confirmed aspirin 81 mg tablet,delayed 81 mg PO DAILY 05/25/24 1 10/09/24 release (Adult Low Dose Aspirin) cefdinir 300 mg capsule mg PO 08/09/25 08/09/25 Previous Rx's ?Medication ?Instructions ?Recorded clonidine HCl 0.2 mg tablet 0.2 mg PO TID PRN hyperten sive 12/26/22 emergency #90 tabs pen needle, diabetic 32 gauge x #100 ea 12/26/2210/01 ibuprofen 800 mg tablet (IBU) 800 mg PO Q8HP PRN Moder ate Pain 08/04/24 #30 tabs acetaminophen 300 mg-codeine 30 mg 1 tab PO TID PRN pa in #45 tabs 09/05/24 tablet ondansetron HCl 4 mg tablet 4 mg PO TID #90 tabs 11/30 isosorbide mononitrate 60 mg 60 mg PO DAILY #90 tabs 0 01/17/25 tablet,extended release 24 hr insulin NPH-regular 70-30 U-100 50 unit (0.5 mL) SQ BI D #15 mL 02/01/25 insulin 100 unit/mL subcutaneous pen (Humulin 70/30 U-100 KwikPen) blood-glucose sensor (Dexcom G7 #3 ea 03/13/25 Sensor device) blood-glucose,store receiver,cont #1 ea 03/13/25 (Dexcom G7 Nutrition Internship) hydralazine 100 mg tablet 100 mg PO BID #180 tabs 02/26 03/22 metoclopramide HCl 10 mg tablet 10 mg PO Q6H PRN nause a and 03/13/25 (Reglan) vomiting #120 tabs insulin glargine 100 unit/mL (3 120 unit (1.2 mL) SQ Q PM Diabetes 05/15/25 mL) subcutaneous pen #15 mL losartan 100 1 tab PO DAILY #90 tabs 04/28 05/22 mg-hydrochlorothiazide 25 mg tablet atorvastatin 40 mg tablet See Rx Instructions .Route 1 .COMPLEX #90 tabs dapagliflozin propanediol 10 mg 10 mg PO DAILY #90 tab s 07/10/25 tablet (Farxiga) hydrocodone 7.5 mg-acetaminophen 1 tab PO Q8H #10 tabs 08/09/25 325 mg tablet methocarbamol 750 mg tablet 750 mg PO HS #30 tabs 08/28 04/21 Allergies Allergy/AdvReac Type Severity Reaction Status Date / Time lisinopril Allergy Severe angioedema Verified 08/09/25 08:16 semaglutide (From Ozempic) AdvReac Mild gastropares Verified 08/09/25 08:16 is metoprolol AdvReac bradycardia Verified 08/09/25 08:16 [facility] Disclaimer: The information contained in this section may have been updated after the patient was seen, as this information can be updated by other users. Medical History Edema of both lower extremities Ischemic pain of left foot Chronic diastolic (congestive) heart failure Diabetes Hypertensive heart disease CAD (coronary artery disease) Diastolic dysfunction HLD (hyperlipidemia) (HFpEF) heart failure with preserved ejection fraction Hypertension Hypertension Pain in right lower leg Surgical History History of appendectomy History of cholecystectomy Family History Other No significant family history Social History (Updated 08/09/25 @ 08:17 by Maru Rees MA) Smoking Status: Never smoker alcohol intake: never substance use type: denies use current occupational status: employed Travel in the last 8 weeks?: None household members: spouse housing: house 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 current occupational exposures/hazards: No caffeine: No Have you lived/traveled outside [place] in past 30 days?: No Contact w/someone who lives/traveled outside US past 30 days?: No Exposure to someone with infectious disease in past 14 days?: No Do you have a fever (greater than 100.4 F or 38 C)?: No Have you tested positive for COVID-19?: No Exposed to someone with COVID-19 in past 14 days?: No Do you have a sore throat?: No Do you have a cough?: No Do you have any weakness?: No Do you have any diarrhea?: No Are you experiencing any unusual bleeding?: No Do you have any muscle aches/pain?: No Do you have any abdominal pain?: No Are you experiencing loss of taste or smell?: No Other Medical History Have you received the Flu Vaccine for this season: Yes Have you received the Pneumonia Vaccine: Yes ROS Obtained: Yes All systems reviewed & no additional complaints except as documented Physical Exam General General appearance: alert and in no apparent distress Head Head exam: atraumatic and normocephalic Eye Eye exam: Present PERRL and EOMI ENT ENT exam: Present mucous membranes moist Neck Neck exam: Present normal inspection Chest Chest inspection: Present normal inspection and symmetric chest wall rise; Absent tenderness Respiratory Respiratory exam: Present normal lung sounds bilaterally; Absent respiratory distress Cardiovascular Cardiovascular exam: Present regular rate and normal rhythm Abdominal Exam Abdominal exam: Present soft; Absent tenderness, guarding, rebound or rigidity Extremities Exam Extremities exam: Present normal inspection, full ROM, tenderness and other (Mild tenderness palpation to the right wrist, good finger opposition good strength, otherwise neurovascular intact, pelvis stable to AP lateral compression, no obvious open fracture or traumatic dislocation or deformity) Back Exam Back exam: Present normal inspection, tenderness and paraspinal tenderness; Absent vertebral tenderness Comment: Patient has pain to palpation paraspinally to the lower lumbar spine and sacral region, no C or T-spine paraspinal spinal tenderness to palpation negative spinal tenderness to palpation at lower lumbar spine. No step-offs or traumatic deformities. Neurological Exam Neurological exam: Present alert, oriented X3 and other (5 out of 5 strength in bilateral lower and upper extremities, no gross sensation deficit with the exception of some mild decreased light touch sensation to the left lateral aspect of the patient's left thigh, appears to be chronic.) Psychiatric Psychiatric exam: Present normal affect Skin Skin exam: Present warm and dry Medical Decision Making Medical Records Medical records reviewed: Yes I reviewed the patient's medical records. Screening: Per USPSTF and CDC recommendations, given the prevalence of disease in our region, it is our hospital?s policy to screen for HIV and viral Hepatitis for all patients aged 18 and over and those with ongoing risk factors. Jono Inquiry Pt receiving controlled substance: No Jono was queried for this patient: No Vital Signs: 09/13/25 12:51 09/13/25 13:06 09/13/25 13:06 Temperature 97.8 F Temperature Source Oral Pulse Rate 59 L Pulse Rate [Left Radial] 64 Respiratory Rate 20 Blood Pressure [Right Arm] 212/84 H Blood Pressure Mean [Right Arm] 126 02 Sat by Pulse Oximetry 99 98 99 Oxygen Delivery Method Room Air Room Air Orders (Tests/Meds): ED MEDICATIONS Discontinued Medications Generic Name Dose Route Start Last Admin Trade Name Freq PRN Reason Stop Dose Admin Acetaminophen 1,000 mg 09/13/25 13:26 09/13/25 13:50 Acetaminophen 500mg Tab PO 09/13/25 13:27 1,000 mg ONCE ONE Administration Ibuprofen 400 mg 09/13/25 13:26 09/13/25 13:51 Ibuprofen 400 Mg Tablet PO 09/13/25 13:27 400 mg ONCE ONE Administration ORDERS Category Date Time Status CT bony pelvis Stat Cat Scan 09/13/25 13:[address] cervical spine wo con Stat Cat Scan 09/13/25 13:[address] head/brain wo con Stat Cat Scan 09/13/25 13:[address] lumbar spine wo con Stat Cat Scan 09/13/25 13:24 Completed Pelvis XR 1-2 views [XR pelvis 1-2V] Stat Exams 09/13/25 13:24 Completed XR hand RT min 3V Stat Exams 09/13/25 13:25 Completed XR wrist RT min 3V Stat Exams 09/13/25 13:25 Completed Medical Decision Narrative: 59-year-old female presents to the emergency department for a ground-level mechanical fall that occurred prior to arrival, complaining of headache, low back pain tailbone pain and right wrist pain differential diagnose include but not limited to, lumbago, acute lumbar sacral strain, degenerative disc disease of the spine, lumbar vertebral body fracture, other lumbar spine fracture, coccygeal fracture, sacral fracture, contusion, other soft tissue injury, hip sprain/strain, hip fracture, hand sprain, wrist sprain, metacarpal fracture, acute SDH, traumatic SAH, closed head injury, wrist fracture among others. I discussed this patient's case with the attending physician Will obtain CT head without contrast, CT bony pelvis, CT cervical spine without contrast, CT lumbar spine without contrast, x-ray of the right hand and right wrist and pelvic x-ray for further evaluation/characterization, will give 1000 mg p.o. Tylenol and 400 mg p.o. Motrin for symptomatic relief. I reviewed the patient's CT head without contrast on the corresponding radiologic report, no acute intracranial abnormality. I reviewed the patient's CT cervical spine without contrast on the corresponding radiologic report no fracture or malalignment. I reviewed the patient's CT lumbar spine without contrast on the corresponding radiologic report degenerative change without acute bony abnormality. I reviewed the patient's CT bony pelvis without contrast on the corresponding radiologic report no acute bony abnormality of the pelvis. I reviewed the patient's right hand x-ray and right wrist x-ray along the corresponding radiologic reports, no acute bony abnormality. I reviewed the patient's pelvic x-ray along the corresponding radiologic report no acute bony abnormality. Reexamination of the patient at approximately 2:55 PM, patient is resting comfortably bed, did get some relief with p.o. analgesia, patient has no red flag signs or symptoms move extremities to command ambulates unassisted, I do believe this is more of a degenerative disc disease picture/acute lumbar sacral strain or other soft tissue injury in the setting of fall, discussed all results with the patient at the bedside patient is in agreement with the current discharge plan/treatment plan. I recommend analgesia with anti-inflammatory medications, I will prescribe 750 mg p.o. methocarbamol as needed for symptomatic relief. Patient will follow-up with her PCP in the upcoming days/weeks. And strict ED return precautions were given. Patient once again voiced understanding Critical Care Critical Care Time Critical Care Time: No
--- NOTE | 2025-09-13 13:24 | CT_ITS ---
FINAL REPORT TECHNIQUE: Axial imaging of the lumbar spine was obtained without contrast. Reformatted images were also obtained and reviewed.This study was performed with techniques to keep radiation doses as low as reasonably achievable, (ALARA). Individualized dose reduction techniques using automated exposure control or adjustment of mA and/or kV according to the patient's size were employed. CLINICAL HISTORY: Left-sided lower lumbar spine pain after fall FINDINGS: There is no acute fracture or subluxation. The vertebra are normal height. There is moderate multilevel degenerative disc disease and facet arthropathy. There is degenerative canal stenosis and neuroforaminal narrowing, most pronounced at L3-4 and L4-5. There is no malalignment. Facets are properly aligned. Prevertebral soft tissues unremarkable. IMPRESSION: Degenerative changes without acute bony abnormality. Reviewed, Interpreted and Dictated by Lito Lyons MD Transcribed by Sheridan Burnett Authenticated and [facility]
--- NOTE | 2025-09-13 13:24 | XR_ITS ---
FINAL REPORT CLINICAL HISTORY: Left hip pain after fall COMPARISON: none FINDINGS: SINGLE VIEW PELVIS: A single view of the pelvis was obtained. There is no acute fracture or dislocation. Vizualized joint spaces are normally aligned. Soft tissues are unremarkable. IMPRESSION: No acute bony abnormality. Reviewed, Interpreted and Dictated by Lito Lyons MD Transcribed by Beth Prado Authenticated and [facility]
--- NOTE | 2025-09-13 13:24 | CT_ITS ---
FINAL REPORT TECHNIQUE: Axial imaging of the pelvis was obtained without contrast.This study was performed with techniques to keep radiation doses as low as reasonably achievable, (ALARA). Individualized dose reduction technique using automated exposure control or adjustment of mA and/or kV according to the patient's size were employed. CLINICAL HISTORY: Tailbone pain after fall left hip pain after fall FINDINGS: There is no acute fracture or dislocation. Femoral heads are located bilaterally. Soft tissues demonstrate no acute abnormality. Sacral ala are intact. There are degenerative changes. A sclerotic lesion is seen in the right iliac bone which could represent large bone island. IMPRESSION: No acute bony abnormality of the pelvis. Reviewed, Interpreted and Dictated by Lito Lyons MD Transcribed by Sheridan Burnett Authenticated and [facility]
--- NOTE | 2025-09-13 13:24 | CT_ITS ---
FINAL REPORT TECHNIQUE: Thin section axial CT with sagittal reconstruction without contrast This study was performed with techniques to keep radiation doses as low as reasonably achievable, (ALARA). Individualized dose reduction techniques using automated exposure control or adjustment of mA and/or kV according to the patient''s size were employed. CLINICAL HISTORY: fall, trauma FINDINGS: No fracture is seen. Alignment is normal. There is severe spondylosis and degenerative disc disease at the C6-7 level with canal stenosis and neuroforaminal narrowing. IMPRESSION: No fracture or malalignment Reviewed, Interpreted and Dictated by Ltio Lyons MD Transcribed by Sheridan Burnett Authenticated and [facility]
--- NOTE | 2025-09-13 13:25 | XR_ITS ---
FINAL REPORT CLINICAL HISTORY: FOOSH injury FINDINGS: RIGHT HAND Three views demonstrate no acute fracture or dislocation. The visualized joint spaces are normally aligned. The soft tissues are unremarkable. IMPRESSION: No acute bony abnormality. Reviewed, Interpreted and Dictated by Lito Lyons MD Transcribed by Sheridan Burnett Authenticated and [facility]
--- NOTE | 2025-09-13 13:25 | XR_ITS ---
FINAL REPORT CLINICAL HISTORY: FOOSH injury COMPARISON: none FINDINGS: RIGHT WRIST THREE VIEW FINDINGS: Three views show no evidence of an acute, displaced fracture or dislocation of the visualized bony architecture. The joint spaces appear normal. IMPRESSION: Unremarkable exam. Reviewed, Interpreted and Dictated by Lito Lyons MD Transcribed by Beth Prado Authenticated and [facility]
--- NOTE | 2025-09-13 13:27 | CT_ITS ---
FINAL REPORT TECHNIQUE: Axial imaging of the head was obtained without contrast. This study was performed with techniques to keep radiation doses as low as reasonably achievable, (ALARA). Individualized dose reduction techniques using automated exposure control or adjustment of mA and/or kV according to the patient''s size were employed. CLINICAL HISTORY: fall, head trauma FINDINGS: The ventricles are normal in size. There is no evidence of hemorrhage. No masses are identified. No extra-axial fluid is seen. The sinuses are normal. There is no acute osseous abnormality. IMPRESSION: No acute intracranial abnormality. Reviewed, Interpreted and Dictated by Lito Lyons MD Transcribed by Sheridan Burnett Authenticated and . [facility]
[2025-09-13] MEDS: ACETAMINOPHEN 500MG TAB 1000 MG PO (13:50)
[2025-09-13] MEDS: IBUPROFEN 400 MG TABLET PO (13:51)
--- OUTSIDE RECORDS SUMMARY | 2025-09-13 14:08 | XMS_ITS | Clinical Summary ---
Author Organization [facility] Address [address] [place] [address] Phone Care Team Providers Care Food Service Tray Attendant Name Role Phone Anastasia CHAVES, Louis Brewer [phone] Conditions or Problems Problem Name Problem Code Onset Date Status Entry Date Provider Comment Standard Description Annotate WOUND INFECTION L08.9 (ICD-10-CM) 02/06 Active 02/06 Louis Oconnor MD Local infection of the skin and subcutaneous tissue, unspecified LUMBAR RADICULOPATHY [id number] (SNOMED CT) 01/13 Active 01/13 Louis Oconnor MD Lumbar radiculopathy Medications Medication Instructions Start Date Stop Date Generic Name ND Provider TEQUIN 400 MG TABS 1 po q day x 10 days 2 GATIFLOXACIN [id number] Louis Oconnor MD Medications Administered No information [...]
--- OUTSIDE RECORDS SUMMARY | 2025-09-13 14:09 | XMS_ITS | Clinical Summary ---
Author Organization [facility] Address [address] [place] [address] Phone Care Team Providers Care Vp Project Name Role Phone Louis Rodriguez MD Primary Care Provider [phone] Allergies Active Allergy Reactions Criticality Noted Date Comments Beta-Blockers (Beta-Adrenergic Blocking Agts) Other (See Comments) 09/28/2021 bradycardia Iodine Swelling 12/31/2013 03/03/[address] with [id number] without any premedications and did not have [...] Diagnostic (FREESTYLE LITE STRIPS) Misc [place] [facility] [place]Non[place]; Combo Route) route. Use to test BS 4 x daily Active Blood-Glucose Meter (FREESTYLE LITE METER) Misc Kit by [employer].(Non-Drug; Combo Route) route. Use to test BS [...] (07/05/2020): Added automatically from request for surgery [id number] Submucosal rectal lesion 07/05/2020 Overview (07/05/2020): Added automatically from request for surgery [id number] Special screening for malignant neoplasms, colon 05/31/2020 Overview (05/31/2020): Added automatically from request for surgery [id number] LFTs abnormal 05/31/2020 Overview (05/31/2020): Added automatically from request for surgery [id number] Nausea and vomiting 05/31/2020 Overview (05/31/2020): Added automatically from request for surgery [id number] Metabolic syndrome 05/31/2020 Overview (05/31/2020): Added automatically from request for surgery [id number] Kidney stones 07/14/2019 Overview (07/14/2019): Added automatically from request for surgery [id number] Pyelonephritis 06/29/2019 Staghorn right kidney stone 06/29/2019 [...] drink = 0.6 oz pur e alcohol) [facility] Utilities Answer Date Recorded In the past 12 months has e [place], gas, oil, or water [employer] threatened to shut off services in your home? No 03/06/2025 Overall Financial Resource Strain (CARDIA) Answe r Date Recorded How hard is it for you to pa y for the very basics like food, housing, medical care, and heating? Somewhat hard 03/06/2025 PHQ-2 Answer Date Recorded PHQ-2 Total Score 0 03/06/2025 [facility] [place] of Occupat ional Health - Occupational Stress [...] things needed for daily living? No 09/28/2021 [facility] IP Transportation Answer D ate Recorded [...] this topic Medical Devices Implanted Type Area Front Desk Lead Device Identifier Shelf Expiration Date Model / Serial / Lot Stent Contour 6 X 24 #[id number] - [id number] Implanted:Qty: 1 on 08/10/2019 by Leanna Jimenez MD at [facility] Stent Right: Ureter [employer]:MICROVASIVE: UROLOGY 05/02/2022 [id number] / / [id number] Procedures Procedure Name Priority Date/Time Associated Diagnosis [...] 03/07/2025 10:05 AM EDT [facility] Potassium 3.8 3.5 - 5.0 mmol/L 03/07/2025 10:05 AM EDT [facility] Chloride 101 98 - 107 mmol/L 03/07/2025 10:05 AM EDT [facility] Total CO2 26 22 - 29 mmol/L 03/07/2025 10:05 AM EDT [facility] Anion Gap 11 7 - 16 mmol/L 03/07/2025 10:05 AM EDT [facility] Calcium 9.0 8.8 - 10.4 mg/dL 03/07/2025 10:05 AM EDT [facility] Glucose Lvl 155(H) 70 - 99 mg/dL 03/07/2025 10:05 AM EDT [facility] BUN 12 8 - 23 mg/dL 03/07/2025 10:05 AM EDT [facility] Creatinine 0.75 0.51 - 1.30 mg/dL 03/07/2025 10:05 AM EDT [facility] eGFR (CKD-EPIcr 2020) 91 >=60 mL/min/1.7 3 m2 03/07/2025 10:05 AM EDT [facility] Comment:Estimated GFR was ca lculated using the CKD-EPIcr (2020) equation refit without race. The equation is recommended by the National Kidney Foundation - [place] [employer] Nephrology Task Force. Blood VENOUS BLOOD / Unknown Venipuncture / Unknown 03/07/2025 8:36 AM EDT 03/07/2025 9:27 AM EDT Sophie Caldwell PA-C CHEMISTRY ORDERABLES Sandie l Result Performing Organization Address [facility] Co de Phone Number [facility] [address] , [place] [address] * (ABNORMAL) HEMOGLOBIN A1C (09/30/2021 10:11 AM EST) Hgb A1C 12.3(H) 4.2 - 5.6 % 10/01/2021 11:47 AM EST [facility] [employer] [place] Est. Avg Glucose 306 mg/dL 10/01/2021 11:47 AM EST [facility] Blood Venipuncture / Unknown 09/30/2021 10:11 AM EST 09/30/2021 10:16 AM EST Narrative [facility] [place] - 10/01/2021 11:47 AM EST REFERENCE [...] ORDERABLES Fin al Result Performing Organization Address [facility] Co de Phone Number [facility] [address] , [place] [address] * (ABNORMAL) MICROALBUMIN/CREATININE RATIO URINE (02/02/2021 1:47 PM EDT) Urine Albumin 39.3 mg/L 02/02/2021 2:19 PM EDT [facility] [employer] [place] Urine Creatinine 110.8 mg/dL 02/02/2021 2:19 PM EDT [facility] [employer] [place] Ur Albumin/Creat Ratio 35(H) 0 - 30 mg/g 02/02/2021 2:19 PM EDT [facility] [employer] [facility] [place] Urine STRUCTURE OF URINARY TRACT PROPER / Unknown 02/02/2021 1:47 PM EDT 02/02/2021 1:51 PM EDT Eleazar Solano MD URINE ORDERABLES Final Result [facility] [address] [facility] [address], [place] [address] * (ABNORMAL) LIPID SCREEN (02/02/2021 12:04 PM EDT) Cholesterol 180 <200 mg/dL 02/02/2021 1:43 PM EDT [facility] Comment: < 200 Desirable 200 - 239 Borderline High >= 240 High Triglyceride 116 <150 mg/dL 02/02/2021 1:43 PM EDT [facility] Comment: < 150 Normal 150 - 199 Borderline High 200 - 499 High >= 500 Very High HDL 49 >=40 mg/dL 02/02/2021 1:43 PM EDT [facility] Comment: > 60 Optimal 40 - 60 Acceptable < 40 Low LDL Calculated 108(H) <100 mg/dL 02/02/2021 1:43 PM EDT [facility] Comment: < 100 Optimal 100 - 129 Near or above optimal 130 - 159 Borderline High 160 - 189 High >= 190 Very High Non-HDL-C Calculated 131(H) <=129 mg/dL 02/02/2021 1:43 PM EDT [facility] Comment: <130 Desirable 130-159 Above Desirable 160-189 Borderline High 190-219 High >= 220 Very High Fasting Specimen? Yes None 021 1:43 PM EDT [facility] Blood VENOUS BLOOD / Unknown Venipuncture / Unknown 02/02/2021 12:04 PM EDT 02/02/2021 1:13 PM EDT Eleazar Solano MD CHEMISTRY ORDERABLES Final Resul t [facility] [employer], [facility] [address] [place] [address] [facility] [address] [place] [address] * HEPATITIS C ANTIBODY IGM + IGG (11/23/2020 3:13 PM EST) Hep C Ab Non-Reactiv e Non-Reacti ve 11/23/2020 8:51 PM EST [facility] Blood VENOUS BLOOD / Unknown Venipuncture / Unknown 11/23/2020 3:13 PM EST 11/23/2020 3:13 PM EST Mahin Dallas MD IMMUNOLOGY ORDERABLES Final Result Performing Organization Address [facility] Co de Phone Number [facility] [address] [facility], [address] [place] [id number] * [facility] EGD-COLONOSCOPY (06/20/2020 12:00 PM EDT) 06/20/2020 12:0 0 PM EDT [facility] - 06/20/2020 1:36 PM EDT [...] ORDERABLES Fin al Result Performing Organization Address [facility] [place] [address] from Last 3 Months or Most Recently Relevant to Health Maintenance Insurance [facility] PPO ANTHEM PPO ANTHEM PPO [facility] PPO Advance Directives For more information, please contact: [phone] * Full Code (Latest Code Status on [...] 11:18 PM 07/02/2019 5:45 PM Care Teams Vp Project Relationship Specialty Start Date End Date Louis Rodriguez MD PCP - General 06/10/11
--- OUTSIDE RECORDS SUMMARY | 2025-09-13 14:09 | XMS_ITS | Clinical Summary ---
Author Organization [facility] Address [address] [place] [address] Care Team Providers Care [employer] Engineer Name Role Phone Louis Rodriguez MD Primary Care Provider [phone] Source Comments This information has been disclosed [...] therelease of HIV test results or diagnoses. [id number] Allergies Active Allergy Reactions Criticality Noted Date [...] (06/28/2021): Added automatically from request for surgery [id number] Pyelonephritis 06/29/2019 Staghorn kidney stones 06/29/2019 Overview (06/28/2021): Added automatically from request for surgery [id number] Renal cell carcinoma of right kidney 05/26/2019 Overview (05/26/2019): Added automatically from request for surgery [id number] Chronic diastolic heart failure 12/17/2017 Acute renal [...] Plan of Treatment Not on file [place] [facility] [place]: [facility] [id number] [place] [address] Care Teams [employer] Engineer Relationship Specialty Start Date End Date Louis Rodriguez MD [address] [place] [address] PCP - General Family Medicine 05/06/19
[2025-09-13 15:15] VITALS: BP 183/79; PULSE 59; RESP 20; TEMP 36.6; O2SAT 98
== END 2025-09-13 15:15 | disposition home or self-care (01) ==
PROVIDERS: Emergency Provider Student in an Organized Health Care Education/Training Program; PCP Family Medicine
DX: M54.59 Other low back pain (principal); M89.29 Other disorders of bone development and growth, multiple sites; W00.0XXA Fall on same level due to ice and snow, initial encounter; Y92.007 Garden or yard of unspecified non-institutional (private) residence as the place of occurrence of the external cause; R20.0 Anesthesia of skin; R20.2 Paresthesia of skin; M25.531 Pain in right wrist; I11.0 Hypertensive heart disease with heart failure; I50.30 Unspecified diastolic (congestive) heart failure; E11.9 Type 2 diabetes mellitus without complications; E78.5 Hyperlipidemia, unspecified; I25.10 Atherosclerotic heart disease of native coronary artery without angina pectoris; Z79.82 Long term (current) use of aspirin; Z88.8 Allergy status to other drugs, medicaments and biological substances
CPT/HCPCS: 70450; 72125; 72131; 72170; 72192; 73110; 73130; 99284; 99285